=== PATIENT | female | born 1960 | race Caucasian/White ===

== ENCOUNTER 2019-05-22 10:47 | Outpatient (CLI) | payer MEDICARE, MEDICAID, SELFPAY ==
[2019-05-22 11:02] LABS: Basophils Absolute Auto 0.07 K/mm3 (0.00-0.10); Basophils Percent Auto 0.9 % (0.0-1.0); Eosinophils Absolute Auto 0.35 K/mm3 (0.02-0.50); Eosinophils Percent Auto 4.7 % (1.0-6.0); Hematocrit 40.8 % (35.0-49.0); Hemoglobin 13.9 g/dL (12.0-15.0); Immature Granulocyte Absolute 0.03 K/mm3 (0.00-0.00); Immature Granulocyte Percent A 0.4 % (0.0-0.0); Lymphocytes Absolute Auto 1.87 K/mm3 (1.10-4.50); Lymphocytes Percent Auto 24.9 % (18.0-42.0); Mean Corpuscular HGB Conc 34.1 g/dL (32.0-36.0); Mean Corpuscular Hemoglobin 32.1 pg (27.0-31.0); Mean Corpuscular Volume 94.2 fL (78.0-102.0); Mean Platelet Volume 9.5 fl (9.2-11.8); Monocytes Absolute Auto 0.52 K/mm3 (0.10-0.90); Monocytes Percent Auto 6.9 % (2.0-11.0); Neutrophils Absolute Auto 4.7 K/mm3 (1.7-7.2); Neutrophils Percent Auto 62.2 % (50.0-70.0); Platelet Count Result 238 K/mm3 (150-420); Red Blood Count 4.33 M/mm3 (4.20-5.40); Red Cell Distribution Width 13.6 % (11.6-14.4); White Blood Count 7.5 K/mm3 (4.8-10.8)
[2019-05-22 11:03] LABS: Add Urine Microscopic? YES; Appearance Urine Clear (Clear); Bilirubin Urine Negative (Negative); Blood Urine 1+ (Negative); Color Urine Yellow (Yellow); Glucose Urine UA Negative (Negative); Ketones Urine Negative (Negative); Leukocyte Esterase Ur 2+ (Negative); Nitrate Urine Negative (Negative); Protein Urine Negative (Negative); Urobilinogen Urine 0.2 mg/dL (0.2-1.0); pH Urine 6.5 (5.0-8.0)
[2019-05-22 11:08] LABS: Bacteria Urine 1+ /hpf; Squamous Epithelial Cell Urine Few /hpf (Few)
[2019-05-22 11:14] LABS: Partial Thromboplastin Time 27.4 SEC (22.3-31.6); Prothrombin Time 10.3 Seconds (9.64-11.0)
[2019-05-22 11:26] LABS: Alanine Aminotransferase 26 U/L (14-59); Albumin Level 4.2 g/dL (3.4-5.0); Alkaline Phosphatase 88 U/L (46-116); Anion Gap 11.8 mmol/L (7-16); Aspartate Amino Transferase 16 U/L (15-37); Bilirubin,Total 0.3 mg/dL (0.00-1.00); Blood Urea Nitrogen 10 mg/dL (7-18); Calcium 8.9 mg/dL (8.5-10.1); Carbon Dioxide 29 mmol/L (21-32); Chloride 97 mmol/L (98-108); Cholesterol 248 mg/dL (0-200); Estimated Glomerular Filt Rate > 60; Glucose 97 mg/dL (70-99); HDL Direct 61 mg/dL (40-60); LDL Cholesterol Calculated 151 mg/dL (<130); Osmolality Calculated 275 mOsm/kg (285-295); Potassium 4.8 mmol/L (3.5-5.1); Sodium 133 mmol/L (136-145); Total Protein 7.5 g/dL (6.4-8.2); Triglycerides 179 mg/dL (0-150)
== END 2019-05-22 10:48 | disposition home or self-care (01) ==
PROVIDERS: PCP Internal Medicine; Visit Provider Internal Medicine
DX: K62.5 Hemorrhage of anus and rectum (principal); E78.5 Hyperlipidemia, unspecified
CPT/HCPCS: 36415; 80053; 80061; 81001; 85025; 85610; 85730

== ENCOUNTER 2019-09-13 00:07 | Outpatient (CLI) | payer MEDICARE, MEDICAID, SELFPAY ==
[2019-09-13 18:32] LABS: SARS-CoV-2 RNA PCR Negative
== END 2019-09-13 00:08 | disposition home or self-care (01) ==
LOC: ANHCOVIDDT 00:07
PROVIDERS: PCP Internal Medicine; Visit Provider Internal Medicine Gastroenterology
DX: Z01.812 Encounter for preprocedural laboratory examination (principal); Z11.59 Encounter for screening for other viral diseases
CPT/HCPCS: 87635; C9803; U0003

== ENCOUNTER 2019-09-17 08:28 | Outpatient (CLI) | payer MEDICARE, SELFPAY ==
[2019-09-17 09:26] LABS: Alanine Aminotransferase 27 U/L (14-59); Albumin Level 4.1 g/dL (3.4-5.0); Alkaline Phosphatase 82 U/L (46-116); Anion Gap 11.2 mmol/L (7-16); Aspartate Amino Transferase 17 U/L (15-37); Bilirubin,Total 0.4 mg/dL (0.00-1.00); Blood Urea Nitrogen 10 mg/dL (7-18); Calcium 9.2 mg/dL (8.5-10.1); Carbon Dioxide 30 mmol/L (21-32); Chloride 95 mmol/L (98-108); Estimated Glomerular Filt Rate 56; Glucose 123 mg/dL (70-99); Osmolality Calculated 274 mOsm/kg (285-295); Potassium 4.2 mmol/L (3.5-5.1); Sodium 132 mmol/L (136-145); Total Protein 7.5 g/dL (6.4-8.2)
== END 2019-09-17 08:29 | disposition home or self-care (01) ==
LOC: CHSLAB 08:31
PROVIDERS: PCP Internal Medicine; Visit Provider Internal Medicine
DX: E87.1 Hypo-osmolality and hyponatremia (principal)
CPT/HCPCS: 36415; 80053

== ENCOUNTER 2019-10-02 11:30 | Outpatient (CLI) | payer MEDICARE, MEDICAID, SELFPAY ==
--- NOTE | ~2019-10-02 | XR_ITS ---
XR chest 2V DATE: 10/02/2019 12:10 INDICATION: Chronic cough. History of previous lung resection. TECHNIQUE: 2 views COMPARISON: 05/14/2017 two-view chest FINDINGS: Normal heart size. No hilar or mediastinal enlargement. The lungs are hyperinflated but clear of infiltrate or consolidation. No pleural effusion or pulmonar y vascular congestion or pneumothorax. Included skeletal structures are unremarkable. IMPRESSION: Bilateral hyperinflation, suggesting COPD No active cardiopulmonary disease Reviewed, dictated and finalized at location B.
--- NOTE | 2019-10-02 11:40 | ECG_ITS ---
Measurements Intervals [place] Rate: 92 P: 57 OR: 160 QRS: 73 QRSD: 90 T: 68 QT: 350 QTc: 435 Interpretive Statements SINUS RHYTHM BORDERLINE T WAVE ABNORMALITY- ANTERIOR LEADS BORDERLINE ECG Electronically Signed On 10-02-2019 12:01:24 CDT by Everett Dong D.O.
== END 2019-10-02 11:31 | disposition home or self-care (01) ==
PROVIDERS: PCP Internal Medicine; Visit Provider Internal Medicine
DX: J44.1 Chronic obstructive pulmonary disease with (acute) exacerbation (principal); R05 Cough; R55 Syncope and collapse
CPT/HCPCS: 71046; 93005

== ENCOUNTER 2019-10-07 16:17 | Emergency (ER) | payer MEDICARE, MEDICAID, SELFPAY ==
--- NOTE | ~2019-10-07 | CT_ITS ---
EXAMINATION: CT brain wo con EXAM DATE: 10/07/2019 17:36 INDICATION: Disoriented, confusion. TECHNIQUE: Spiral CT of the head was performed without contrast. Axial, coronal and sagittal images were reviewed. The dose-length product (DLP) for this examination was 605.33 mGy-cm. The exposure w as tailored according to patient size, and iterative reconstruction (ASIR) was used as additional dos e reduction technique. There is no prior study for comparison. FINDINGS: There is suspected to be a low-density right frontal lobe lesion measuring about 2.5 cm ant eriorly. There is extensive low density within the right frontal white matter, most likely vasogenic edema. There is 7 mm of leftward midline shift from the edema. No acute hemorrhage, extra-axial colle ctions or obstructive hydrocephalus. The orbits and soft tissues are unremarkable. IMPRESSION: 1. Right frontal lobe lesion, differential diagnosis including metastatic disease, abscess, primary DIETIST neoplasm. MRI without and with contrast is indicated. 2. Mild leftward midline shift from associated vasogenic edema. 3. No acute hemorrhage. Reviewed, dictated and finalized at location A. IMPRESSION: 1. Right frontal lobe lesion, differential diagnosis including metastatic dise ase, abscess, primary DIETIST neoplasm. MRI without and with contrast is indicated. 2. Mild leftward midline shift from associated vasogenic edema. 3. No acute hemorrhage.
--- NOTE | ~2019-10-07 | XR_ITS ---
EXAMINATION: XR chest 1V portable EXAM DATE: 10/07/2019 17:34 INDICATION: Confusion, disoriented. Cough. TECHNIQUE: Portable AP frontal chest x-ray was obtained. Comparison is made to prior examination from 10/02/2019. FINDINGS: The lungs are clear. There are no pleural effusions. The cardiomediastinal silhouette is within normal limits. There is no pneumothorax suspected. The bones and soft tissues are unremarkab le. IMPRESSION: No acute cardiopulmonary findings. Reviewed, dictated and finalized at location A.
[2019-10-07 16:30] VITALS: BP 135/91; PULSE 110; RESP 16; TEMP 36.8; O2SAT 99
--- NOTE | 2019-10-07 17:03 | ECG_ITS ---
Measurements Intervals [place] Rate: 106 P: 61 CT: 158 QRS: 74 QRSD: 82 T: 53 QT: 337 QTc: 449 Interpretive Statements SINUS TACHYCARDIA NONSPECIFIC ST & T-WAVE ABNORMALITY- ANTEROLAT/INF LEADS ABNORMAL ECG Electronically Signed On 10-07-2019 19:36:55 CDT by Everett Dong D.O.
--- NOTE | 2019-10-07 17:23 | ED.AMS ---
HPI - Altered Mental Status General Chief Complaint: Altered Mental Status Stated Complaint: confused Time Seen by Provider: 10/08/19 07:23 Source: patient and family (partner of 25 years,rick Siddiqui) Limitations: altered mental status History of Present Illness HPI narrative: 59 y.o. with chronic alcohol abuse, COPD and chronic pain was brought into the E.D. by her partner of 25 years, Jasiel Siddiqui because of confusion. He states since yesterday she has been referring to him as her father (who is ) , and has been wondering around the house looking for things. She called him for help at 2 AM after having defecated on herself and the floor. Since then she has been unsteady on her feet. Pt. states that she does have diarrhea which occurs abruptly and with urgency. Pt states that her father brought her into [place] E.[facility]. because she isn't acting right . She complains of feeling tired today. Last night she felt like she was in a dream. Mr Siddiqui found her this AM holding a container which had several blue tablets in it. He does not know what the medicine is or what it's for. Pt. states yesterday she took a pinch of Xanax crumbled on the bottom of a botte. 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 Jasiel Siddiqui says she drinks a lot of beer every day and has for along time. Mr Siddiqui also states she has been forgetting a lot for months. This is recently worse. Mr. Siddiqui states she has been complaining of a headache for weeks. Walks around holding the right side of her head. Pt states she has minor pain in her neck today. Pt states she has been coughing the last couple of days. She saw Dr. 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 There has been no fever's or chills. Related Data Home Medications Medication Instructions Recorded Confirmed budesonide-formoterol [Symbicort] 2 puff INHALATION DAILY 09/09/19 10/07/19 cyclobenzaprine 10 mg PO BID 09/09/19 10/07/19 diclofenac sodium 75 mg PO DAILY 09/09/19 10/07/19 fluticasone furoate-vilanterol 2 inh INHALATION DAILY 09/09/19 10/07/19 [Breo Ellipta] gabapentin 600 mg PO DAILY 09/09/19 10/07/19 metoprolol succinate 50 mg PO DAILY 09/09/19 10/07/19 montelukast 10 mg PO DAILY 09/09/19 10/07/19 omeprazole 40 mg PO DAILY 09/09/19 10/07/19 pravastatin 10 mg PO DAILY 09/09/19 10/07/19 ropinirole 0.5 mg PO DAILY 09/09/19 10/07/19 venlafaxine 75 mg PO DAILY 09/09/19 10/07/19 Allergies Allergy/AdvReac Type Severity Reaction Status Date / Time tramadol Allergy Unknown Vomiting Verified 08/22/19 10:30 Review of Systems Constitutional: Constitutional: Denies chills and Denies fever(s) Eyes: Eyes: Denies change in vision ENT: Denies nasal congestion and Denies sore throat Cardiovascular: Cardiovascular: Denies chest pain Respiratory: Respiratory: Denies dyspnea and Denies wheezing Gastrointestinal: Gastrointestinal: Denies abdominal pain, Denies nausea and Denies vomiting Genitourinary: Genitourinary: Denies dysuria Musculoskeletal: Musculoskeletal: Denies myalgias and Denies arthralgias Integumentary/Breasts: Skin/Breast: Reports rash (several bumps on abdomen) Neurologic: Denies dizziness and Denies numbness Psychiatric: Psychiatric: Reports depression (states has been feeling down, has decreased motivation. No suicidal thought) [facility] Past Medical History Medical History (Updated 10/08/19 @ 05:53 by Ranjeet Pitts MD) Adenomatous colon polyp Bloating Bloating Breast CA Epigastric pain GERD (gastroesophageal reflux disease) Lung cancer Rectal bleeding Surgical History Surgical History (Updated 10/07/19 @ 17:48 by Ranjeet Pitts MD) S/P lumpectomy of breast Family History Family History (Updated 10/23/13 @ 07:13 by DOCTOR UNKNOWN) Father Carcinoma of colon Mother Family history of renal cell carcinoma Social History Social History (Updated 10/07/19 @ 17:49 by Ranjeet Pitts MD) Smoking status: Heavy tobac
[2019-10-07 17:32] LABS: Add Urine Microscopic? YES; Appearance Urine Clear (Clear); Bilirubin Urine Negative (Negative); Blood Urine 1+ (Negative); Color Urine Yellow (Yellow); Glucose Urine UA Negative (Negative); Ketones Urine Negative (Negative); Leukocyte Esterase Ur Negative (Negative); Nitrate Urine Negative (Negative); Protein Urine Negative (Negative); Urobilinogen Urine 0.2 mg/dL (0.2-1.0); pH Urine 6.5 (5.0-8.0)
[2019-10-07 17:38] LABS: Bacteria Urine Trace /hpf; Squamous Epithelial Cell Urine Few /hpf (Few); WBC Urine 0-3 /hpf (0-3)
[2019-10-07 17:40] LABS: Amphetamine Screen Urine Negative (Negative); Barbiturate Screen Urine Negative (Negative); Benzodiazepines Screen Urine Positive (Negative); Cannabinoid Screen Urine Positive (Negative); Cocaine Screen Urine Negative (Negative); Methadone Screen Urine Negative (Negative); Opiate Screen Urine Negative (Negative); Phencyclidine Screen Urine Negative (Negative)
[2019-10-07 17:59] LABS: Basophils Absolute Auto 0.05 K/mm3 (0.00-0.10); Basophils Percent Auto 0.8 % (0.0-1.0); Eosinophils Absolute Auto 0.27 K/mm3 (0.02-0.50); Eosinophils Percent Auto 4.3 % (1.0-6.0); Hematocrit 37.8 % (35.0-49.0); Hemoglobin 12.9 g/dL (12.0-15.0); Immature Granulocyte Absolute 0.03 K/mm3 (0.00-0.00); Immature Granulocyte Percent A 0.5 % (0.0-0.0); Lymphocytes Absolute Auto 1.85 K/mm3 (1.10-4.50); Lymphocytes Percent Auto 29.3 % (18.0-42.0); Mean Corpuscular HGB Conc 34.1 g/dL (32.0-36.0); Mean Corpuscular Hemoglobin 31.5 pg (27.0-31.0); Mean Corpuscular Volume 92.4 fL (78.0-102.0); Mean Platelet Volume 9.5 fl (9.2-11.8); Monocytes Absolute Auto 0.36 K/mm3 (0.10-0.90); Monocytes Percent Auto 5.7 % (2.0-11.0); Neutrophils Absolute Auto 3.8 K/mm3 (1.7-7.2); Neutrophils Percent Auto 59.4 % (50.0-70.0); Platelet Count Result 220 K/mm3 (150-420); Red Blood Count 4.09 M/mm3 (4.20-5.40); Red Cell Distribution Width 13.4 % (11.6-14.4); White Blood Count 6.3 K/mm3 (4.8-10.8)
[2019-10-07 18:21] LABS: Alanine Aminotransferase 29 U/L (14-59); Albumin Level 3.9 g/dL (3.4-5.0); Alkaline Phosphatase 82 U/L (46-116); Ammonia < 10 umol/L (11-32); Anion Gap 7 mmol/L (8-16); Aspartate Amino Transferase 23 U/L (15-37); Bilirubin,Total 0.4 mg/dL (0.00-1.00); Blood Urea Nitrogen 7 mg/dL (7-18); Calcium 9.4 mg/dL (8.5-10.1); Carbon Dioxide 29 mmol/L (21-32); Chloride 99 mmol/L (98-108); Estimated CRCL calculation 66 ml/min; Estimated Glomerular Filt Rate > 60; Ethanol < 3 mg/dL (0-6); Glucose 109 mg/dL (70-99); Osmolality Calculated 279 mOsm/kg (285-295); Potassium 3.5 mmol/L (3.5-5.1); Sodium 135 mmol/L (136-145); Thyroid Stimulating Hormone 1.51 uIU/mL (0.36-3.74); Total Protein 7.5 g/dL (6.4-8.2)
[2019-10-07 18:22] LABS: Magnesium 1.8 mg/dL (1.8-2.4)
--- NOTE | 2019-10-07 18:48 | PC.NURSE ---
Pt requesting [place] for transfer. [facility] being first choice. [facility] contacted, no beds available.
--- NOTE | 2019-10-07 18:58 | PC.NURSE ---
[facility] contacted, dr ambrocio speaking with dr. jaramillo.
[2019-10-07 19:00] VITALS: BP 129/72; PULSE 96; RESP 18; O2SAT 100
[2019-10-07] MEDS: DEXAMETHASONE SOD PHOS INJ 4 MG/ML VIAL 10 MG IV PUSH (19:17)
--- NOTE | 2019-10-07 19:30 | PC.NURSE ---
NO BEDS AVAILABLE TILL AT LEAST TOMORROW AM. PT TO BE PLACED ON ER HOLD. PT TO GO TO ROOM 207, REPORT TO CLARISSA CORADO.
--- NOTE | 2019-10-07 19:55 | PC.NURSE ---
pt arrived to room via stretcher with a and p technician, pt a&o x3, oriented to room, procedures, call light. vital signs obtained, bed alarm set, pt denies any pain, belongings within reach
[2019-10-07 20:00] VITALS: BP 144/91; PULSE 96; RESP 20; TEMP 36.2; O2SAT 97
--- NOTE | 2019-10-07 20:30 | PC.NURSE ---
pt given turkey sandwich, jello, and soda
--- NOTE | 2019-10-07 21:25 | PC.NURSE ---
pt requested something to help her to not cry pt states she is feeling sad and misses her dad. pt is asking to go home and would like to leave, educated pt on reasons for staying and the transfer for higher level of care. pt verbalized understanding
--- NOTE | 2019-10-07 22:20 | PC.NURSE ---
pt ambulated to bathroom with sba, tolerated well, voided clear yellow urine
[2019-10-07] MEDS: SALINE LOCK FLUSH 2 ML IV PUSH (22:31)
--- NOTE | 2019-10-07 22:44 | PC.NURSE ---
call placed to Jasiel for pt, transferred to pt room
--- NOTE | 2019-10-07 23:20 | PC.NURSE ---
pt sleeping, respirations even and regular, no evidence of distress noted, iv fluids infusing per order
[2019-10-08 00:15] VITALS: BP 143/87; PULSE 100; RESP 20; TEMP 36.2; O2SAT 96
--- NOTE | 2019-10-08 01:15 | PC.NURSE ---
pt assisted to bathroom, tolerated well, ambulated with sba
--- NOTE | 2019-10-08 02:30 | PC.NURSE ---
pt ambulated to bathroom, tolerated well, iv fluids completed iv flushed and locked, denies any other needs at this time.
--- NOTE | 2019-10-08 03:20 | PC.NURSE ---
pt c/o headache, charge master analyst called Dr. Pitts for medication order
[2019-10-08] MEDS: ACETAMINOPHEN 500 MG TABLET 1000 MG PO (03:52)
[2019-10-08 04:26] VITALS: BP 143/84; PULSE 93; RESP 18; TEMP 35.8; O2SAT 98
--- NOTE | 2019-10-08 04:50 | PC.NURSE ---
pt ambulated to bathroom, sba, tolerated well, denies any other needs at this time
[2019-10-08] MEDS: SALINE LOCK FLUSH 2 ML IV PUSH (06:00)
--- NOTE | 2019-10-08 09:02 | PC.NURSE ---
0800 [facility] called c bed and transferred to floor nursing for report. 0840 Call placed to [facility] for pt. transfer per request of 2nd floor nrsg. 0900 [facility].
== END 2019-10-08 09:10 | disposition short-term general hospital (02) ==
LOC: CHSED 10-08 05:53 → CHS2ND 10-08 07:04
PROVIDERS: Family Medicine; Emergency Provider Emergency Medicine; PCP Internal Medicine
DX: R22.0 Localized swelling, mass and lump, head (principal); F10.10 Alcohol abuse, uncomplicated; R41.82 Altered mental status, unspecified; Z79.899 Other long term (current) drug therapy
CPT/HCPCS: 36415; 70450; 71045; 80053; 80307; 81001; 82140; 83735; 84443; 85025; 93005; 96361; 96365; 96366; 96375; 99285; J1100; J2060; J3411; J3475; J7030

== ENCOUNTER 2019-10-27 08:38 | Outpatient (CLI) | payer MEDICARE, MEDICAID, SELFPAY ==
--- NOTE | ~2019-10-27 | NM_ITS ---
EXAMINATION: NM sarai stress w perfusion DATE: 10/27/2019 12:51 INDICATION: Dyspnea on exertion. TECHNIQUE: Rest images were obtained following intravenous administration of 10.2 mCi Tc99m tetrofosm in (Myoview). The patient was infused intravenously with Lexiscan (regadenoson). Then, 29.5 mCi Tc99m tetrofosmin (Myoview) was administered intravenously, and stress images were obtained. Data was derrick nstructed into short axis and horizontal and vertical long axis SPECT images. Gated SPECT images were also obtained. COMPARISON: Myocardial perfusion imaging 11/03/2015 FINDINGS: There is no definite reversible or fixed perfusion abnormality to suggest ischemia or infar ction. There is no segmental wall motion abnormality. Left ventricular ejection fraction measures 6 1%. IMPRESSION: 1. No definite ischemia or infarct. 2. Normal left ventricular ejection fraction measuring 61%. Reviewed, dictated and finalized at location A.
--- NOTE | 2019-10-27 08:51 | EST_ITS ---
Patient Info Name: Elisha Garcia Age: 59 years : 1960 Gender: Female Ht: 65 in Wt: 187 lbs BSA: 2.00 m2 Exam Date: 10/27/2019 11:50 AM Exam Location: [facility] Stress Patient Status: Outpatient Admit Date: 10/27/2019 Staff Ordering Physician: Everett Dong DO Attending Provider: Everett Dong DO Exercise Technologist: Amarilis Alexander RDCS Exercise Physician: Everett Dong DO Exam Type: CA stress sraai w NM Study Info Indications R06.09 - Other forms of dyspnea A regadenoson stress test was performed. Summary 1. 1. Negative Lexiscan stress test for ischemic ST changes by ECG criteria. 2. 2. Stable hemodynamics throughout the test. 3. 3. Nuclear scan to follow and will be reported separately. Please correlate with it. 4. 4. Patient informed of the above results. Protocol: Lexiscan Stress ECG Details Stage: REST Duration (min): 4 min : 54 sec HR (bpm): 77 SBP (mmHg): 119 DBP (mmHg): 81 Stage: REST Duration (min): 9 min : 31 sec HR (bpm): 77 SBP (mmHg): 119 DBP (mmHg): 81 Stage: STAGE 1 Duration (min): 1 min : 0 sec HR (bpm): 84 SBP (mmHg): 119 DBP (mmHg): 81 Stage: RECOVERY Duration (min): 1 min : 0 sec HR (bpm): 96 SBP (mmHg): 117 DBP (mmHg): 63 Stage: RECOVERY Duration (min): 2 min : 0 sec HR (bpm): 99 SBP (mmHg): 117 DBP (mmHg): 63 Stage: RECOVERY Duration (min): 3 min : 0 sec HR (bpm): 95 SBP (mmHg): 125 DBP (mmHg): 76 Stage: RECOVERY Duration (min): 3 min : 5 sec HR (bpm): 94 SBP (mmHg): 125 DBP (mmHg): 76 Rest HR: 77 bpm Peak HR: 100 bpm Rest Sys BP: 119 mmHg Peak Sys BP: 125 mmHg Max Pred HR: 161 bpm % Max Pred HR: 62 % Target HR: 137 bpm Max RPP: 12,500 bpm*mmHg Termination Reason: Completed protocol Cardiac Symptoms: Shortness of breath Total Time: 1 min : 0 sec Rest Lim BP: 81 mmHg Peak Lim BP: 76 mmHg Total Dose: 0.4 mg Resting ECG Sinus rhythm with borderline ST abnormality in diffuse leads. Stress ECG No ST changes. Arrhythmias None. Report Signatures
--- NOTE | 2019-10-27 08:51 | ECHO_ITS ---
Patient Info Name: Elisha Garcia Age: 59 years : 1960 Gender: Female Ht: 65 in Wt: 187 lbs BSA: 2.00 m2 HR: 78 bpm BP: 131 / 78 mmHg Technical Quality: Fair Exam Date: 10/27/2019 9:15 AM Exam Location: [facility] Pulmonary Patient Status: Outpatient Admit Date: 10/27/2019 Staff Ordering Physician: Everett Dong DO T Rail Turner: Yaritza Vogt RDCS Attending Provider: Everett Dong DO Referring Physician: Iker KASPER; Exam Type: CA echo dop color flow w con Study Info Indications - SWEET Complete two-dimensional, color flow and Doppler transthoracic echocardiogram is performed with contrast to opacify the left ventricle and to improve the deliniation of the left ventricle endocardial borders. Summary 1. Left ventricular chamber dimension is normal. 2. Definity contrast administered improved wall motion interpretation. 3. Left ventricular systolic function is normal, estimated at 60-65%. 4. The left ventricular diastolic function is grade I diastolic dysfunction. 5. E/e' 15 is elevated. 6. Mild right ventricular hypertrophy. 7. No pulmonary hypertension, estimated pulmonary arterial systolic pressure is 30 mmHg. Left Ventricle E/e' 15 is elevated. Definity contrast administered improved wall motion interpretation. Left ventricular chamber dimension is normal. Left ventricular systolic function is normal, estimated at 60-65%. The left ventricular diastolic function is grade I diastolic dysfunction. Right Ventricle Mild right ventricular hypertrophy. Right ventricular chamber dimension is normal. Right ventricular systolic function is normal. Left Atria Left atrial chamber dimension is normal. Right Atria Right atrial chamber dimension is normal. Aortic Valve The aortic valve is trileaflet. There is no aortic valve stenosis. There is no aortic valve regurgitation. Pulmonic Valve There is no pulmonic regurgitation. Mitral Valve There is no mitral valve stenosis. There is no mitral valve regurgitation. Tricuspid Valve There is no tricuspid valve regurgitation. No pulmonary hypertension, estimated pulmonary arterial systolic pressure is 30 mmHg. Pericardium/Pleural There is no pericardial effusion. Inferior Vena Cava Normal inferior vena cava with >50% collapse upon inspiration consistent with normal right atrial pressure, 5 mmHg. Aorta The aortic root size at the sinus of Valsalva is normal. Left Ventricular Outflow Tract Name Value Normal LVOT 2D LVOT Diameter 2.01 cm LVOT Doppler LVOT Peak Gradient 3 mmHg LVOT Mean Gradient 2 mmHg LVOT VTI 20.97 cm LVOT VTI/AV VTI Ratio 0.95 LVOT Stroke Volume 66.33 ml LVOT CO 13.41 l/min LVOT CI 6.70 L/min/m2 Pulmonic Valve Name Value Normal
[2019-10-27] MEDS: PERFLUTREN LIPID MICROSPHERES 1.5 ML VIAL DILUTED TO 10 ML TOTAL VOLUME IV PUSH (09:59)
== END 2019-10-27 08:39 | disposition home or self-care (01) ==
PROVIDERS: PCP Internal Medicine; Visit Provider Internal Medicine Cardiovascular Disease
DX: R06.00 Dyspnea, unspecified (principal)
CPT/HCPCS: 78452; 93017; A9502; C8929; J2785

== ENCOUNTER 2020-01-21 11:40 | Outpatient (CLI) | payer MEDICARE, MEDICAID, SELFPAY ==
[2020-01-21] MEDS: CYANOCOBALAMIN INJ 1,000 MCG/ML VIAL 1000 MCG IM (12:06)
--- NOTE | 2020-01-21 12:06 | PC.NURSE ---
Patient here for Vit B 12 injection 1. Patient will be started Chemo next week. B12 is pre med 1 week prior. Chemo teaching done. All concerns answered. Vit B12 injection administered. Tolerated well. Safe exit of hospital. Will return in next Jan 28 for chemo
== END 2020-01-21 11:41 | disposition home or self-care (01) ==
LOC: CHSTREATRM 11:47
PROVIDERS: PCP Internal Medicine; Visit Provider Internal Medicine Hematology & Oncology
DX: C34.2 Malignant neoplasm of middle lobe, bronchus or lung (principal)
CPT/HCPCS: 96372; J3420

== ENCOUNTER 2020-01-29 10:04 | Outpatient (CLI) | payer MEDICARE, MEDICAID, SELFPAY ==
[2020-01-29 10:32] VITALS: BP 114/68; PULSE 100; RESP 16; TEMP 36.4; O2SAT 99
[2020-01-29 10:33] LABS: Basophils Absolute Auto 0.05 K/mm3 (0.00-0.10); Basophils Percent Auto 0.4 % (0.0-1.0); Eosinophils Absolute Auto 0.12 K/mm3 (0.02-0.50); Hematocrit 32.9 % (35.0-49.0); Hemoglobin 10.9 g/dL (12.0-15.0); Immature Granulocyte Absolute 0.23 K/mm3 (0.00-0.00); Immature Granulocyte Percent A 1.9 % (0.0-0.0); Lymphocytes Absolute Auto 2.74 K/mm3 (1.10-4.50); Lymphocytes Percent Auto 22.2 % (18.0-42.0); Mean Corpuscular HGB Conc 33.1 g/dL (32.0-36.0); Mean Corpuscular Volume 93.5 fL (78.0-102.0); Mean Platelet Volume 8.8 fl (9.2-11.8); Monocytes Absolute Auto 0.86 K/mm3 (0.10-0.90); Neutrophils Absolute Auto 8.4 K/mm3 (1.7-7.2); Neutrophils Percent Auto 67.5 % (50.0-70.0); Platelet Count Result 261 K/mm3 (150-420); Red Blood Count 3.52 M/mm3 (4.20-5.40); Red Cell Distribution Width 13.3 % (11.6-14.4); White Blood Count 12.4 K/mm3 (4.8-10.8)
[2020-01-29 10:48] LABS: Alanine Aminotransferase 36 U/L (14-59); Albumin Level 3.5 g/dL (3.4-5.0); Alkaline Phosphatase 85 U/L (46-116); Anion Gap 8 mmol/L (8-16); Aspartate Amino Transferase < 10 U/L (15-37); Bilirubin,Total 0.2 mg/dL (0.00-1.00); Blood Urea Nitrogen 13 mg/dL (7-18); Calcium 8.6 mg/dL (8.5-10.1); Carbon Dioxide 29 mmol/L (21-32); Chloride 96 mmol/L (98-108); Estimated Glomerular Filt Rate > 60; Glucose 136 mg/dL (70-99); Osmolality Calculated 278 mOsm/kg (285-295); Potassium 3.4 mmol/L (3.5-5.1); Sodium 133 mmol/L (136-145); Total Protein 6.7 g/dL (6.4-8.2)
[2020-01-29] MEDS: FAMOTIDINE 20 MG/ISO 50 ML 20 MG/50 ML BAG 100 MG IVPB (11:27)
[2020-01-29] MEDS: SODIUM CHLORIDE 0.9% IV 250 ML 10 ML IVPB (11:27)
[2020-01-29] MEDS: diphenhydrAMINE HCl INJ 50 MG/ML VIAL 25 MG IV PUSH (11:27)
[2020-01-29] MEDS: HEPARIN SOD FLUSH 500 UNITS/5 ML SYRINGE IV PUSH (13:15)
[2020-01-29 13:21] VITALS: BP 109/66; PULSE 90; RESP 16; TEMP 36.5; O2SAT 96
--- NOTE | 2020-01-29 13:24 | PC.NURSE ---
Patient here for Cycle 1 chemo therapy regime. Education given last week when came for B12 injection. Reeducated to day on chemo regime. Labs drawn from port and sent to lab. Labs ok's to give chemo. Chemo regime administered. Tolerated really well. Will see Dr. Araujo either 02/05 or 02/12 then will be back for cycle 2 regime 02/18. Safe exit of hospital.
== END 2020-01-29 10:05 | disposition home or self-care (01) ==
LOC: CHSLAB 10:07 → CHSTREATRM 10:56
PROVIDERS: PCP Internal Medicine; Visit Provider Internal Medicine Hematology & Oncology
DX: Z51.11 Encounter for antineoplastic chemotherapy (principal); C34.2 Malignant neoplasm of middle lobe, bronchus or lung
CPT/HCPCS: 36415; 80053; 85025; 96365; 96367; 96375; 96409; 96411; 96413; 96417; J1100; J1200; J2405; J7050; J9045; J9305

== ENCOUNTER 2020-02-12 14:43 | Outpatient (CLI) | payer MEDICARE, SELFPAY ==
[2020-02-12 14:55] LABS: Basophils Absolute Auto 0.02 K/mm3 (0.00-0.10); Basophils Percent Auto 0.3 % (0.0-1.0); Eosinophils Absolute Auto 0.02 K/mm3 (0.02-0.50); Eosinophils Percent Auto 0.3 % (1.0-6.0); Hematocrit 32.8 % (35.0-49.0); Immature Granulocyte Absolute 0.09 K/mm3 (0.00-0.00); Immature Granulocyte Percent A 1.2 % (0.0-0.0); Lymphocytes Absolute Auto 1.38 K/mm3 (1.10-4.50); Lymphocytes Percent Auto 18.3 % (18.0-42.0); Mean Corpuscular HGB Conc 33.5 g/dL (32.0-36.0); Mean Corpuscular Volume 92.4 fL (78.0-102.0); Mean Platelet Volume 8.2 fl (9.2-11.8); Monocytes Absolute Auto 0.67 K/mm3 (0.10-0.90); Monocytes Percent Auto 8.9 % (2.0-11.0); Neutrophils Absolute Auto 5.4 K/mm3 (1.7-7.2); Platelet Count Result 232 K/mm3 (150-420); Red Blood Count 3.55 M/mm3 (4.20-5.40); Red Cell Distribution Width 13.1 % (11.6-14.4); White Blood Count 7.5 K/mm3 (4.8-10.8)
[2020-02-12 15:45] LABS: Alanine Aminotransferase 97 U/L (14-59); Albumin Level 3.8 g/dL (3.4-5.0); Alkaline Phosphatase 86 U/L (46-116); Anion Gap 8 mmol/L (8-16); Aspartate Amino Transferase 25 U/L (15-37); Bilirubin,Total 0.2 mg/dL (0.00-1.00); Blood Urea Nitrogen 13 mg/dL (7-18); Calcium 9.2 mg/dL (8.5-10.1); Carbon Dioxide 28 mmol/L (21-32); Chloride 94 mmol/L (98-108); Estimated Glomerular Filt Rate > 60; Glucose 230 mg/dL (70-99); Magnesium 1.4 mg/dL (1.8-2.4); Osmolality Calculated 277 mOsm/kg (285-295); Potassium 3.8 mmol/L (3.5-5.1); Sodium 130 mmol/L (136-145); Total Protein 7.2 g/dL (6.4-8.2)
== END 2020-02-12 14:44 | disposition home or self-care (01) ==
LOC: CHSLAB 14:45
PROVIDERS: PCP Internal Medicine; Visit Provider Internal Medicine Hematology & Oncology
DX: C34.90 Malignant neoplasm of unspecified part of unspecified bronchus or lung (principal)
CPT/HCPCS: 36415; 80053; 83735; 85025

== ENCOUNTER 2020-02-19 09:55 | Outpatient (CLI) | payer MEDICARE, MEDICAID, SELFPAY ==
[2020-02-19 10:12] VITALS: BP 123/67; PULSE 92; RESP 16; TEMP 36.7; O2SAT 98
[2020-02-19] MEDS: diphenhydrAMINE HCl INJ 50 MG/ML VIAL 25 MG IV PUSH (10:38)
[2020-02-19] MEDS: SODIUM CHLORIDE 0.9% IV 250 ML 10 ML IVPB (10:39)
[2020-02-19] MEDS: FAMOTIDINE 20 MG/ISO 50 ML 20 MG/50 ML BAG 100 MG IVPB (10:39)
[2020-02-19] MEDS: HEPARIN SOD FLUSH 500 UNITS/5 ML SYRINGE IV PUSH (13:55)
[2020-02-19 14:08] VITALS: BP 120/74; PULSE 68; RESP 14; TEMP 36.4; O2SAT 97
--- NOTE | 2020-02-19 14:10 | PC.NURSE ---
Patient here for cycle 2 Pemetrexed and Carboplatin chemo regime. Labs reviewed from 02/[address] Araujo in the office and ok'd. NO concerns voiced. Chemo regimen administered. Tolerated it well. SAfe exit of hospital. Will return
== END 2020-02-19 09:56 | disposition home or self-care (01) ==
PROVIDERS: PCP Internal Medicine; Visit Provider Internal Medicine Hematology & Oncology
DX: Z51.11 Encounter for antineoplastic chemotherapy (principal); C34.2 Malignant neoplasm of middle lobe, bronchus or lung
CPT/HCPCS: 96367; 96375; 96411; 96413; 96417; J1100; J1200; J2405; J7050; J9045

== ENCOUNTER 2020-03-05 10:49 | Outpatient (CLI) | payer MEDICARE, SELFPAY ==
[2020-03-05 11:00] LABS: Basophils Absolute Auto 0.02 K/mm3 (0.00-0.10); Basophils Percent Auto 0.4 % (0.0-1.0); Eosinophils Absolute Auto 0.14 K/mm3 (0.02-0.50); Hematocrit 32.6 % (35.0-49.0); Hemoglobin 10.9 g/dL (12.0-15.0); Immature Granulocyte Absolute 0.04 K/mm3 (0.00-0.00); Immature Granulocyte Percent A 0.9 % (0.0-0.0); Lymphocytes Percent Auto 36.6 % (18.0-42.0); Mean Corpuscular HGB Conc 33.4 g/dL (32.0-36.0); Mean Corpuscular Hemoglobin 30.7 pg (27.0-31.0); Mean Corpuscular Volume 91.8 fL (78.0-102.0); Mean Platelet Volume 8.7 fl (9.2-11.8); Monocytes Absolute Auto 0.34 K/mm3 (0.10-0.90); Monocytes Percent Auto 7.3 % (2.0-11.0); Neutrophils Absolute Auto 2.4 K/mm3 (1.7-7.2); Neutrophils Percent Auto 51.8 % (50.0-70.0); Platelet Count Result 181 K/mm3 (150-420); Red Blood Count 3.55 M/mm3 (4.20-5.40); Red Cell Distribution Width 14.2 % (11.6-14.4); White Blood Count 4.7 K/mm3 (4.8-10.8)
[2020-03-05 11:25] LABS: Alanine Aminotransferase 164 U/L (14-59); Albumin Level 3.4 g/dL (3.4-5.0); Alkaline Phosphatase 97 U/L (46-116); Anion Gap 6 mmol/L (8-16); Aspartate Amino Transferase 32 U/L (15-37); Bilirubin,Total 0.3 mg/dL (0.00-1.00); Blood Urea Nitrogen 9 mg/dL (7-18); Calcium 8.6 mg/dL (8.5-10.1); Carbon Dioxide 32 mmol/L (21-32); Chloride 97 mmol/L (98-108); Estimated Glomerular Filt Rate > 60; Glucose 229 mg/dL (70-99); Osmolality Calculated 285 mOsm/kg (285-295); Potassium 3.6 mmol/L (3.5-5.1); Sodium 135 mmol/L (136-145); Total Protein 7.1 g/dL (6.4-8.2)
[2020-03-05 11:48] LABS: Thyroid Stimulating Hormone Reflex 1.15 u/IU/mL (0.36-3.74)
[2020-03-10 13:43] LABS: Cortisol Random 4.1 mcg/dL (***)
== END 2020-03-05 10:50 | disposition home or self-care (01) ==
LOC: CHSLAB 10:51
PROVIDERS: PCP Internal Medicine; Visit Provider Internal Medicine Hematology & Oncology
DX: C50.919 Malignant neoplasm of unspecified site of unspecified female breast (principal); Z79.899 Other long term (current) drug therapy
CPT/HCPCS: 36415; 80053; 82533; 84443; 85025

== ENCOUNTER 2020-03-11 10:02 | Outpatient (CLI) | payer MEDICARE, MEDICAID, SELFPAY ==
[2020-03-11 10:24] VITALS: BP 141/73; PULSE 100; RESP 16; TEMP 36.3; O2SAT 96
[2020-03-11] MEDS: FAMOTIDINE 20 MG/ISO 50 ML 20 MG/50 ML BAG 100 MG IVPB (10:30)
[2020-03-11] MEDS: diphenhydrAMINE HCl INJ 50 MG/ML VIAL 25 MG IV PUSH (10:47)
[2020-03-11] MEDS: SODIUM CHLORIDE 0.9% IV 250 ML 10 ML IVPB (10:49)
[2020-03-11] MEDS: PEMBROLIZUMAB 200 MG in SODIUM CHLORIDE 0.9% IV 100 ML IVPB (11:24)
[2020-03-11] MEDS: HEPARIN SOD FLUSH 500 UNITS/5 ML SYRINGE IV PUSH (12:50)
[2020-03-11 13:07] VITALS: BP 145/80; PULSE 100; RESP 18; TEMP 36.5; O2SAT 97
--- NOTE | 2020-03-11 13:17 | PC.NURSE ---
Patient here for cycle 3 chemo regimen. Labs reviewed and Ok'd by . Chemo regimen administered. Tolerated well. No concerns voiced. Will return Apr 01, 2020. Safe exit of hospital.
== END 2020-03-11 10:03 | disposition home or self-care (01) ==
LOC: CHSLAB 10:04 → CHSTREATRM 10:12
PROVIDERS: PCP Internal Medicine; Visit Provider Internal Medicine Hematology & Oncology
DX: Z51.11 Encounter for antineoplastic chemotherapy (principal); C34.2 Malignant neoplasm of middle lobe, bronchus or lung
CPT/HCPCS: 96367; 96375; 96411; 96413; 96417; J1100; J1200; J2405; J7050; J9045; J9271; J9305

== ENCOUNTER 2020-03-30 12:01 | Outpatient (CLI) | payer MEDICARE, SELFPAY ==
[2020-03-30 12:11] LABS: Basophils Absolute Auto 0.04 K/mm3 (0.00-0.10); Basophils Percent Auto 0.8 % (0.0-1.0); Eosinophils Absolute Auto 0.45 K/mm3 (0.02-0.50); Eosinophils Percent Auto 8.7 % (1.0-6.0); Hematocrit 31.7 % (35.0-49.0); Hemoglobin 10.5 g/dL (12.0-15.0); Immature Granulocyte Absolute 0.03 K/mm3 (0.00-0.00); Immature Granulocyte Percent A 0.6 % (0.0-0.0); Lymphocytes Percent Auto 28.9 % (18.0-42.0); Mean Corpuscular HGB Conc 33.1 g/dL (32.0-36.0); Mean Corpuscular Hemoglobin 30.9 pg (27.0-31.0); Mean Corpuscular Volume 93.2 fL (78.0-102.0); Mean Platelet Volume 8.3 fl (9.2-11.8); Monocytes Absolute Auto 0.36 K/mm3 (0.10-0.90); Monocytes Percent Auto 6.9 % (2.0-11.0); Neutrophils Absolute Auto 2.8 K/mm3 (1.7-7.2); Neutrophils Percent Auto 54.1 % (50.0-70.0); Platelet Count Result 224 K/mm3 (150-420); Red Cell Distribution Width 15.2 % (11.6-14.4); White Blood Count 5.2 K/mm3 (4.8-10.8)
[2020-03-30 13:05] LABS: Alanine Aminotransferase 36 U/L (14-59); Albumin Level 3.4 g/dL (3.4-5.0); Alkaline Phosphatase 109 U/L (46-116); Anion Gap 10 mmol/L (8-16); Aspartate Amino Transferase 27 U/L (15-37); Bilirubin,Total 0.2 mg/dL (0.00-1.00); Blood Urea Nitrogen 6 mg/dL (7-18); Calcium 9.2 mg/dL (8.5-10.1); Carbon Dioxide 30 mmol/L (21-32); Chloride 96 mmol/L (98-108); Estimated Glomerular Filt Rate > 60; Glucose 237 mg/dL (70-99); Osmolality Calculated 287 mOsm/kg (285-295); Potassium 3.6 mmol/L (3.5-5.1); Sodium 136 mmol/L (136-145); Total Protein 7.1 g/dL (6.4-8.2)
[2020-03-30 13:34] LABS: Thyroid Stimulating Hormone Reflex 0.47 u/IU/mL (0.36-3.74)
[2020-04-01 05:11] LABS: Cortisol Random 3.9 mcg/dL (***)
== END 2020-03-30 12:02 | disposition home or self-care (01) ==
PROVIDERS: PCP Internal Medicine; Visit Provider Internal Medicine Hematology & Oncology
DX: C34.90 Malignant neoplasm of unspecified part of unspecified bronchus or lung (principal); E34.9 Endocrine disorder, unspecified; Z79.899 Other long term (current) drug therapy
CPT/HCPCS: 36415; 80053; 82533; 84443; 85025

== ENCOUNTER 2020-04-01 09:51 | Outpatient (CLI) | payer MEDICARE, MEDICAID, SELFPAY ==
[2020-04-01 10:11] VITALS: BP 143/88; PULSE 100; RESP 20; TEMP 36.5; O2SAT 94
[2020-04-01] MEDS: SODIUM CHLORIDE 0.9% IV 250 ML 10 ML IVPB (10:12)
[2020-04-01] MEDS: FAMOTIDINE 20 MG/ISO 50 ML 20 MG/50 ML BAG 150 MG IVPB (10:13)
[2020-04-01] MEDS: diphenhydrAMINE HCl INJ 50 MG/ML VIAL 25 MG IV PUSH (10:13)
[2020-04-01] MEDS: PEMBROLIZUMAB 200 MG in SODIUM CHLORIDE 0.9% IV 100 ML IVPB (11:13)
[2020-04-01] MEDS: HEPARIN SOD FLUSH 500 UNITS/5 ML SYRINGE IV PUSH (12:38)
[2020-04-01 12:52] VITALS: BP 130/88; PULSE 92; RESP 16; TEMP 36.5; O2SAT 97
--- NOTE | 2020-04-01 12:55 | PC.NURSE ---
Patient here for cycle 4 chemo regimen. Labs reviewed from 03/30/20 and ok'd. Chemo drugs reviewed. No concerns. Chemo regimen administered. Tolerated well. Will return 04/22/20. Safe exit of hospital.
== END 2020-04-01 09:52 | disposition home or self-care (01) ==
LOC: CHSTREATRM 09:53
PROVIDERS: PCP Internal Medicine; Visit Provider Internal Medicine Hematology & Oncology
DX: Z51.11 Encounter for antineoplastic chemotherapy (principal); C34.2 Malignant neoplasm of middle lobe, bronchus or lung
CPT/HCPCS: 96367; 96375; 96411; 96413; 96417; J1100; J1200; J2405; J7050; J9045; J9271; J9305

== ENCOUNTER 2020-04-19 23:21 | Inpatient (IN) | payer MEDICARE, MEDICAID, SELFPAY ==
--- NOTE | ~2020-04-19 | CT_ITS ---
EXAMINATION: CT brain wo con DATE: 04/20/2020 00:42 INDICATION: Seizure TECHNIQUE: Computed tomography (CT) of the head was performed without intravenous contrast. Sagittal and coronal reconstructions were performed. The mA was adjusted according to patient size. Iterative reconstruction technique was employed. The dose-length product was 605.33 mGy-cm. COMPARISON: head CT dated 10/07/2019 FINDINGS: Interval right frontal craniotomy with small region of hypodense encephalomalacia in the right fronta l lobe at the prior site of prominent vasogenic edema with local mass effect which has since resolved . No acute intracranial hemorrhage, acute infarction or abnormal extra axial fluid collection. Ventri cles are normal and symmetric. No mass/mass effect. The orbits, paranasal sinuses and mastoid air susi ls are normal. IMPRESSION: 1. Interval right frontal craniotomy with underlying small region of encephalomalacia in the right fr ontal lobe at the site of a suspected prior infectious or malignant lesion. Correlate with surgical h istory. No other acute intracranial process. Reviewed, dictated and finalized at location A. A PLANNER / BUYER IMPRESSION: 1. Interval right frontal craniotomy with underlying small region of encephalom alacia in the right frontal lobe at the site of a suspected prior infectious or malignant lesion. Correlate with surgical history. No other acute intracranial process.
[2020-04-19 23:22] VITALS: BP 143/92; PULSE 122; RESP 18; TEMP 36.6; O2SAT 98
[2020-04-19 23:30] VITALS: BP 200/97; PULSE 148; RESP 24; O2SAT 98
[2020-04-19] MEDS: LORazepam INJ (*CRX) 2 MG/ML VIAL (23:30)
--- NOTE | 2020-04-19 23:30 | PC.NURSE ---
Patients eyes started deviating to the left, then she had limb stiffness with snoring respirations and full tonic clonic movements-call placed to credit charge authorizer/MD for bedside eval. Patient placed on nasal cannula and suction cath for oral secretions. Seizure pads already in place on rails for patient protection-no teeth noted
[2020-04-19 23:35] VITALS: O2SAT 98
[2020-04-19 23:45] VITALS: BP 122/60; PULSE 114; RESP 23; O2SAT 99
--- NOTE | 2020-04-19 23:48 | ECG_ITS ---
Measurements Intervals [place] Rate: 118 P: 57 TN: 171 QRS: 72 QRSD: 94 T: 62 QT: 421 QTc: 592 Interpretive Statements SINUS TACHYCARDIA POSSIBLE LEFT ATRIAL ENLARGEMENT BORDERLINE ST-T WAVE ABNORMALITY- DIFFUSE LEADS BASELINE WANDER- V1-V3 ABNORMAL ECG Electronically Signed On 04-20-2020 6:29:17 SUSPENDER CUTTER by Everett Dong D.O.
--- NOTE | 2020-04-19 23:50 | PC.NURSE ---
at bedside-Patient is to have everything done for her . He does not know what her medications are and has no list
[2020-04-20] VITALS (56 sets, daily range): BP systolic 95–148; BP diastolic 52–101; PULSE 96–126; RESP 13–26; O2SAT 85–100
--- NOTE | 2020-04-20 00:08 | ED.GENADULT ---
HPI - General Adult General Chief complaint: Seizure <Valentin Lantigua MD - Last Filed: 04/20/20 07:09> Stated complaint: seizure like activity <Valentin Lantigua MD - Last Filed: 04/20/20 07:09> Time Seen by Provider: 04/19/20 23:31 <Valentin Lantigua MD - Last Filed: 04/20/20 07:09> History of Present Illness HPI narrative: Patient is a 59-year-old female who presents to the emergency department with chief complaint of a seizure. 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 The patient was treated at [facility] in [place] and recently had surgery for the tumor. Patient is currently on seizure prophylaxis tonight had changes in mental status and 3 generalized tonic-clonic seizures. Upon arrival to the emergency department the patient was still postictal and had an additional seizure. <Valentin Lantigua MD - Last Filed: 04/20/20 07:09> Related Data Home medications: Home Medications Medication Instructions Recorded Confirmed budesonide-formoterol [Symbicort] 2 puff INHALATION DAILY 09/09/19 01/29/20 cyclobenzaprine 10 mg PO TID 09/09/19 01/29/20 diclofenac sodium 75 mg PO DAILY 09/09/19 10/24/19 fluticasone furoate-vilanterol 2 inh INHALATION DAILY 09/09/19 10/24/19 [Breo Ellipta] gabapentin 600 mg PO DAILY 09/09/19 10/24/19 montelukast 10 mg PO DAILY 09/09/19 01/29/20 omeprazole 40 mg PO DAILY 09/09/19 01/29/20 ropinirole 0.5 mg PO DAILY 09/09/19 01/29/20 venlafaxine 225 mg PO DAILY 09/09/19 01/29/20 levetiracetam 500 mg tablet 500 mg PO Q12H 10/24/19 01/29/20 hydroxyzine HCl 25 mg PO TID PRN 01/29/20 01/29/20 <Valentin Lantigua MD - Last Filed: 04/20/20 07:09> Allergies/adverse reactions: Allergies Allergy/AdvReac Type Severity Reaction Status Date / Time tramadol Allergy Unknown Vomiting Verified 10/24/19 08:54 <Valentin Lantigua MD - Last Filed: 04/20/20 07:09> Review of Systems Review of Systems: Narrative: A 10 system review of systems was completed on the patient and is negative except for what is stated in the HPI. Nursing and ancillary documentation was reviewed. <Valentin Lantigua MD - Last Filed: 04/20/20 07:09> PMFSH Past Medical History Medical History: Medical History Adenomatous colon polyp Bloating Bloating Breast CA Epigastric pain GERD (gastroesophageal reflux disease) Lung cancer Rectal bleeding <Valentin Lantigua MD - Last Filed: 04/20/20 07:09> Surgical History Surgical History: Surgical History S/P lumpectomy of breast <Valentin Lantigua MD - Last Filed: 04/20/20 07:09> Family History Family History: Family History Father Carcinoma of colon Mother Family history of renal cell carcinoma <Valentin Lantigua MD - Last Filed: 04/20/20 07:09> Social History Social History: Social History Smoking status: Current every day smoker Alcohol intake: current Drinks per week: 7 Substance use type: marijuana Other substance usage details: smokes 10 hits daily Last use: yesterday <Valentin Lantigua MD - Last Filed: 04/20/20 07:09> Exam Narrative: Exam Narrative: GENERAL: Well-appearing, well-nourished, and in no acute distress. HEAD: Normocephalic, atraumatic. EYES: PERRLA and EOMI. ENT: Nares clear, no rhinorrhea or epistaxis. Mucous membranes moist. NECK: Supple. CHEST: Clear to auscultation. No respiratory distress. HEART: Regular rate and rhythm. No murmur heard. Normal peripheral pulses. ABDOMEN: Soft, nontender, nondistended, normal active bowel sounds. EXTREMITIES: Normal range of motion. No e
[2020-04-20] MEDS: levETIRAcetam 500MG/NACL 100ML 500 MG/100 ML BAG 400 MG IVPB ×2 (00:14→13:20)
[2020-04-20 00:17] LABS: Basophils Percent Auto 0.7 % (0.2-1.2); Eosinophils Percent Auto 0.3 % (0-4.4); Hemoglobin 10.8 g/dL (12.0-15.0); Immature Granulocyte Absolute 0.08 K/mm3 (0.00-0.031); Immature Granulocyte Percent A 1.3 % (0-0.5); Lymphocytes Absolute Auto 2.51 K/mm3 (0.9-3.2); Lymphocytes Percent Auto 41.7 % (18.3-44.2); Mean Corpuscular HGB Conc 31.8 g/dl (32-36); Mean Corpuscular Hemoglobin 31.2 pg (26-34); Mean Corpuscular Volume 98.3 fl (80-100); Mean Platelet Volume 9.5 fl (7.4-10.4); Monocytes Absolute Auto 0.7 K/mm3 (0.1-0.6); Monocytes Percent Auto 11.3 % (2.6-8.5); Neutrophils Absolute Auto 2.7 K/mm3 (1.3-6.7); Neutrophils Percent Auto 44.7 % (45.5-73.1); Platelet Count Result 271 k/mm3 (150-375); Red Blood Count 3.46 M/mm3 (4.2-5.4); Red Cell Distribution Width 15.4 % (11.5-14.5)
[2020-04-20 00:26] LABS: Add Urine Microscopic? YES; Appearance Urine Clear (Clear); Bacteria Urine Trace /hpf; Bilirubin Urine Negative (Negative); Blood Urine 1+ (Negative); Color Urine Straw (Yellow); Glucose Urine UA 1+ mg/dL (Negative); Ketones Urine Negative (Negative); Leukocyte Esterase Ur Negative LEU/UL (Negative); Mucus Urine Rare /lpf; Nitrate Urine Negative (Negative); Protein Urine 2+ mg/dL (Negative); RBC Urine 0-2 /hpf (0-2); Specific Grav Ur 1.013 (1.001-1.035); Squamous Epithelial Cell Urine Rare /hpf (Few); Urobilinogen Urine Negative mg/dL (<2.0); WBC Urine 0-3 /hpf
[2020-04-20 00:31] LABS: INR 0.9; Prothrombin Time 13.1 Seconds (11.1-14.7)
[2020-04-20 00:38] LABS: Magnesium 1.2 mg/dL (1.6-2.3)
[2020-04-20 00:48] LABS: Alanine Aminotransferase 66 U/L (4-35); Albumin Level 4.7 g/dL (3.5-5.1); Alkaline Phosphatase 89 U/L (38-126); Anion Gap 26 mmol/L (8-16); Aspartate Amino Transferase 46 U/L (14-36); Bilirubin,Total 0.3 mg/dL (0.2-1.3); Blood Urea Nitrogen 7 mg/dL (7-17); Carbon Dioxide 12 mmol/L (22-30); Chloride 97 mmol/L (98-107); Estimated CRCL calculation 74 ml/min; Estimated Glomerular Filt Rate > 60; Glucose 293 mg/dL (65-105); Potassium 3.9 mmol/L (3.4-5.0); Sodium 135 mmol/L (137-145)
[2020-04-20 00:49] LABS: Troponin I < 0.012 ng/mL (0.000-0.034)
[2020-04-20] MEDS: SODIUM CHLORIDE 0.9% IV 1,000 ML 999 ML IV CONT ×2 (01:00→18:37)
[2020-04-20 01:09] LABS: Lactic Acid Reflex 17.4 mmol/L (0.7-2.1)
[2020-04-20 03:14] LABS: Reflex Lactic Acid Yes or No Add Lactic
[2020-04-20 04:58] LABS: Lactic Acid 1.6 mmol/L (0.7-2.1)
--- NOTE | 2020-04-20 11:12 | PC.NURSE ---
[facility] called [id number], no bed .
--- NOTE | 2020-04-20 12:11 | PC.NURSE ---
update to previos note, [facility].
[2020-04-20] MEDS: MAGNESIUM SULF 2 GM/WATER 50ML 2 GM/50 ML BAG IVPB (13:58)
[2020-04-20] MEDS: ALBUTEROL SULFATE NEB 2.5 MG/0.5 ML INH 5 MG INHALATION (17:14)
[2020-04-20] MEDS: IPRATROPIUM BR 0.02% INH SOLN 0.5 MG/2.5 ML VIAL INHALATION (17:14)
--- NOTE | 2020-04-20 17:50 | PC.NURSE ---
called [facility] 171, no beds.
[2020-04-20] MEDS: METOPROLOL SUCCINATE EXT REL 50 MG TABCR PO (18:08)
[2020-04-20] MEDS: VENLAFAXINE HCL 75 MG TABLET 225 MG PO (18:08)
[2020-04-20 18:55] LABS: Basophils Percent Auto 0.6 % (0.2-1.2); Eosinophils Percent Auto 0.3 % (0-4.4); Hematocrit 26.9 % (37.0-47.0); Hemoglobin 9.3 g/dL (12.0-15.0); Immature Granulocyte Absolute 0.02 K/mm3 (0.00-0.031); Immature Granulocyte Percent A 0.6 % (0-0.5); Lymphocytes Absolute Auto 1.28 K/mm3 (0.9-3.2); Mean Corpuscular HGB Conc 34.6 g/dl (32-36); Mean Corpuscular Hemoglobin 32.4 pg (26-34); Mean Corpuscular Volume 93.7 fl (80-100); Mean Platelet Volume 8.8 fl (7.4-10.4); Monocytes Absolute Auto 0.4 K/mm3 (0.1-0.6); Monocytes Percent Auto 12.1 % (2.6-8.5); Neutrophils Absolute Auto 1.8 K/mm3 (1.3-6.7); Neutrophils Percent Auto 50.4 % (45.5-73.1); Platelet Count Result 221 k/mm3 (150-375); Red Blood Count 2.87 M/mm3 (4.2-5.4); Red Cell Distribution Width 15.9 % (11.5-14.5); White Blood Count 3.6 K/mm3 (4.5-10.0)
[2020-04-20 19:08] LABS: Alanine Aminotransferase 56 U/L (4-35); Albumin Level 3.6 g/dL (3.5-5.1); Alkaline Phosphatase 79 U/L (38-126); Anion Gap 4 mmol/L (8-16); Aspartate Amino Transferase 46 U/L (14-36); Bilirubin,Total 0.3 mg/dL (0.2-1.3); Blood Urea Nitrogen 8 mg/dL (7-17); Calcium 8.4 mg/dL (8.4-10.2); Carbon Dioxide 30 mmol/L (22-30); Chloride 101 mmol/L (98-107); Estimated CRCL calculation 97 ml/min; Estimated Glomerular Filt Rate > 60; Glucose 210 mg/dL (65-105); Magnesium 1.4 mg/dL (1.6-2.3); Potassium 3.1 mmol/L (3.4-5.0); Sodium 135 mmol/L (137-145)
[2020-04-21] VITALS (34 sets, daily range): BP systolic 113–155; BP diastolic 71–109; PULSE 94–137; RESP 9–29; TEMP 36.8; O2SAT 93–100; BMI 31.2
--- NOTE | 2020-04-21 08:06 | PC.NURSE ---
[id number] pt.was in bathroom. I changed the bed linens and got pt. a clean gown-- items bloody due from pt. pulling out her IV. Pt. returned to room, sat on chair and refused to get back in bed. Pt. had first declined to change out of bloody gown, touching the sleeve with the most blood and stating it isn't dry yet . Unable to get pt. back into bed and pt. refusing IV. Pt. able to verbalize her diagnosis and that she is awaiting transfer. Pt. gait within the room steady and normal with normal posture; easily changing positions from sitting to standing.
--- NOTE | 2020-04-21 08:57 | PC.NURSE ---
0800-current: pt continues to need redirection as she wanders hallways in ed. pt won't stay in room. pt continues to refuse iv and po meds despite being given rationale for the need. pt intermittently confused as to location and reason for hospitalization. pt with intermittent visual hallucinations. pt not violent but occassionally pushes at nurse or grabs arms of nurse when trying to be redirected back to room and out of hallway. pt states that she wants to go home however she has no ride at this time. pt denies need to transfer to higher level of care. dry pan charger has spoke with significant other and he is aware of confused state and need for higher level of care. the significant other will try to provide ed charge with son's contact info.
--- NOTE | 2020-04-21 08:59 | PC.NURSE ---
pts significant other Jasiel contacted. states is not coming to get pt. states she is having increased confusion and wants her transferred. requested him to provide us contacts for her son. pt continues walking around department. pt very difficult to direct. edp aware. pt refusing to take any medications prescribed by edp.
[2020-04-21] MEDS: LORazepam INJ (*CRX) 2 MG/ML VIAL IM (09:18)
[2020-04-21] MEDS: LORazepam INJ (*CRX) 2 MG/ML VIAL 4 MG IM (09:53)
--- NOTE | 2020-04-21 09:54 | PC.NURSE ---
pt continues arguing with Jasiel (significant other) at bedside. refuses any interventions. 2nd order of Ativan given per order. security remains at doorway.
[2020-04-21] MEDS: levETIRAcetam 1000MG/NACL100ML 1,000 MG/100 ML BAG 400 MG IVPB (12:28)
[2020-04-21] MEDS: PHENobarbitaL sodium (*CRX) 130 MG/ML VIAL IV PUSH (12:31)
[2020-04-21] MEDS: HALOPERIDOL LACTATE 5 MG/ML VIAL IV PUSH (12:55)
[2020-04-21] MEDS: LACTATED RINGERS 1,000 ML 75 ML IV CONT (15:10)
--- NOTE | 2020-04-21 15:19 | ADMGEN ---
Addendum entered by Liset Seth RN 04/21/20 15:20: This patient, Elisha Garcia, was admitted to IMU Room 214 at 1435. Patient/family oriented to hospital policies and general routines including ID bracelet, bed and alarms, visiting hours, pain management, procedures, bathroom and other care routines, personal items, smoking policy, room service/diet, and visiting hours. Information on how to activate the Rapid Response Team has been discussed. Patient/Family are encouraged to report perceived risks to care and to ask questions if they do not understand what they are told or what they should do. Original Note: This patient, Elisha Garcia, was admitted to Intensive Care Unit-3. Patient/family oriented to hospital policies and general routines including ID bracelet, bed and alarms, visiting hours, pain management, procedures, bathroom and other care routines, personal items, smoking policy, room service/diet, and visiting hours. Information on how to activate the Rapid Response Team has been discussed. Patient/Family are encouraged to report perceived risks to care and to ask questions if they do not understand what they are told or what they should do.
--- NOTE | 2020-04-21 15:20 | PC.NURSE ---
Addendum entered by Liset Seth RN 04/21/20 15:22: This patient, Elisha Garcia, was transferred to [ICU-3 ] on 04/21/20 at 1458. Personal belongings sent with patient. Report given to [Victoria ]. Appropriate documentation sent with patient. Original Note: This patient, Elisha Garcia, was transferred to [ICU-3 ] on 04/21/20 at 1510. Personal belongings sent with patient. Report given to [Victoria ]. Appropriate documentation sent with patient.
--- NOTE | 2020-04-21 15:45 | PM.IMHP ---
H&P: HPI History of Present Illness Date/Time: 04/21/20 15:45 Chief Complaint: Seizure at home Narrative: Elisha Garcia is a 59 year old female with history of metastatic cancer was admitted through the emergency room with the complaints that patient had a new onset of seizures at home. The note patient was brought in the emergency room patient was postictal according to the notes. Was the history is taken from ER notes and the family patient is unable to give history at present time. However she denies any chest pain or shortness of breath, no fever no chills, no nausea, vomiting or diarrhea. Review of Systems Review of Systems: All systems reviewed & are unremarkable except as noted in HPI and below (the history and physical.) PMF Past Medical History Medical History Adenomatous colon polyp Bloating Bloating Breast CA Epigastric pain GERD (gastroesophageal reflux disease) Lung cancer Rectal bleeding Surgical History Surgical History S/P lumpectomy of breast Family History Family History Father Carcinoma of colon Mother Family history of renal cell carcinoma Anginal pain Breast cancer Sibling Breast cancer Sibling Breast cancer Social History Social History Smoking packs per day: 3 Smoking cigarettes per day: 60.0 Smoking status: Heavy tobacco smoker Tobacco type: cigarettes Additional smoking assessment comments: CHAIN SMOKER FOR 45 YEARS Alcohol intake: unknown Drinks per week: 7 Substance use: unknown Substance use type: marijuana Other substance usage details: smokes 10 hits daily Last use: yesterday Spiritual care concerns: No Meds Home Medications and Allergies Home Medications Medication Instructions Recorded Confirmed Type budesonide-formoterol [Symbicort] 2 puff INHALATION DAILY 09/09/19 01/29/20 History cyclobenzaprine 10 mg PO TID 09/09/19 01/29/20 History diclofenac sodium 75 mg PO DAILY 09/09/19 10/24/19 History fluticasone furoate-vilanterol 2 inh INHALATION DAILY 09/09/19 10/24/19 History [Breo Ellipta] gabapentin 600 mg PO DAILY 09/09/19 10/24/19 History montelukast 10 mg PO DAILY 09/09/19 01/29/20 History omeprazole 40 mg PO DAILY 09/09/19 01/29/20 History ropinirole 0.5 mg PO DAILY 09/09/19 01/29/20 History venlafaxine 225 mg PO DAILY 09/09/19 01/29/20 History levetiracetam 500 mg tablet 500 mg PO Q12H 10/24/19 01/29/20 History metoprolol succinate 50 mg 50 mg PO DAILY #30 tablet 11/18/19 01/29/20 Rx tablet,extended release 24 hr hydroxyzine HCl 25 mg PO TID PRN 01/29/20 01/29/20 History atorvastatin 20 mg PO HS 04/21/20 04/21/20 History Allergies Allergy/AdvReac Type Severity Reaction Status Date / Time tramadol Allergy Unknown Vomiting Verified 10/24/19 08:54 Vital Signs Vital Signs - 24 hr 04/20/20 16:00 04/20/20 16:15 04/20/20 16:30 Pulse Rate 96 122 H 120 H Respiratory Rate 16 20 21 H Blood Pressure 132/72 Pulse Oximetry 96 04/20/20 16:45 04/20/20 17:00 04/20/20 17:14 Pulse Rate 122 H 124 H 122 H Respiratory Rate 21 H 21 H 20 Blood Pressure 132/74 Pulse Oximetry 96 96 04/20/20 17:15 04/20/20 17:30 04/20/20 17:45 Pulse Rate 123 H 122 H 126 H Respiratory Rate 18 21 H 25 H Blood Pressure Pulse Oximetry 99 91 91 04/20/20 18:00 04/20/20 18:05 04/20/20 18:08 Pulse Rate 124 H 120 H 125 H Respiratory Rate 26 H 18 Blood Pressure 125/80 125/80 Pulse Oximetry 95 97 04/20/20 18:15 04/20/20 18:30 04/20/20 18:45 Pulse Rate 126 H 121 H 117 H Respiratory Rate 13 22 H 22 H Blood Pressure Pulse Oximetry 96 04/20/20 19:00 04/20/20 19:15 04/20/20 19:30 Pulse Rate 109 H 110 H 103 H Respiratory Rate 24 H 23 H 21 H Blood Pressure Pulse Oximetry 04/20/20 19:45 04/20/20 20:
--- NOTE | 2020-04-21 16:28 | PC.NURSE ---
This patient, Elisha Garcia, was received from [214 ] on 04/21/20 at 1515. Patient/family oriented to unit policies and routines. Report received from MICKIE Hutchins. Pt is IMU overflow, placed in ICU for patient safety
[2020-04-21] MEDS: THIAMINE HCL INJ 100 MG, FOLIC ACID INJ 1 MG, MULTIVITAMINS-12 INJ VIAL 1 5 ML, MULTIVI... IV CONT (16:36)
--- NOTE | 2020-04-21 16:45 | WPDNEURCNPN ---
Assessment and Plan Assessment and plan (1) New onset seizure: Code(s): R56.9 - Unspecified convulsions Status: Acute (2) Lung cancer metastatic to brain: Code(s): C34.90 - Malignant neoplasm of unspecified part of unspecified bronchus or lung; C79.31 - Secondary malignant neoplasm of brain Status: Acute Additional Plan history of right frontal lobe lesion in September of 2019 and now the present CT scan revealing the craniotomy defect with encephalomalacia of underlying right frontal lobe and most likely reason for the for seizures will also obtain the EEG and MRI of the brain patient has already been started on the Keppra further recommendations will be made according Consult date: 04/21/20 Time Seen: 17:00 HPI: Elisha Garcia is a 59 year old female admitted to the hospital for the complaints of new onset of seizure at home patient was brought to the emergency room in postictal state patient was unable to give any account at the time of visit in the ER information was obtained from the family patient carries the diagnosis of carcinoma of the lung in addition to the history of GERD she also additionally have history of carcinoma of the breast and has undergone lumpectomy, she is a heavy tobacco smoker for the last 45 years also she drinks 7 times per week and her medications included cyclobenzaprine, diclofenac, gabapentin, omeprazole, ropinirole, Keppra has been started 500 q.12 hours in the emergency room and she has also been taking atorvastatin and hydroxyzine. CT scan revealed right frontal craniotomy with underlying encephalomalacia in the right frontal lobe at the site of a suspected previous lesion. She had a CT scan on October 07, 2019 which documented the right frontal lobe lesion raising the differential of metastatic disease primary CIRCUIT WALKER abscess and there was a documented leftward midline shift with vasogenic at Review of Systems Review of Systems: All systems reviewed & are unremarkable except as noted in HPI and below PMFSH Past Medical History Medical History Adenomatous colon polyp Bloating Bloating Breast CA Epigastric pain GERD (gastroesophageal reflux disease) Lung cancer Rectal bleeding Surgical History Surgical History S/P lumpectomy of breast Family History Family History Father Carcinoma of colon Mother Family history of renal cell carcinoma Anginal pain Breast cancer Sibling Breast cancer Sibling Breast cancer Social History Social History Smoking packs per day: 3 Smoking cigarettes per day: 60.0 Smoking status: Heavy tobacco smoker Tobacco type: cigarettes Additional smoking assessment comments: CHAIN SMOKER FOR 45 YEARS Alcohol intake: unknown Drinks per week: 7 Substance use: unknown Substance use type: marijuana Other substance usage details: smokes 10 hits daily Last use: yesterday Spiritual care concerns: No Meds Home Medications and Allergies Home Medications Medication Instructions Recorded Confirmed Type cyclobenzaprine 10 mg PO TID PRN 09/09/19 04/21/20 History gabapentin 600 mg PO TID 09/09/19 04/21/20 History montelukast 10 mg PO DAILY 09/09/19 04/21/20 History omeprazole 40 mg PO DAILY 09/09/19 04/21/20 History ropinirole 0.5 - 1 mg PO HS 09/09/19 04/21/20 History venlafaxine 225 mg PO HS 09/09/19 04/21/20 History levetiracetam 500 mg tablet 500 mg PO Q12H 10/24/19 04/21/20 History metoprolol succinate 50 mg 50 mg PO DAILY #30 tablet 11/18/19 04/21/20 Rx tablet,extended release 24 hr hydroxyzine HCl 25 mg PO TID 01/29/20 04/21/20 History atorvastatin 20 mg PO HS 04/21/20 04/21/20 History dexamethasone See Rx Instructions .ROUTE .COMPLEX 04/21/20 04/21/20 History meclizine 25 mg PO TID 04/21/20 04/21/20 History A
[2020-04-21] MEDS: ALBUTEROL SULFATE NEB 2.5 MG/0.5 ML INH 5 MG INHALATION (19:15)
[2020-04-21] MEDS: IPRATROPIUM BR 0.02% INH SOLN 0.5 MG/2.5 ML VIAL INHALATION (19:16)
[2020-04-21] MEDS: levETIRAcetam 500MG/NACL 100ML 500 MG/100 ML BAG 400 MG IVPB (21:38)
[2020-04-21] MEDS: HEPARIN SODIUM 5,000 UNITS/ML VIAL 5000 UNITS SUB-Q (21:46)
[2020-04-21] MEDS: LORazepam INJ (*CRX) 2 MG/ML VIAL 1 MG IV PUSH (22:08)
[2020-04-21] MEDS: ATORVASTATIN 20 MG TABLET PO (22:08)
[2020-04-21] MEDS: rOPINIRole HCL 0.5 MG TABLET PO (22:09)
[2020-04-21] MEDS: PANTOPRAZOLE 40 MG TABLET PO (22:09)
[2020-04-21] MEDS: VENLAFAXINE HCL XR 75 MG CAP.ER.24H 225 MG PO (22:09)
[2020-04-22] VITALS (7 sets, daily range): BP systolic 117–119; BP diastolic 76–79; PULSE 114–127; RESP 19–27; TEMP 36.4; O2SAT 94–97
[2020-04-22] MEDS: ALBUTEROL SULFATE NEB 2.5 MG/0.5 ML INH 5 MG INHALATION (01:27)
[2020-04-22] MEDS: IPRATROPIUM BR 0.02% INH SOLN 0.5 MG/2.5 ML VIAL INHALATION (01:27)
[2020-04-22] MEDS: LORazepam INJ (*CRX) 2 MG/ML VIAL 1 MG IV PUSH (04:46)
[2020-04-22 06:26] LABS: Hematocrit 28.1 % (37.0-47.0); Hemoglobin 9.6 g/dL (12.0-15.0); Mean Corpuscular HGB Conc 34.2 g/dl (32-36); Mean Corpuscular Volume 93.7 fl (80-100); Mean Platelet Volume 9.1 fl (7.4-10.4); Platelet Count Result 253 k/mm3 (150-375); Red Cell Distribution Width 15.5 % (11.5-14.5); White Blood Count 2.6 K/mm3 (4.5-10.0)
[2020-04-22 06:46] LABS: Anion Gap 4 mmol/L (8-16); Blood Urea Nitrogen 3 mg/dL (7-17); Calcium 8.4 mg/dL (8.4-10.2); Carbon Dioxide 30 mmol/L (22-30); Chloride 102 mmol/L (98-107); Estimated CRCL calculation 97 ml/min; Estimated Glomerular Filt Rate > 60; Glucose 148 mg/dL (65-105); Magnesium 1.2 mg/dL (1.6-2.3); Potassium 2.9 mmol/L (3.4-5.0); Sodium 136 mmol/L (137-145)
--- NOTE | 2020-04-22 09:28 | PM.IMPN ---
Progress Note: A&P Assessment and Plan (1) New onset seizure: Code(s): R56.9 - Unspecified convulsions Status: Acute Assessment and Plan: Patient was brought into the hospital by a friend with seizures, in the ED she was postictal, started on Keppra IV. Patient has been noted to be on Keppra at home also -CT scan of the brain on 04/20/2020 : Interval right frontal craniotomy with underlying small region of encephalomalacia in the right frontal lobe at the site of a suspected prior infectious or malignant lesion. Correlate with surgical history. No other acute intracranial process. -patient refusing IV Keppra and all her oral medications. She was to sign out AMA -appreciate Neurology evaluation recommendation, EEG was done this morning MRI was scheduled but patient refuses MRI also (2) Lung cancer metastatic to brain: Code(s): C34.90 - Malignant neoplasm of unspecified part of unspecified bronchus or lung; C79.31 - Secondary malignant neoplasm of brain Status: Acute Assessment and Plan: Metastatic lung cancer, patient known giving additional history. (3) GERD (gastroesophageal reflux disease): Code(s): K21.9 - Gastro-esophageal reflux disease without esophagitis Status: Acute Assessment and Plan: Continue Protonix (4) Dyslipidemia: Code(s): E78.5 - Hyperlipidemia, unspecified Status: Acute Assessment and Plan: Continue statin (5) Hypertension: Code(s): I10 - Essential (primary) hypertension Status: Acute Assessment and Plan: Continue metoprolol (6) Tobacco abuse: Code(s): Z72.0 - Tobacco use Status: Acute Assessment and Plan: Counseled patient on tobacco cessation to which she says she will not quit -refused nicotine patch Additional Plan Discussed with patient, she wants to go home and does not want stay in the hospital, she was to sign out AMA. I discussed with her in details regarding her being in the hospital due to seizure activity and an MRI is warranted, to which she refused. Patient is declining and refusing all her oral and IV medications. She has asked her friend who she lives were to come and pick him up. Code status: Full code Subjective Date/time seen: 04/22/20 09:28 Interval history: Elisha Garcia is a 59 year old female admitted to the hospital for the complaints of new onset of seizure at home. lung Ca, breast ca with mets to the liver and brain CT scan showed s/p craniotomy with underlying encephalomalacia in the right frontal lobe . Post ictal in the ED. Pt seen and examined, is awake, alert, oriented x3 but pleasantly confused but able to answer questions appropriately. Pt states she smoke tobacco and Marijuana. denies any alcohol, She quit in Oct 2019 ( which was confirmed by her friend Jasiel Siddiqui who she lives with. Patient denies any chest pain, shortness of breath abdominal pain. States she she was to go home, patient has been refusing all medications including a seizure medications. He has asked a friend to come and pick her up and she was to leave against medical advice (AMA) Review of Systems Review of Systems: All systems reviewed & are unremarkable except as noted in HPI and below Exam Const: General: comfortable and no acute distress HENMT: Mouth: Yes moist mucous membranes Eyes: Sclera: sclerae normal Pupils: Equal, round and reactive pupils present Neck: Neck: supple Resp: Effort & Inspection: normal respiratory effort Auscultation: clear to auscultation bilaterally and diminished lung sounds (Diminished at bases) Cardio: Rate: regular rate Rhythm: regular rhythm GI: Inspection: non-distended GI Palp: Yes Soft to palpation and No Tenderness to palpation present (GI) Auscultation: normal bowel sounds : Other: Deferred Urinary Catheter: Urinary Catheter: urine clear Skin: Other: Dry skin but warm Neuro: Other: Patient is awake, alert, orie
--- NOTE | 2020-04-22 10:08 | PC.NURSE ---
Addendum entered by Victoria Newberry RN 04/22/20 10:09: IV removed prior to patient leaving Original Note: Patient notified of risks of leaving AMA. Dr. Jose F Tijerina and Dr. Morse ] notified. Follow up instructions given to patient. Patient signed AMA form.
--- NOTE | 2020-04-26 09:57 | P.NEURO_ITS ---
Neurology EEG Report General Information Date of Study: 04/22/20 TEST eeg DIAGNOSIS seizures CONDITION OF RECORDING awake drowsy and sleep EEG NUMBER [id number] CLINICAL HISTORY patient reported she has had 1 seizure and is going through chemotherapy at this particular time EEG DESCRIPTION basic resting occipital frequency consists of low voltage 8 to 10 hertz per second alpha admixed with low-voltage 15 to 18 hertz per beta beta. During dr owsiness low-voltage beta activity seen diffusely. bilateral symmetrical sleep activity seen during sleep with symmetrical sleep spindles. Hyperventilation not done. Photic stimulation not done. Non paroxysmal. Nonfocal. Nonlateralizing. IMPRESSION Only mildly abnormal record due to the absence of normal background rhythm but there is no evidence of seizure-like activity throughout the tracing clinical correlation recommended.
== END 2020-04-22 10:00 | disposition left against medical advice (07) | DRG 101 ==
LOC: ANHED 04-20 09:37 → ANHICU 04-21 14:52
PROVIDERS: Emergency Medicine; Physician Assistant; Admitting Provider Internal Medicine; Emergency Provider Emergency Medicine; PCP Internal Medicine; Visit Provider Internal Medicine
DX: R56.9 Unspecified convulsions (principal); C34.90 Malignant neoplasm of unspecified part of unspecified bronchus or lung; C79.31 Secondary malignant neoplasm of brain; C78.7 Secondary malignant neoplasm of liver and intrahepatic bile duct; G93.89 Other specified disorders of brain; Z85.3 Personal history of malignant neoplasm of breast; F17.210 Nicotine dependence, cigarettes, uncomplicated; E78.5 Hyperlipidemia, unspecified; I10 Essential (primary) hypertension; K21.9 Gastro-esophageal reflux disease without esophagitis; Z86.010 Personal history of colon polyps
CPT/HCPCS: 36415; 51701; 70450; 80048; 80053; 81001; 83605; 83735; 84484; 85025; 85027; 85610; 87040; 93005; 94640; 95816; 96361; 96366; 96367; 96372; 96376; 99285; A9270; G0378; J1630; J1644; J1953; J2060; J2560; J3411; J3475; J7030; J7120

== ENCOUNTER 2020-04-28 12:45 | Outpatient (CLI) | payer MEDICARE, SELFPAY ==
[2020-04-28 13:10] LABS: Basophils Absolute Auto 0.08 K/mm3 (0.00-0.10); Basophils Percent Auto 1.6 % (0.0-1.0); Eosinophils Absolute Auto 0.07 K/mm3 (0.02-0.50); Eosinophils Percent Auto 1.4 % (1.0-6.0); Hematocrit 34.7 % (35.0-49.0); Hemoglobin 11.4 g/dL (12.0-15.0); Immature Granulocyte Absolute 0.06 K/mm3 (0.00-0.00); Immature Granulocyte Percent A 1.2 % (0.0-0.0); Lymphocytes Absolute Auto 2.29 K/mm3 (1.10-4.50); Lymphocytes Percent Auto 44.6 % (18.0-42.0); Mean Corpuscular HGB Conc 32.9 g/dL (32.0-36.0); Mean Corpuscular Hemoglobin 31.7 pg (27.0-31.0); Mean Corpuscular Volume 96.4 fL (78.0-102.0); Mean Platelet Volume 9.1 fl (9.2-11.8); Monocytes Absolute Auto 0.67 K/mm3 (0.10-0.90); Neutrophils Percent Auto 38.2 % (50.0-70.0); Platelet Count Result 378 K/mm3 (150-420); Red Cell Distribution Width 15.1 % (11.6-14.4); White Blood Count 5.1 K/mm3 (4.8-10.8)
[2020-04-28 13:58] LABS: Alanine Aminotransferase 98 U/L (14-59); Albumin Level 4.1 g/dL (3.4-5.0); Alkaline Phosphatase 95 U/L (46-116); Anion Gap 7 mmol/L (8-16); Aspartate Amino Transferase 69 U/L (15-37); Bilirubin,Total 0.4 mg/dL (0.00-1.00); Blood Urea Nitrogen 8 mg/dL (7-18); Carbon Dioxide 31 mmol/L (21-32); Chloride 98 mmol/L (98-108); Estimated Glomerular Filt Rate > 60; Glucose 111 mg/dL (70-99); Osmolality Calculated 281 mOsm/kg (285-295); Sodium 136 mmol/L (136-145); Total Protein 7.4 g/dL (6.4-8.2)
[2020-04-28 14:20] LABS: Magnesium 0.8 mg/dL (1.8-2.4)
[2020-04-28 14:21] LABS: Thyroid Stimulating Hormone Reflex 2.16 u/IU/mL (0.36-3.74)
[2020-05-02 07:22] LABS: Cortisol Random 5.5 mcg/dL (***)
== END 2020-04-28 12:46 | disposition home or self-care (01) ==
LOC: CHSLAB 12:47
PROVIDERS: PCP Internal Medicine; Visit Provider Internal Medicine Hematology & Oncology
DX: C50.919 Malignant neoplasm of unspecified site of unspecified female breast (principal); C34.90 Malignant neoplasm of unspecified part of unspecified bronchus or lung; Z51.12 Encounter for antineoplastic immunotherapy; Z79.899 Other long term (current) drug therapy
CPT/HCPCS: 36415; 80053; 82533; 83735; 84443; 85025

== ENCOUNTER 2020-04-29 09:36 | Outpatient (CLI) | payer MEDICARE, MEDICAID, SELFPAY ==
[2020-04-29 10:19] VITALS: BP 123/88; PULSE 100; RESP 18; TEMP 36.4; O2SAT 96
[2020-04-29 13:47] VITALS: BP 150/70; PULSE 68; RESP 16; O2SAT 96
--- NOTE | 2020-04-29 13:48 | PC.NURSE ---
Patient here #1 of 3 Magnesium infusions. Education on Mag infusion given. No concerns. Magnesium infusion administrated. Tolerated well. Left port needle accessed for #2 dose tomorrow. Reports legs less shaking. Safe exit of hospital.
== END 2020-04-29 09:37 | disposition home or self-care (01) ==
PROVIDERS: PCP Internal Medicine; Visit Provider Internal Medicine Hematology & Oncology
DX: C34.90 Malignant neoplasm of unspecified part of unspecified bronchus or lung (principal)
CPT/HCPCS: 96365; 96366; J3475; J7050

== ENCOUNTER 2020-04-30 09:58 | Outpatient (CLI) | payer MEDICARE, MEDICAID, SELFPAY ==
--- NOTE | 2020-04-30 10:00 | PC.NURSE ---
PT TO ROOM 201 AMB PER SELF. PORT REMAINS ACCESSED FROM TREATMENT YESTERDAY. DRESSING CLEAN, DRY AND INTACT. SITE WITHOUT REDNESS, EDEMA OR DRAINAGE. PT HAS NO QUESTIONS OR CONCERNS. ORIENTED TO ROOM, CALL TATUM IN REACH, REMINDED TO CALL WITH NEEDS.
--- NOTE | 2020-04-30 13:07 | PC.NURSE ---
UP TO BR TO VOID AND BACK TO CHAIR. LUNCH SERVED. HAS NO COMPLAINTS.
--- NOTE | 2020-04-30 13:20 | PC.NURSE ---
MAGNESIUM INFUSED ORDERED. PORT FLUSHED PER PROTOCOL. PT TO RETURN AT 1000 ON 05/01 FOR ANOTHER MAG INFUSION. PORT REMAINS ACCESSED. PT TOLERATED WELL. DIS[facility]GED TO [facility].
== END 2020-04-30 09:59 | disposition home or self-care (01) ==
LOC: CHSTREATRM 10:00
PROVIDERS: PCP Internal Medicine; Visit Provider Internal Medicine Hematology & Oncology
DX: C34.90 Malignant neoplasm of unspecified part of unspecified bronchus or lung (principal)
CPT/HCPCS: 96365; 96366; J3475; J7050

== ENCOUNTER 2020-05-01 09:33 | Outpatient (CLI) | payer MEDICARE, MEDICAID, SELFPAY ==
[2020-05-01] MEDS: HEPARIN SOD FLUSH 500 UNITS/5 ML SYRINGE IV PUSH (10:53)
== END 2020-05-01 09:34 | disposition home or self-care (01) ==
LOC: CHSTREATRM 09:41
PROVIDERS: PCP Internal Medicine; Visit Provider Internal Medicine Hematology & Oncology
DX: C34.90 Malignant neoplasm of unspecified part of unspecified bronchus or lung (principal)
CPT/HCPCS: 96365; 96366; J3475; J7050

== ENCOUNTER 2020-05-06 09:59 | Outpatient (CLI) | payer MEDICARE, MEDICAID, SELFPAY ==
[2020-05-06] MEDS: SODIUM CHLORIDE 0.9% IV 250 ML 10 ML IVPB (10:23)
[2020-05-06] MEDS: diphenhydrAMINE HCl INJ 50 MG/ML VIAL 25 MG IV PUSH (10:24)
[2020-05-06] MEDS: FAMOTIDINE 20 MG/ISO 50 ML 20 MG/50 ML BAG 150 MG IVPB (10:25)
[2020-05-06 10:48] VITALS: BP 128/82; PULSE 102; RESP 14; TEMP 36.3; O2SAT 94
[2020-05-06] MEDS: PEMBROLIZUMAB 200 MG in SODIUM CHLORIDE 0.9% IV 92 ML IVPB (11:13)
[2020-05-06 12:45] VITALS: BP 128/84; PULSE 102; RESP 16
[2020-05-06] MEDS: HEPARIN SOD FLUSH 500 UNITS/5 ML SYRINGE IV PUSH (12:50)
--- NOTE | 2020-05-06 12:52 | PC.NURSE ---
Patient here for cycle 5 of chemo. Labs reviewed from Dr. Araujo's office. OK'd. Chemo regimen administered. Tolerated well. Safe exit of hospital. Will see Dr. Araujo in 2 weeks and return possibly for cyle 6 in 3 weeks.
== END 2020-05-06 10:00 | disposition home or self-care (01) ==
PROVIDERS: PCP Internal Medicine; Visit Provider Internal Medicine Hematology & Oncology
DX: Z51.11 Encounter for antineoplastic chemotherapy (principal); C34.90 Malignant neoplasm of unspecified part of unspecified bronchus or lung
CPT/HCPCS: 96367; 96375; 96411; 96413; 96417; J1100; J1200; J2405; J7050; J9045; J9271; J9305

== ENCOUNTER 2020-05-25 14:26 | Outpatient (CLI) | payer MEDICARE, MEDICAID, SELFPAY ==
[2020-05-25 14:53] LABS: Hemoglobin 10.4 g/dL (12.0-15.0); Mean Corpuscular HGB Conc 33.5 g/dL (32.0-36.0); Mean Corpuscular Hemoglobin 32.4 pg (27.0-31.0); Mean Corpuscular Volume 96.6 fL (78.0-102.0); Mean Platelet Volume 9.5 fl (9.2-11.8); Platelet Count Result 233 K/mm3 (150-420); Red Blood Count 3.21 M/mm3 (4.20-5.40); Red Cell Distribution Width 13.2 % (11.6-14.4); White Blood Count 3.3 K/mm3 (4.8-10.8)
[2020-05-25 15:00] LABS: Thyroid Stimulating Hormone Reflex 1.25 u/IU/mL (0.36-3.74)
[2020-05-25 15:43] LABS: Neutrophils Percent Manual 28 % (46-73); Total Cells Counted 100
[2020-05-25 15:44] LABS: Band Neutrophils Percent 0 % (0-6); Basophils Absolute Manual 0.03 K/mm3 (0-0.1); Basophils Percent Manual 1 % (0-1); Eosinophils Percent Manual 0 % (1-6); Lymphocytes Absolute Manual 1.91 K/mm3 (1.1-4.5); Lymphocytes Percent Manual 58 % (18-44); Monocytes Absolute Manual 0.42 K/mm3 (0.1-0.90); Monocytes Percent Manual 13 % (3-9); Neutrophils Absolute Manual 0.92 K/mm3 (1.7-7.2)
[2020-05-25 15:50] LABS: Alanine Aminotransferase 59 U/L (14-59); Albumin Level 3.7 g/dL (3.4-5.0); Alkaline Phosphatase 88 U/L (46-116); Anion Gap 12 mmol/L (8-16); Aspartate Amino Transferase 28 U/L (15-37); Bilirubin,Total 0.3 mg/dL (0.00-1.00); Blood Urea Nitrogen 10 mg/dL (7-18); Calcium 8.1 mg/dL (8.5-10.1); Carbon Dioxide 28 mmol/L (21-32); Chloride 95 mmol/L (98-108); Estimated Glomerular Filt Rate 60; Glucose 194 mg/dL (70-99); Osmolality Calculated 284 mOsm/kg (285-295); Potassium 3.4 mmol/L (3.5-5.1); Sodium 135 mmol/L (136-145); Total Protein 6.9 g/dL (6.4-8.2)
[2020-05-25 16:24] LABS: Platelet Estimate Adequate (Adequate)
[2020-05-28 23:00] LABS: Cortisol Random 4.5 mcg/dL (***)
== END 2020-05-25 14:27 | disposition home or self-care (01) ==
LOC: CHSLAB 14:30
PROVIDERS: Internal Medicine Hematology & Oncology; PCP Internal Medicine; Visit Provider Internal Medicine
DX: C50.919 Malignant neoplasm of unspecified site of unspecified female breast (principal); E34.9 Endocrine disorder, unspecified; Z79.899 Other long term (current) drug therapy
CPT/HCPCS: 36415; 80053; 82533; 84443; 85025

== ENCOUNTER 2020-05-27 09:49 | Outpatient (CLI) | payer MEDICARE, MEDICAID, SELFPAY ==
[2020-05-27 10:05] VITALS: BP 136/89; PULSE 88; RESP 16; TEMP 36.6; O2SAT 97
[2020-05-27] MEDS: SODIUM CHLORIDE 0.9% IV 250 ML 30 ML IVPB (10:25)
[2020-05-27] MEDS: diphenhydrAMINE HCl INJ 50 MG/ML VIAL 25 MG IV PUSH (10:26)
[2020-05-27] MEDS: FAMOTIDINE 20 MG/ISO 50 ML 20 MG/50 ML BAG 100 MG IVPB (10:26)
[2020-05-27] MEDS: PEMBROLIZUMAB 200 MG in SODIUM CHLORIDE 0.9% IV 100 ML IVPB (11:33)
[2020-05-27 13:00] VITALS: BP 138/88; PULSE 88; RESP 14; TEMP 36.6; O2SAT 97
[2020-05-27] MEDS: HEPARIN SOD FLUSH 500 UNITS/5 ML SYRINGE IV PUSH (13:00)
--- NOTE | 2020-05-27 13:18 | PC.NURSE ---
05/27/20 Here for cycle 6 chemo therapy regimen. Labs from 05/25/20 reviewed ok'd. No concerns voiced. Chemo regimen administered as ordered. Tolerated well. Safe exit of hospital. Will be getting scans in next 2 weeks. Then will go from there is need more chemo. Safe exit of hospital.
== END 2020-05-27 09:50 | disposition home or self-care (01) ==
PROVIDERS: PCP Internal Medicine; Visit Provider Internal Medicine Hematology & Oncology
DX: Z51.11 Encounter for antineoplastic chemotherapy (principal); C34.90 Malignant neoplasm of unspecified part of unspecified bronchus or lung
CPT/HCPCS: 96367; 96375; 96411; 96413; 96417; J1100; J1200; J2405; J7050; J9045; J9271; J9305

== ENCOUNTER 2020-06-07 09:20 | Outpatient (CLI) | payer MEDICARE, SELFPAY ==
[2020-06-07 09:43] LABS: Hematocrit 31.1 % (35.0-49.0); Hemoglobin 10.5 g/dL (12.0-15.0); Mean Corpuscular HGB Conc 33.8 g/dL (32.0-36.0); Mean Corpuscular Hemoglobin 32.6 pg (27.0-31.0); Mean Corpuscular Volume 96.6 fL (78.0-102.0); Platelet Count Result 144 K/mm3 (150-420); Red Blood Count 3.22 M/mm3 (4.20-5.40); Red Cell Distribution Width 12.9 % (11.6-14.4); White Blood Count 2.4 K/mm3 (4.8-10.8)
[2020-06-07 10:28] LABS: Band Neutrophils Percent 0 % (0-6); Lymphocytes Absolute Manual 1.53 K/mm3 (1.1-4.5); Lymphocytes Percent Manual 64 % (18-44); Monocytes Absolute Manual 0.45 K/mm3 (0.1-0.90); Monocytes Percent Manual 19 % (3-9); Neutrophils Percent Manual 17 % (46-73); Platelet Estimate Adequate (Adequate); Total Cells Counted 100
[2020-06-07 12:01] LABS: Alanine Aminotransferase 58 U/L (14-59); Albumin Level 3.9 g/dL (3.4-5.0); Alkaline Phosphatase 108 U/L (46-116); Anion Gap 12 mmol/L (8-16); Aspartate Amino Transferase 30 U/L (15-37); Bilirubin,Total 0.2 mg/dL (0.00-1.00); Blood Urea Nitrogen 9 mg/dL (7-18); Calcium 8.3 mg/dL (8.5-10.1); Carbon Dioxide 28 mmol/L (21-32); Chloride 98 mmol/L (98-108); Estimated Glomerular Filt Rate 58; Glucose 161 mg/dL (70-99); Osmolality Calculated 287 mOsm/kg (285-295); Potassium 3.6 mmol/L (3.5-5.1); Sodium 138 mmol/L (136-145)
[2020-06-07 12:15] LABS: Thyroid Stimulating Hormone Reflex 1.52 u/IU/mL (0.36-3.74)
[2020-06-10 06:23] LABS: Cortisol Random 7.3 mcg/dL (***)
[2020-06-10 07:38] LABS: Osmolality, Urine 456 mOsm/kg (50-1200)
== END 2020-06-07 09:21 | disposition home or self-care (01) ==
PROVIDERS: PCP Internal Medicine; Visit Provider Internal Medicine Hematology & Oncology
DX: E87.1 Hypo-osmolality and hyponatremia (principal); C34.90 Malignant neoplasm of unspecified part of unspecified bronchus or lung; E34.9 Endocrine disorder, unspecified; Z79.899 Other long term (current) drug therapy
CPT/HCPCS: 36415; 80053; 82533; 83935; 84443; 85025

== ENCOUNTER 2020-06-08 07:33 | Outpatient (CLI) | payer MEDICARE, MEDICAID, SELFPAY ==
--- NOTE | ~2020-06-08 | CT_ITS ---
EXAMINATION: CT chest abdomen pelvis w con EXAM DATE: 06/08/2020 08:14 INDICATION: Lung cancer follow-up right middle lobe removed. Cough nausea and mid abdominal pain. TECHNIQUE: Spiral CT of the chest, abdomen and pelvis was performed following intravenous injection o f 100 mL Omnipaque 350. Axial, coronal and sagittal images were reviewed. Coronal maximum intensity pixel images of chest reviewed. The dose-length product (DLP) for this examination was 1095.51 mGy- cm. The exposure was tailored according to patient size (auto mA exposure control), and iterative re construction (ASIR) was used as additional dose reduction technique. There is no prior study for com ronon. FINDINGS: CHEST: Suture material from right middle lobectomy. Some adjacent scarring but no evidence of local recurrence. The lungs are otherwise clear. There is mild emphysema. There are no pleural or pericar dial effusions. Tracheobronchial tree is patent. There is no mediastinal, hilar or axillary lymph adenopathy. There is no pneumothorax. Heart normal in size. There is moderate coronary arterial calcification, arterial sclerosis. Right-sided portacatheter. Breast implants. No central pulmonary emboli. ABDOMEN PELVIS: There is hepatic steatosis without suspicious focal lesion identified. Spleen, adrena l glands, pancreas are unremarkable. Gallbladder is unremarkable. No biliary obstruction. Portal a nd splenic veins are patent. Kidneys enhance symmetrically. Mild nonspecific perinephric fat strandi ng more on the left than the right. There is no hydronephrosis. The uterus is unremarkable. Small p eripherally calcified left adnexal region, benign finding. The bladder is undistended at time of imag ing. There is no retroperitoneal or pelvic lymphadenopathy. There is mild to moderate scattered ar teriosclerotic disease. Small umbilical fat-containing hernia. The appendix is normal. The stomach and small bowel are unremarkable. Mildly prominent colonic wall , possible mild colitis. No free intraperitoneal gas. There are no osteoblastic or osteolytic les ions identified. There are L5-S1 arthropathy. IMPRESSION: 1. Possible mild colitis. 2. Hepatic steatosis. 3. Mild emphysema. 4. Other chronic incidental findings. Reviewed, dictated and finalized at location A.
== END 2020-06-08 07:34 | disposition home or self-care (01) ==
LOC: CHSIMG 07:35
PROVIDERS: PCP Internal Medicine; Visit Provider Internal Medicine Hematology & Oncology
DX: C34.90 Malignant neoplasm of unspecified part of unspecified bronchus or lung (principal)
CPT/HCPCS: 71260; 74177; Q9967

== ENCOUNTER 2020-06-25 10:10 | Outpatient (CLI) | payer MEDICARE, MEDICAID, SELFPAY ==
[2020-06-25] MEDS: CYANOCOBALAMIN INJ 1,000 MCG/ML VIAL 1000 MCG IM (10:34)
== END 2020-06-25 10:11 | disposition home or self-care (01) ==
LOC: CHSTREATRM 10:18
PROVIDERS: PCP Internal Medicine; Visit Provider Internal Medicine Hematology & Oncology
DX: C34.90 Malignant neoplasm of unspecified part of unspecified bronchus or lung (principal)
CPT/HCPCS: 96372; J3420

== ENCOUNTER 2020-06-29 12:43 | Outpatient (CLI) | payer MEDICARE, MEDICAID, SELFPAY ==
[2020-06-29] MEDS: ALTEPLASE 2 MG VIAL (CATHFLO) IV PUSH (13:47)
[2020-06-29 13:49] LABS: Basophils Absolute Auto 0.04 K/mm3 (0.00-0.10); Basophils Percent Auto 0.7 % (0.0-1.0); Eosinophils Absolute Auto 0.02 K/mm3 (0.02-0.50); Eosinophils Percent Auto 0.3 % (1.0-6.0); Hemoglobin 11.3 g/dL (12.0-15.0); Immature Granulocyte Absolute 0.03 K/mm3 (0.00-0.00); Immature Granulocyte Percent A 0.5 % (0.0-0.0); Lymphocytes Percent Auto 29.5 % (18.0-42.0); Mean Corpuscular HGB Conc 33.2 g/dL (32.0-36.0); Mean Corpuscular Hemoglobin 32.4 pg (27.0-31.0); Mean Corpuscular Volume 97.4 fL (78.0-102.0); Mean Platelet Volume 10.1 fl (9.2-11.8); Monocytes Absolute Auto 0.71 K/mm3 (0.10-0.90); Monocytes Percent Auto 11.6 % (2.0-11.0); Neutrophils Absolute Auto 3.5 K/mm3 (1.7-7.2); Neutrophils Percent Auto 57.4 % (50.0-70.0); Platelet Count Result 207 K/mm3 (150-420); Red Blood Count 3.49 M/mm3 (4.20-5.40); Red Cell Distribution Width 14.4 % (11.6-14.4); White Blood Count 6.1 K/mm3 (4.8-10.8)
[2020-06-29 14:12] LABS: Alanine Aminotransferase 78 U/L (14-59); Albumin Level 3.7 g/dL (3.4-5.0); Alkaline Phosphatase 92 U/L (46-116); Anion Gap 10 mmol/L (8-16); Aspartate Amino Transferase 42 U/L (15-37); Bilirubin,Total 0.4 mg/dL (0.00-1.00); Blood Urea Nitrogen 6 mg/dL (7-18); Calcium 8.7 mg/dL (8.5-10.1); Carbon Dioxide 30 mmol/L (21-32); Chloride 98 mmol/L (98-108); Estimated Glomerular Filt Rate > 60; Glucose 136 mg/dL (70-99); Osmolality Calculated 285 mOsm/kg (285-295); Potassium 3.6 mmol/L (3.5-5.1); Sodium 138 mmol/L (136-145); Thyroid Stimulating Hormone 0.78 uIU/mL (0.36-3.74); Total Protein 7.2 g/dL (6.4-8.2)
[2020-07-02 06:55] LABS: Cortisol Random 3.4 mcg/dL (***)
== END 2020-06-29 12:44 | disposition home or self-care (01) ==
LOC: CHSTREATRM 12:47
PROVIDERS: PCP Internal Medicine; Visit Provider Internal Medicine Hematology & Oncology
DX: Z45.2 Encounter for adjustment and management of vascular access device (principal); T82.898A Other specified complication of vascular prosthetic devices, implants and grafts, initial encounter; E34.9 Endocrine disorder, unspecified; Z79.899 Other long term (current) drug therapy
CPT/HCPCS: 36415; 80053; 82533; 84443; 85025; 96523; J2997

== ENCOUNTER 2020-07-01 09:59 | Outpatient (CLI) | payer MEDICARE, MEDICAID, SELFPAY ==
[2020-07-01] MEDS: SODIUM CHLORIDE 0.9% IV 250 ML 10 ML IVPB (10:30)
[2020-07-01 10:42] VITALS: BP 128/88; PULSE 98; RESP 16; TEMP 36.6; O2SAT 97
[2020-07-01] MEDS: PEMBROLIZUMAB 200 MG in SODIUM CHLORIDE 0.9% IV 100 ML IVPB (11:45)
[2020-07-01] MEDS: HEPARIN SOD FLUSH 500 UNITS/5 ML SYRINGE IV PUSH (12:20)
[2020-07-01 12:28] VITALS: BP 143/69; PULSE 92; RESP 16; TEMP 37; O2SAT 97
[2020-07-01 12:33] VITALS: BMI 32.8
--- NOTE | 2020-07-01 12:35 | PC.NURSE ---
Patient here for q 21 Alimta/Keytruda chemo regimen. No concerns voiced. Re-educated on medications etc since patient had a month or so break from chemo. Labs reviewed from June 29. Ok'd for chemo. Chemo regimen administered. Tolerated chemo well. Safe exit of hospital. Will return July 20 for blood work and chemo on July 22.
== END 2020-07-01 10:00 | disposition home or self-care (01) ==
LOC: CHSTREATRM 10:04
PROVIDERS: PCP Internal Medicine; Visit Provider Internal Medicine Hematology & Oncology
DX: Z51.11 Encounter for antineoplastic chemotherapy (principal); C34.90 Malignant neoplasm of unspecified part of unspecified bronchus or lung
CPT/HCPCS: 96367; 96411; 96413; J1100; J2405; J7050; J9271; J9305

== ENCOUNTER 2020-07-21 12:01 | Outpatient (CLI) | payer MEDICARE, SELFPAY ==
[2020-07-21 12:20] LABS: Basophils Absolute Auto 0.05 K/mm3 (0.00-0.10); Basophils Percent Auto 1.1 % (0.0-1.0); Eosinophils Absolute Auto 0.02 K/mm3 (0.02-0.50); Eosinophils Percent Auto 0.4 % (1.0-6.0); Hematocrit 33.8 % (35.0-49.0); Hemoglobin 11.6 g/dL (12.0-15.0); Immature Granulocyte Absolute 0.02 K/mm3 (0.00-0.00); Immature Granulocyte Percent A 0.4 % (0.0-0.0); Lymphocytes Percent Auto 16.9 % (18.0-42.0); Mean Corpuscular HGB Conc 34.3 g/dL (32.0-36.0); Mean Corpuscular Hemoglobin 33.1 pg (27.0-31.0); Mean Corpuscular Volume 96.6 fL (78.0-102.0); Mean Platelet Volume 9.9 fl (9.2-11.8); Monocytes Absolute Auto 0.17 K/mm3 (0.10-0.90); Monocytes Percent Auto 3.6 % (2.0-11.0); Neutrophils Absolute Auto 3.7 K/mm3 (1.7-7.2); Neutrophils Percent Auto 77.6 % (50.0-70.0); Platelet Count Result 282 K/mm3 (150-420); Red Cell Distribution Width 14.7 % (11.6-14.4); White Blood Count 4.7 K/mm3 (4.8-10.8)
[2020-07-21 12:46] LABS: Alanine Aminotransferase 100 U/L (14-59); Albumin Level 4.2 g/dL (3.4-5.0); Alkaline Phosphatase 103 U/L (46-116); Anion Gap 10 mmol/L (8-16); Aspartate Amino Transferase 47 U/L (15-37); Bilirubin,Total 0.4 mg/dL (0.00-1.00); Blood Urea Nitrogen 8 mg/dL (7-18); Calcium 9.4 mg/dL (8.5-10.1); Carbon Dioxide 29 mmol/L (21-32); Chloride 97 mmol/L (98-108); Estimated Glomerular Filt Rate 59; Glucose 217 mg/dL (70-99); Osmolality Calculated 287 mOsm/kg (285-295); Potassium 3.6 mmol/L (3.5-5.1); Sodium 136 mmol/L (136-145); Total Protein 7.9 g/dL (6.4-8.2)
== END 2020-07-21 12:02 | disposition home or self-care (01) ==
LOC: CHSLAB 12:05
PROVIDERS: PCP Internal Medicine; Visit Provider Internal Medicine Hematology & Oncology
DX: C34.90 Malignant neoplasm of unspecified part of unspecified bronchus or lung (principal)
CPT/HCPCS: 36415; 80053; 85025

== ENCOUNTER 2020-07-22 09:40 | Outpatient (CLI) | payer MEDICARE, MEDICAID, SELFPAY ==
[2020-07-22] MEDS: SODIUM CHLORIDE 0.9% IV 250 ML 40 ML IVPB (10:21)
[2020-07-22 10:38] VITALS: BMI 33.7
[2020-07-22 10:40] VITALS: BP 128/83; PULSE 102; RESP 16; TEMP 36.8; O2SAT 98
[2020-07-22] MEDS: PEMBROLIZUMAB 200 MG in SODIUM CHLORIDE 0.9% IV 100 ML IVPB (11:38)
[2020-07-22 12:15] VITALS: BP 140/86; PULSE 102; RESP 14; TEMP 36.8; O2SAT 96
[2020-07-22] MEDS: HEPARIN SOD FLUSH 500 UNITS/5 ML SYRINGE IV PUSH (12:15)
--- NOTE | 2020-07-22 13:18 | PC.NURSE ---
Patient here for cycle 2 of 6 chemo therapy regimen. Labs reviewed at ok'd. No concerns voiced. Reports just being fatigued. Chemo regimen administered to patent port a cath. Tolerated well. Safe exit of hospital. Will return August 12 for cycle 3.
== END 2020-07-22 09:41 | disposition home or self-care (01) ==
LOC: CHSTREATRM 09:42
PROVIDERS: PCP Internal Medicine; Visit Provider Internal Medicine Hematology & Oncology
DX: Z51.11 Encounter for antineoplastic chemotherapy (principal); C34.90 Malignant neoplasm of unspecified part of unspecified bronchus or lung
CPT/HCPCS: 96367; 96411; 96413; J1100; J2405; J7050; J9271; J9305

== ENCOUNTER 2020-08-11 10:02 | Outpatient (CLI) | payer MEDICARE, SELFPAY ==
[2020-08-11 10:25] LABS: Basophils Absolute Auto 0.04 K/mm3 (0.00-0.10); Basophils Percent Auto 0.9 % (0.0-1.0); Eosinophils Absolute Auto 0.07 K/mm3 (0.02-0.50); Eosinophils Percent Auto 1.5 % (1.0-6.0); Hematocrit 30.8 % (35.0-49.0); Hemoglobin 10.5 g/dL (12.0-15.0); Immature Granulocyte Absolute 0.02 K/mm3 (0.00-0.00); Immature Granulocyte Percent A 0.4 % (0.0-0.0); Lymphocytes Absolute Auto 1.05 K/mm3 (1.10-4.50); Lymphocytes Percent Auto 22.6 % (18.0-42.0); Mean Corpuscular HGB Conc 34.1 g/dL (32.0-36.0); Mean Corpuscular Hemoglobin 33.3 pg (27.0-31.0); Mean Corpuscular Volume 97.8 fL (78.0-102.0); Mean Platelet Volume 9.6 fl (9.2-11.8); Monocytes Percent Auto 6.5 % (2.0-11.0); Neutrophils Absolute Auto 3.2 K/mm3 (1.7-7.2); Neutrophils Percent Auto 68.1 % (50.0-70.0); Platelet Count Result 232 K/mm3 (150-420); Red Blood Count 3.15 M/mm3 (4.20-5.40); Red Cell Distribution Width 14.3 % (11.6-14.4); White Blood Count 4.6 K/mm3 (4.8-10.8)
[2020-08-11 11:31] LABS: Alanine Aminotransferase 51 U/L (14-59); Albumin Level 3.9 g/dL (3.4-5.0); Alkaline Phosphatase 89 U/L (46-116); Anion Gap 10 mmol/L (8-16); Aspartate Amino Transferase 22 U/L (15-37); Bilirubin,Total 0.3 mg/dL (0.00-1.00); Blood Urea Nitrogen 6 mg/dL (7-18); Carbon Dioxide 29 mmol/L (21-32); Chloride 98 mmol/L (98-108); Estimated Glomerular Filt Rate > 60; Glucose 201 mg/dL (70-99); Osmolality Calculated 287 mOsm/kg (285-295); Potassium 3.7 mmol/L (3.5-5.1); Sodium 137 mmol/L (136-145); Thyroid Stimulating Hormone 0.71 uIU/mL (0.36-3.74); Total Protein 6.7 g/dL (6.4-8.2)
[2020-08-14 07:42] LABS: Cortisol Random 4.1 mcg/dL (***)
== END 2020-08-11 10:03 | disposition home or self-care (01) ==
LOC: CHSLAB 10:05
PROVIDERS: PCP Internal Medicine; Visit Provider Internal Medicine Hematology & Oncology
DX: C34.90 Malignant neoplasm of unspecified part of unspecified bronchus or lung (principal); Z79.899 Other long term (current) drug therapy
CPT/HCPCS: 36415; 80053; 82533; 84443; 85025

== ENCOUNTER 2020-08-12 10:16 | Outpatient (CLI) | payer MEDICARE, MEDICAID, SELFPAY ==
[2020-08-12] MEDS: ALTEPLASE 2 MG VIAL (CATHFLO) IV PUSH (10:54)
[2020-08-12 10:57] VITALS: BP 123/84; PULSE 106; RESP 16; TEMP 36.5; O2SAT 95
[2020-08-12 11:00] VITALS: BMI 33.1
[2020-08-12] MEDS: SODIUM CHLORIDE 0.9% IV 250 ML 10 ML IVPB (11:27)
[2020-08-12] MEDS: PEMBROLIZUMAB 200 MG in SODIUM CHLORIDE 0.9% IV 92 ML IVPB (12:30)
[2020-08-12] MEDS: HEPARIN SOD FLUSH 500 UNITS/5 ML SYRINGE IV PUSH (13:13)
[2020-08-12 13:15] VITALS: BP 123/70; PULSE 102; RESP 14; TEMP 36.6
--- NOTE | 2020-08-12 13:21 | PC.NURSE ---
Patient here for # 3 of 6 chemo regimen of Radhatrkaden and Alimta. Patient port accessed-flushed well, but no blood return noted. Patient has standing order to use Alteplase as needed to declot port a cath. Alteplase administered- awaited 20 minutes. Blood return noted. Reviewed labs and ok'd for chemo. Chemo regimen administered without difficulty. SEE MAR. No concerns voiced. Education on chemo drugs and regimen etc... given. Safe exit of hospital. Will return in 3 weeks for #4 of 6. September 02, 2020 at 1030.
== END 2020-08-12 10:17 | disposition home or self-care (01) ==
LOC: CHSTREATRM 10:21
PROVIDERS: PCP Internal Medicine; Visit Provider Internal Medicine Hematology & Oncology
DX: Z51.11 Encounter for antineoplastic chemotherapy (principal); C34.90 Malignant neoplasm of unspecified part of unspecified bronchus or lung; T82.898A Other specified complication of vascular prosthetic devices, implants and grafts, initial encounter
CPT/HCPCS: 96365; 96367; 96375; 96411; 96413; J1100; J2405; J2997; J7050; J9271; J9305

== ENCOUNTER 2020-09-02 09:27 | Outpatient (CLI) | payer MEDICARE, MEDICAID, SELFPAY ==
--- NOTE | 2020-09-02 09:45 | PC.NURSE ---
Pt to [facility] for chemotherapy. To bed per self. Oriented to area. A&Ox3. Has no questions or complaints. Waiting on lab results.
[2020-09-02 09:46] LABS: Basophils Absolute Auto 0.02 K/mm3 (0.00-0.10); Basophils Percent Auto 0.2 % (0.0-1.0); Hemoglobin 11.1 g/dL (12.0-15.0); Immature Granulocyte Percent A 0.8 % (0.0-0.0); Lymphocytes Absolute Auto 0.97 K/mm3 (1.10-4.50); Lymphocytes Percent Auto 7.4 % (18.0-42.0); Mean Corpuscular HGB Conc 34.7 g/dL (32.0-36.0); Mean Corpuscular Hemoglobin 33.4 pg (27.0-31.0); Mean Corpuscular Volume 96.4 fL (78.0-102.0); Mean Platelet Volume 9.1 fl (9.2-11.8); Monocytes Absolute Auto 0.98 K/mm3 (0.10-0.90); Monocytes Percent Auto 7.5 % (2.0-11.0); Neutrophils Percent Auto 84.1 % (50.0-70.0); Platelet Count Result 294 K/mm3 (150-420); Red Blood Count 3.32 M/mm3 (4.20-5.40); Red Cell Distribution Width 13.7 % (11.6-14.4); White Blood Count 13.1 K/mm3 (4.8-10.8)
[2020-09-02 10:10] LABS: Alanine Aminotransferase 43 U/L (14-59); Albumin Level 3.9 g/dL (3.4-5.0); Alkaline Phosphatase 100 U/L (46-116); Anion Gap 14 mmol/L (8-16); Aspartate Amino Transferase 13 U/L (15-37); Bilirubin,Total 0.4 mg/dL (0.00-1.00); Blood Urea Nitrogen 13 mg/dL (7-18); Carbon Dioxide 28 mmol/L (21-32); Chloride 97 mmol/L (98-108); Estimated Glomerular Filt Rate > 60; Glucose 313 mg/dL (70-99); Osmolality Calculated 300 mOsm/kg (285-295); Potassium 3.5 mmol/L (3.5-5.1); Sodium 139 mmol/L (136-145); Thyroid Stimulating Hormone 0.26 uIU/mL (0.36-3.74); Total Protein 7.5 g/dL (6.4-8.2)
[2020-09-02] MEDS: SODIUM CHLORIDE 0.9% IV 250 ML 10 ML IVPB (10:53)
[2020-09-02] MEDS: PEMBROLIZUMAB 200 MG in SODIUM CHLORIDE 0.9% IV 100 ML IVPB (11:14)
[2020-09-02 11:17] VITALS: BP 130/84; PULSE 113; RESP 20; TEMP 37.4; O2SAT 92
[2020-09-02] MEDS: HEPARIN SODIUM LOCK FLUSH 500 UNITS/5 ML SYRINGE IV PUSH (11:56)
--- NOTE | 2020-09-02 12:03 | PC.NURSE ---
All medication infused. Pt tolerated well. Has no questions or complaints. Next appointment scheduled. Pt discharged to home ambulatory per self.
[2020-09-05 08:58] LABS: Cortisol Random 0.9 mcg/dL (***)
== END 2020-09-02 09:28 | disposition home or self-care (01) ==
LOC: CHSLAB 09:35 → CHSTREATRM 10:22
PROVIDERS: PCP Internal Medicine; Visit Provider Internal Medicine Hematology & Oncology
DX: Z51.11 Encounter for antineoplastic chemotherapy (principal); C34.90 Malignant neoplasm of unspecified part of unspecified bronchus or lung; Z79.899 Other long term (current) drug therapy
CPT/HCPCS: 36415; 80053; 82533; 84443; 85025; 96360; 96365; 96367; 96411; 96413; 96417; J1100; J2405; J7050; J9271; J9305

== ENCOUNTER 2020-09-23 09:57 | Outpatient (CLI) | payer MEDICARE, SELFPAY ==
[2020-09-23 10:32] VITALS: BP 150/80; PULSE 104; RESP 14; TEMP 36.4; O2SAT 95; BMI 33.1
[2020-09-23 10:59] LABS: Alanine Aminotransferase 49 U/L (14-59); Albumin Level 3.8 g/dL (3.4-5.0); Alkaline Phosphatase 102 U/L (46-116); Anion Gap 15 mmol/L (8-16); Aspartate Amino Transferase 14 U/L (15-37); Bilirubin,Total 0.3 mg/dL (0.00-1.00); Blood Urea Nitrogen 16 mg/dL (7-18); Calcium 8.8 mg/dL (8.5-10.1); Carbon Dioxide 26 mmol/L (21-32); Chloride 96 mmol/L (98-108); Estimated CRCL calculation 53 ml/min; Estimated Glomerular Filt Rate 50; Osmolality Calculated 302 mOsm/kg (285-295); Potassium 3.8 mmol/L (3.5-5.1); Sodium 137 mmol/L (136-145); Thyroid Stimulating Hormone 0.25 uIU/mL (0.36-3.74); Total Protein 7.3 g/dL (6.4-8.2)
[2020-09-23 11:02] LABS: Glucose 405 mg/dL (70-99)
[2020-09-23 11:05] LABS: Basophils Absolute Auto 0.01 K/mm3 (0.00-0.10); Basophils Percent Auto 0.1 % (0.0-1.0); Hematocrit 33.5 % (35.0-49.0); Hemoglobin 11.4 g/dL (12.0-15.0); Immature Granulocyte Absolute 0.08 K/mm3 (0.00-0.00); Immature Granulocyte Percent A 0.8 % (0.0-0.0); Lymphocytes Absolute Auto 0.74 K/mm3 (1.10-4.50); Lymphocytes Percent Auto 7.2 % (18.0-42.0); Mean Corpuscular Hemoglobin 34.2 pg (27.0-31.0); Mean Corpuscular Volume 100.6 fL (78.0-102.0); Mean Platelet Volume 10.1 fl (9.2-11.8); Monocytes Absolute Auto 0.46 K/mm3 (0.10-0.90); Monocytes Percent Auto 4.5 % (2.0-11.0); Neutrophils Percent Auto 87.4 % (50.0-70.0); Platelet Count Result 305 K/mm3 (150-420); Red Blood Count 3.33 M/mm3 (4.20-5.40); Red Cell Distribution Width 13.5 % (11.6-14.4); White Blood Count 10.3 K/mm3 (4.8-10.8)
--- NOTE | 2020-09-23 11:31 | PC.NURSE ---
1000 Patient here for Chemo regime cycle 5 of 6. Labs drawn. Glucose 405. Dr. Araujo notified. Ok to give chemo, but leave out Dexamethasone in pre med, drawn Hemoglobin A1C. Dr. Araujo will notify Dr. Schmitz, patients's PCP. Patient with understanding to above.
[2020-09-23 11:42] LABS: Hemoglobin A1C 9.7 % (<5.7)
[2020-09-23] MEDS: SODIUM CHLORIDE 0.9% IV 250 ML 10 ML IVPB (11:45)
[2020-09-23] MEDS: ONDANSETRON INJ 16 MG in SODIUM CHLORIDE 0.9% IV 50 ML 150 MG IVPB (11:46)
[2020-09-23] MEDS: PEMBROLIZUMAB 200 MG in SODIUM CHLORIDE 0.9% IV 92 ML IVPB (12:23)
[2020-09-23] MEDS: HEPARIN SODIUM LOCK FLUSH 500 UNITS/5 ML SYRINGE IV PUSH (13:11)
--- NOTE | 2020-09-23 13:20 | PC.NURSE ---
09/23/20 1320 Patient tolerated chemo well. Blood sugar remains in 400's per bedside monitoring. Patient's PCP aware and going to see patient about it. Denies confusion, headaches, blurred vision, or nausea or vomiting. Patient Reports has been tired every since started all this chemo last year. Safe exit of hospital. Significant other here to pick her up. Will return October 14, 2020 1000 for #6 of 6.
[2020-09-23 13:26] VITALS: BP 148/70; PULSE 111; RESP 18; TEMP 36.4; O2SAT 94
[2020-09-23 14:15] LABS: Glucose Point of Care > 450 mg/dl (65-105)
[2020-09-27 13:55] LABS: Cortisol Random 1.4 mcg/dL (***)
== END 2020-09-23 09:58 | disposition home or self-care (01) ==
LOC: CHSTREATRM 10:00
PROVIDERS: PCP Internal Medicine; Visit Provider Internal Medicine Hematology & Oncology
DX: Z51.11 Encounter for antineoplastic chemotherapy (principal); C34.90 Malignant neoplasm of unspecified part of unspecified bronchus or lung; R73.09 Other abnormal glucose; Z79.899 Other long term (current) drug therapy
CPT/HCPCS: 36415; 80053; 82533; 82948; 83036; 84443; 85025; 96365; 96367; 96411; 96413; J2405; J9271; J9305

== ENCOUNTER 2020-10-20 10:10 | Outpatient (CLI) | payer MEDICARE, MEDICAID, SELFPAY ==
--- NOTE | ~2020-10-20 | DEXA_ITS ---
Bone Density Report Name: Elisha Garcia Age: 60 Sex: Female Ethnicity: White Date of : 1960 Indication: postmenopausal; screening for osteoporosis; height loss; cancer; seizure disorder; asthma or emphysema; Referring Provider: Jose L, Olivia Wells Study: Bone densitometry was performed. Exam Date: October 20, 2020 Accession number: [id number] Bone Density: Region BMD T-score Z-score Classification AP Spine(L1-L4) 1.058 0.1 1.5 Normal Femoral Neck (Left) 0.865 0.1 1.4 Normal Total Hip (Left) 1.033 0.7 1.7 Normal Femoral Neck (Right) 0.879 0.3 1.6 Normal Total Hip (Right) 1.006 0.5 1.5 Normal Femoral Neck Mean 0.872 0.2 1.5 Normal Total Hip Mean 1.019 0.6 1.6 Normal World Health Organization criteria for BMD impression classify patients as: Normal (T-score at or above -1.0), Osteopenia (T-score between -1.0 and -2.5), or Osteoporosis (T-score at or below -2.5). 10-year Fracture Risk: FRAX not reported because: All T-scores for Spine Total, Hip Total, Femoral Neck at or above -1.0 Previous Exams: Region Exam Age BMD T-score BMD Change BMD Change Date g/cm2 vs Baseline vs Previous AP Spine (L1-L4) 10/20/2020 60 1.058 0.1 -0.100 (-8.6%) -0.100 (-8.6%) 11/21/2013 53 1.158 1.0 Total Hip(Left) 10/20/2020 60 1.033 0.7 -0.008 (-0.8%) -0.008 (-0.8%) 11/21/2013 53 1.041 0.8 Total Hip(Right) 10/20/2020 60 1.006 0.5 -0.052 (-4.9%) -0.052 (-4.9%) 11/21/2013 53 1.059 1.0 *Denotes significance at 95% confidence level, LSC for AP Spine = 0.022 g/cm2, LSC for Total Hip = 0.027 g/cm2 # Denotes dissimilar scan types or analysis methods Clinical Information Provided by Patient: Smokes Has used the following medications: Vitamin D Has the following medical conditions: Any Seizure Disorders, Asthma or Emphysema, Cancer Patient maximum height was 66 No regular weight bearing exercise Drinks caffeinated beverages Onset of menses at age 13 Number of children 1 Impression: The patient has normal bone mass. The patient has risk factors, including: smoking. No significant bone loss was observed. Discussion: BONE DENSITY IS ABOVE THE MINIMUM DESIRABLE LEVEL AT ALL SKELETAL SITES TESTED. This patient?s bone mineral density is above the minimum desirable level (T-score -1.0 or better) at all sites measured. The patient should follow a healthful lifestyle (good nutrition with adequate calcium and
--- NOTE | ~2020-10-20 | MM_ITS ---
EXAMINATION: MM scrn jorge implant RT w armand HISTORY: Screening right mammogram, history of left mastectomy TECHNIQUE: Craniocaudal and mediolateral oblique 3-D tomosynthesis images were obtained and synthetic 2-D images were generated. CAD analysis was submitted and interpreted. COMPARISON: 02/08/2016, 01/15/2015 BREAST PARENCHYMAL COMPOSITION: There are scattered areas of fibroglandular density. FINDINGS: There is no evidence of suspicious mass, calcification, or architectural distortion to sugg est malignancy in either breast. There has been no suspicious interval change. IMPRESSION: 1. No mammographic evidence of malignancy. 2. Recommend routine screening mammography in one year. BI-RADS Category 1: Negative Reviewed, dictated and finalized at location A.
[2020-10-20 10:23] LABS: Basophils Absolute Auto 0.06 K/mm3 (0.00-0.10); Basophils Percent Auto 1.1 % (0.0-1.0); Eosinophils Absolute Auto 0.08 K/mm3 (0.02-0.50); Eosinophils Percent Auto 1.4 % (1.0-6.0); Hematocrit 35.7 % (35.0-49.0); Hemoglobin 12.1 g/dL (12.0-15.0); Immature Granulocyte Absolute 0.04 K/mm3 (0.00-0.00); Immature Granulocyte Percent A 0.7 % (0.0-0.0); Lymphocytes Absolute Auto 1.53 K/mm3 (1.10-4.50); Lymphocytes Percent Auto 27.2 % (18.0-42.0); Mean Corpuscular HGB Conc 33.9 g/dL (32.0-36.0); Mean Corpuscular Hemoglobin 33.7 pg (27.0-31.0); Mean Corpuscular Volume 99.4 fL (78.0-102.0); Mean Platelet Volume 9.4 fl (9.2-11.8); Monocytes Absolute Auto 0.56 K/mm3 (0.10-0.90); Neutrophils Absolute Auto 3.4 K/mm3 (1.7-7.2); Neutrophils Percent Auto 59.6 % (50.0-70.0); Platelet Count Result 239 K/mm3 (150-420); Red Blood Count 3.59 M/mm3 (4.20-5.40); Red Cell Distribution Width 13.4 % (11.6-14.4); White Blood Count 5.6 K/mm3 (4.8-10.8)
[2020-10-20 11:34] LABS: Alanine Aminotransferase 48 U/L (14-59); Alkaline Phosphatase 85 U/L (46-116); Anion Gap 10 mmol/L (8-16); Aspartate Amino Transferase 27 U/L (15-37); Bilirubin,Total 0.4 mg/dL (0.00-1.00); Blood Urea Nitrogen 4 mg/dL (7-18); Calcium 8.9 mg/dL (8.5-10.1); Carbon Dioxide 30 mmol/L (21-32); Chloride 99 mmol/L (98-108); Estimated Glomerular Filt Rate > 60; Glucose 171 mg/dL (70-99); Osmolality Calculated 288 mOsm/kg (285-295); Sodium 139 mmol/L (136-145); Thyroid Stimulating Hormone 1.11 uIU/mL (0.36-3.74)
[2020-10-21 11:32] LABS: Hemoglobin A1C 9.2 % (<5.7)
== END 2020-10-20 10:11 | disposition home or self-care (01) ==
LOC: CHSIMG 10:12
PROVIDERS: PCP Internal Medicine; Visit Provider Nurse Practitioner Family
DX: C34.90 Malignant neoplasm of unspecified part of unspecified bronchus or lung (principal); Z79.899 Other long term (current) drug therapy; Z12.31 Encounter for screening mammogram for malignant neoplasm of breast; Z78.0 Asymptomatic menopausal state; R73.01 Impaired fasting glucose
CPT/HCPCS: 36415; 77063; 77067; 77080; 80053; 82533; 83036; 84443; 85025

== ENCOUNTER 2020-10-21 10:04 | Outpatient (CLI) | payer MEDICARE, MEDICAID, SELFPAY ==
[2020-10-21] MEDS: ONDANSETRON IVPB (10:43)
[2020-10-21] MEDS: SODIUM CHLORIDE 0.9% IVPB (10:43)
[2020-10-21] MEDS: SODIUM CHLORIDE 0.9% IV 250 ML 10 ML IVPB (10:44)
[2020-10-21 10:54] VITALS: BMI 33.0
[2020-10-21 10:55] VITALS: BP 127/80; PULSE 100; RESP 14; TEMP 36.8; O2SAT 95
[2020-10-21] MEDS: PEMBROLIZUMAB 200 MG in SODIUM CHLORIDE 0.9% IV 92 ML IVPB (11:18)
[2020-10-21] MEDS: HEPARIN SODIUM LOCK FLUSH 500 UNITS/5 ML SYRINGE IV PUSH (11:47)
[2020-10-21 11:48] VITALS: BP 126/72; PULSE 72; RESP 16; TEMP 36.4; O2SAT 97
--- NOTE | 2020-10-21 11:59 | PC.NURSE ---
Patient here for # 6 Keytruda and Alimita IV chemo. Labs were drawn 10/20/20 reviewed. OK'd. No concerns voiced. Chemo regime administered see APR. Tolerated well. Safe exit of hospital. Will need to see Dr. Araujo to see if needing more treatment. Patient reports has an appt. set up.
== END 2020-10-21 10:05 | disposition home or self-care (01) ==
LOC: CHSTREATRM 10:09
PROVIDERS: PCP Internal Medicine; Visit Provider Internal Medicine Hematology & Oncology
DX: Z51.11 Encounter for antineoplastic chemotherapy (principal)
CPT/HCPCS: 96367; 96411; 96413; J2405; J9271; J9305

== ENCOUNTER 2020-11-10 09:50 | Outpatient (CLI) | payer MEDICARE, MEDICAID, SELFPAY ==
--- NOTE | ~2020-11-10 | CT_ITS ---
EXAMINATION: CT chest abdomen pelvis wo con DATE: 11/10/2020 10:18 INDICATION: History of breast and lung cancer TECHNIQUE: Transaxial computed tomographic images of the chest, abdomen, and pelvis were obtained aft er the administration of without intravenous contrast. The dose-length product (DLP) was 1191.44 mGy- cm. Automated exposure control and iterative reconstruction technique were employed. COMPARISON: 06/08/2020 FINDINGS: CHEST CT: There are changes of right partial pneumonectomy. Mild emphysema is noted. The lungs are free of acut e opacities. There are no suspicious pulmonary nodules. There are changes of left mastectomy with imp lant reconstruction and right breast augmentation. There is no pleural effusion or pneumothorax. No p athologically enlarged thoracic lymph nodes are identified. The heart size is normal. A right sided P ort-A-Cath ends with its tip in the distal superior vena cava. Calcified coronary artery atherosclero sis is noted. Subendocardial fat deposition in the interventricular septum and left ventricular apex is consistent with prior myocardial infarction. There is moderate thoracic spondylosis. ABDOMEN/PELVIS CT: The liver, spleen, pancreas, gallbladder, and adrenal glands are normal. The kidneys are unremarkable . There is calcified atherosclerosis of the aorta and many of the other arteries. No pathologically e nlarged abdominal or pelvic lymph nodes are identified. There is no free intraperitoneal gas or evide nce of bowel obstruction. There is moderate lower lumbar spondylosis. Fat-containing umbilical hernia is noted. IMPRESSION: 1. No significant interval change or evidence of metastatic disease. Reviewed, dictated and finalized at location A.
[2020-11-10 10:28] LABS: Basophils Absolute Auto 0.06 K/mm3 (0.00-0.10); Eosinophils Absolute Auto 0.09 K/mm3 (0.02-0.50); Eosinophils Percent Auto 1.5 % (1.0-6.0); Hematocrit 35.4 % (35.0-49.0); Immature Granulocyte Absolute 0.03 K/mm3 (0.00-0.00); Immature Granulocyte Percent A 0.5 % (0.0-0.0); Lymphocytes Absolute Auto 1.44 K/mm3 (1.10-4.50); Mean Corpuscular HGB Conc 33.9 g/dL (32.0-36.0); Mean Corpuscular Hemoglobin 33.1 pg (27.0-31.0); Mean Corpuscular Volume 97.8 fL (78.0-102.0); Mean Platelet Volume 9.5 fl (9.2-11.8); Monocytes Absolute Auto 0.46 K/mm3 (0.10-0.90); Monocytes Percent Auto 7.7 % (2.0-11.0); Neutrophils Absolute Auto 3.9 K/mm3 (1.7-7.2); Neutrophils Percent Auto 65.3 % (50.0-70.0); Platelet Count Result 257 K/mm3 (150-420); Red Blood Count 3.62 M/mm3 (4.20-5.40); Red Cell Distribution Width 13.3 % (11.6-14.4)
[2020-11-10 11:21] LABS: Alanine Aminotransferase 47 U/L (14-59); Albumin Level 4.1 g/dL (3.4-5.0); Alkaline Phosphatase 94 U/L (46-116); Anion Gap 10 mmol/L (8-16); Aspartate Amino Transferase 21 U/L (15-37); Bilirubin,Total 0.3 mg/dL (0.00-1.00); Blood Urea Nitrogen 9 mg/dL (7-18); Calcium 9.2 mg/dL (8.5-10.1); Carbon Dioxide 31 mmol/L (21-32); Chloride 98 mmol/L (98-108); Estimated Glomerular Filt Rate > 60; Glucose 192 mg/dL (70-99); Osmolality Calculated 291 mOsm/kg (285-295); Potassium 3.9 mmol/L (3.5-5.1); Sodium 139 mmol/L (136-145); Thyroid Stimulating Hormone 1.23 uIU/mL (0.36-3.74); Total Protein 6.9 g/dL (6.4-8.2)
[2020-11-13 06:38] LABS: Cortisol Random 33.9 mcg/dL (***)
== END 2020-11-10 09:51 | disposition home or self-care (01) ==
LOC: CHSIMG 09:53
PROVIDERS: PCP Internal Medicine; Visit Provider Internal Medicine Hematology & Oncology
DX: C50.919 Malignant neoplasm of unspecified site of unspecified female breast (principal); C34.90 Malignant neoplasm of unspecified part of unspecified bronchus or lung; Z79.899 Other long term (current) drug therapy
CPT/HCPCS: 36415; 71250; 74176; 80053; 82533; 84443; 85025

== ENCOUNTER 2020-11-11 09:59 | Outpatient (CLI) | payer MEDICARE, MEDICAID, SELFPAY ==
[2020-11-11] MEDS: SODIUM CHLORIDE 0.9% IV 250 ML 100 ML IVPB (10:00)
[2020-11-11] MEDS: ONDANSETRON IVPB (10:24)
[2020-11-11] MEDS: SODIUM CHLORIDE 0.9% IVPB (10:24)
[2020-11-11 10:28] VITALS: BP 126/87; PULSE 100; RESP 14; TEMP 37.1; O2SAT 97
[2020-11-11 10:32] VITALS: BMI 33.5
[2020-11-11] MEDS: PEMBROLIZUMAB 200 MG in SODIUM CHLORIDE 0.9% IV 100 ML IVPB (11:07)
[2020-11-11] MEDS: HEPARIN SODIUM LOCK FLUSH 500 UNITS/5 ML SYRINGE IV PUSH (11:42)
[2020-11-11 11:45] VITALS: BP 118/68; PULSE 96; RESP 14; TEMP 36.6; O2SAT 97
--- NOTE | 2020-11-11 11:47 | PC.NURSE ---
Patient here for Cycle 7 of Pembrolizumab/Pemetrexed IV chemo. Education given on chemo. No concerns voiced. Reviewed labs from 11/10/20. Ok'd for chemo. Chemo IV regime administered. Tolerated well. Safe exit of hospital. Will return Dec 02, 2020 [address] Araujo prescribes.
== END 2020-11-11 10:00 | disposition home or self-care (01) ==
LOC: CHSLAB 10:03 → CHSTREATRM 10:06
PROVIDERS: PCP Internal Medicine; Visit Provider Internal Medicine Hematology & Oncology
DX: Z51.11 Encounter for antineoplastic chemotherapy (principal); C34.90 Malignant neoplasm of unspecified part of unspecified bronchus or lung
CPT/HCPCS: 96367; 96411; 96413; 96417; J2405; J7050; J9271; J9305

== ENCOUNTER 2020-11-29 09:43 | Outpatient (CLI) | payer MEDICARE, MEDICAID, SELFPAY ==
[2020-11-29 10:44] LABS: Basophils Absolute Auto 0.05 K/mm3 (0.00-0.10); Basophils Percent Auto 0.7 % (0.0-1.0); Eosinophils Absolute Auto 0.06 K/mm3 (0.02-0.50); Eosinophils Percent Auto 0.9 % (1.0-6.0); Hematocrit 36.3 % (35.0-49.0); Hemoglobin 12.3 g/dL (12.0-15.0); Immature Granulocyte Absolute 0.03 K/mm3 (0.00-0.00); Immature Granulocyte Percent A 0.4 % (0.0-0.0); Lymphocytes Absolute Auto 1.24 K/mm3 (1.10-4.50); Lymphocytes Percent Auto 18.2 % (18.0-42.0); Mean Corpuscular HGB Conc 33.9 g/dL (32.0-36.0); Mean Corpuscular Hemoglobin 33.3 pg (27.0-31.0); Mean Corpuscular Volume 98.4 fL (78.0-102.0); Mean Platelet Volume 10.5 fl (9.2-11.8); Monocytes Percent Auto 8.8 % (2.0-11.0); Neutrophils Absolute Auto 4.9 K/mm3 (1.7-7.2); Platelet Count Result 218 K/mm3 (150-420); Red Blood Count 3.69 M/mm3 (4.20-5.40); Red Cell Distribution Width 13.5 % (11.6-14.4); White Blood Count 6.8 K/mm3 (4.8-10.8)
[2020-11-29 11:22] LABS: Alanine Aminotransferase 58 U/L (14-59); Alkaline Phosphatase 89 U/L (46-116); Anion Gap 11 mmol/L (8-16); Aspartate Amino Transferase 26 U/L (15-37); Bilirubin,Total 0.4 mg/dL (0.00-1.00); Blood Urea Nitrogen 10 mg/dL (7-18); Calcium 8.8 mg/dL (8.5-10.1); Carbon Dioxide 31 mmol/L (21-32); Chloride 97 mmol/L (98-108); Estimated Glomerular Filt Rate > 60; Free T4 Free Thyroxine 0.99 ng/dL (0.76-1.46); Glucose 196 mg/dL (70-99); Osmolality Calculated 292 mOsm/kg (285-295); Potassium 3.7 mmol/L (3.5-5.1); Sodium 139 mmol/L (136-145); Thyroid Stimulating Hormone 0.88 uIU/mL (0.36-3.74); Total Protein 6.9 g/dL (6.4-8.2)
[2020-12-02 06:51] LABS: Cortisol Baseline 26.3 mcg/dL (***)
[2020-12-02 06:51] LABS: Cortisol 60 Minute 25.8 mcg/dL (***)
[2020-12-03 06:59] LABS: Cortisol 30 Minute 27.9 mcg/dL (***)
== END 2020-11-29 09:44 | disposition home or self-care (01) ==
PROVIDERS: PCP Internal Medicine; Visit Provider Internal Medicine Hematology & Oncology
DX: E27.40 Unspecified adrenocortical insufficiency (principal)
CPT/HCPCS: 80053; 82533; 84439; 84443; 85025; J0834

== ENCOUNTER 2020-12-02 10:08 | Outpatient (CLI) | payer MEDICARE, MEDICAID, SELFPAY ==
--- NOTE | 2020-12-02 10:15 | PC.NURSE ---
[facility] amb per self. A&Ox3. Has no question or complaints. To bed per self. Oriented to room. Call gil in reach. Reminded to voice concerns.
[2020-12-02 10:42] VITALS: BP 101/70; PULSE 109; RESP 20; TEMP 35.8; O2SAT 95
[2020-12-02] MEDS: SODIUM CHLORIDE 0.9% IV 250 ML 10 ML IVPB (10:50)
[2020-12-02] MEDS: SODIUM CHLORIDE 0.9% IVPB (10:56)
[2020-12-02] MEDS: ONDANSETRON IVPB (10:56)
[2020-12-02] MEDS: PEMBROLIZUMAB 200 MG in SODIUM CHLORIDE 0.9% IV 100 ML IVPB (11:33)
[2020-12-02] MEDS: HEPARIN SODIUM LOCK FLUSH 500 UNITS/5 ML SYRINGE IV PUSH (12:15)
--- NOTE | 2020-12-02 12:20 | PC.NURSE ---
All medications infused as ordered. Pt tolerated well. Has no complaints. Discharged amb to home per self.
== END 2020-12-02 10:09 | disposition home or self-care (01) ==
LOC: CHSLAB 10:12 → CHSTREATRM 10:13
PROVIDERS: PCP Internal Medicine; Visit Provider Internal Medicine Hematology & Oncology
DX: Z51.11 Encounter for antineoplastic chemotherapy (principal); C34.90 Malignant neoplasm of unspecified part of unspecified bronchus or lung
CPT/HCPCS: 96365; 96367; 96368; 96411; 96413; 96417; J2405; J7050; J9271; J9305

== ENCOUNTER 2020-12-08 08:05 | Outpatient (CLI) | payer MEDICARE, MEDICAID, SELFPAY ==
[2020-12-08] MEDS: CYANOCOBALAMIN INJ 1,000 MCG/ML VIAL 1000 MCG (08:33)
--- NOTE | 2020-12-08 08:37 | PC.NURSE ---
Patient here for Vitamin B12 injection q 9 weeks prior to chemo. Patient way over due for. Vitamin B12 injection administered see APR. Tolerated well.
[2020-12-08 08:40] VITALS: BP 128/77; PULSE 72; RESP 14; TEMP 36.4; O2SAT 97
[2020-12-08 08:41] VITALS: BMI 33.2
--- NOTE | 2020-12-08 08:44 | PC.NURSE ---
Patient is also here for cortisol level blood draws. Using her Port a cath. Accessed port. Patent. Site asystomatic of s/sx of infection.
[2020-12-08] MEDS: HEPARIN SODIUM LOCK FLUSH 500 UNITS/5 ML SYRINGE IV PUSH (09:18)
--- NOTE | 2020-12-08 09:31 | PC.NURSE ---
Patient completed lab draws for test. Port flushed per protocol (see MAR) and deaccessed. Tolerated well. Safe exit of hospital.
[2020-12-11 07:35] LABS: Cortisol 30 Minute 19.4 mcg/dL (***)
[2020-12-11 07:35] LABS: Cortisol Baseline 10.9 mcg/dL (***)
== END 2020-12-08 08:06 | disposition home or self-care (01) ==
LOC: CHSTREATRM 08:12
PROVIDERS: PCP Internal Medicine; Visit Provider Internal Medicine Hematology & Oncology
DX: C34.90 Malignant neoplasm of unspecified part of unspecified bronchus or lung (principal); E27.40 Unspecified adrenocortical insufficiency
CPT/HCPCS: 36415; 82533; 96372; J0834; J3420

== ENCOUNTER 2020-12-13 07:59 | Outpatient (CLI) | payer MEDICARE, MEDICAID, SELFPAY ==
--- NOTE | ~2020-12-13 | CT_ITS ---
EXAMINATION: CT chest abdomen pelvis w con DATE: 12/13/2020 08:52 INDICATION: Cancer of right middle lobe of lung. TECHNIQUE: Computed tomography (CT) of the chest, abdomen, and pelvis was performed with 100 mL Omnip aque 350 intravenous contrast. Automated exposure control and iterative reconstruction technique were employed. The dose-length product was 1021.46 mGy-cm. COMPARISON: CT chest, abdomen, and pelvis 11/10/2020 FINDINGS: CHEST CT: There is mild emphysema. There is mild atelectasis bilaterally. There are changes of right middle lob ectomy. No pleural effusion. The heart size is normal. There are coronary artery calcifications. No p ericardial effusion. There are changes of left mastectomy. There are bilateral breast implants. There is a right internal jugular port with tip at superior cavoatrial junction. There is severe thoracic spondylosis. ABDOMEN/PELVIS CT: The liver, gallbladder, spleen, pancreas, adrenal glands, and left kidney are normal. There is cortic al thinning in right kidney. There is an umbilical hernia containing fat. There are no dilated loops of bowel. The appendix is normal. There are no pathologically enlarged lymph nodes. There is no free intraperitoneal fluid. There is moderate lumbar spondylosis. IMPRESSION: 1. No evidence of metastatic disease. Reviewed, dictated and finalized at location A.
== END 2020-12-13 08:00 | disposition home or self-care (01) ==
LOC: CHSIMG 08:00
PROVIDERS: PCP Internal Medicine; Visit Provider Internal Medicine Hematology & Oncology
DX: C34.2 Malignant neoplasm of middle lobe, bronchus or lung (principal)
CPT/HCPCS: 71260; 74177; Q9967

== ENCOUNTER 2020-12-22 13:19 | Outpatient (CLI) | payer MEDICARE, MEDICAID, SELFPAY ==
[2020-12-22 13:44] LABS: Basophils Absolute Auto 0.05 K/mm3 (0.00-0.10); Basophils Percent Auto 0.8 % (0.0-1.0); Eosinophils Absolute Auto 0.04 K/mm3 (0.02-0.50); Eosinophils Percent Auto 0.7 % (1.0-6.0); Hematocrit 34.2 % (35.0-49.0); Hemoglobin 11.5 g/dL (12.0-15.0); Immature Granulocyte Absolute 0.02 K/mm3 (0.00-0.00); Immature Granulocyte Percent A 0.3 % (0.0-0.0); Lymphocytes Absolute Auto 1.03 K/mm3 (1.10-4.50); Lymphocytes Percent Auto 17.2 % (18.0-42.0); Mean Corpuscular HGB Conc 33.6 g/dL (32.0-36.0); Mean Corpuscular Hemoglobin 33.1 pg (27.0-31.0); Mean Corpuscular Volume 98.6 fL (78.0-102.0); Mean Platelet Volume 9.6 fl (9.2-11.8); Monocytes Absolute Auto 0.45 K/mm3 (0.10-0.90); Monocytes Percent Auto 7.5 % (2.0-11.0); Neutrophils Absolute Auto 4.4 K/mm3 (1.7-7.2); Neutrophils Percent Auto 73.5 % (50.0-70.0); Platelet Count Result 236 K/mm3 (150-420); Red Blood Count 3.47 M/mm3 (4.20-5.40); Red Cell Distribution Width 13.9 % (11.6-14.4)
[2020-12-22 13:49] LABS: Add Urine Microscopic? YES; Appearance Urine Clear (Clear); Bilirubin Urine Negative (Negative); Blood Urine 1+ (Negative); Color Urine Light Yellow (Yellow); Glucose Urine UA Negative (Negative); Ketones Urine Negative (Negative); Leukocyte Esterase Ur Negative LEU/UL (Negative); Nitrate Urine Negative (Negative); Protein Urine Negative (Negative); Specific Grav Ur 1.015 (1.010-1.020); Urobilinogen Urine 0.2 mg/dL (0.2-1.0)
[2020-12-22 14:02] LABS: Bacteria Urine Trace /hpf; Squamous Epithelial Cell Urine Rare /hpf (Few); WBC Urine 0-3 /hpf (0-3)
[2020-12-22 14:10] LABS: Creatinine Urine 138.87 mg/dL (40-278); MALB Creatinine Ratio 14.9 mg/g (0-30); Microalbumin Urine Random 20.7 mg/L
[2020-12-22 14:12] LABS: Hemoglobin A1C 7.5 % (<5.7)
[2020-12-22 14:32] LABS: Alanine Aminotransferase 37 U/L (14-59); Albumin Level 3.9 g/dL (3.4-5.0); Alkaline Phosphatase 85 U/L (46-116); Anion Gap 12 mmol/L (8-16); Aspartate Amino Transferase 17 U/L (15-37); Bilirubin,Total 0.3 mg/dL (0.00-1.00); Blood Urea Nitrogen 6 mg/dL (7-18); Calcium 8.7 mg/dL (8.5-10.1); Carbon Dioxide 29 mmol/L (21-32); Chloride 96 mmol/L (98-108); Cholesterol 139 mg/dL (0-200); Estimated Glomerular Filt Rate > 60; Free T4 Free Thyroxine 0.96 ng/dL (0.76-1.46); Glucose 179 mg/dL (70-99); HDL Direct 66 mg/dL (40-60); LDL Cholesterol Calculated 57 mg/dL (<130); Osmolality Calculated 285 mOsm/kg (285-295); Potassium 3.9 mmol/L (3.5-5.1); Sodium 137 mmol/L (136-145); Thyroid Stimulating Hormone 0.86 uIU/mL (0.36-3.74); Total Protein 6.6 g/dL (6.4-8.2); Triglycerides 78 mg/dL (0-150)
[2020-12-24 14:20] LABS: Vitamin D 25 Hydroxy 36 ng/mL (30-100)
== END 2020-12-22 13:20 | disposition home or self-care (01) ==
LOC: CHSLAB 13:22
PROVIDERS: PCP Internal Medicine; Visit Provider Nurse Practitioner Family
DX: E11.65 Type 2 diabetes mellitus with hyperglycemia (principal); N30.01 Acute cystitis with hematuria; E78.5 Hyperlipidemia, unspecified; R10.13 Epigastric pain; E55.9 Vitamin D deficiency, unspecified; Z79.899 Other long term (current) drug therapy
CPT/HCPCS: 36415; 80053; 80061; 81001; 82043; 82306; 83036; 84439; 84443; 85025

== ENCOUNTER 2020-12-30 10:03 | Outpatient (CLI) | payer MEDICARE, MEDICAID, SELFPAY ==
[2020-12-30 10:21] VITALS: BP 130/73; PULSE 92; RESP 14; TEMP 36.1; O2SAT 97; BMI 33.2
[2020-12-30] MEDS: SODIUM CHLORIDE 0.9% IV 250 ML 10 ML IVPB (10:49)
[2020-12-30] MEDS: PEMBROLIZUMAB 200 MG in SODIUM CHLORIDE 0.9% IV 100 ML IVPB (11:22)
[2020-12-30] MEDS: HEPARIN SODIUM LOCK FLUSH 500 UNITS/5 ML SYRINGE IV PUSH (12:16)
[2020-12-30 12:18] VITALS: BP 140/76; PULSE 92; RESP 14; TEMP 36.5; O2SAT 98
--- NOTE | 2020-12-30 12:19 | PC.NURSE ---
Patient here for chemo therapy, Keytruda and Alimta. Labs reviewed and ok'd. No concerns voiced. Chemo regimen administered. SEE MAR. Tolerated well. Safe exit of hospital. Sees Dr. Araujo tomorrow. Will follow from there.
== END 2020-12-30 10:04 | disposition home or self-care (01) ==
LOC: CHSTREATRM 10:06
PROVIDERS: PCP Internal Medicine; Visit Provider Internal Medicine Hematology & Oncology
DX: Z51.11 Encounter for antineoplastic chemotherapy (principal); C34.90 Malignant neoplasm of unspecified part of unspecified bronchus or lung
CPT/HCPCS: 96367; 96409; 96411; 96413; 96417; J2405; J7050; J9271; J9305

== ENCOUNTER 2021-01-18 13:04 | Outpatient (CLI) | payer MEDICARE, SELFPAY ==
[2021-01-18 13:24] LABS: Basophils Absolute Auto 0.04 K/mm3 (0.00-0.10); Basophils Percent Auto 0.7 % (0.0-1.0); Eosinophils Absolute Auto 0.06 K/mm3 (0.02-0.50); Hemoglobin 12.8 g/dL (12.0-15.0); Immature Granulocyte Absolute 0.02 K/mm3 (0.00-0.00); Immature Granulocyte Percent A 0.3 % (0.0-0.0); Lymphocytes Absolute Auto 1.25 K/mm3 (1.10-4.50); Lymphocytes Percent Auto 21.2 % (18.0-42.0); Mean Corpuscular HGB Conc 33.7 g/dL (32.0-36.0); Mean Corpuscular Hemoglobin 33.2 pg (27.0-31.0); Mean Corpuscular Volume 98.7 fL (78.0-102.0); Mean Platelet Volume 10.2 fl (9.2-11.8); Monocytes Percent Auto 8.5 % (2.0-11.0); Neutrophils Percent Auto 68.3 % (50.0-70.0); Platelet Count Result 218 K/mm3 (150-420); Red Blood Count 3.85 M/mm3 (4.20-5.40); Red Cell Distribution Width 13.7 % (11.6-14.4); White Blood Count 5.9 K/mm3 (4.8-10.8)
[2021-01-18 14:10] LABS: Alanine Aminotransferase 35 U/L (14-59); Alkaline Phosphatase 95 U/L (46-116); Anion Gap 10 mmol/L (8-16); Aspartate Amino Transferase 19 U/L (15-37); Bilirubin,Total 0.3 mg/dL (0.00-1.00); Blood Urea Nitrogen 10 mg/dL (7-18); Calcium 9.8 mg/dL (8.5-10.1); Carbon Dioxide 30 mmol/L (21-32); Chloride 98 mmol/L (98-108); Estimated Glomerular Filt Rate > 60; Glucose 176 mg/dL (70-99); Osmolality Calculated 289 mOsm/kg (285-295); Potassium 4.3 mmol/L (3.5-5.1); Sodium 138 mmol/L (136-145)
== END 2021-01-18 13:05 | disposition home or self-care (01) ==
LOC: CHSLAB 13:06
PROVIDERS: PCP Internal Medicine; Visit Provider Internal Medicine Hematology & Oncology
DX: C34.90 Malignant neoplasm of unspecified part of unspecified bronchus or lung (principal)
CPT/HCPCS: 36415; 80053; 85025

== ENCOUNTER 2021-01-19 10:06 | Outpatient (CLI) | payer MEDICARE, MEDICAID, SELFPAY ==
[2021-01-19] MEDS: SODIUM CHLORIDE 0.9% IV 250 ML 10 ML IVPB (10:30)
[2021-01-19 10:38] VITALS: BP 130/72; PULSE 104; RESP 14; TEMP 36.6; O2SAT 96; BMI 33.2
[2021-01-19] MEDS: PEMBROLIZUMAB 200 MG in SODIUM CHLORIDE 0.9% IV 100 ML IVPB (11:14)
--- NOTE | 2021-01-19 11:54 | PC.NURSE ---
Patient here for Keytruda/Alimta chemo q 3 weeks. Education given. Labs reviewed and ok'd. Chemo regimen administered. SEE MAR. Tolerated well. Safe exit of hospital. Will return for B12 injection and lab work on 02/03/21 and chemo 02/10/21.
[2021-01-19] MEDS: HEPARIN SODIUM LOCK FLUSH 500 UNITS/5 ML SYRINGE IV PUSH (12:06)
[2021-01-19 12:09] VITALS: BP 130/70; PULSE 100; RESP 14; TEMP 36.5; O2SAT 96
== END 2021-01-19 10:07 | disposition home or self-care (01) ==
LOC: CHSTREATRM 10:09
PROVIDERS: PCP Internal Medicine; Visit Provider Internal Medicine Hematology & Oncology
DX: Z51.11 Encounter for antineoplastic chemotherapy (principal)
CPT/HCPCS: 96367; 96411; 96413; J2405; J7050; J9271; J9305

== ENCOUNTER 2021-02-03 07:59 | Outpatient (CLI) | payer MEDICARE, MEDICAID, SELFPAY ==
--- NOTE | ~2021-02-03 | CT_ITS ---
EXAMINATION: CT chest abdomen pelvis w con EXAM DATE: 02/03/2021 09:10 INDICATION: Musculoskeletal Pain abdominal distention, musculoskeletal pain. Lung cancer. TECHNIQUE: Spiral CT of the chest, abdomen and pelvis was performed following intravenous injection o f 100 mL Omnipaque 350. Axial, coronal and sagittal images chest, abdomen and pelvis were reviewed. Coronal maximum intensity pixel images of chest reviewed. The dose-length product (DLP) for this ex amination was 1277.70 mGy-cm. The exposure was tailored according to patient size (auto mA exposure control), and iterative reconstruction (ASIR) was used as additional dose reduction technique. Compar zachery is made to prior examination from 12/13/2020. FINDINGS: CHEST: Right-sided portacatheter in position. Breast implants. Partial right pneumonectomy. There ar e no pleural or pericardial effusions. Tracheobronchial tree is patent. Mild emphysema. There is no mediastinal, hilar or axillary lymphadenopathy. There is no pneumothorax. Heart normal in size. There is moderate coronary arterial calcification, arterial sclerosis. ABDOMEN PELVIS: The imaged pelvic, abdominal and thoracic musculature is unremarkable. There is hepa tic steatosis without suspicious focal lesion identified. Spleen, adrenal glands, pancreas are unrema rkable. Gallbladder is unremarkable. No biliary obstruction. Portal and splenic veins are patent. Kidneys enhance symmetrically. There is no hydronephrosis. The uterus is unremarkable. The blad onesimo is unremarkable. There is no retroperitoneal or pelvic lymphadenopathy. There is mild to moder ate scattered arteriosclerotic disease. Small to moderate-sized umbilical fat-containing hernia. The appendix is normal. The stomach and small bowel are unremarkable. There is expected amount of c olonic stool. No free intraperitoneal gas. There are no osteoblastic or osteolytic lesions identi fied. IMPRESSION: 1. Stable postoperative changes. 2. Small to moderate umbilical hernia. 3. Hepatic steatosis. 4. Mild emphysema. 5. Unremarkable musculature. Reviewed, dictated and finalized at location A. [employer]
--- NOTE | 2021-02-03 08:15 | PC.NURSE ---
Pt to OP infusion center for blood draw from port, Vitamin B12 injections and CT scan. Pt A&Ox3. Has no questions or concerns.
[2021-02-03] MEDS: CYANOCOBALAMIN INJ 1,000 MCG/ML VIAL 1000 MCG IM (08:39)
[2021-02-03 08:56] LABS: Basophils Absolute Auto 0.03 K/mm3 (0.00-0.10); Basophils Percent Auto 0.4 % (0.0-1.0); Eosinophils Absolute Auto 0.09 K/mm3 (0.02-0.50); Eosinophils Percent Auto 1.1 % (1.0-6.0); Hematocrit 36.5 % (35.0-49.0); Hemoglobin 12.8 g/dL (12.0-15.0); Immature Granulocyte Absolute 0.05 K/mm3 (0.00-0.00); Immature Granulocyte Percent A 0.6 % (0.0-0.0); Lymphocytes Absolute Auto 2.53 K/mm3 (1.10-4.50); Lymphocytes Percent Auto 29.7 % (18.0-42.0); Mean Corpuscular HGB Conc 35.1 g/dL (32.0-36.0); Mean Corpuscular Hemoglobin 33.8 pg (27.0-31.0); Mean Corpuscular Volume 96.3 fL (78.0-102.0); Mean Platelet Volume 10.3 fl (9.2-11.8); Monocytes Absolute Auto 0.95 K/mm3 (0.10-0.90); Monocytes Percent Auto 11.2 % (2.0-11.0); Neutrophils Absolute Auto 4.9 K/mm3 (1.7-7.2); Platelet Count Result 189 K/mm3 (150-420); Red Blood Count 3.79 M/mm3 (4.20-5.40); Red Cell Distribution Width 13.7 % (11.6-14.4); White Blood Count 8.5 K/mm3 (4.8-10.8)
[2021-02-03 09:54] LABS: Alanine Aminotransferase 47 U/L (14-59); Albumin Level 3.9 g/dL (3.4-5.0); Alkaline Phosphatase 103 U/L (46-116); Anion Gap 14 mmol/L (8-16); Aspartate Amino Transferase 25 U/L (15-37); Bilirubin,Total 0.2 mg/dL (0.00-1.00); Blood Urea Nitrogen 10 mg/dL (7-18); Calcium 9.2 mg/dL (8.5-10.1); Carbon Dioxide 28 mmol/L (21-32); Chloride 99 mmol/L (98-108); Estimated Glomerular Filt Rate > 60; Glucose 150 mg/dL (70-99); Osmolality Calculated 294 mOsm/kg (285-295); Potassium 3.7 mmol/L (3.5-5.1); Sodium 141 mmol/L (136-145); Total Protein 7.1 g/dL (6.4-8.2)
== END 2021-02-03 08:00 | disposition home or self-care (01) ==
LOC: CHSTREATRM 08:02
PROVIDERS: PCP Internal Medicine; Visit Provider Internal Medicine Hematology & Oncology
DX: C34.90 Malignant neoplasm of unspecified part of unspecified bronchus or lung (principal); M79.18 Myalgia, other site
CPT/HCPCS: 36415; 71260; 74177; 80053; 85025; 96372; J3420; Q9967

== ENCOUNTER 2021-02-14 08:29 | Outpatient (CLI) | payer MEDICARE, MEDICAID, SELFPAY ==
[2021-02-14 08:49] VITALS: BMI 31.5
[2021-02-14 08:52] VITALS: BP 130/84; PULSE 100; RESP 14; TEMP 36; O2SAT 96
[2021-02-14] MEDS: SODIUM CHLORIDE 0.9% IV 250 ML 10 ML IVPB (09:04)
[2021-02-14] MEDS: PEMBROLIZUMAB 200 MG in SODIUM CHLORIDE 0.9% IV 92 ML IVPB (09:41)
[2021-02-14 10:15] VITALS: BP 118/74; PULSE 100; RESP 14; TEMP 36.1; O2SAT 97
[2021-02-14] MEDS: HEPARIN SODIUM LOCK FLUSH 500 UNITS/5 ML SYRINGE IV PUSH (10:15)
--- NOTE | 2021-02-14 11:49 | PC.NURSE ---
Patient here for chemo. Get's it q 21 days. Was suppose to get on 02/10/21- cancelled r/t transportation problems. Here today. Lab reviewed. ok'd. Chemo regime administered. SEE MAR. Tolerated well. Will return Mar 10, 2020 at 1000. Safe exit of hospital.
== END 2021-02-14 08:30 | disposition home or self-care (01) ==
LOC: CHSTREATRM 08:31
PROVIDERS: PCP Internal Medicine; Visit Provider Internal Medicine Hematology & Oncology
DX: Z51.11 Encounter for antineoplastic chemotherapy (principal); C34.90 Malignant neoplasm of unspecified part of unspecified bronchus or lung
CPT/HCPCS: 96367; 96409; 96413; J2405; J7050; J9271; J9305

== ENCOUNTER 2021-03-16 10:32 | Outpatient (CLI) | payer MEDICARE, SELFPAY ==
[2021-03-16 10:51] LABS: Hematocrit 38.5 % (35.0-49.0); Hemoglobin 12.8 g/dL (12.0-15.0); Mean Corpuscular HGB Conc 33.2 g/dL (32.0-36.0); Mean Corpuscular Hemoglobin 33.3 pg (27.0-31.0); Mean Corpuscular Volume 100.3 fL (78.0-102.0); Mean Platelet Volume 9.9 fl (9.2-11.8); Platelet Count Result 219 K/mm3 (150-420); Red Blood Count 3.84 M/mm3 (4.20-5.40); Red Cell Distribution Width 13.3 % (11.6-14.4); White Blood Count 5.3 K/mm3 (4.8-10.8)
[2021-03-16 11:48] LABS: Alanine Aminotransferase 29 U/L (14-59); Alkaline Phosphatase 102 U/L (46-116); Anion Gap 10 mmol/L (8-16); Aspartate Amino Transferase 18 U/L (15-37); Bilirubin,Total 0.3 mg/dL (0.00-1.00); Blood Urea Nitrogen 9 mg/dL (7-18); Calcium 9.3 mg/dL (8.5-10.1); Carbon Dioxide 31 mmol/L (21-32); Chloride 99 mmol/L (98-108); Estimated Glomerular Filt Rate > 60; Glucose 174 mg/dL (70-99); Osmolality Calculated 292 mOsm/kg (285-295); Potassium 4.5 mmol/L (3.5-5.1); Sodium 140 mmol/L (136-145); Thyroid Stimulating Hormone 1.14 uIU/mL (0.36-3.74); Total Protein 7.1 g/dL (6.4-8.2)
[2021-03-19 05:50] LABS: Cortisol Random 4.6 mcg/dL (***)
== END 2021-03-16 10:33 | disposition home or self-care (01) ==
LOC: CHSLAB 10:35
PROVIDERS: PCP Internal Medicine; Visit Provider Internal Medicine Hematology & Oncology
DX: C34.90 Malignant neoplasm of unspecified part of unspecified bronchus or lung (principal); E11.65 Type 2 diabetes mellitus with hyperglycemia
CPT/HCPCS: 36415; 80053; 82533; 84443; 85027

== ENCOUNTER 2021-03-17 10:07 | Outpatient (CLI) | payer MEDICARE, MEDICAID, SELFPAY ==
[2021-03-17] MEDS: SODIUM CHLORIDE 0.9% IV 250 ML 10 ML IVPB (10:20)
[2021-03-17 10:26] VITALS: BP 117/72; PULSE 101; RESP 14; TEMP 36.3; O2SAT 96; BMI 33.4
[2021-03-17] MEDS: SODIUM CHLORIDE 0.9% IVPB (10:30)
[2021-03-17] MEDS: ONDANSETRON IVPB (10:30)
[2021-03-17] MEDS: PEMBROLIZUMAB 200 MG in SODIUM CHLORIDE 0.9% IV 100 ML IVPB (10:52)
[2021-03-17 12:09] VITALS: BP 130/71; PULSE 92; RESP 14; TEMP 36.6; O2SAT 97
--- NOTE | 2021-03-17 12:10 | PC.NURSE ---
Patient here for chemotherapy. Labs reviewed from 03/16/21 and ok'd. No concerns voiced. Ongoing education on chemo meds etc given. Chemotherapy administered SEE MAR. Tolerated well. Safe exit of hospital. Will return 04/07/21 1000.
== END 2021-03-17 10:08 | disposition home or self-care (01) ==
LOC: CHSTREATRM 10:10
PROVIDERS: PCP Internal Medicine; Visit Provider Internal Medicine Hematology & Oncology
DX: Z51.11 Encounter for antineoplastic chemotherapy (principal); C34.90 Malignant neoplasm of unspecified part of unspecified bronchus or lung
CPT/HCPCS: 96367; 96411; 96413; J2405; J7050; J9271; J9305

== ENCOUNTER 2021-03-28 10:28 | Outpatient (CLI) | payer MEDICARE, SELFPAY ==
[2021-03-28 11:17] LABS: Anion Gap 9 mmol/L (8-16); Blood Urea Nitrogen 6 mg/dL (7-18); Carbon Dioxide 29 mmol/L (21-32); Chloride 99 mmol/L (98-108); Estimated Glomerular Filt Rate > 60; Glucose 199 mg/dL (70-99); Osmolality Calculated 287 mOsm/kg (285-295); Potassium 3.5 mmol/L (3.5-5.1); Sodium 137 mmol/L (136-145)
[2021-03-30 07:09] LABS: Cortisol Random 4.6 mcg/dL (***)
== END 2021-03-28 10:29 | disposition home or self-care (01) ==
PROVIDERS: PCP Internal Medicine
DX: E27.40 Unspecified adrenocortical insufficiency (principal)
CPT/HCPCS: 36415; 80048; 82533

== ENCOUNTER 2021-04-07 10:11 | Outpatient (CLI) | payer MEDICARE, MEDICAID, SELFPAY ==
[2021-04-07 10:33] VITALS: BMI 32.6
[2021-04-07 10:36] LABS: Basophils Absolute Auto 0.09 K/mm3 (0.00-0.10); Basophils Percent Auto 1.7 % (0.0-1.0); Eosinophils Absolute Auto 0.12 K/mm3 (0.02-0.50); Eosinophils Percent Auto 2.2 % (1.0-6.0); Hematocrit 35.3 % (35.0-49.0); Hemoglobin 12.4 g/dL (12.0-15.0); Immature Granulocyte Absolute 0.01 K/mm3 (0.00-0.00); Immature Granulocyte Percent A 0.2 % (0.0-0.0); Lymphocytes Absolute Auto 1.81 K/mm3 (1.10-4.50); Lymphocytes Percent Auto 33.2 % (18.0-42.0); Mean Corpuscular HGB Conc 35.1 g/dL (32.0-36.0); Mean Corpuscular Volume 93.9 fL (78.0-102.0); Mean Platelet Volume 10.3 fl (9.2-11.8); Monocytes Absolute Auto 0.59 K/mm3 (0.10-0.90); Monocytes Percent Auto 10.8 % (2.0-11.0); Neutrophils Absolute Auto 2.8 K/mm3 (1.7-7.2); Neutrophils Percent Auto 51.9 % (50.0-70.0); Platelet Count Result 254 K/mm3 (150-420); Red Blood Count 3.76 M/mm3 (4.20-5.40); Red Cell Distribution Width 13.2 % (11.6-14.4); White Blood Count 5.5 K/mm3 (4.8-10.8)
[2021-04-07 10:43] VITALS: BP 138/80; PULSE 102; RESP 14; TEMP 36.7; O2SAT 96
[2021-04-07] MEDS: SODIUM CHLORIDE 0.9% IV 250 ML 10 ML IVPB (10:45)
[2021-04-07] MEDS: ONDANSETRON IVPB (10:46)
[2021-04-07] MEDS: SODIUM CHLORIDE 0.9% IVPB (10:46)
[2021-04-07 11:07] LABS: Alanine Aminotransferase 26 U/L (14-59); Albumin Level 3.8 g/dL (3.4-5.0); Alkaline Phosphatase 91 U/L (46-116); Anion Gap 11 mmol/L (8-16); Aspartate Amino Transferase 14 U/L (15-37); Bilirubin,Total 0.3 mg/dL (0.00-1.00); Blood Urea Nitrogen 7 mg/dL (7-18); Calcium 9.2 mg/dL (8.5-10.1); Carbon Dioxide 29 mmol/L (21-32); Chloride 95 mmol/L (98-108); Estimated CRCL calculation 63 ml/min; Estimated Glomerular Filt Rate > 60; Glucose 130 mg/dL (70-99); Osmolality Calculated 280 mOsm/kg (285-295); Potassium 3.6 mmol/L (3.5-5.1); Sodium 135 mmol/L (136-145); Total Protein 7.2 g/dL (6.4-8.2)
[2021-04-07] MEDS: PEMBROLIZUMAB 200 MG in SODIUM CHLORIDE 0.9% IV 100 ML IVPB (11:31)
[2021-04-07 11:58] VITALS: BP 132/70; PULSE 100; RESP 14; O2SAT 97
[2021-04-07] MEDS: HEPARIN SODIUM LOCK FLUSH 500 UNITS/5 ML SYRINGE IV PUSH (12:00)
--- NOTE | 2021-04-07 12:00 | PC.NURSE ---
Patient here for q 21 day chemotherapy. Labs drawn and ok'd. Education given. IV chemotherapy administered see MAR. Tolerated well. Safe exit of hospital. Will return for B12 injection on 04/21/20 and Chemo 04/28/21.
== END 2021-04-07 10:12 | disposition home or self-care (01) ==
LOC: CHSTREATRM 10:14
PROVIDERS: PCP Internal Medicine; Visit Provider Internal Medicine Hematology & Oncology
DX: Z51.11 Encounter for antineoplastic chemotherapy (principal); C34.90 Malignant neoplasm of unspecified part of unspecified bronchus or lung
CPT/HCPCS: 36415; 80053; 85025; 96367; 96409; 96411; 96413; 96417; J2405; J7050; J9271; J9305

== ENCOUNTER 2021-04-21 10:16 | Outpatient (CLI) | payer MEDICARE, MEDICAID, SELFPAY ==
[2021-04-21 10:49] LABS: Basophils Absolute Auto 0.02 K/mm3 (0.00-0.10); Basophils Percent Auto 0.4 % (0.0-1.0); Eosinophils Absolute Auto 0.14 K/mm3 (0.02-0.50); Eosinophils Percent Auto 2.7 % (1.0-6.0); Hemoglobin 12.1 g/dL (12.0-15.0); Immature Granulocyte Absolute 0.03 K/mm3 (0.00-0.00); Immature Granulocyte Percent A 0.6 % (0.0-0.0); Lymphocytes Absolute Auto 1.73 K/mm3 (1.10-4.50); Lymphocytes Percent Auto 33.1 % (18.0-42.0); Mean Corpuscular HGB Conc 33.6 g/dL (32.0-36.0); Mean Corpuscular Hemoglobin 32.9 pg (27.0-31.0); Mean Corpuscular Volume 97.8 fL (78.0-102.0); Mean Platelet Volume 9.5 fl (9.2-11.8); Monocytes Absolute Auto 0.76 K/mm3 (0.10-0.90); Monocytes Percent Auto 14.5 % (2.0-11.0); Neutrophils Absolute Auto 2.6 K/mm3 (1.7-7.2); Neutrophils Percent Auto 48.7 % (50.0-70.0); Platelet Count Result 180 K/mm3 (150-420); Red Blood Count 3.68 M/mm3 (4.20-5.40); Red Cell Distribution Width 13.4 % (11.6-14.4); White Blood Count 5.2 K/mm3 (4.8-10.8)
[2021-04-21] MEDS: CYANOCOBALAMIN INJ 1,000 MCG/ML VIAL 1000 MCG IM (10:57)
[2021-04-21 11:18] LABS: Alanine Aminotransferase 30 U/L (14-59); Albumin Level 3.8 g/dL (3.4-5.0); Alkaline Phosphatase 90 U/L (46-116); Anion Gap 7 mmol/L (8-16); Aspartate Amino Transferase 16 U/L (15-37); Bilirubin,Total 0.2 mg/dL (0.00-1.00); Blood Urea Nitrogen 14 mg/dL (7-18); Calcium 9.2 mg/dL (8.5-10.1); Carbon Dioxide 32 mmol/L (21-32); Chloride 99 mmol/L (98-108); Estimated Glomerular Filt Rate > 60; Glucose 121 mg/dL (70-99); Osmolality Calculated 287 mOsm/kg (285-295); Sodium 138 mmol/L (136-145); Thyroid Stimulating Hormone 1.57 uIU/mL (0.36-3.74); Total Protein 7.1 g/dL (6.4-8.2)
[2021-04-21] MEDS: HEPARIN SODIUM LOCK FLUSH 500 UNITS/5 ML SYRINGE IV PUSH (11:50)
--- NOTE | 2021-04-21 11:51 | PC.NURSE ---
Patient here for labs to bed drawn from port a cath. Labs drawn from patent port and sent to lab. Also here for Vitamin B12 injection. B12 injection administered. See MAR. Tolerated well. Safe exit of hospital. Will return next for chemo.
[2021-04-27 07:02] LABS: Cortisol Baseline 3.7 mcg/dL (***)
[2021-04-27 07:02] LABS: Cortisol 30 Minute 20.5 mcg/dL (***)
[2021-04-27 07:02] LABS: Cortisol 60 Minute 23.6 mcg/dL (***)
== END 2021-04-21 10:17 | disposition home or self-care (01) ==
LOC: CHSTREATRM 10:20
PROVIDERS: PCP Internal Medicine; Visit Provider Internal Medicine Hematology & Oncology
DX: C34.90 Malignant neoplasm of unspecified part of unspecified bronchus or lung (principal); E27.40 Unspecified adrenocortical insufficiency
CPT/HCPCS: 80053; 82533; 84443; 85025; 96372; J0834; J3420

== ENCOUNTER 2021-04-28 10:18 | Outpatient (CLI) | payer MEDICARE, MEDICAID, SELFPAY ==
[2021-04-28] MEDS: SODIUM CHLORIDE 0.9% IVPB (10:44)
[2021-04-28] MEDS: ONDANSETRON IVPB (10:44)
[2021-04-28] MEDS: SODIUM CHLORIDE 0.9% IV 250 ML 10 ML IVPB (10:47)
[2021-04-28 10:48] VITALS: BMI 33.8
[2021-04-28 10:49] VITALS: BP 120/62; PULSE 92; RESP 14; TEMP 36.5; O2SAT 97
[2021-04-28] MEDS: PEMBROLIZUMAB 200 MG in SODIUM CHLORIDE 0.9% IV 100 ML IVPB (11:20)
[2021-04-28] MEDS: HEPARIN SODIUM LOCK FLUSH 500 UNITS/5 ML SYRINGE IV PUSH (11:49)
[2021-04-28 12:05] VITALS: BP 120/76; PULSE 92; RESP 14; TEMP 36.4; O2SAT 96
--- NOTE | 2021-04-28 12:05 | PC.NURSE ---
Patient here for q 21 day chemotherapy. Labs reviewed and ok'd. No concerns voiced. IV Chemo regimen administered SEE MAR. Tolerated well. Safe exit of hospital. Will return 05/19/21 at 1030.
== END 2021-04-28 10:19 | disposition home or self-care (01) ==
LOC: CHSTREATRM 10:19
PROVIDERS: PCP Internal Medicine; Visit Provider Internal Medicine Hematology & Oncology
DX: Z51.11 Encounter for antineoplastic chemotherapy (principal); C34.90 Malignant neoplasm of unspecified part of unspecified bronchus or lung
CPT/HCPCS: 96367; 96374; 96409; 96411; 96413; 96417; J2405; J7050; J9271; J9305

== ENCOUNTER 2021-05-09 07:56 | Outpatient (CLI) | payer MEDICARE, MEDICAID, SELFPAY ==
--- NOTE | ~2021-05-09 | CT_ITS ---
EXAMINATION: CT chest abdomen pelvis w con DATE: 05/09/2021 08:34 INDICATION: Right lung cancer. TECHNIQUE: Computed tomography (CT) of the chest, abdomen, and pelvis was performed with 100 mL Omnip aque 350 intravenous contrast. Automated exposure control and iterative reconstruction technique were employed. The dose-length product was 1350.21 mGy-cm. COMPARISON: CT chest, abdomen, and pelvis 02/03/2021, 06/08/2020 FINDINGS: CHEST CT: There is mild emphysema. There are changes of right middle lobectomy. There is mild atelectasis bilat erally. No pleural effusion. The heart size is normal. There are coronary artery calcifications. No p ericardial effusion. There are bilateral breast implants. There is a right internal jugular port with tip at superior cavoatrial junction. There are no pathologically enlarged lymph nodes. There is adam re thoracic spondylosis. ABDOMEN/PELVIS CT: There is a chronic 8 mm cyst in right hepatic lobe. The gallbladder, spleen, pancreas, and adrenal gl ands are normal. There is cortical thinning of the kidneys. There are no dilated loops of bowel. The appendix is normal. There is an umbilical hernia containing fat. There are no pathologically enlarged lymph nodes. There is no free intraperitoneal fluid. There is moderate lumbar spondylosis. IMPRESSION: 1. No evidence of metastatic disease. Reviewed, dictated and finalized at location A.
== END 2021-05-09 07:57 | disposition home or self-care (01) ==
LOC: CHSIMG 07:58
PROVIDERS: PCP Internal Medicine; Visit Provider Internal Medicine Hematology & Oncology
DX: C34.2 Malignant neoplasm of middle lobe, bronchus or lung (principal)
CPT/HCPCS: 71260; 74177; Q9967

== ENCOUNTER 2021-05-18 14:38 | Outpatient (CLI) | payer MEDICARE, SELFPAY ==
[2021-05-18 15:06] LABS: Basophils Absolute Auto 0.05 K/mm3 (0.00-0.10); Basophils Percent Auto 0.7 % (0.0-1.0); Eosinophils Absolute Auto 0.04 K/mm3 (0.02-0.50); Eosinophils Percent Auto 0.6 % (1.0-6.0); Hematocrit 37.1 % (35.0-49.0); Hemoglobin 12.4 g/dL (12.0-15.0); Immature Granulocyte Absolute 0.03 K/mm3 (0.00-0.00); Immature Granulocyte Percent A 0.4 % (0.0-0.0); Lymphocytes Absolute Auto 1.82 K/mm3 (1.10-4.50); Lymphocytes Percent Auto 26.2 % (18.0-42.0); Mean Corpuscular HGB Conc 33.4 g/dL (32.0-36.0); Mean Corpuscular Hemoglobin 32.8 pg (27.0-31.0); Mean Corpuscular Volume 98.1 fL (78.0-102.0); Mean Platelet Volume 10.1 fl (9.2-11.8); Monocytes Absolute Auto 0.56 K/mm3 (0.10-0.90); Monocytes Percent Auto 8.1 % (2.0-11.0); Neutrophils Absolute Auto 4.4 K/mm3 (1.7-7.2); Platelet Count Result 242 K/mm3 (150-420); Red Blood Count 3.78 M/mm3 (4.20-5.40); Red Cell Distribution Width 13.7 % (11.6-14.4); White Blood Count 6.9 K/mm3 (4.8-10.8)
[2021-05-18 15:32] LABS: Alanine Aminotransferase 25 U/L (14-59); Albumin Level 3.9 g/dL (3.4-5.0); Alkaline Phosphatase 95 U/L (46-116); Anion Gap 7 mmol/L (8-16); Aspartate Amino Transferase 15 U/L (15-37); Bilirubin,Total 0.3 mg/dL (0.00-1.00); Blood Urea Nitrogen 11 mg/dL (7-18); Calcium 9.2 mg/dL (8.5-10.1); Carbon Dioxide 31 mmol/L (21-32); Chloride 97 mmol/L (98-108); Estimated Glomerular Filt Rate > 60; Glucose 111 mg/dL (70-99); Osmolality Calculated 280 mOsm/kg (285-295); Potassium 3.7 mmol/L (3.5-5.1); Sodium 135 mmol/L (136-145); Total Protein 7.4 g/dL (6.4-8.2)
== END 2021-05-18 14:39 | disposition home or self-care (01) ==
LOC: CHSLAB 14:39
PROVIDERS: PCP Internal Medicine; Visit Provider Internal Medicine Hematology & Oncology
DX: C34.90 Malignant neoplasm of unspecified part of unspecified bronchus or lung (principal); R79.89 Other specified abnormal findings of blood chemistry; R94.6 Abnormal results of thyroid function studies
CPT/HCPCS: 80053; 84443; 85025

== ENCOUNTER 2021-05-19 09:51 | Outpatient (CLI) | payer MEDICARE, MEDICAID, SELFPAY ==
[2021-05-19] MEDS: SODIUM CHLORIDE 0.9% IV 250 ML 30 ML (10:00)
[2021-05-19 10:08] VITALS: BP 127/80; PULSE 92; RESP 16; TEMP 36.4; O2SAT 96; BMI 33.8
[2021-05-19] MEDS: PEMBROLIZUMAB 200 MG in SODIUM CHLORIDE 0.9% IV 100 ML IVPB (10:50)
[2021-05-19] MEDS: HEPARIN SODIUM LOCK FLUSH 500 UNITS/5 ML SYRINGE IV PUSH (11:40)
[2021-05-19 11:50] VITALS: BP 112/70; PULSE 92; RESP 14; O2SAT 97
--- NOTE | 2021-05-19 11:50 | PC.NURSE ---
Patient here for chemotherapy regimen. Labs reviewed from 05/18/21 and ok'd. No concerns voiced. IV Chemo regime administered. See MAR. Tolerated well. Safe exit of hospital. Will see Dr. Araujo and then it will be decided if more chemo needed or not.
== END 2021-05-19 09:52 | disposition home or self-care (01) ==
LOC: CHSTREATRM 09:53
PROVIDERS: PCP Internal Medicine; Visit Provider Internal Medicine Hematology & Oncology
DX: Z51.11 Encounter for antineoplastic chemotherapy (principal); C34.90 Malignant neoplasm of unspecified part of unspecified bronchus or lung
CPT/HCPCS: 96367; 96411; 96413; J2405; J7050; J9271; J9305

== ENCOUNTER 2021-07-19 10:19 | Outpatient (CLI) | payer MEDICARE, MEDICAID, SELFPAY ==
[2021-07-19 10:51] LABS: Basophils Absolute Auto 0.05 K/mm3 (0.00-0.10); Basophils Percent Auto 0.9 % (0.0-1.0); Eosinophils Absolute Auto 0.16 K/mm3 (0.02-0.50); Hematocrit 36.9 % (35.0-49.0); Hemoglobin 12.4 g/dL (12.0-15.0); Immature Granulocyte Absolute 0.02 K/mm3 (0.00-0.00); Immature Granulocyte Percent A 0.4 % (0.0-0.0); Lymphocytes Absolute Auto 1.71 K/mm3 (1.10-4.50); Lymphocytes Percent Auto 31.7 % (18.0-42.0); Mean Corpuscular HGB Conc 33.6 g/dL (32.0-36.0); Mean Corpuscular Hemoglobin 32.5 pg (27.0-31.0); Mean Corpuscular Volume 96.6 fL (78.0-102.0); Mean Platelet Volume 10.6 fl (9.2-11.8); Monocytes Absolute Auto 0.42 K/mm3 (0.10-0.90); Monocytes Percent Auto 7.8 % (2.0-11.0); Neutrophils Percent Auto 56.2 % (50.0-70.0); Platelet Count Result 211 K/mm3 (150-420); Red Blood Count 3.82 M/mm3 (4.20-5.40); Red Cell Distribution Width 12.6 % (11.6-14.4); White Blood Count 5.4 K/mm3 (4.8-10.8)
[2021-07-19 10:56] VITALS: BP 111/80; PULSE 87; RESP 14; TEMP 36.6; O2SAT 97
[2021-07-19 10:58] VITALS: BMI 32.6
[2021-07-19] MEDS: PEMBROLIZUMAB 200 MG in SODIUM CHLORIDE 0.9% IV 92 ML IVPB (11:16)
[2021-07-19 11:17] LABS: Alanine Aminotransferase 18 U/L (14-59); Albumin Level 3.6 g/dL (3.4-5.0); Alkaline Phosphatase 104 U/L (46-116); Anion Gap 5 mmol/L (8-16); Aspartate Amino Transferase 13 U/L (15-37); Bilirubin,Total 0.3 mg/dL (0.00-1.00); Blood Urea Nitrogen 9 mg/dL (7-18); Calcium 9.1 mg/dL (8.5-10.1); Carbon Dioxide 31 mmol/L (21-32); Chloride 99 mmol/L (98-108); Estimated CRCL calculation 73 ml/min; Estimated Glomerular Filt Rate > 60; Glucose 115 mg/dL (70-99); Osmolality Calculated 279 mOsm/kg (285-295); Potassium 3.8 mmol/L (3.5-5.1); Sodium 135 mmol/L (136-145); Total Protein 7.1 g/dL (6.4-8.2)
[2021-07-19] MEDS: SODIUM CHLORIDE 0.9% IV 250 ML 10 ML IVPB (11:17)
[2021-07-19] MEDS: HEPARIN SODIUM LOCK FLUSH 500 UNITS/5 ML SYRINGE IV PUSH (11:48)
--- NOTE | 2021-07-19 11:48 | PC.NURSE ---
Patient here for Chemo therapy-Keytruda and Alimta regimen. Labs drawn/reviewed/ok'd for proceed with chemo. Education given. No concerns voiced. IV Chemo regimen administered. SEE MAR. Tolerated well. Will return August 04, 2021 for B12 injection. August 11, 2021 for Chemo. Safe exit of hospital.
[2021-07-19 11:51] VITALS: BP 121/76; PULSE 87; RESP 14; O2SAT 97
== END 2021-07-19 10:20 | disposition home or self-care (01) ==
LOC: CHSLAB 10:24 → CHSTREATRM 10:36
PROVIDERS: PCP Internal Medicine; Visit Provider Internal Medicine Hematology & Oncology
DX: Z51.11 Encounter for antineoplastic chemotherapy (principal); C34.90 Malignant neoplasm of unspecified part of unspecified bronchus or lung; R79.89 Other specified abnormal findings of blood chemistry; R94.6 Abnormal results of thyroid function studies
CPT/HCPCS: 36415; 80053; 84443; 85025; 96367; 96409; 96411; 96413; 96417; J2405; J9271; J9305

== ENCOUNTER 2021-08-11 10:18 | Outpatient (CLI) | payer MEDICARE, MEDICAID, SELFPAY ==
[2021-08-11 10:35] VITALS: BMI 33.4
[2021-08-11 10:37] VITALS: BP 104/64; PULSE 102; RESP 14; TEMP 36.6; O2SAT 95
[2021-08-11 10:39] LABS: Basophils Percent Auto 1.6 % (0.0-1.0); Eosinophils Absolute Auto 0.17 K/mm3 (0.02-0.50); Eosinophils Percent Auto 2.7 % (1.0-6.0); Hematocrit 38.8 % (35.0-49.0); Immature Granulocyte Absolute 0.02 K/mm3 (0.00-0.00); Immature Granulocyte Percent A 0.3 % (0.0-0.0); Lymphocytes Absolute Auto 1.73 K/mm3 (1.10-4.50); Lymphocytes Percent Auto 27.3 % (18.0-42.0); Mean Corpuscular HGB Conc 33.5 g/dL (32.0-36.0); Mean Corpuscular Hemoglobin 32.3 pg (27.0-31.0); Mean Corpuscular Volume 96.3 fL (78.0-102.0); Mean Platelet Volume 10.4 fl (9.2-11.8); Monocytes Percent Auto 9.5 % (2.0-11.0); Neutrophils Absolute Auto 3.7 K/mm3 (1.7-7.2); Neutrophils Percent Auto 58.6 % (50.0-70.0); Platelet Count Result 264 K/mm3 (150-420); Red Blood Count 4.03 M/mm3 (4.20-5.40); Red Cell Distribution Width 13.3 % (11.6-14.4); White Blood Count 6.3 K/mm3 (4.8-10.8)
[2021-08-11 10:54] LABS: Alanine Aminotransferase 21 U/L (14-59); Albumin Level 3.8 g/dL (3.4-5.0); Alkaline Phosphatase 116 U/L (46-116); Anion Gap 5 mmol/L (8-16); Aspartate Amino Transferase 17 U/L (15-37); Bilirubin,Total 0.3 mg/dL (0.00-1.00); Blood Urea Nitrogen 9 mg/dL (7-18); Calcium 8.9 mg/dL (8.5-10.1); Carbon Dioxide 30 mmol/L (21-32); Chloride 101 mmol/L (98-108); Estimated CRCL calculation 71 ml/min; Estimated Glomerular Filt Rate > 60; Glucose 137 mg/dL (70-99); Osmolality Calculated 282 mOsm/kg (285-295); Potassium 3.9 mmol/L (3.5-5.1); Sodium 136 mmol/L (136-145); Total Protein 7.4 g/dL (6.4-8.2)
[2021-08-11] MEDS: ONDANSETRON IVPB (11:08)
[2021-08-11] MEDS: SODIUM CHLORIDE 0.9% IVPB (11:08)
[2021-08-11] MEDS: PEMBROLIZUMAB 200 MG in SODIUM CHLORIDE 0.9% IV 100 ML IVPB (11:40)
[2021-08-11] MEDS: HEPARIN SODIUM LOCK FLUSH 500 UNITS/5 ML SYRINGE IV PUSH (12:29)
--- NOTE | 2021-08-11 12:32 | PC.NURSE ---
Patient here for chemo regimen - Keytruda and Alimta. Labs drawn and ok'd. Education given. No concerns answered. Chemo regime administered. SEE MAR. Tolerated well. Will return 08/25/21 1030 for B12 injection/labs and chemo on 09/01/21 1000. Safe exit of hospital.
[2021-08-11 12:47] VITALS: BP 111/69; PULSE 100; RESP 14; O2SAT 97
== END 2021-08-11 10:19 | disposition home or self-care (01) ==
LOC: CHSTREATRM 10:22
PROVIDERS: PCP Internal Medicine; Visit Provider Internal Medicine Hematology & Oncology
DX: Z51.11 Encounter for antineoplastic chemotherapy (principal); C34.90 Malignant neoplasm of unspecified part of unspecified bronchus or lung
CPT/HCPCS: 80053; 85025; 96367; 96409; 96413; J2405; J9271; J9305

== ENCOUNTER 2021-08-22 10:04 | Outpatient (CLI) | payer MEDICARE, MEDICAID, SELFPAY ==
[2021-08-22 10:29] VITALS: BP 116/70; PULSE 96; RESP 14; TEMP 36.7; O2SAT 97; BMI 31.4
[2021-08-22] MEDS: CYANOCOBALAMIN INJ 1,000 MCG/ML VIAL 1000 MCG IM (10:31)
[2021-08-22 10:33] LABS: Hematocrit 34.7 % (35.0-49.0); Hemoglobin 11.6 g/dL (12.0-15.0); Mean Corpuscular HGB Conc 33.4 g/dL (32.0-36.0); Mean Corpuscular Hemoglobin 32.1 pg (27.0-31.0); Mean Corpuscular Volume 96.1 fL (78.0-102.0); Mean Platelet Volume 10.2 fl (9.2-11.8); Platelet Count Result 187 K/mm3 (150-420); Red Blood Count 3.61 M/mm3 (4.20-5.40)
--- NOTE | 2021-08-22 10:33 | PC.NURSE ---
Patient here for Vitamin B12 injection and blood for labs to be drawn from port a cath. Eduction on med given. No concerns voiced. Vitamin B12 injection administered SEE MAR. Labs drawn from port and sent to lab. Tolerated both well. Safe exit of hospital. Will return tomorrow 08/23/21 for MRI that is scheduled and chemo therapy September 01, 2021 at 1000.
[2021-08-22] MEDS: HEPARIN SODIUM LOCK FLUSH 500 UNITS/5 ML SYRINGE IV PUSH (10:39)
[2021-08-22 10:55] LABS: Alanine Aminotransferase 43 U/L (14-59); Albumin Level 3.7 g/dL (3.4-5.0); Alkaline Phosphatase 114 U/L (46-116); Anion Gap 7 mmol/L (8-16); Aspartate Amino Transferase 25 U/L (15-37); Bilirubin,Total 0.2 mg/dL (0.00-1.00); Blood Urea Nitrogen 12 mg/dL (7-18); Carbon Dioxide 30 mmol/L (21-32); Chloride 100 mmol/L (98-108); Estimated CRCL calculation 75 ml/min; Estimated Glomerular Filt Rate > 60; Glucose 121 mg/dL (70-99); Osmolality Calculated 284 mOsm/kg (285-295); Potassium 3.9 mmol/L (3.5-5.1); Sodium 137 mmol/L (136-145); Total Protein 7.2 g/dL (6.4-8.2)
[2021-08-22 10:59] LABS: Band Neutrophils Percent 0 % (0-6); Basophils Percent Manual 0 % (0-1); Eosinophils Absolute Manual 0.06 K/mm3 (0.02-0.5); Eosinophils Percent Manual 2 % (1-6); Lymphocytes Absolute Manual 1.83 K/mm3 (1.1-4.5); Lymphocytes Percent Manual 61 % (18-44); Monocytes Absolute Manual 0.54 K/mm3 (0.1-0.90); Monocytes Percent Manual 18 % (3-9); Neutrophils Absolute Manual 0.57 K/mm3 (1.7-7.2); Neutrophils Percent Manual 19 % (46-73); Platelet Estimate Adequate (Adequate); Total Cells Counted 100
[2021-08-24 13:22] LABS: Cortisol Random 4.5 mcg/dL (***)
== END 2021-08-22 10:05 | disposition home or self-care (01) ==
LOC: CHSTREATRM 10:08
PROVIDERS: PCP Internal Medicine; Visit Provider Internal Medicine Hematology & Oncology
DX: D51.9 Vitamin B12 deficiency anemia, unspecified (principal); C34.90 Malignant neoplasm of unspecified part of unspecified bronchus or lung; E11.65 Type 2 diabetes mellitus with hyperglycemia
CPT/HCPCS: 36415; 36592; 80053; 82533; 84443; 85025; 96372; 96523; J3420

== ENCOUNTER 2021-08-23 08:11 | Outpatient (CLI) | payer MEDICARE, MEDICAID, SELFPAY ==
--- NOTE | ~2021-08-23 | MR_ITS ---
EXAMINATION: MR brain/brain stem wo/w con DATE: 08/23/2021 11:32 INDICATION: Brain metastases for 2 years TECHNIQUE: Magnetic resonance imaging (MRI) of the brain and brainstem was performed without and with 15 mL Multihance intravenous contrast. Sequences included sagittal and axial T1-weighted SE, axial d iffusion-weighted FS SE, axial T2*-weighted GRE, axial 3D SWAN, axial T2-weighted FLAIR, and axial T2 -weighted FSE. Postcontrast axial and coronal T1-weighted SE was obtained. Apparent diffusion coeffic ient (ADC) maps were created. COMPARISON: None. FINDINGS: There is vasogenic edema in surrounding an approximately 4.1 x 2.0 x 1.9 cm cm lesion with thin rim o f enhancement along the irregular margins of the lesion. The central nonenhancing region of the lesio n is T1 hypointense and T2 hyperintense including on the T2 FLAIR sequences. There are also few foci of susceptibility artifact about the lesion which underlies a craniotomy defect suggesting this repre sents sequela of resection of a reported prior brain metastasis. There is a second 8 x 6 x 7 mm enhan cing lesion with surrounding vasogenic edema in the right parieto-occipital region suspicious for rec urrent metastatic disease. There are no areas of restricted diffusion to suggest acute infarction or abscess. No intracranial hemorrhage. There are scattered areas of nonspecific increased T2-weighted s ignal intensity in the cerebral white matter, predominantly involving the deep and periventricular wh ite matter. There are no intraparenchymal signal abnormalities seen on the other pulse sequences. The ventricles are symmetric and normal in size. There are no abnormal extra-axial fluid collections. Fl ow voids are seen in the cerebral arteries on the T2-weighted sequences consistent with their expecte d patency. Very thin peripheral rim of enhancement of the T2 hyperintense likely incisive canal cyst located along the anterior midline of the hard palate. Mild mucosal thickening the bilateral maxillar y and ethmoid sinuses. Visualized orbits and soft tissues are otherwise unremarkable. IMPRESSION: 1. 8 x 6 x 7 mm enhancing intra-axial mass at the right parieto-occipital region suspicious for recur rent metastatic disease. 2. Thin rim of enhancement at a 4.1 x 2.0 x 1.9 cm lesion in the right frontal lobe with associated p ostoperative changes and overlying craniotomy defect suggesting this represents the site of resection of a reported previous metastatic brain lesion. The enhancing component could represent either resid ual postoperative change, changes related to associated radiation treatment or locally recurrent dise ase. Recommend correlation with any earlier postoperative imaging to assess for interval change. Reviewed, dictated and finalized at location A. IMPRESSION: 1. 8 x 6 x 7 mm enhancing intra-axial mass at the right parieto-occipital regio n suspicious for recurrent metastatic disease. 2. Thin rim of enhancement at a 4.1 x 2.0 x 1.9 cm lesion in the right frontal lobe with associated postoperative changes and overlying craniotomy defect sugg esting this represents the site of resection of a reported previous metastatic brain lesion. The enhancing component could represent either residual postopera tive change, changes related to associated radiation treatment or locally recur rent disease. Recommend correlation with any earlier postoperative imaging to a ssess for interval change.
== END 2021-08-23 08:12 | disposition home or self-care (01) ==
PROVIDERS: PCP Internal Medicine; Visit Provider Internal Medicine Hematology & Oncology
DX: C34.90 Malignant neoplasm of unspecified part of unspecified bronchus or lung (principal)
CPT/HCPCS: 70553; A9577

== ENCOUNTER 2021-09-08 10:03 | Outpatient (CLI) | payer MEDICARE, MEDICAID, SELFPAY ==
[2021-09-08 10:24] VITALS: BP 102/64; PULSE 92; RESP 14; TEMP 36.8; O2SAT 97
[2021-09-08 10:26] VITALS: BMI 32.8
[2021-09-08] MEDS: SODIUM CHLORIDE 0.9% IV 250 ML 10 ML IVPB (10:38)
[2021-09-08] MEDS: SODIUM CHLORIDE 0.9% IVPB (10:49)
[2021-09-08] MEDS: ONDANSETRON IVPB (10:49)
[2021-09-08] MEDS: PEMBROLIZUMAB 200 MG in SODIUM CHLORIDE 0.9% IV 100 ML IVPB (11:12)
[2021-09-08] MEDS: HEPARIN SODIUM LOCK FLUSH 500 UNITS/5 ML SYRINGE IV PUSH (12:03)
[2021-09-08 12:04] VITALS: BP 110/66; PULSE 92; RESP 14; TEMP 36.8; O2SAT 96
[2021-09-08 12:05] VITALS: BMI 29.3
--- NOTE | 2021-09-08 12:11 | PC.NURSE ---
Patient here for cycle 14 of Chemotherapy. Blood results from September 22, [address] Araujo reports those will be ok since patient missed her scheduled treatment last week. No concerns voiced. Education given. IV Chemo regimen administered see APR. Tolerated well. Safe exit of hospital. Will see Dr. Araujo after CT scan and he will decide on next course of treatment.
== END 2021-09-08 10:04 | disposition home or self-care (01) ==
PROVIDERS: PCP Internal Medicine; Visit Provider Internal Medicine Hematology & Oncology
DX: Z51.11 Encounter for antineoplastic chemotherapy (principal); C34.90 Malignant neoplasm of unspecified part of unspecified bronchus or lung
CPT/HCPCS: 96367; 96411; 96413; 96417; J2405; J9271; J9305

== ENCOUNTER 2021-09-13 09:28 | Outpatient (CLI) | payer MEDICARE, MEDICAID, SELFPAY ==
--- NOTE | ~2021-09-13 | CT_ITS ---
EXAMINATION: CT abdomen pelvis w con DATE: 09/13/2021 10:17 INDICATION: Lung cancer. TECHNIQUE: Computed tomography (CT) of the chest, abdomen, and pelvis was performed with 100 mL Omnip aque 350 intravenous contrast. Automated exposure control and iterative reconstruction technique were employed. The dose-length product was 1283.79 mGy-cm. COMPARISON: CT 05/09/2021 FINDINGS: CT CHEST: There is mild emphysema. There are changes of right middle lobectomy. There is mild atelect asis bilaterally. No pleural effusion. The heart size is normal. There are coronary artery calcificat ions. No pericardial effusion. Breast implants are noted. There is a right internal jugular port with tip at superior cavoatrial junction. There is severe thoracic spondylosis. CT ABDOMEN AND PELVIS: There is a 6 mm cyst in the liver. The gallbladder, spleen, pancreas, and adre nal glands are normal. There is cortical thinning of the kidneys. There are no dilated loops of bowel . The appendix is normal. There are no pathologically enlarged lymph nodes. There is no free intraper itoneal fluid. There is moderate lumbar spondylosis. IMPRESSION: 1. No evidence of metastatic disease. Reviewed, dictated and finalized at location A.
== END 2021-09-13 09:29 | disposition home or self-care (01) ==
LOC: CHSIMG 09:29
PROVIDERS: PCP Internal Medicine; Visit Provider Internal Medicine Hematology & Oncology
DX: C34.90 Malignant neoplasm of unspecified part of unspecified bronchus or lung (principal)
CPT/HCPCS: 71260; 74177; Q9967

== ENCOUNTER 2021-09-19 09:14 | Outpatient (CLI) | payer MEDICARE, MEDICAID, SELFPAY ==
--- NOTE | ~2021-09-19 | XR_ITS ---
EXAMINATION: XR lumbar spine 2-3V DATE: 09/19/2021 09:40 INDICATION: Low back pain TECHNIQUE: Anteroposterior and lateral views of the lumbar spine, and cone-down lateral view of the l umbosacral junction were obtained. COMPARISON: CT, 09/13/2021 FINDINGS: There is no fracture, dislocation, or subluxation. There is mild loss of intervertebral dis c space height at L1-2, L4-5 and L5-S1. The vertebral body heights are maintained. Small degenerative osteophytes project from the anterior endplates of multiple vertebral bodies. There is severe facet osteoarthritis of the lower lumbar spine. Calcified atherosclerosis is noted. IMPRESSION: 1. Moderate lumbar spondylosis without acute findings. Reviewed, dictated and finalized at location B.
== END 2021-09-19 09:15 | disposition home or self-care (01) ==
LOC: CHSLAB 09:17
PROVIDERS: PCP Internal Medicine; Visit Provider Internal Medicine
DX: M54.9 Dorsalgia, unspecified (principal); M54.17 Radiculopathy, lumbosacral region; C34.90 Malignant neoplasm of unspecified part of unspecified bronchus or lung
CPT/HCPCS: 72100

== ENCOUNTER 2021-10-05 11:04 | Outpatient (RCR) | payer MEDICARE, MEDICAID, SELFPAY ==
--- NOTE | 2021-10-05 17:28 | PTOPEVAL ---
Thank you for referring Elisha Garcia to [facility].? The patient is scheduled to be seen for therapy? __3__x/week for 12 visits. Please review, sign, date and return this plan of care KYREE. I agree with and certify that the following plan of care is medically necessary. Referring Physician Date Admitting Provider: Attending Provider: Pedro Schmitz MD Referring Provider: *PT Outpatient Evaluation Start: 10/05/21 11:07 Freq: Status: Active Protocol: Document 10/05/21 11:07 LUIS ENRIQUE (Rec: 10/05/21 11:46 LUIS ENRIQUE [email or web address]) Therapy Assessment Status Assessment Status Assessment Status Evaluation Outpatient Past Medical History Neurological History Hx Seizures Yes: two seizures on 04/19/20 Hx Other Neurological Disorders Yes: NEUROPATHY IN FINGERS AND TOES, RESTLESS LEG SYNDROME Cardiovascular History Hx Hypercholesterolemia Yes Hx Hypertension Yes Respiratory History Hx Bronchitis Yes Hx Chest Surgery Yes: 1/3 RIGHT LOBECTOMY Gastrointestinal History Hx Gastroesophageal Reflux Disease Yes Genitourinary History Hx Other Genitourinary Disorders Yes: urgency Musculoskeletal History Hx Back Pain Yes Hematological History Hx Hematological Disorders No Significant History Endocrine History Hx Endocrine Disorders No Significant History HEENT History Hx Tonsillectomy Yes Integumentary History Hx Skin Disorders No Significant History Reproductive History Hx Post Menopausal Yes Psychosocial History Hx Anxiety Yes Hx Depression Yes Pain History Has Past Pain Affected Your Daily Life Yes Anesthesia History Hx Anesthesia Reactions No Significant History Other History Hx Cancer Yes: LUNG CANCER METS TO BRAIN , BREAST CANCER Hx Chemotherapy Yes: LAST DOSE 04/01/20 Hx Radiation Therapy Yes: LAST TREATMENT JAN 2020 Evaluation Information Problem Diagnosis low back pain Onset 09/04/21 Subjective Information Pt. report that she has had Query Text:As Reported By Patient/ years of back pain. She Family states that she had her most recent flare up about 1 month ago. She reports that the pain is mostly in the area of the left buttock and can go down the left leg. She reports that her pain in the back is constant. She states that she cannot sleep well at
--- NOTE | 2021-10-06 10:05 | PC.NURSE ---
Pt to OP infusion center. A&Ox3. Plan of care explained. Pt without questions or concerns. States I just don't feel good today . Has no specific complaints. Oriented to area. Call gil in reach. Blood sent to lab. Reminded to call with needs.
--- NOTE | 2021-10-06 10:54 | PC.NURSE ---
Documentation for 10/06/21 was entered on this account in error.
--- NOTE | 2021-12-12 12:59 | PCPTNOTE ---
Mrs. Garcia attended a total of 3 treatment sessions. She has failed to return to the clinic and will be discharged from our care at this time. Refer to the pt. last daily note for discharge status.
== END 2021-10-19 15:00 | disposition home or self-care (01) ==
LOC: CHSPT 11:04
PROVIDERS: PCP Internal Medicine; Visit Provider Internal Medicine
DX: M54.50 Low back pain, unspecified (principal); C34.90 Malignant neoplasm of unspecified part of unspecified bronchus or lung
CPT/HCPCS: 36415; 80053; 82533; 84443; 85025; 97014; 97110; 97161; G0283

== ENCOUNTER 2021-10-06 11:03 | Outpatient (CLI) | payer MEDICARE, MEDICAID, SELFPAY ==
[2021-10-06 10:23] LABS: Basophils Absolute Auto 0.06 K/mm3 (0.00-0.10); Basophils Percent Auto 1.1 % (0.0-1.0); Eosinophils Absolute Auto 0.13 K/mm3 (0.02-0.50); Eosinophils Percent Auto 2.4 % (1.0-6.0); Hematocrit 35.5 % (35.0-49.0); Hemoglobin 12.4 g/dL (12.0-15.0); Immature Granulocyte Absolute 0.02 K/mm3 (0.00-0.00); Immature Granulocyte Percent A 0.4 % (0.0-0.0); Lymphocytes Absolute Auto 1.71 K/mm3 (1.10-4.50); Lymphocytes Percent Auto 31.1 % (18.0-42.0); Mean Corpuscular HGB Conc 34.9 g/dL (32.0-36.0); Mean Corpuscular Hemoglobin 33.5 pg (27.0-31.0); Mean Corpuscular Volume 95.9 fL (78.0-102.0); Monocytes Absolute Auto 0.48 K/mm3 (0.10-0.90); Monocytes Percent Auto 8.7 % (2.0-11.0); Neutrophils Absolute Auto 3.1 K/mm3 (1.7-7.2); Neutrophils Percent Auto 56.3 % (50.0-70.0); Platelet Count Result 225 K/mm3 (150-420); Red Cell Distribution Width 14.4 % (11.6-14.4); White Blood Count 5.5 K/mm3 (4.8-10.8)
[2021-10-06 11:00] LABS: Alanine Aminotransferase 21 U/L (14-59); Albumin Level 3.9 g/dL (3.4-5.0); Alkaline Phosphatase 104 U/L (46-116); Anion Gap 8 mmol/L (8-16); Aspartate Amino Transferase 15 U/L (15-37); Bilirubin,Total 0.5 mg/dL (0.00-1.00); Blood Urea Nitrogen 9 mg/dL (7-18); Calcium 9.1 mg/dL (8.5-10.1); Carbon Dioxide 30 mmol/L (21-32); Chloride 98 mmol/L (98-108); Estimated Glomerular Filt Rate > 60; Glucose 152 mg/dL (70-99); Osmolality Calculated 283 mOsm/kg (285-295); Potassium 3.9 mmol/L (3.5-5.1); Sodium 136 mmol/L (136-145); Thyroid Stimulating Hormone 0.99 uIU/mL (0.36-3.74); Total Protein 6.6 g/dL (6.4-8.2)
--- NOTE | 2021-10-06 11:14 | PC.NURSE ---
Labs for this treatment were entered on account #[id number] in error.
--- NOTE | 2021-10-06 11:15 | PC.NURSE ---
Pt to OP infusion center amb per self. A&Ox3. States I don't feel good today . Voices no specific complaint. Plan of care explained. Pt without questions or concerns. Oriented to room. Call gil in reach. Reminded to voice needs.
[2021-10-06] MEDS: SODIUM CHLORIDE 0.9% IVPB (11:38)
[2021-10-06] MEDS: ONDANSETRON IVPB (11:38)
[2021-10-06] MEDS: SODIUM CHLORIDE 0.9% IV 250 ML 10 ML IVPB (11:47)
--- NOTE | 2021-10-06 12:00 | PC.NURSE ---
Pt ate 100% of lunch without complaint. Medications continue to infuse.
[2021-10-06] MEDS: PEMBROLIZUMAB 200 MG in SODIUM CHLORIDE 0.9% IV 100 ML IVPB (12:16)
[2021-10-06] MEDS: SODIUM CHLORIDE 0.9% IV 250 ML 100 ML (12:17)
[2021-10-06] MEDS: HEPARIN SODIUM LOCK FLUSH 500 UNITS/5 ML SYRINGE IV PUSH (12:57)
--- NOTE | 2021-10-06 13:04 | PC.NURSE ---
All medications infused. Pt tolerated well. Has no questions or concerns. Discharged to home amb per self.
[2021-10-06 14:38] LABS: Hemoglobin A1C 6.8 % (<5.7)
[2021-10-10 09:58] LABS: Cortisol Random 7.6
== END 2021-10-06 11:04 | disposition home or self-care (01) ==
PROVIDERS: PCP Internal Medicine; Visit Provider Internal Medicine Hematology & Oncology
DX: Z51.11 Encounter for antineoplastic chemotherapy (principal); C34.90 Malignant neoplasm of unspecified part of unspecified bronchus or lung; R73.9 Hyperglycemia, unspecified; R53.83 Other fatigue
CPT/HCPCS: 36415; 36592; 80053; 82533; 83036; 84443; 85025; 96365; 96367; 96368; 96411; 96413; 96417; J2405; J7050; J9271; J9305

== ENCOUNTER 2021-10-27 10:13 | Outpatient (CLI) | payer MEDICARE, MEDICAID, SELFPAY ==
[2021-10-27 10:32] VITALS: BMI 31.5
[2021-10-27 10:33] VITALS: BP 107/77; PULSE 92; RESP 14; TEMP 36.4; O2SAT 96
[2021-10-27 10:33] LABS: Basophils Absolute Auto 0.09 K/mm3 (0.00-0.10); Basophils Percent Auto 1.6 % (0.0-1.0); Eosinophils Absolute Auto 0.08 K/mm3 (0.02-0.50); Eosinophils Percent Auto 1.5 % (1.0-6.0); Hemoglobin 11.8 g/dL (12.0-15.0); Immature Granulocyte Absolute 0.02 K/mm3 (0.00-0.00); Immature Granulocyte Percent A 0.4 % (0.0-0.0); Lymphocytes Absolute Auto 1.85 K/mm3 (1.10-4.50); Lymphocytes Percent Auto 33.6 % (18.0-42.0); Mean Corpuscular HGB Conc 33.7 g/dL (32.0-36.0); Mean Corpuscular Volume 97.8 fL (78.0-102.0); Mean Platelet Volume 10.1 fl (9.2-11.8); Monocytes Absolute Auto 0.53 K/mm3 (0.10-0.90); Monocytes Percent Auto 9.6 % (2.0-11.0); Neutrophils Absolute Auto 2.9 K/mm3 (1.7-7.2); Neutrophils Percent Auto 53.3 % (50.0-70.0); Platelet Count Result 248 K/mm3 (150-420); Red Blood Count 3.58 M/mm3 (4.20-5.40); Red Cell Distribution Width 14.3 % (11.6-14.4); White Blood Count 5.5 K/mm3 (4.8-10.8)
[2021-10-27] MEDS: ONDANSETRON IVPB (11:00)
[2021-10-27] MEDS: SODIUM CHLORIDE 0.9% IV 250 ML 10 ML IVPB (11:00)
[2021-10-27] MEDS: SODIUM CHLORIDE 0.9% IVPB (11:00)
[2021-10-27 11:06] LABS: Alanine Aminotransferase 16 U/L (14-59); Albumin Level 3.8 g/dL (3.4-5.0); Alkaline Phosphatase 105 U/L (46-116); Anion Gap 8 mmol/L (8-16); Bilirubin,Total 0.3 mg/dL (0.00-1.00); Blood Urea Nitrogen 13 mg/dL (7-18); Calcium 9.1 mg/dL (8.5-10.1); Carbon Dioxide 28 mmol/L (21-32); Chloride 98 mmol/L (98-108); Estimated CRCL calculation 64 ml/min; Estimated Glomerular Filt Rate > 60; Glucose 147 mg/dL (70-99); Osmolality Calculated 281 mOsm/kg (285-295); Potassium 3.7 mmol/L (3.5-5.1); Sodium 134 mmol/L (136-145); Thyroid Stimulating Hormone 1.31 uIU/mL (0.36-3.74); Total Protein 6.9 g/dL (6.4-8.2)
[2021-10-27 11:15] LABS: Aspartate Amino Transferase 27 U/L (15-37)
[2021-10-27] MEDS: PEMBROLIZUMAB 200 MG in SODIUM CHLORIDE 0.9% IV 100 ML IVPB (11:20)
--- NOTE | 2021-10-27 11:59 | PC.NURSE ---
Patient here for IV Chemo regimen Pembrolizumab and Pemetrexed q 21 days. Education given. No concerns voiced. Labs draw/reviewed/ok'd. IV chemo regimen administered SEE APR. Tolerated well. Safe exit of hospital. Will return 11/10/21 for B12 injection and 11/17/21 for next chemo.
[2021-10-27 12:05] VITALS: BP 110/74; PULSE 92; RESP 14; O2SAT 96
[2021-10-27] MEDS: HEPARIN SODIUM LOCK FLUSH 500 UNITS/5 ML SYRINGE IV PUSH (12:05)
[2021-10-30 07:06] LABS: Cortisol Random 2.8 mcg/dL (***)
== END 2021-10-27 10:14 | disposition home or self-care (01) ==
PROVIDERS: PCP Internal Medicine; Visit Provider Internal Medicine Hematology & Oncology
DX: Z51.11 Encounter for antineoplastic chemotherapy (principal); C34.90 Malignant neoplasm of unspecified part of unspecified bronchus or lung; Z79.899 Other long term (current) drug therapy
CPT/HCPCS: 36415; 80053; 82533; 84443; 85025; 96365; 96367; 96411; 96413; J2405; J7050; J9271; J9305

== ENCOUNTER 2021-11-10 10:14 | Outpatient (CLI) | payer MEDICARE, MEDICAID, SELFPAY ==
[2021-11-10] MEDS: HEPARIN SODIUM LOCK FLUSH 500 UNITS/5 ML SYRINGE IV PUSH (10:41)
[2021-11-10] MEDS: CYANOCOBALAMIN INJ 1,000 MCG/ML VIAL 1000 MCG IM (10:41)
[2021-11-10 10:42] VITALS: BP 116/69; PULSE 92; RESP 14; TEMP 36.4; O2SAT 96
[2021-11-10 10:43] LABS: Basophils Absolute Auto 0.03 K/mm3 (0.00-0.10); Basophils Percent Auto 0.6 % (0.0-1.0); Eosinophils Absolute Auto 0.12 K/mm3 (0.02-0.50); Eosinophils Percent Auto 2.4 % (1.0-6.0); Hematocrit 34.1 % (35.0-49.0); Hemoglobin 11.6 g/dL (12.0-15.0); Immature Granulocyte Absolute 0.02 K/mm3 (0.00-0.00); Immature Granulocyte Percent A 0.4 % (0.0-0.0); Lymphocytes Absolute Auto 1.77 K/mm3 (1.10-4.50); Lymphocytes Percent Auto 35.5 % (18.0-42.0); Mean Corpuscular Hemoglobin 33.5 pg (27.0-31.0); Mean Corpuscular Volume 98.6 fL (78.0-102.0); Mean Platelet Volume 9.8 fl (9.2-11.8); Monocytes Absolute Auto 0.68 K/mm3 (0.10-0.90); Monocytes Percent Auto 13.6 % (2.0-11.0); Neutrophils Absolute Auto 2.4 K/mm3 (1.7-7.2); Neutrophils Percent Auto 47.5 % (50.0-70.0); Platelet Count Result 161 K/mm3 (150-420); Red Blood Count 3.46 M/mm3 (4.20-5.40); Red Cell Distribution Width 14.2 % (11.6-14.4)
[2021-11-10 10:44] VITALS: BMI 29.6
--- NOTE | 2021-11-10 10:45 | PC.NURSE ---
Patient here for Vitamin B12 injection q 9 weeks and Port blood drawn labs for chemo next week. No concerns voiced. Vitamin B12 injection administered. See MAR. Blood drawn and sent to lab. Port asystomatic of s/sx of infection. Flushed per protocol after blood drawn. Safe exit of hospital. Will return for chemo 11/17/21 at 1000.
[2021-11-10 11:15] LABS: Alanine Aminotransferase 21 U/L (14-59); Albumin Level 3.6 g/dL (3.4-5.0); Alkaline Phosphatase 103 U/L (46-116); Anion Gap 7 mmol/L (8-16); Aspartate Amino Transferase 17 U/L (15-37); Bilirubin,Total 0.3 mg/dL (0.00-1.00); Blood Urea Nitrogen 11 mg/dL (7-18); Calcium 8.8 mg/dL (8.5-10.1); Carbon Dioxide 28 mmol/L (21-32); Chloride 97 mmol/L (98-108); Estimated CRCL calculation 62 ml/min; Estimated Glomerular Filt Rate > 60; Glucose 156 mg/dL (70-99); Osmolality Calculated 276 mOsm/kg (285-295); Potassium 3.7 mmol/L (3.5-5.1); Sodium 132 mmol/L (136-145); Thyroid Stimulating Hormone 1.03 uIU/mL (0.36-3.74); Total Protein 6.7 g/dL (6.4-8.2)
[2021-11-13 05:19] LABS: Cortisol Random 5.1 mcg/dL (***)
== END 2021-11-10 10:15 | disposition home or self-care (01) ==
LOC: CHSTREATRM 10:20
PROVIDERS: PCP Internal Medicine; Visit Provider Internal Medicine Hematology & Oncology
DX: C34.90 Malignant neoplasm of unspecified part of unspecified bronchus or lung (principal); Z79.899 Other long term (current) drug therapy
CPT/HCPCS: 36415; 80053; 82533; 84443; 85025; 96372; J3420

== ENCOUNTER 2021-11-24 10:05 | Outpatient (CLI) | payer MEDICARE, MEDICAID, SELFPAY ==
[2021-11-24] MEDS: SODIUM CHLORIDE 0.9% IV 250 ML 10 ML IVPB (10:20)
[2021-11-24 10:29] VITALS: BMI 29.9
[2021-11-24 10:30] VITALS: BP 112/70; PULSE 92; RESP 18; TEMP 36.4; O2SAT 98
[2021-11-24] MEDS: ONDANSETRON IVPB (10:40)
[2021-11-24] MEDS: SODIUM CHLORIDE 0.9% IVPB (10:40)
[2021-11-24] MEDS: PEMBROLIZUMAB 200 MG in SODIUM CHLORIDE 0.9% IV 100 ML IVPB (11:00)
[2021-11-24] MEDS: HEPARIN SODIUM LOCK FLUSH 500 UNITS/5 ML SYRINGE IV PUSH (11:55)
--- NOTE | 2021-11-24 11:57 | PC.NURSE ---
Patient here for chemo regimen. Education given. No concerns. IV Chemo regimen administered to patent Port a cath. SEE MAR. Tolerated well. Safe exit of hospital. Will return at 1000
== END 2021-11-24 10:06 | disposition home or self-care (01) ==
PROVIDERS: PCP Internal Medicine; Visit Provider Internal Medicine Hematology & Oncology
DX: Z51.11 Encounter for antineoplastic chemotherapy (principal); C34.90 Malignant neoplasm of unspecified part of unspecified bronchus or lung
CPT/HCPCS: 96375; 96411; 96413; J2405; J9271; J9305

== ENCOUNTER 2021-12-06 07:28 | Outpatient (CLI) | payer MEDICARE, MEDICAID, SELFPAY ==
--- NOTE | ~2021-12-06 | CT_ITS ---
EXAMINATION: CT chest abdomen pelvis w con DATE: 12/06/2021 08:25 INDICATION: History of lung cancer and umbilical hernias TECHNIQUE: Transaxial computed tomographic images of the chest, abdomen, and pelvis were obtained aft er the administration of 100 cc of Omnipaque 350 intravenous contrast. The dose-length product (DLP) was 1018.39 mGy-cm. Automated exposure control and iterative reconstruction technique were employed. COMPARISON: 09/13/2021 FINDINGS: CHEST CT: There are changes of right middle lobectomy. No suspicious pulmonary nodules are identified. The lung s are free of acute opacities. No pleural effusion or pneumothorax. No pathologically enlarged thorac ic lymph nodes are identified. The heart size is normal. There is mild emphysema. Bilateral breast im plants are noted. A right internal jugular Port-A-Cath ends with its tip at the superior cavoatrial j unction. There is severe thoracic spondylosis. ABDOMEN/PELVIS CT: There is a stable 6 mm cyst of the liver. The spleen, pancreas, gallbladder, and adrenal glands are n ormal. The kidneys are unremarkable. The appendix is normal. There is calcified atherosclerosis of th e aorta and many of the other arteries. No pathologically enlarged abdominal or pelvic lymph nodes ar e identified. There is no free intraperitoneal gas or evidence of bowel obstruction. There is moderat e lumbar spondylosis. IMPRESSION: 1. No evidence of metastatic disease. Reviewed, dictated and finalized at location A.
--- NOTE | ~2021-12-06 | MR_ITS ---
EXAMINATION: MR brain/brain stem wo/w con DATE: 12/06/2021 09:32 INDICATION: Lung cancer metastatic to brain. TECHNIQUE: Magnetic resonance imaging (MRI) of the brain and brainstem was performed without and with 20 mL MultiHance intravenous contrast. COMPARISON: Brain MRI 08/15/2021, 03/03/2021, head CT 10/07/2019 FINDINGS: There is a 9 mm enhancing mass in right temporal occipital region with surrounding vasogeni c edema. There are changes of craniotomy overlying the posterior right frontal lobe. There is a resec tion cavity in posterior right frontal lobe with enhancing margins measuring 4.0 x 1.6 x 1.5 cm. Ther e are scattered areas of nonspecific increased T2-weighted signal intensity in the cerebral white mat ter. There is no acute ischemic infarct or intracranial hemorrhage. The ventricles are normal in size . The orbits are normal. There is mild mucosal thickening in the paranasal sinuses. There are small b ilateral mastoid effusions. IMPRESSION: 1. 9 mm enhancing mass in right temporal occipital region without change from 08/15/2021, consistent m etastatic disease. 2. Stable resection cavity in posterior right frontal lobe. Unchanged enhancement at the margins may be granulation tissue. Recurrent or residual metastatic disease cannot be excluded. Reviewed, dictated and finalized at location A. IMPRESSION: 1. 9 mm enhancing mass in right temporal occipital region without change from , consistent metastatic disease. 2. Stable resection cavity in posterior right frontal lobe. Unchanged enhanceme nt at the margins may be granulation tissue. Recurrent or residual metastatic d isease cannot be excluded.
[2021-12-06] MEDS: HEPARIN SODIUM LOCK FLUSH 500 UNITS/5 ML SYRINGE IV PUSH (09:08)
== END 2021-12-06 07:29 | disposition home or self-care (01) ==
LOC: CHSIMG 07:31 → CHSTREATRM 08:44
PROVIDERS: PCP Internal Medicine; Visit Provider Internal Medicine Hematology & Oncology
DX: C34.90 Malignant neoplasm of unspecified part of unspecified bronchus or lung (principal); C79.31 Secondary malignant neoplasm of brain
CPT/HCPCS: 36592; 70553; 71260; 74177; A9577; Q9967

== ENCOUNTER 2021-12-15 09:54 | Outpatient (CLI) | payer MEDICARE, MEDICAID, SELFPAY ==
--- NOTE | 2021-12-15 10:20 | PC.NURSE ---
Pt to OP infusion center amb. A&Ox3. Plan of care discussed. Pt has no questions, concerns or complaints. Oriented to area. Pt resting in bed. Call gil in reach. Reminded to call with needs.
[2021-12-15 10:25] LABS: Basophils Absolute Auto 0.06 K/mm3 (0.00-0.10); Basophils Percent Auto 0.9 % (0.0-1.0); Eosinophils Absolute Auto 0.15 K/mm3 (0.02-0.50); Eosinophils Percent Auto 2.3 % (1.0-6.0); Hematocrit 34.5 % (35.0-49.0); Hemoglobin 11.8 g/dL (12.0-15.0); Immature Granulocyte Absolute 0.03 K/mm3 (0.00-0.00); Immature Granulocyte Percent A 0.5 % (0.0-0.0); Lymphocytes Absolute Auto 1.39 K/mm3 (1.10-4.50); Lymphocytes Percent Auto 21.3 % (18.0-42.0); Mean Corpuscular HGB Conc 34.2 g/dL (32.0-36.0); Mean Corpuscular Hemoglobin 33.4 pg (27.0-31.0); Mean Corpuscular Volume 97.7 fL (78.0-102.0); Mean Platelet Volume 10.6 fl (9.2-11.8); Monocytes Percent Auto 10.7 % (2.0-11.0); Neutrophils Absolute Auto 4.2 K/mm3 (1.7-7.2); Neutrophils Percent Auto 64.3 % (50.0-70.0); Platelet Count Result 239 K/mm3 (150-420); Red Blood Count 3.53 M/mm3 (4.20-5.40); Red Cell Distribution Width 13.5 % (11.6-14.4); White Blood Count 6.5 K/mm3 (4.8-10.8)
[2021-12-15 10:50] LABS: Alanine Aminotransferase 12 U/L (14-59); Albumin Level 3.9 g/dL (3.4-5.0); Alkaline Phosphatase 108 U/L (46-116); Anion Gap 8 mmol/L (8-16); Aspartate Amino Transferase 17 U/L (15-37); Bilirubin,Total 0.3 mg/dL (0.00-1.00); Blood Urea Nitrogen 15 mg/dL (7-18); Calcium 8.6 mg/dL (8.5-10.1); Carbon Dioxide 31 mmol/L (21-32); Chloride 98 mmol/L (98-108); Estimated Glomerular Filt Rate 56; Glucose 137 mg/dL (70-99); Osmolality Calculated 286 mOsm/kg (285-295); Potassium 3.6 mmol/L (3.5-5.1); Sodium 137 mmol/L (136-145); Total Protein 6.8 g/dL (6.4-8.2)
[2021-12-15 10:56] VITALS: BP 113/76; PULSE 91; RESP 20; TEMP 36.1; O2SAT 97
[2021-12-15] MEDS: SODIUM CHLORIDE 0.9% IV 250 ML 10 ML IVPB (11:23)
[2021-12-15] MEDS: PEMBROLIZUMAB 200 MG in SODIUM CHLORIDE 0.9% IV 100 ML IVPB (11:33)
[2021-12-15] MEDS: HEPARIN SODIUM LOCK FLUSH 500 UNITS/5 ML SYRINGE IV PUSH (12:11)
--- NOTE | 2021-12-15 12:18 | PC.NURSE ---
Medications administered as ordered. Pt tolerated well. Pt has no complaints. Discharged to home amb per self.
== END 2021-12-15 09:55 | disposition home or self-care (01) ==
PROVIDERS: PCP Internal Medicine; Visit Provider Internal Medicine Hematology & Oncology
DX: Z51.11 Encounter for antineoplastic chemotherapy (principal); C34.90 Malignant neoplasm of unspecified part of unspecified bronchus or lung; T82.898A Other specified complication of vascular prosthetic devices, implants and grafts, initial encounter
CPT/HCPCS: 36415; 36592; 80053; 85025; 96360; 96375; 96411; 96413; 96417; J2405; J7050; J9271; J9305

== ENCOUNTER 2022-01-08 17:02 | Emergency (ER) | payer MEDICARE, MEDICAID, SELFPAY ==
[2022-01-08 17:14] VITALS: BP 128/87; PULSE 82; RESP 16; TEMP 37.1; O2SAT 97
--- NOTE | 2022-01-08 17:17 | ED.EXTPRO ---
HPI - Extremity Problem General Chief complaint: Extremity Problem,Nontraumatic Stated complaint: thinks its her sciatic nerve;painful down to ankle Time Seen by Provider: 01/08/22 17:16 Source: patient and RN notes reviewed Mode of arrival: ambulatory Limitations: no limitations History of Present Illness HPI Narrative: patient states that she had an episode similar to this a few months ago. She was diagnosed with sciatic nerve problem. She went to physical therapy and been doing her exercise. Then over the last week she has been having increasing pain in her left sciatic joint. It hurts to lay on. She can not get a good night's sleep. She says that she only has been taking Tylenol. She has been advised to avoid NSAIDs due to history of brain cancer. She is also allergic to tramadol. I explained to her that narcotics will not be of any value in this type of pain. MD Complaint: extremity pain Onset (ago): week(s) (1) Pain Consistency: constant Location: left and lower extremity Severity scale (1-10): 10 Quality: burning and aching Radiation: distal Exacerbating factors: palpation and rest Associated symptoms: denies other symptoms Related Data Home Medications Medication Instructions Recorded Confirmed cyclobenzaprine 10 mg tablet 10 mg PO TID PRN Muscle Spasm 09/09/19 01/08/22 gabapentin 600 mg tablet 600 mg PO TID 09/09/19 01/08/22 montelukast 10 mg tablet 10 mg PO DAILY 09/09/19 01/08/22 omeprazole 20 mg capsule,delayed 40 mg PO DAILY 09/09/19 01/08/22 release ropinirole 0.5 mg tablet 0.5 - 1 mg PO HS 09/09/19 01/08/22 venlafaxine 75 mg capsule,extended 225 mg PO HS 09/09/19 01/08/22 release 24 hr levetiracetam 500 mg tablet 500 mg PO Q12H 10/24/19 01/08/22 verapamil 240 mg tablet,extended 240 mg PO DAILY 09/23/20 01/08/22 release ascorbate calcium (vitamin C) 500 500 mg PO DAILY 08/26/21 01/08/22 mg tablet cholecalciferol (vitamin D3) 25 25 mcg PO DAILY 08/26/21 01/08/22 mcg (1,000 unit) capsule folic acid 800 mcg tablet 0.8 mg PO DAILY 08/26/21 01/08/22 atorvastatin 20 mg tablet 20 mg PO DAILY 01/08/22 01/08/22 Allergies Allergy/AdvReac Type Severity Reaction Status Date / Time tramadol Allergy Unknown Vomiting Verified 01/08/22 17:26 Review of Systems Review of Systems: All systems reviewed & are unremarkable except as noted in HPI and below PMFSH Past Medical History Medical History (Updated 01/08/22 @ 17:53 by Kwasi Carrillo MD) Adenomatous colon polyp Bloating Breast CA Dyslipidemia Epigastric pain GERD (gastroesophageal reflux disease) Hypertension Lung cancer Lung cancer metastatic to brain Obesity Rectal bleeding Surgical History Surgical History S/P lumpectomy of breast Family History Family History Father Carcinoma of colon Mother Family history of renal cell carcinoma Anginal pain Breast cancer Sibling Breast cancer Sibling Breast cancer Social History Social History Smoking packs per day: 3 Smoking cigarettes per day: 60.0 Smoking status: Current every day smoker Tobacco type: cigarettes Additional smoking assessment comments: 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 Substance use: unknown Substance use type: marijuana Other substance usage details: smokes 10 hits daily Last use: yesterday Spiritual care concerns: No Exam Const: General: healthy appearing, no acute distress and alert Nutritional Appearance: well nourished and obese Orientation/consciousness: patient oriented x3 Limitations: no limitations HENMT: Head: normal to inspection Ears: external ears normal Face/Nose/Sinus: Normal external nose present Face and sinus: normal facial exam Eyes: Conjunctivae
[2022-01-08 17:20] VITALS: BP 128/87; PULSE 103; RESP 20; TEMP 36.6; O2SAT 97
[2022-01-08] MEDS: KETOROLAC 30 MG/ML VIAL (*BKC) IM (17:45)
[2022-01-08 18:03] VITALS: BP 101/70; PULSE 95; RESP 16; O2SAT 98
== END 2022-01-08 18:11 | disposition home or self-care (01) ==
PROVIDERS: Emergency Provider Emergency Medicine; PCP Internal Medicine
DX: M54.32 Sciatica, left side (principal); Z85.3 Personal history of malignant neoplasm of breast; Z85.118 Personal history of other malignant neoplasm of bronchus and lung; I10 Essential (primary) hypertension; F17.200 Nicotine dependence, unspecified, uncomplicated
CPT/HCPCS: 96372; 99283; J1885

== ENCOUNTER 2022-01-12 10:13 | Outpatient (CLI) | payer MEDICARE, MEDICAID, SELFPAY ==
[2022-01-12 10:37] VITALS: BMI 30.2
[2022-01-12 10:39] LABS: Basophils Absolute Auto 0.07 K/mm3 (0.00-0.10); Basophils Percent Auto 1.3 % (0.0-1.0); Eosinophils Absolute Auto 0.17 K/mm3 (0.02-0.50); Eosinophils Percent Auto 3.1 % (1.0-6.0); Hematocrit 36.5 % (35.0-49.0); Hemoglobin 12.2 g/dL (12.0-15.0); Immature Granulocyte Absolute 0.02 K/mm3 (0.00-0.00); Immature Granulocyte Percent A 0.4 % (0.0-0.0); Lymphocytes Absolute Auto 1.64 K/mm3 (1.10-4.50); Lymphocytes Percent Auto 30.3 % (18.0-42.0); Mean Corpuscular HGB Conc 33.4 g/dL (32.0-36.0); Mean Corpuscular Hemoglobin 33.2 pg (27.0-31.0); Mean Corpuscular Volume 99.2 fL (78.0-102.0); Mean Platelet Volume 10.4 fl (9.2-11.8); Monocytes Absolute Auto 0.56 K/mm3 (0.10-0.90); Monocytes Percent Auto 10.3 % (2.0-11.0); Neutrophils Percent Auto 54.6 % (50.0-70.0); Platelet Count Result 237 K/mm3 (150-420); Red Blood Count 3.68 M/mm3 (4.20-5.40); Red Cell Distribution Width 13.4 % (11.6-14.4); White Blood Count 5.4 K/mm3 (4.8-10.8)
[2022-01-12 10:40] VITALS: BP 118/67; PULSE 94; RESP 14; TEMP 36.5; O2SAT 98
[2022-01-12 10:51] LABS: Alanine Aminotransferase 20 U/L (14-59); Albumin Level 3.8 g/dL (3.4-5.0); Alkaline Phosphatase 116 U/L (46-116); Anion Gap 6 mmol/L (8-16); Aspartate Amino Transferase 15 U/L (15-37); Bilirubin,Total 0.2 mg/dL (0.00-1.00); Blood Urea Nitrogen 8 mg/dL (7-18); Calcium 8.8 mg/dL (8.5-10.1); Carbon Dioxide 32 mmol/L (21-32); Chloride 99 mmol/L (98-108); Estimated CRCL calculation 70 ml/min; Estimated Glomerular Filt Rate > 60; Glucose 101 mg/dL (70-99); Osmolality Calculated 282 mOsm/kg (285-295); Potassium 3.8 mmol/L (3.5-5.1); Sodium 137 mmol/L (136-145); Total Protein 7.1 g/dL (6.4-8.2)
[2022-01-12] MEDS: ONDANSETRON IVPB (10:55)
[2022-01-12] MEDS: SODIUM CHLORIDE 0.9% IVPB (10:55)
[2022-01-12] MEDS: SODIUM CHLORIDE 0.9% IV 250 ML 10 ML IVPB (10:57)
[2022-01-12] MEDS: PEMBROLIZUMAB 200 MG in SODIUM CHLORIDE 0.9% IV 100 ML IVPB (11:30)
[2022-01-12] MEDS: HEPARIN SODIUM LOCK FLUSH 500 UNITS/5 ML SYRINGE IV PUSH (12:12)
--- NOTE | 2022-01-12 12:14 | PC.NURSE ---
Patient here for chemo regimen-Keytruda and Alimta. Labs drawn/reviewed/ok'd. Education given. NO concerns voiced. IV Chemo regimen administered-SEE MAR. Tolerated well. Will return 01/26/22 for B12 injection and 02/02/22 for chemo therapy. Safe exit of hospital.
== END 2022-01-12 10:14 | disposition home or self-care (01) ==
PROVIDERS: PCP Internal Medicine; Visit Provider Internal Medicine Hematology & Oncology
DX: Z51.11 Encounter for antineoplastic chemotherapy (principal); C34.90 Malignant neoplasm of unspecified part of unspecified bronchus or lung
CPT/HCPCS: 80053; 85025; 96367; 96411; 96413; 96417; J2405; J7050; J9271; J9305

== ENCOUNTER 2022-02-02 10:05 | Outpatient (CLI) | payer MEDICARE, MEDICAID, SELFPAY ==
[2022-02-02 10:31] LABS: Basophils Absolute Auto 0.06 K/mm3 (0.00-0.10); Basophils Percent Auto 1.3 % (0.0-1.0); Eosinophils Absolute Auto 0.13 K/mm3 (0.02-0.50); Eosinophils Percent Auto 2.8 % (1.0-6.0); Hematocrit 35.2 % (35.0-49.0); Immature Granulocyte Absolute 0.01 K/mm3 (0.00-0.00); Immature Granulocyte Percent A 0.2 % (0.0-0.0); Lymphocytes Absolute Auto 1.54 K/mm3 (1.10-4.50); Lymphocytes Percent Auto 32.8 % (18.0-42.0); Mean Corpuscular HGB Conc 34.1 g/dL (32.0-36.0); Mean Corpuscular Hemoglobin 33.5 pg (27.0-31.0); Mean Corpuscular Volume 98.3 fL (78.0-102.0); Mean Platelet Volume 9.9 fl (9.2-11.8); Monocytes Percent Auto 8.5 % (2.0-11.0); Neutrophils Absolute Auto 2.6 K/mm3 (1.7-7.2); Neutrophils Percent Auto 54.4 % (50.0-70.0); Platelet Count Result 217 K/mm3 (150-420); Red Blood Count 3.58 M/mm3 (4.20-5.40); Red Cell Distribution Width 13.2 % (11.6-14.4); White Blood Count 4.7 K/mm3 (4.8-10.8)
[2022-02-02 10:39] VITALS: BMI 30.2
[2022-02-02 10:43] VITALS: BP 100/78; PULSE 100; RESP 16; TEMP 36.7; O2SAT 97
[2022-02-02 10:56] LABS: Alanine Aminotransferase 9 U/L (14-59); Albumin Level 3.8 g/dL (3.4-5.0); Alkaline Phosphatase 101 U/L (46-116); Anion Gap 10 mmol/L (8-16); Aspartate Amino Transferase 16 U/L (15-37); Bilirubin,Total 0.4 mg/dL (0.00-1.00); Blood Urea Nitrogen 9 mg/dL (7-18); Carbon Dioxide 28 mmol/L (21-32); Chloride 99 mmol/L (98-108); Estimated CRCL calculation 63 ml/min; Estimated Glomerular Filt Rate > 60; Glucose 139 mg/dL (70-99); Osmolality Calculated 284 mOsm/kg (285-295); Potassium 3.5 mmol/L (3.5-5.1); Sodium 137 mmol/L (136-145); Thyroid Stimulating Hormone 1.42 uIU/mL (0.36-3.74)
[2022-02-02] MEDS: SODIUM CHLORIDE 0.9% IVPB (11:00)
[2022-02-02] MEDS: SODIUM CHLORIDE 0.9% IV 250 ML 10 ML IVPB (11:00)
[2022-02-02] MEDS: ONDANSETRON IVPB (11:00)
[2022-02-02] MEDS: PEMBROLIZUMAB 200 MG in SODIUM CHLORIDE 0.9% IV 100 ML IVPB (11:35)
[2022-02-02 12:22] VITALS: BP 112/74; PULSE 92; RESP 14; O2SAT 96
--- NOTE | 2022-02-02 12:22 | PC.NURSE ---
Patient here for q 21 chemo regimen. Labs drawn/reviewed/ok'd. Education given. No concerns voiced. IV Chemo regimen administered. SEE MAR. Tolerated well. Safe exit of hospital. Will return 02/16 for B12 injection and labs at 1000 and 02/23 for chemo 1000
[2022-02-02] MEDS: HEPARIN SODIUM LOCK FLUSH 500 UNITS/5 ML SYRINGE IV PUSH (12:26)
== END 2022-02-02 10:06 | disposition home or self-care (01) ==
LOC: CHSTREATRM 10:09
PROVIDERS: PCP Internal Medicine; Visit Provider Internal Medicine Hematology & Oncology
DX: Z51.11 Encounter for antineoplastic chemotherapy (principal); C34.90 Malignant neoplasm of unspecified part of unspecified bronchus or lung; D51.9 Vitamin B12 deficiency anemia, unspecified; R53.83 Other fatigue
CPT/HCPCS: 36415; 80053; 82533; 84443; 85025; 96367; 96411; 96413; J2405; J9271; J9305

== ENCOUNTER 2022-02-16 10:02 | Outpatient (CLI) | payer MEDICARE, MEDICAID, SELFPAY ==
[2022-02-16 10:27] VITALS: BP 116/69; PULSE 92; RESP 14; TEMP 36.7; O2SAT 97
[2022-02-16] MEDS: CYANOCOBALAMIN INJ 1,000 MCG/ML VIAL 1000 MCG IM (10:32)
[2022-02-16] MEDS: HEPARIN SODIUM LOCK FLUSH 500 UNITS/5 ML SYRINGE (10:33)
--- NOTE | 2022-02-16 10:34 | PC.NURSE ---
Patient here for B12 injection and Lab draw from port a cath. No concerns voiced- has understanding of each. Vitamin B12 injection administered SEE APR. Blood for labs drawn from port and sent to lab. Tolerated both well. Safe exit of hospital. Will return Thur. 2021 for chemo.
[2022-02-16 10:56] LABS: Hematocrit 35.2 % (35.0-49.0); Mean Corpuscular HGB Conc 34.1 g/dL (32.0-36.0); Mean Corpuscular Hemoglobin 33.5 pg (27.0-31.0); Mean Corpuscular Volume 98.3 fL (78.0-102.0); Platelet Count Result 209 K/mm3 (150-420); Red Blood Count 3.58 M/mm3 (4.20-5.40); Red Cell Distribution Width 13.5 % (11.6-14.4); White Blood Count 4.8 K/mm3 (4.8-10.8)
[2022-02-16 11:23] LABS: Band Neutrophils Percent 0 % (0-6); Eosinophils Absolute Manual 0.04 K/mm3 (0.02-0.5); Eosinophils Percent Manual 1 % (1-6); Lymphocytes Absolute Manual 1.92 K/mm3 (1.1-4.5); Lymphocytes Percent Manual 40 % (18-44); Monocytes Absolute Manual 0.38 K/mm3 (0.1-0.90); Monocytes Percent Manual 8 % (3-9); Neutrophils Absolute Manual 2.44 K/mm3 (1.7-7.2); Neutrophils Percent Manual 51 % (46-73); Platelet Estimate Adequate (Adequate); Total Cells Counted 100
[2022-02-16 12:15] LABS: Alanine Aminotransferase 26 U/L (14-59); Albumin Level 3.9 g/dL (3.4-5.0); Alkaline Phosphatase 109 U/L (46-116); Anion Gap 10 mmol/L (8-16); Aspartate Amino Transferase 20 U/L (15-37); Bilirubin,Total 0.3 mg/dL (0.00-1.00); Blood Urea Nitrogen 8 mg/dL (7-18); Calcium 9.1 mg/dL (8.5-10.1); Carbon Dioxide 28 mmol/L (21-32); Chloride 99 mmol/L (98-108); Estimated Glomerular Filt Rate > 60; Glucose 145 mg/dL (70-99); Osmolality Calculated 285 mOsm/kg (285-295); Potassium 3.7 mmol/L (3.5-5.1); Sodium 137 mmol/L (136-145); Thyroid Stimulating Hormone 1.38 uIU/mL (0.36-3.74); Total Protein 7.1 g/dL (6.4-8.2)
[2022-02-21 20:28] LABS: Cortisol Random 8.5 mcg/dL (***)
== END 2022-02-16 10:03 | disposition home or self-care (01) ==
LOC: CHSTREATRM 10:06
PROVIDERS: PCP Internal Medicine; Visit Provider Internal Medicine Hematology & Oncology
DX: D51.9 Vitamin B12 deficiency anemia, unspecified (principal); C34.90 Malignant neoplasm of unspecified part of unspecified bronchus or lung; E11.65 Type 2 diabetes mellitus with hyperglycemia
CPT/HCPCS: 36415; 36592; 80053; 82533; 84443; 85025; 96372; J3420

== ENCOUNTER 2022-02-23 09:37 | Outpatient (CLI) | payer MEDICARE, MEDICAID, SELFPAY ==
[2022-02-23 10:18] VITALS: BP 131/81; PULSE 92; RESP 14; TEMP 36.7; O2SAT 97
[2022-02-23] MEDS: SODIUM CHLORIDE 0.9% IV 250 ML 10 ML IVPB (10:20)
[2022-02-23 10:22] VITALS: BMI 30.2
[2022-02-23] MEDS: ONDANSETRON IVPB (10:30)
[2022-02-23] MEDS: SODIUM CHLORIDE 0.9% IVPB (10:30)
[2022-02-23] MEDS: PEMBROLIZUMAB 200 MG in SODIUM CHLORIDE 0.9% IV 100 ML IVPB (11:15)
[2022-02-23] MEDS: HEPARIN SODIUM LOCK FLUSH 500 UNITS/5 ML SYRINGE IV PUSH (11:57)
--- NOTE | 2022-02-23 12:04 | PC.NURSE ---
Patient here for Chemo regimen. No concerns voiced. Labs reviewed from last week when here getting B12 injection. Chemo regimen administered see APR. Tolerated well. Safe exit of hospital.
[2022-02-23 12:08] VITALS: BP 126/77; PULSE 92; RESP 14; O2SAT 97
== END 2022-02-23 09:38 | disposition home or self-care (01) ==
LOC: CHSTREATRM 09:41
PROVIDERS: PCP Internal Medicine; Visit Provider Internal Medicine Hematology & Oncology
DX: Z51.11 Encounter for antineoplastic chemotherapy (principal); C34.90 Malignant neoplasm of unspecified part of unspecified bronchus or lung
CPT/HCPCS: 96367; 96411; 96413; J2405; J7050; J9271; J9305

== ENCOUNTER 2022-06-15 07:16 | Outpatient (CLI) | payer MEDICARE, MEDICAID, SELFPAY ==
--- NOTE | ~2022-06-15 | MR_ITS ---
EXAMINATION: MR brain/brain stem wo/w con DATE: 06/15/2022 09:24 INDICATION: Brain metastases TECHNIQUE: Magnetic resonance imaging (MRI) of the brain and brainstem was performed without and with 20 mL Multihance intravenous contrast. Sequences included sagittal and axial T1-weighted SE, axial d iffusion-weighted FS SE, axial T2*-weighted GRE, axial T2-weighted FLAIR, and axial T2-weighted FSE. Postcontrast axial, sagittal and coronal T1-weighted SE was obtained. Apparent diffusion coefficient (ADC) maps were created. COMPARISON: 12/06/2021 FINDINGS: Slight increase in size of a previously 8 x 6 x 6 mm, currently 11 x 7 x 13 mm enhancing mass in the right temporal occipital region with mild surrounding vasogenic edema. Right posterior frontal cranio norah. Stable appearance of thin peripheral rim of enhancement along the margins of an underlying post erior paramedian right frontal lobe resection cavity with associated surrounding increased T2 signal. The margins of the enhancing lesion measures 3.9 cm AP 1.9 cm medial and lateral and 1.9 cm cranioca udally with identical corresponding measurements on the prior study. No evident new or enlarging more nodular enhancing component. Unchanged mild diffuse smooth pachymeningeal enhancement likely related to the prior surgery. No other new enhancing lesions identified. There are no areas of restricted di ffusion to suggest acute infarction. No intracranial hemorrhage or abnormal intracranial mass lesion. A few additional scattered small regions of nonspecific increased T2-weighted signal intensity in th e cerebral white matter, predominantly involving the deep and periventricular white matter. There are no intraparenchymal signal abnormalities seen on the other pulse sequences. The ventricles are symme tric and normal in size. There are no abnormal extra-axial fluid collections. Flow voids are seen in the cerebral arteries on the T2-weighted sequences consistent with their expected patency. The right vertebral artery is dominant. Orbits are normal. Mild mucosal thickening the paranasal sinuses. Bilat eral mastoid effusions, left greater than right. IMPRESSION: 1. Interval enlargement of a now 11 x 7 x 13 mm enhancing mass in the right temporo-occipital region consistent with progression of metastatic disease. 2. Right frontal craniotomy with stable size and appearance of a peripherally enhancing resection cav ity in the posterior right frontal lobe with the thin serpiginous enhancement likely representing gra nulation tissue at the margins of the cavity. Recurrent or residual facet disease cannot be excluded however there are no new or enlarging or more nodular regions of enhancement more specifically sugges t this. 3. No acute intracranial process. Reviewed, dictated and finalized at location A. IMPRESSION: 1. Interval enlargement of a now 11 x 7 x 13 mm enhancing mass in the right tem poro-occipital region consistent with progression of metastatic disease. 2. Right frontal craniotomy with stable size and appearance of a peripherally e nhancing resection cavity in the posterior right frontal lobe with the thin ser piginous enhancement likely representing granulation tissue at the margins of t he cavity. Recurrent or residual facet disease cannot be excluded however there are no new or enlarging or more nodular regions of enhancement more specifical ly suggest this. 3. No acute intracranial process.
--- NOTE | ~2022-06-15 | CT_ITS ---
Clinical Indication: Lung cancer CT Scan of the Chest, Abdomen, and Pelvis with Contrast: Technique: Contiguous sections were acquired throughout the chest, abdomen, and pelvis after intraven ous administration of 100 cc of Omnipaque 350. Dose reduction technique was used on this scan by marcin franco automated exposure control and iterative reconstruction technique. The dose-length product (DL P) was 718.10 mGy-cm. COMPARISON: 12/06/2021 Findings: There is no evidence of any significant mediastinal, hilar or axillary lymphadenopathy. Coronary geneva ry calcification are present. No aortic aneurysm or dissection. No large central pulmonary embolus. R ight-sided Mediport in place. There is no evidence of pleural or pericardial effusion. There is evidence of prior right middle lobectomy. Lungs are clear aside from focal associated postop erative change at the surgical bed region. No pulmonary nodule or suspicious consolidation evident. Stable subcentimeter right hepatic lobe cyst noted. The spleen, pancreas, gallbladder, adrenals and k idneys are within normal limits. There are atherosclerotic calcifications of the aorta. No lymphaden opathy. No bowel obstruction or bowel wall thickening. There is no evidence to suggest acute appendicitis. Urinary bladder is unremarkable. No significant adnexal mass seen. No ascites. Stable densely partial ly calcified structure in the left pelvis (axial image 203). Impression: No evidence for active malignancy or metastatic disease. Status post right middle lobectomy. Reviewed, dictated and finalized at [facility]. Impression: No evidence for active malignancy or metastatic disease. Status post right middle lobectomy.
[2022-06-15 07:40] LABS: Basophils Absolute Auto 0.06 K/mm3 (0.00-0.10); Basophils Percent Auto 1.3 % (0.0-1.0); Eosinophils Absolute Auto 0.24 K/mm3 (0.02-0.50); Eosinophils Percent Auto 5.2 % (1.0-6.0); Hematocrit 38.4 % (35.0-49.0); Immature Granulocyte Absolute 0.01 K/mm3 (0.00-0.00); Immature Granulocyte Percent A 0.2 % (0.0-0.0); Lymphocytes Absolute Auto 1.59 K/mm3 (1.10-4.50); Lymphocytes Percent Auto 34.6 % (18.0-42.0); Mean Corpuscular HGB Conc 33.9 g/dL (32.0-36.0); Mean Corpuscular Hemoglobin 32.9 pg (27.0-31.0); Mean Corpuscular Volume 97.2 fL (78.0-102.0); Mean Platelet Volume 10.6 fl (9.2-11.8); Monocytes Absolute Auto 0.44 K/mm3 (0.10-0.90); Monocytes Percent Auto 9.6 % (2.0-11.0); Neutrophils Absolute Auto 2.3 K/mm3 (1.7-7.2); Neutrophils Percent Auto 49.1 % (50.0-70.0); Platelet Count Result 162 K/mm3 (150-420); Red Blood Count 3.95 M/mm3 (4.20-5.40); Red Cell Distribution Width 12.3 % (11.6-14.4); White Blood Count 4.6 K/mm3 (4.8-10.8)
[2022-06-15 08:06] LABS: Alanine Aminotransferase 17 U/L (14-59); Albumin Level 3.5 g/dL (3.4-5.0); Alkaline Phosphatase 101 U/L (46-116); Anion Gap 8 mmol/L (8-16); Aspartate Amino Transferase 17 U/L (15-37); Bilirubin,Total 0.4 mg/dL (0.00-1.00); Blood Urea Nitrogen 5 mg/dL (7-18); Calcium 8.7 mg/dL (8.5-10.1); Carbon Dioxide 31 mmol/L (21-32); Chloride 101 mmol/L (98-108); Estimated Glomerular Filt Rate > 60; Glucose 122 mg/dL (70-99); Osmolality Calculated 288 mOsm/kg (285-295); Potassium 3.6 mmol/L (3.5-5.1); Sodium 140 mmol/L (136-145); Total Protein 6.6 g/dL (6.4-8.2)
[2022-06-15 08:07] LABS: Thyroid Stimulating Hormone Reflex 2.01 u/IU/mL (0.36-3.74)
== END 2022-06-15 07:17 | disposition home or self-care (01) ==
LOC: CHSIMG 07:18
PROVIDERS: PCP Internal Medicine; Visit Provider Internal Medicine Hematology & Oncology
DX: C34.90 Malignant neoplasm of unspecified part of unspecified bronchus or lung (principal); C79.31 Secondary malignant neoplasm of brain; R79.89 Other specified abnormal findings of blood chemistry; R94.6 Abnormal results of thyroid function studies
CPT/HCPCS: 36415; 70553; 71260; 74177; 80053; 84443; 85025; A9577; Q9967

== ENCOUNTER 2022-07-21 10:25 | Outpatient (CLI) | payer MEDICARE, MEDICAID, SELFPAY ==
[2022-07-21 10:39] VITALS: BMI 29.3
[2022-07-21] MEDS: HEPARIN SODIUM LOCK FLUSH 500 UNITS/5 ML SYRINGE IV PUSH (11:16)
--- NOTE | 2022-07-21 11:16 | PC.NURSE ---
Patient here for monthly port flush. Explained procedure. No concerns voiced. Port flush performed. SEE worklist. Tolerated well. Safe exit of hospital per self/ambulatory.
== END 2022-07-21 10:26 | disposition home or self-care (01) ==
LOC: CHSTREATRM 10:28
PROVIDERS: PCP Internal Medicine; Visit Provider Internal Medicine Hematology & Oncology
DX: Z45.2 Encounter for adjustment and management of vascular access device (principal)
CPT/HCPCS: 96523

== ENCOUNTER 2022-09-02 09:48 | Outpatient (CLI) | payer MEDICARE, MEDICAID, SELFPAY ==
--- NOTE | ~2022-09-02 | MR_ITS ---
EXAMINATION: MR lumbar spine wo con DATE: 09/02/2022 11:14 INDICATION: Other spondylosis, lumbar region. TECHNIQUE: Magnetic resonance imaging (MRI) of the lumbar spine was performed without intravenous con trast. COMPARISON: Lumbar spine MRI 01/16/2015 FINDINGS: Bone alignment is normal. Vertebral body heights are normal. There is moderately decreased disc height at L1-L2 and mildly decreased disc height from L2-L3 through L5-S1. The distal spinal cor d signal intensity is normal. The conus medullaris is at T12-L1. The following disc levels are specif ically discussed: L1-L2: The disc is bulging. There is mild bilateral facet joint osteoarthritis. There is mild bilater al neural foraminal stenosis. There is mild central canal stenosis. L2-L3: The disc is bulging. There is mild bilateral facet joint osteoarthritis. There is mild bilater al neural foraminal stenosis. There is mild central canal stenosis. L3-L4: The disc is bulging with superimposed left foraminal zone extrusion. There is mild bilateral f acet joint osteoarthritis. There is mild right and moderate left neural foraminal stenosis. There is mild central canal stenosis. There is moderate stenosis of left lateral recess. L4-L5: The disc is bulging with superimposed central extrusion. There is severe bilateral facet joint osteoarthritis. There is moderate bilateral neural foraminal stenosis. There is moderate central can al stenosis. L5-S1: The disc is bulging. There is severe bilateral facet joint osteoarthritis. There is mild bilat eral neural foraminal stenosis. There is mild central canal stenosis. IMPRESSION: 1. Moderate lumbar spondylosis, worsened from 01/16/2015. Reviewed, dictated and finalized at location A.
== END 2022-09-02 09:49 | disposition home or self-care (01) ==
LOC: CHSIMG 09:50
PROVIDERS: PCP Internal Medicine; Visit Provider Nurse Practitioner Family
DX: M47.896 Other spondylosis, lumbar region (principal)
CPT/HCPCS: 72148

== ENCOUNTER 2022-09-06 12:25 | Outpatient (CLI) | payer MEDICARE, MEDICAID, SELFPAY ==
--- NOTE | ~2022-09-06 | US_ITS ---
EXAMINATION: US pelvic complete w TV DATE: 09/06/2022 12:54 INDICATION: Pelvic pain. Recurrent vaginal pain and discharge. TECHNIQUE: Multiple transabdominal and transvaginal sonographic images of the pelvis were obtained. COMPARISON: CT abdomen and pelvis 06/15/2022 FINDINGS: TRANSABDOMINAL ULTRASOUND: The uterus measures 6.2 x 3.7 x 2.3 cm. There is no free fluid in the pelvis. TRANSVAGINAL ULTRASOUND: The endometrial complex measures 2 mm in thickness. The right ovary is not visualized. The left ovary measures 1.7 x 1.9 x 1.2 cm. There is normal vascular flow in left ovary. IMPRESSION: 1. Normal uterus and left ovary. 2. Right ovary not visualized. Reviewed, dictated and finalized at location E.
== END 2022-09-06 12:26 | disposition home or self-care (01) ==
LOC: CHSIMG 12:27
PROVIDERS: PCP Internal Medicine; Visit Provider Nurse Practitioner Family
DX: R10.2 Pelvic and perineal pain (principal)
CPT/HCPCS: 76830; 76856

== ENCOUNTER 2022-09-22 08:54 | Outpatient (CLI) | payer MEDICARE, MEDICAID, SELFPAY ==
--- NOTE | ~2022-09-22 | MMUS_ITS ---
EXAMINATION: MM diag jorge implant BI w armand, US breast BI limited HISTORY: Patient with history of left breast cancer status post left mastectomy with implant reconstr uction and right breast augmentation presents with bilateral breast pain TECHNIQUE: Craniocaudal, mediolateral, and mediolateral oblique 3-D tomosynthesis images with implant displacement of the breasts were performed and synthetic 2-D images were generated. Craniocaudal, m ediolateral oblique, and mediolateral views of the breasts without implant displacement were obtained using full field digital mammography. CAD analysis was submitted and interpreted. High resolution li Cyber-[employer] bilateral breast ultrasound was performed. COMPARISON: 10/20/2020, 02/08/2016, 01/18/2015 BREAST PARENCHYMAL COMPOSITION: There are scattered areas of fibroglandular density. FINDINGS: MAMMOGRAPHIC FINDINGS: Right breast: No suspicious mass, calcification, or architectural distortion are identified to sugges t malignancy. There has been no suspicious interval change. Left breast: Changes of left mastectomy with implant reconstruction are again noted. No suspicious ma ss, calcification, or architectural distortion are identified. There are abnormally enlarged left axi llary lymph nodes. ULTRASOUND: Right breast: No suspicious cystic or solid mass is identified in the area of the reported right kailyn st pain. Left breast: No suspicious cystic or solid mass is identified in the area of the reported left breast pain colon. There is an enlarged lymph node of the left axilla. Also noted is a small subcutaneous m ass in the left axilla in continuity with the skin with associated drainage per patient. IMPRESSION: 1. No specific mammographic or sonographic correlate is identified for the patient's reported breast pain Further evaluation at this time should be based on clinical assessment. Continued follow-up phys ical examination is recommended. 2. Ultrasound-guided biopsy is recommended for an abnormally enlarged lymph node of the left axilla. BI-RADS category 4, suspicious findings. Reviewed, dictated and finalized at location A. IMPRESSION: 1. No specific mammographic or sonographic correlate is identified for the antonio ent's reported breast pain Further evaluation at this time should be based on c linical assessment. Continued follow-up physical examination is recommended. 2. Ultrasound-guided biopsy is recommended for an abnormally enlarged lymph nod e of the left axilla. BI-RADS category 4, suspicious findings.
== END 2022-09-22 08:55 | disposition home or self-care (01) ==
LOC: CHSIMG 08:57
PROVIDERS: PCP Internal Medicine; Visit Provider Nurse Practitioner Family
DX: N64.4 Mastodynia (principal); R59.0 Localized enlarged lymph nodes; R92.8 Other abnormal and inconclusive findings on diagnostic imaging of breast
CPT/HCPCS: 76642; 77062; 77066; 99283; G0279

== ENCOUNTER 2022-09-22 10:27 | Emergency (ER) | payer MEDICARE, MEDICAID, SELFPAY ==
[2022-09-22 10:27] VITALS: BP 128/84; PULSE 84; RESP 16; TEMP 36.5; O2SAT 98
--- NOTE | 2022-09-22 10:34 | ED.SKABFB ---
HPI - Skin/Abscess/Foreign Bdy General Chief complaint: Skin/Abscess/Foreign Body Stated complaint: abscess under left axilla Time Seen by Provider: 09/22/22 10:34 Source: patient Mode of arrival: ambulatory Limitations: no limitations History of Present Illness HPI narrative: 61-year-old female, smoker, with a history of alcohol use, hypertension, COPD, GERD, left breast cancer status post mastectomy, lung cancer with Mets to the brain status post resection of the primary tumor and right frontal cancer presents to the ER with a six-day history of -- left axillary cellulitis / abscess measuring 2 cm. She complains of pain. No fever or chills no prior history of cutaneous abscesses MD complaint: abscess/boil Onset (ago): day(s) ( started 6 days ago) Tetanus up to date: yes Location: RUE ( left axilla) Severity: mild Quality: aching Pain Consistency: constant Relieving factors: none Exacerbating factors: none Associated symptoms: denies other symptoms Treatments prior to arrival: none Related Data Home Medications Medication Instructions Recorded Confirmed cyclobenzaprine 10 mg tablet 10 mg PO TID PRN Muscle Spasm 09/09/19 07/21/22 gabapentin 600 mg tablet 600 mg PO TID 09/09/19 07/21/22 montelukast 10 mg tablet 10 mg PO DAILY 09/09/19 07/21/22 omeprazole 20 mg capsule,delayed 40 mg PO DAILY 09/09/19 07/21/22 release ropinirole 0.5 mg tablet 0.5 - 1 mg PO HS 09/09/19 07/21/22 venlafaxine 75 mg capsule,extended 225 mg PO HS 09/09/19 07/21/22 release 24 hr levetiracetam 500 mg tablet 500 mg PO Q12H 10/24/19 07/21/22 verapamil 240 mg tablet,extended 240 mg PO DAILY 09/23/20 07/21/22 release ascorbate calcium (vitamin C) 500 500 mg PO DAILY 08/26/21 07/21/22 mg tablet cholecalciferol (vitamin D3) 25 25 mcg PO DAILY 08/26/21 07/21/22 mcg (1,000 unit) capsule folic acid 800 mcg tablet 0.8 mg PO DAILY 08/26/21 07/21/22 atorvastatin 20 mg tablet 20 mg PO DAILY 01/08/22 07/21/22 duloxetine 60 mg capsule,delayed 60 mg PO DAILY 02/03/22 07/21/22 release Allergies Allergy/AdvReac Type Severity Reaction Status Date / Time tramadol Allergy Unknown Vomiting Verified 01/08/22 17:26 Review of Systems Review of Systems: All systems reviewed & are unremarkable except as noted in HPI and below Constitutional: Constitutional: Reports as per HPI and Reports no additional constitutional complaints Eyes: Eyes: Reports as per HPI and Reports no additional eye complaints ENT: Reports system reviewed and no additional complaints, except as documented and Reports as per HPI Cardiovascular: Cardiovascular: Reports as per HPI and Reports no additional cardiovascular complaints Respiratory: Respiratory: Reports as per HPI, Reports no additional respiratory complaints, Reports cough, Reports dyspnea and Reports wheezing Comments: patient uses albuterol MDI Gastrointestinal: Gastrointestinal: Reports as per HPI and Reports no additional gastrointestinal complaints Genitourinary: Genitourinary: Reports no additional female genitourinary complaints and Reports as per HPI Musculoskeletal: Musculoskeletal: Reports no additional musculoskeletal complaints and Reports as per HPI Integumentary/Breasts: Skin/Breast: Reports system reviewed and no additional complaints, except as docu and Reports as per HPI Comments: axillary in duration/ abscess measuring 2 cm Neurologic: Reports system reviewed and no additional complaints, except as documented and Reports as per HPI Psychiatric: Psychiatric: Reports no additional psychiatric complaints and Reports as per HPI Endocrine: Endocrine: Reports no additional endocrine complaints and Reports as per HPI Hematologic/Lymphatic: Hematologic/Lymphatic: Reports no additional hematologic/lymphatic complaints and Reports as per HPI Allergic/Immunologic: Allergic/Immunologic: Reports no additional allergic/immunologic complaints and Reports as per HPI PMFSH Past Medical His
== END 2022-09-22 11:19 | disposition home or self-care (01) ==
PROVIDERS: Emergency Provider Internal Medicine Critical Care Medicine; PCP Internal Medicine
DX: L03.319 Cellulitis of trunk, unspecified (principal); I10 Essential (primary) hypertension; J44.9 Chronic obstructive pulmonary disease, unspecified; F17.210 Nicotine dependence, cigarettes, uncomplicated; Z85.3 Personal history of malignant neoplasm of breast; Z85.118 Personal history of other malignant neoplasm of bronchus and lung; Z85.841 Personal history of malignant neoplasm of brain
CPT/HCPCS: 99283

== ENCOUNTER 2022-09-29 10:27 | Outpatient (CLI) | payer MEDICARE, MEDICAID, SELFPAY ==
[2022-09-29 10:55] LABS: Basophils Absolute Auto 0.06 K/mm3 (0.00-0.10); Eosinophils Absolute Auto 0.15 K/mm3 (0.02-0.50); Eosinophils Percent Auto 2.5 % (1.0-6.0); Hematocrit 38.5 % (35.0-49.0); Hemoglobin 13.1 g/dL (12.0-15.0); Immature Granulocyte Absolute 0.03 K/mm3 (0.00-0.00); Immature Granulocyte Percent A 0.5 % (0.0-0.0); Lymphocytes Absolute Auto 1.89 K/mm3 (1.10-4.50); Lymphocytes Percent Auto 31.2 % (18.0-42.0); Mean Corpuscular Hemoglobin 33.2 pg (27.0-31.0); Mean Corpuscular Volume 97.5 fL (78.0-102.0); Mean Platelet Volume 10.1 fl (9.2-11.8); Monocytes Absolute Auto 0.42 K/mm3 (0.10-0.90); Monocytes Percent Auto 6.9 % (2.0-11.0); Neutrophils Absolute Auto 3.5 K/mm3 (1.7-7.2); Neutrophils Percent Auto 57.9 % (50.0-70.0); Platelet Count Result 233 K/mm3 (150-420); Red Blood Count 3.95 M/mm3 (4.20-5.40); Red Cell Distribution Width 12.9 % (11.6-14.4); White Blood Count 6.1 K/mm3 (4.8-10.8)
[2022-09-29 10:57] LABS: Appearance Urine Clear (Clear); Bilirubin Urine Negative (Negative); Blood Urine Negative (Negative); Color Urine Yellow (Yellow); Glucose Urine UA Negative (Negative); Ketones Urine Negative (Negative); Leukocyte Esterase Ur Negative LEU/UL (Negative); Nitrate Urine Negative (Negative); Protein Urine Negative (Negative); Specific Grav Ur <= 1.005 (1.010-1.020); Urobilinogen Urine 0.2 mg/dL (0.2-1.0)
[2022-09-29 11:00] LABS: Add Urine Microscopic? NO
[2022-09-29] MEDS: HEPARIN SODIUM LOCK FLUSH 500 UNITS/5 ML SYRINGE IV PUSH (11:02)
[2022-09-29 11:04] VITALS: BMI 29.1
[2022-09-29 11:06] VITALS: BP 118/69; PULSE 92; RESP 14; O2SAT 97
--- NOTE | 2022-09-29 11:06 | PC.NURSE ---
Patient here for lab work/port a cath flush. No concerns voiced. Procedure explained. Blood drawn for labs ordered from port and port was flushed. SEE vascular assessment and MAR. Tolerated well. Safe exit of hospital per amb/self.
[2022-09-29 11:23] LABS: Alanine Aminotransferase 21 U/L (14-59); Albumin Level 3.7 g/dL (3.4-5.0); Alkaline Phosphatase 95 U/L (46-116); Anion Gap 6 mmol/L (8-16); Aspartate Amino Transferase 11 U/L (15-37); Bilirubin,Total 0.3 mg/dL (0.00-1.00); Blood Urea Nitrogen 11 mg/dL (7-18); Calcium 9.2 mg/dL (8.5-10.1); Carbon Dioxide 32 mmol/L (21-32); Chloride 99 mmol/L (98-108); Cholesterol 171 mg/dL (0-200); Estimated CRCL calculation 70 ml/min; Estimated Glomerular Filt Rate > 60; Free T4 Free Thyroxine 0.88 ng/dL (0.76-1.46); Glucose 121 mg/dL (70-99); HDL Direct 69 mg/dL (40-60); LDL Cholesterol Calculated 88 mg/dL (<130); Osmolality Calculated 284 mOsm/kg (285-295); Potassium 3.9 mmol/L (3.5-5.1); Sodium 137 mmol/L (136-145); Thyroid Stimulating Hormone 1.03 uIU/mL (0.36-3.74); Total Protein 7.1 g/dL (6.4-8.2); Triglycerides 69 mg/dL (0-150)
[2022-10-02 15:44] LABS: Hemoglobin A1C 5.7 % (<5.7)
[2022-10-05 21:21] LABS: Vitamin D 25 Hydroxy 46 ng/mL (30-100)
== END 2022-09-29 10:28 | disposition home or self-care (01) ==
LOC: CHSLAB 10:34 → CHSTREATRM 11:01
PROVIDERS: PCP Internal Medicine; Visit Provider Nurse Practitioner Family
DX: Z45.2 Encounter for adjustment and management of vascular access device (principal); R73.9 Hyperglycemia, unspecified; E78.5 Hyperlipidemia, unspecified; R31.9 Hematuria, unspecified; J44.9 Chronic obstructive pulmonary disease, unspecified; E55.9 Vitamin D deficiency, unspecified
CPT/HCPCS: 36415; 36592; 80053; 80061; 81003; 82306; 83036; 84439; 84443; 85025; 96523

== ENCOUNTER 2022-10-19 08:30 | Outpatient (CLI) | payer MEDICARE, MEDICAID, SELFPAY ==
--- NOTE | ~2022-10-19 | US_ITS ---
EXAMINATION: US axilla LT DATE: 10/19/2022 09:44 INDICATION: Enlarged left axillary lymph node. TECHNIQUE: Multiple grayscale and Doppler ultrasound images of the left axilla were obtained. COMPARISON: Ultrasound 09/22/2022 FINDINGS: The previously described left axillary lymph node is now normal in size and measures 1.2 x 0.7 x 1.1 cm. IMPRESSION: 1. Normal left axillary lymph node with interval decrease in size. The biopsy was canceled. Reviewed, dictated and finalized at location A. IMPRESSION: 1. Normal left axillary lymph node with interval decrease in size. The biopsy w as canceled.
== END 2022-10-19 08:31 | disposition home or self-care (01) ==
PROVIDERS: PCP Internal Medicine; Visit Provider Internal Medicine
DX: R59.0 Localized enlarged lymph nodes (principal)
CPT/HCPCS: 76882

== ENCOUNTER 2023-03-02 08:21 | Outpatient (CLI) | payer MEDICARE, SELFPAY ==
[2023-03-02 09:26] LABS: Alanine Aminotransferase 20 U/L (14-59); Alkaline Phosphatase 87 U/L (46-116); Anion Gap 5 mmol/L (8-16); Aspartate Amino Transferase 15 U/L (15-37); Bilirubin,Total 0.3 mg/dL (0.00-1.00); Blood Urea Nitrogen 10 mg/dL (7-18); Calcium 9.9 mg/dL (8.5-10.1); Carbon Dioxide 34 mmol/L (21-32); Chloride 97 mmol/L (98-108); Cholesterol 235 mg/dL (0-200); Estimated Glomerular Filt Rate > 60; Glucose 116 mg/dL (70-99); HDL Direct 82 mg/dL (40-60); LDL Cholesterol Calculated 134 mg/dL (<130); Osmolality Calculated 282 mOsm/kg (285-295); Potassium 4.3 mmol/L (3.5-5.1); Sodium 136 mmol/L (136-145); Triglycerides 93 mg/dL (0-150)
== END 2023-03-02 08:22 | disposition home or self-care (01) ==
LOC: CHSLAB 08:23
PROVIDERS: PCP Internal Medicine; Visit Provider Internal Medicine
DX: E78.5 Hyperlipidemia, unspecified (principal); R73.09 Other abnormal glucose
CPT/HCPCS: 36415; 80053; 80061; 83036

== ENCOUNTER 2023-11-13 09:34 | Outpatient (CLI) | payer MEDICARE, MEDICAID, SELFPAY ==
[2023-11-13] MEDS: HEPARIN SODIUM LOCK FLUSH 500 UNITS/5 ML SYRINGE (09:55)
[2023-11-13 10:03] LABS: Basophils Absolute Auto 0.08 K/mm3 (0.00-0.10); Basophils Percent Auto 1.3 % (0.0-1.0); Eosinophils Absolute Auto 0.31 K/mm3 (0.02-0.50); Eosinophils Percent Auto 5.1 % (1.0-6.0); Hematocrit 39.3 % (35.0-49.0); Hemoglobin 13.4 g/dL (12.0-15.0); Immature Granulocyte Absolute 0.02 K/mm3 (0.00-0.00); Immature Granulocyte Percent A 0.3 % (0.0-0.0); Lymphocytes Absolute Auto 1.89 K/mm3 (1.10-4.50); Lymphocytes Percent Auto 31.2 % (18.0-42.0); Mean Corpuscular HGB Conc 34.1 g/dL (32-36); Mean Corpuscular Volume 93.8 fL (78.0-102.0); Monocytes Absolute Auto 0.57 K/mm3 (0.10-0.90); Monocytes Percent Auto 9.4 % (2.0-11.0); Neutrophils Absolute Auto 3.19 K/mm3 (1.70-7.20); Neutrophils Percent Auto 52.7 % (50.0-70.0); Platelet Count Result 209 K/mm3 (150-420); Red Blood Count 4.19 M/mm3 (4.20-5.40); Red Cell Distribution Width 13.1 % (11.6-14.4); White Blood Count 6.1 K/mm3 (4.8-10.8)
[2023-11-13 14:23] LABS: Alanine Aminotransferase 21 U/L (14-59); Albumin Level 3.9 g/dL (3.4-5.0); Alkaline Phosphatase 88 U/L (46-116); Anion Gap 6 mmol/L (4-12); Aspartate Amino Transferase 15 U/L (15-37); Bilirubin,Total 0.4 mg/dL (0.00-1.00); Blood Urea Nitrogen 6 mg/dL (7-18); Calcium 8.8 mg/dL (8.5-10.1); Carbon Dioxide 31 mmol/L (21-32); Chloride 98 mmol/L (98-108); Estimated Glomerular Filt Rate > 60; Glucose 115 mg/dL (70-99); Iron 83 ug/dL (50-170); Osmolality Calculated 278 mOsm/kg (285-295); Percent Iron Saturation 28 % (12-57); Potassium 3.6 mmol/L (3.5-5.1); Sodium 135 mmol/L (136-145); Total Protein 6.8 g/dL (6.4-8.2); Vitamin B12 1061 pg/mL (193-986)
[2023-11-13 14:24] LABS: Folic Acid > 20.0 ng/mL (8.6->20)
== END 2023-11-13 09:35 | disposition home or self-care (01) ==
LOC: CHSLAB 10:04 → CHSTREATRM 10:05
PROVIDERS: PCP Internal Medicine; Visit Provider Internal Medicine Hematology
DX: C34.90 Malignant neoplasm of unspecified part of unspecified bronchus or lung (principal)
CPT/HCPCS: 36415; 36591; 80053; 82607; 82746; 83540; 83550; 85025

== ENCOUNTER 2024-01-15 14:12 | Emergency (ER) | payer MEDICARE, MEDICAID, SELFPAY ==
--- NOTE | ~2024-01-15 | XR_ITS ---
XR hip LT min 3V w AP pelvis Ordering provider: Misael Javier MD History: . pain for 3 days . Comparison: None. FINDINGS: BONES: No acute fracture or dislocation. HIP JOINT SPACES: Normal. 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 SACROILIAC JOINT SPACES/LUMBAR SPINE: The sacroiliac joint spaces are normal. Mild degenerative brown ges of the visualized lower lumbar spine. Bony shadow in the left sacroiliac area seen which is most likely bone island. Further evaluation adv ised. PUBIC SYMPHYSIS: Normal. SOFT TISSUES: Normal. IMPRESSION: No acute osseous abnormality pelvis and left hip. Reviewed, dictated and finalized at location A. MACHINE OPERATOR
[2024-01-15 14:12] VITALS: BP 137/90; PULSE 87; RESP 16; TEMP 36.6; O2SAT 97
--- NOTE | 2024-01-15 14:25 | ED.GENADULT ---
HPI - General Adult General Chief complaint: Extremity Injury, Lower Stated complaint: LEFT HIP PAIN Time Seen by Provider: 01/15/24 14:23 Source: patient Mode of arrival: ambulatory Limitations: no limitations History of Present Illness HPI narrative: 63-year-old white female complains of left hip pain for the last 3 days. Patient states she started having the pain couple days after she had her report of her right hip and knee reported back to her which she had that done December the night 10 days ago. She took 2 of her oxycodone 9 mg today. She is allowed to take 2 a day per her pain management provider for her chronic back pain. Denies any recent injury. Problems walking weakness or numbness. Otherwise she is eating drinking voiding and stooling fine without cough fever sore throat runny nose bleeding or bruising dizziness or lightheadedness rash or itching or changing or back pain. Or any other pain. Denies any other complaints. Patient states when she is taking her pain medicine rib pain does not go away completely it using a 5/6. Today her left hip pain as an 8. Related Data Home Medications Medication Instructions Recorded Confirmed cyclobenzaprine 10 mg tablet 10 mg PO TID PRN Muscle Spasm 09/09/19 01/15/24 gabapentin 600 mg tablet 600 mg PO TID 09/09/19 01/15/24 montelukast 10 mg tablet 10 mg PO DAILY 09/09/19 01/15/24 omeprazole 20 mg capsule,delayed 40 mg PO DAILY 09/09/19 01/15/24 release ropinirole 0.5 mg tablet 0.5 - 1 mg PO HS 09/09/19 01/15/24 venlafaxine 75 mg capsule,extended 225 mg PO HS 09/09/19 01/15/24 release 24 hr levetiracetam 500 mg tablet 500 mg PO Q12H 10/24/19 01/15/24 verapamil 240 mg tablet,extended 240 mg PO DAILY 09/23/20 01/15/24 release ascorbate calcium (vitamin C) 500 500 mg PO DAILY 08/26/21 01/15/24 mg tablet cholecalciferol (vitamin D3) 25 25 mcg PO DAILY 08/26/21 01/15/24 mcg (1,000 unit) capsule folic acid 800 mcg tablet 0.8 mg PO DAILY 07/01/22 11/19/24 atorvastatin 20 mg tablet 20 mg PO DAILY 01/08/22 01/15/24 duloxetine 60 mg capsule,delayed 60 mg PO DAILY 02/03/22 01/15/24 release oxycodone myristate 9 mg capsule 9 mg PO BID 01/15/24 01/15/24 sprinkle extended release 12 hr(DON'T CRUSH) (Xtampza ER) Allergies Allergy/AdvReac Type Severity Reaction Status Date / Time tramadol Allergy Unknown Dizziness Verified 01/15/24 14:15 Review of Systems Review of Systems: All systems reviewed & are unremarkable except as noted in HPI and below [facility] Past Medical History Medical History Adenomatous colon polyp Bloating Breast CA Dyslipidemia Epigastric pain GERD (gastroesophageal reflux disease) Hypertension Lung cancer Lung cancer metastatic to brain Obesity Rectal bleeding Surgical History Surgical History S/P lumpectomy of breast Family History Family History Father Carcinoma of colon Mother Family history of renal cell carcinoma Anginal pain Breast cancer Sibling Breast cancer Sibling Breast cancer Social History Social History Smoking packs per day: 3 Smoking cigarettes per day: 60.0 Smoking status: Current every day smoker Tobacco type: cigarettes Additional smoking assessment comments: 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 Substance use: unknown Substance use type: marijuana Other substance usage details: smokes 10 hits daily Last use: yesterday Spiritual care concerns: No Exam Narrative: White female patient with no apparent distress.? Head normocephalic, atraumatic.? Eyes conjunctiva pink sclera nonicteric.? Extraocular movements are intact.? Ears externally normal.? Oropharynx is clear with moist mucous membranes without exudates.? Neck is supple nontender no lymphadenopathy.? Back is nontender.? Lungs are clear.? Heart is regular rate and rhythm without murmurs gallops or rubs.? Chest wall nontender. Abdomen is soft and nontender no hepatosplenomegaly or masses no CVA tenderness no abdominal bruits.? Extremities no cyanosis clubbing or edema.? Bilateral hips full range of motion nontender. Skin is warm and dry without rashes or lesions.? Neurological patient is alert and oriented x4.? Motor and sensory grossly intact.? Gait is normal. Course Vital Signs Vital signs: Vital Signs Temperature 36.6 C 01/15/24 14:12 Pulse Rate 87 01/15/24 14:12 Respiratory Rate 16 01/15/24 14:12 Blood Pressure 137/90 01/15/24 14:12 Pulse Oximetry 97 01/15/24 14:12 Oxygen Delivery Room Air 01/15/24 14:12 Temperature 36.6 C 01/15/24 14:12 Pulse Rate 87 01/15/24 14:12 Respiratory Rate 16 01/15/24 14:12 Blood Pressure 137/90 01/15/24 14:12 Pulse Oximetry 97 01/15/24 14:12 Oxygen Delivery Room Air 01/15/24 14:12 Medical Decision Making MDM Narrative Medical decision making narrative: ?Patient placed in room: One ? History and physical was performed. per radiologist:BONES: No acute fracture or dislocation. HIP JOINT SPACES: Normal. 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 SACROILIAC JOINT SPACES/LUMBAR SPINE: The sacroiliac joint spaces are normal. Mild degenerative changes of the visualized lower lumbar spine. Bony shadow in the left sacroiliac area seen which is most likely bone island. Further evaluation advised. PUBIC SYMPHYSIS: Normal. SOFT TISSUES: Normal. IMPRESSION: No acute osseous abnormality pelvis and left hip. Independent Historian: patient External Source Review: x-rays reviewed from her right hip and knee showing osteoarthritis Differential Dx includes but not limited to: osteoarthritis fracture tumor Medications were Reviewed: all meds reviewed Medications given: Toradol 30 mg IM Independently Interpreted by me: left hip shows osteoarthritis as independently interpreted by me. Shared decision Making: Evaluation was discussed all questions were asked and answered patient agreed with the plan. Social Situation Impacting Patients Care: Patient is on chronic pain medicine goes to pain management Discussed with Dr. WILLIS DIAGNOSIS: acute left hip pain DISPOSITION : discharge home CONDITION AT DISCHARGE: stable Medical Records Medical records reviewed: Yes I reviewed the external patient's medical records. Vital Signs Vital Signs: Vital Signs Temperature 36.6 C 01/15/24 14:12 Pulse Rate 87 01/15/24 14:12 Respiratory Rate 16 01/15/24 14:12 Blood Pressure 137/90 01/15/24 14:12 Pulse Oximetry 97 01/15/24 14:12 Oxygen Delivery Room Air 01/15/24 14:12 Temperature 36.6 C 01/15/24 14:12 Pulse Rate 87 01/15/24 14:12 Respiratory Rate 16 01/15/24 14:12 Blood Pressure 137/90 01/15/24 14:12 Pulse Oximetry 97 01/15/24 14:12 Oxygen Delivery Room Air 01/15/24 14:12 Discharge Plan Discharge Clinical Impression: Acute pain of left hip Patient Disposition: Home, Self-Care Condition: Stable Instructions: Hip Pain (ED) Additional Instructions: take your Xtampza ER 9 mg twice a day as prescribed. He can take ibuprofen 200 mg 2 or 3 tablets 3 times a day with food as needed for pain. He can take Tylenol. 650 mg every 4 hours as needed for pain. Follow-up with your primary care provider and/or your pain management provider for further evaluation and treatment. Prescriptions: No Action Xtampza ER 9 mg cap,sprinkl,ER12hr(DONT CRUSH) 9 mg PO BID verapamil 240 mg Tablet Extended Release 240 mg PO DAILY atorvastatin 20 mg tablet 20 mg PO DAILY Rx Instructions: TAKE ONE TABLET BY MOUTH DAILY duloxetine 60 mg Capsule,Delayed Release(Dr/Ec) 60 mg PO DAILY amoxicillin-pot clavulanate 875-125 mg tablet 1 tablet PO Q12H Qty: 14 0RF levetiracetam 500 mg tablet 500 mg PO Q12H ascorbate calcium (vitamin C) 500 mg tablet 500 mg PO DAILY cholecalciferol (vitamin D3) 25 mcg (1,000 unit) capsule 25 mcg PO DAILY folic acid 800 mcg tablet 0.8 mg PO DAILY cyclobenzaprine 10 mg tablet 10 mg PO TID PRN (Reason: Muscle Spasm) venlafaxine 75 mg capsule,extended release 24hr 225 mg PO HS gabapentin 600 mg tablet 600 mg PO TID ropinirole 0.5 mg tablet 0.5 - 1 mg PO HS omeprazole 20 mg capsule,delayed release(DR/EC) 40 mg PO DAILY montelukast 10 mg tablet 10 mg PO DAILY Follow-up/Referrals: Pedro Schmitz MD [Primary Care Provider] - Time of Disposition: 15:05
[2024-01-15] MEDS: KETOROLAC 30 MG/ML VIAL (*BKC) IM (14:57)
[2024-01-15 15:15] VITALS: BP 120/77; PULSE 82; RESP 17; TEMP 36.6; O2SAT 98
== END 2024-01-15 15:15 | disposition home or self-care (01) ==
PROVIDERS: Emergency Provider Emergency Medicine; PCP Internal Medicine
DX: M25.552 Pain in left hip (principal); I10 Essential (primary) hypertension; Z85.118 Personal history of other malignant neoplasm of bronchus and lung; Z87.891 Personal history of nicotine dependence; Z79.891 Long term (current) use of opiate analgesic; Z79.899 Other long term (current) drug therapy
CPT/HCPCS: 73502; 96372; 99283; J1885

== ENCOUNTER 2024-01-30 10:24 | Outpatient (CLI) | payer MEDICARE, MEDICAID, SELFPAY ==
[2024-01-30 10:38] LABS: Hematocrit 44.3 % (35.0-49.0); Hemoglobin 15.4 g/dL (12.0-15.0); Mean Corpuscular HGB Conc 34.8 g/dL (32-36); Mean Corpuscular Hemoglobin 32.1 pg (27.0-31.0); Mean Corpuscular Volume 92.3 fL (78.0-102.0); Mean Platelet Volume 9.6 fl (9.2-11.8); Platelet Count Result 244 K/mm3 (150-420); Red Cell Distribution Width 12.4 % (11.6-14.4); White Blood Count 6.9 K/mm3 (4.8-10.8)
[2024-01-30 11:29] LABS: Alanine Aminotransferase 21 U/L (14-59); Albumin Level 4.5 g/dL (3.4-5.0); Alkaline Phosphatase 91 U/L (46-116); Amylase 31 U/L (25-115); Anion Gap 8 mmol/L (4-12); Aspartate Amino Transferase 15 U/L (15-37); Bilirubin,Total 0.5 mg/dL (0.00-1.00); Blood Urea Nitrogen 7 mg/dL (7-18); Calcium 10.3 mg/dL (8.5-10.1); Carbon Dioxide 30 mmol/L (21-32); Chloride 96 mmol/L (98-108); Estimated Glomerular Filt Rate > 60; Glucose 109 mg/dL (70-99); Lipase 28 U/L (16-77); Osmolality Calculated 277 mOsm/kg (285-295); Potassium 3.9 mmol/L (3.5-5.1); Sodium 134 mmol/L (136-145); Total Protein 7.6 g/dL (6.4-8.2)
[2024-01-30 11:30] LABS: CRP < 0.5 mg/dL (0.0-0.9)
[2024-01-31 13:59] LABS: Parathyroid Intact 53 pg/mL (16-77)
[2024-02-01 06:49] LABS: Levetiracetam Keppra 20.2 mcg/mL (6.0-46.0)
== END 2024-01-30 10:25 | disposition home or self-care (01) ==
LOC: CHSLAB 10:26
PROVIDERS: PCP Internal Medicine; Visit Provider Internal Medicine
DX: C49.0 Malignant neoplasm of connective and soft tissue of head, face and neck (principal); R11.0 Nausea; R10.9 Unspecified abdominal pain; G40.909 Epilepsy, unspecified, not intractable, without status epilepticus; F10.20 Alcohol dependence, uncomplicated; I10 Essential (primary) hypertension
CPT/HCPCS: 36415; 80053; 80177; 82150; 83690; 83970; 84443; 85027; 86140

== ENCOUNTER 2024-02-01 12:31 | Outpatient (CLI) | payer MEDICARE, MEDICAID, SELFPAY ==
[2024-02-01 13:26] LABS: Calcium 9.3 mg/dL (8.5-10.1); Phosphorus 3.7 mg/dL (2.6-4.7)
[2024-02-02 13:47] LABS: Parathyroid Intact 51 pg/mL (16-77)
[2024-02-04 11:33] LABS: Ionized Calcium 5.1 mg/dL (4.7-5.5)
== END 2024-02-01 12:32 | disposition home or self-care (01) ==
LOC: CHSLAB 12:36
PROVIDERS: PCP Internal Medicine; Visit Provider Internal Medicine
DX: E87.5 Hyperkalemia (principal)
CPT/HCPCS: 36415; 82308; 82310; 82330; 83519; 83970; 84100

== ENCOUNTER 2024-06-15 15:37 | Emergency (ER) | payer MEDICAID, MEDICARE, SELFPAY ==
[2024-06-15] VITALS (9 sets, daily range): BP systolic 115–144; BP diastolic 64–96; PULSE 98–116; RESP 12–22; TEMP 35.7; O2SAT 93–100
--- NOTE | ~2024-06-15 | XR_ITS ---
EXAMINATION: XR chest 1V portable Exam Date/Time: 06/15/2024 15:55 CDT HISTORY: cough/sob x6 days Comparison: 10/07/2019; CT cap 06/15/2022. RESULT: Lines, tubes, and devices: Implanted right chest port terminating at the cavoatrial junction. Suture lines project adjacent to the right hilum. Lungs and pleura: Lordotic positioning. 11 mm rounded opacity projecting over the left lower lung. S treaky bibasilar opacities. Cardiomediastinal silhouette: Stable. Other: No acute osseous or upper abdominal finding. IMPRESSION: 11 mm rounded opacity projecting over the medial left lower lung, may represent artifact or nodule. R ecommend nonemergent but timely low-dose noncontrast CT of the chest for further characterization. Subsegmental bibasilar atelectasis/consolidation. Reviewed, dictated and finalized at location K. IMPRESSION: 11 mm rounded opacity projecting over the medial left lower lung, may represent artifact or nodule. Recommend nonemergent but timely low-dose noncontrast CT o f the chest for further characterization. Subsegmental bibasilar atelectasis/consolidation.
--- OUTSIDE RECORDS SUMMARY | 2024-06-15 15:39 | XMS_ITS | Encounter Summary ---
Author Organization [facility] Address [address] [place] [address] Care Team Providers Care Restaurant Greeter Name Role Phone Pedro Schmitz MD Primary Care Provider [phone] Nick Plummer MD Unavailable [phone] Leonila Siddiqui MD Unavailable [phone] Encounter Details Date Type Department Care Team (Late st Contact Info) Description 07/26/[address] [facility] [address] [place] [address] Pedro Schmitz MD [address] [place] [address] Social History Tobacco Use Types Packs/Day Years Used Date Smoking Tobacco: Never Assessed Comments Unknown Sex and Gender Information Value Date Recorded Sex Assigned at Not on file Legal Sex Female 5:08 PM CDT Gender Identity Not on file Sexual Orientation Not on file documented as of this encounter Plan of Treatment Not on file documented as of this encounter Procedures Procedure Name Priority Date/Time Associated Diagnosis Comments URINALYSIS Routine 07/31/2018 10:23 AM CDT COMPREHENSIVE METABOLIC PANEL Routine 07/31/2018 10:19 AM CDT LIPID PANEL Routine 07/31/2018 10:19 AM CDT CBC W/DIFF AUTOMATED Routine 07/31/2018 10:19 AM CDT THYROID STIM HORMONE TSH Routine 07/31/2018 10:19 AM CDT documented in this encounter Results * (ABNORMAL) URINALYSIS (07/31/2018 10:23 AM CDT) COLOR (U) YELLOW 07/31/2018 10:41 AM CDT [facility] TRANSPARENCY CLEAR 07/31/2018 10:41 AM CDT [facility] SPECIFIC GRAVITY (U) 1.015 1.000 - 1.025 07/31/2018 10:41 AM CDT [facility] U PH 6.0 5.0 - 8.0 07/31/2018 10:41 AM CDT [facility] LEUKOCYTES (U) TRACE(A) NEGATIVE 07/31/2018 10:41 AM CDT [facility] NITRITES NEGATIVE NEGATIVE 07/31/2018 10:41 AM CDT [facility] PROTEIN (U) NEGATIVE NEGATIVE 07/31/2018 10:41 AM CDT [facility] URINE GLUCOSE NEGATIVE NEGATIVE 07/31/2018 10:41 AM CDT [facility] KETONES MG/DL (U) NEGATIVE NEGATIVE 07/31/2018 10:41 AM CDT [facility] UROBILINOGEN 0.2 <1.0 EU/DL 07/31/2018 10:41 AM CDT [facility] BILIRUBIN (U) NEGATIVE NEGATIVE 07/31/2018 10:41 AM CDT [facility] BLOOD (U) TRACE(A) NEGATIVE 07/31/2018 10:41 AM CDT [facility] WBC/HPF 0-5 0 - 5 /HPF 07/31/2018 10:41 AM CDT [facility] RBC/HPF 0-5 0 - 5 /HPF 07/31/2018 10:41 AM CDT [facility] EPI/HPF OCCASIONAL /LPF 07/31/2018 10:41 AM CDT [facility] BACTERIA (U) TRACE /HPF 07/31/2018 10:41 AM CDT [facility] MUCUS PRESENT 07/31/2018 10:41 AM CDT [facility] 07/31/2018 10:2 3 AM CDT 07/31/2018 10:25 AM CDT us Generic Conversion Md NICHOLAS URINE ORDERABLES Final Result Performing Organization Address City/[facility]/ZIP Co de Phone Number [facility] [address] [place] [address], * THYROID STIM HORMONE, TSH (07/31/2018 10:19 AM CDT) TSH 1.402 0.358 - 3.740 uIU/ML 07/31/2018 11:13 AM CDT [facility] SERUM OR PLASMA SPECIMEN / Unknown 07/31/2018 10:19 AM CDT 07/31/2018 10:21 AM CDT us Generic Conversion Md [facility] Final R esult Performing Organization Address City/[facility]/ZIP Co de Phone Number [facility] [address] [place] [address], [place] [phone] * (ABNORMAL) LIPID PANEL (07/31/2018 10:19 AM CDT) CHOLESTEROL 209(H) <200 MG/DL 07/31/2018 11:13 AM CDT [facility] Comment: THE NATIONAL LIPID ASSOCIATION AND THE NATIONAL CHOLESTEROL EDUCATION PROGRAM (NCEP) HAVE SET THE FOLLOWING GUIDELINES FOR TOTAL CHOLESTEROL IN ADULTS AGES 18 AND UP.DESIRABLE: <200BORDERLINE HIGH: 200-239HIGH: > OR = 240 TRIGLYCERIDES 129 <150 MG/DL 07/31/2018 11:13 AM CDT [facility] Comment: THE NATIONAL LIPID ASSOCIATION AND THE NATIONAL CHOLESTEROL EDUCATION PROGAM (NCEP) HAVE SET THE FOLLOWING GUIDELINES FOR TRIGLYCERIDES IN ADULTS AGES 18 AND UP.NORMAL: <150BORDERLINE HIGH: 150 TO 199HIGH: 200 TO 499VERY HIGH: >499 HDL 68 >49 MG/DL 07/31/2018 11:13 AM CDT [facility] Comment: THE NATIONAL LIPID ASSOCIATION AND THE NATIONAL CHOLESTEROL EDUCATION PROGAM (NCEP) HAVE SET THE FOLLOWING GUIDELINES FOR HDL CHOLESTEROL IN ADULTS AGES 18 AND UP.MALES: >39FEMALES: >49 LDL (CALCULATED) 115(H) <100 MG/DL 08/01/19 11:13 AM CDT [facility] Comment: THE NATIONAL LIPID ASSOCIATION AND THE NATIONAL CHOLESTEROL EDUCATION PROGAM (NCEP) HAVE SET THE FOLLOWING GUIDELINES FOR LDL CHOLESTEROL IN ADULTS AGES 18 AND UP.DESIRABLE: <100ABOVE DESIRABLE: 100 TO 129BORDERLINE HIGH: 130 TO 159HIGH: 160 TO 189VERY HIGH: >189 VLDL CALCULATION 26 MG/DL 08/01/19 11:13 AM CDT [facility] Comment:REFERENCE RANGE NOT ESTABLISHED CHOL/HDL RATIO 3.1 07/31/2018 11:13 AM CDT [facility] Comment:REFERENCE RANGE NOT ESTABLISHED LDL/HDL 1.7 07/31/2018 11:13 AM CDT [facility] Comment:REFERENCE RANGE NOT ESTABLISHED NON HDL CHOLESTEROL 141 MG/DL 07/31/2018 11:13 AM CDT [facility] Comment:REFERENCE RANGE NOT ESTABLISHED PLASMA SPECIMEN / Unknown 07/31/2018 10:19 AM CDT 07/31/2018 10:21 AM CDT us Generic Conversion Md [facility] LABORAT[facility] Final R esult [facility] [place] [address], * (ABNORMAL) COMPREHENSIVE METABOLIC PANEL (07/31/2018 10:19 AM CDT) SODIUM S/P/B 126(L) 136 - 145 MMOL/L 07/31/2018 11:13 AM CDT [facility] POTASSIUM S/P/B 4.2 3.5 - 5.1 MMOL/L 07/31/2018 11:13 AM CDT [facility] CHLORIDE S/P/B 93(L) 98 - 107 MMOL/L 07/31/2018 11:13 AM CDT [facility] CO2 27.7 21.0 - 32.0 MMOL/L 07/31/2018 11:13 AM [facility] GLUCOSE 94 70 - 140 MG/DL 07/31/2018 11:13 AM [facility] BUN 11 6 - 24 MG/DL 07/31/2018 11:13 AM [facility] CREATININE S/P/B 0.88 0.55 - 1.02 MG/DL 07/31/2018 11:13 AM [facility] CALCIUM S/P/B 8.7 8.4 - 10.5 MG/DL 07/31/2018 11:13 AM [facility] BILIRUBIN TOTAL S/P/B 0.3 0.2 - 1.0 MG/DL 07/31/2018 11:13 AM [facility] ALKALINE PHOSPHATASE S/P/B 77 46 - 118 U/L 07/31/2018 11:13 AM [facility] AST 14(L) 15 - 37 U/L 07/31/2018 11:13 AM [facility] ALT 22 14 - 59 U/L 07/31/2018 11:13 AM [facility] TOTAL PROTEIN S/P/B 7.3 6.4 - 8.2 G/DL 07/31/2018 11:13 AM [facility] ALBUMIN S/P/B 4.0 3.4 - 5.0 G/DL 07/31/2018 11:13 AM [facility] ANION GAP 5.3 5.0 - 15.0 MMOL/L 07/31/2018 11:13 AM [facility] OSMOLALITY (CALC) 261 MOSM/KG 07/31/2018 11:13 AM [facility] Comment:REFERENCE RANGE NOT ESTABLISHED EGFR NON-AFR. AMER. 73(L) >89 ML/MIN/1 .73 M2 07/31/2018 11:13 AM [facility] EGFR AFR. AMER. 85(L) >89 ML/MIN/1 .73 M2 07/31/2018 11:13 AM [facility] GFR NOTES THE ESTIMATED GFR IS CALCULATED USING THE 2009 CKD-EPI EQUATION. THE FOLLOWING CATEGORIES FOR GRADING RENAL FUNCTION ARE RECOMMENDED BY THE INTERNATIONAL SOCIETY OF NEPHROLOGY (KDIGO 2012 CLINICAL PRACTICE GUIDELINE). 07/31/2018 11:13 AM CDT [facility] Comment: G1,NORMAL OR HIGH: >89 ml/min/1.73 m2G2,MILDLY DECREASED: 60-89 ml/min/1.73 m2G3A,MILDLY TO MODERATELY DECREASED: 45-59 ml/min/1.73 m2G3B,MODERATELY TO SEVERELY DECREASED: 30-44 ml/min/1.73 m2G4,SEVERELY DECREASED: 15-29 ml/min/1.73 m2G5,KIDNEY FAILURE: <15 ml/min/1.73 m2 PLASMA SPECIMEN / Unknown 07/31/2018 10:19 AM CDT 07/31/2018 10:21 AM CDT us Generic Conversion Md [facility] Final R esult [facility] [address] [place] [address], * (ABNORMAL) CBC W/DIFF AUTOMATED (07/31/2018 10:19 AM CDT) WBC 5.9 4.5 - 10.8 x10'3/uL 07/31/2018 10:27 AM CDT [facility] RBC 3.87(L) 4.10 - 5.40 x10'6/uL 07/31/2018 10:27 AM CDT [facility] HGB 12.3 12.0 - 16.0 G/DL 07/31/2018 10:27 AM CDT [facility] HCT 36.3 36.0 - 47.0 % 07/31/2018 10:27 AM CDT [facility] MCV 93.8 78.0 - 100.0 FL 07/31/2018 10:27 AM CDT [facility] MCH 31.8(H) 27.0 - 31.0 PG 07/31/2018 10:27 AM CDT [facility] MCHC 33.9 33.0 - 36.0 G/DL 07/31/2018 10:27 AM CDT [facility] RDW 13.2 11.5 - 14.5 % 07/31/2018 10:27 AM CDT [facility] PLT 214 150 - 350 x10'3/uL 07/31/2018 10:27 AM T [facility] MPV 9.7 7.4 - 10.4 FL 07/31/2018 10:27 AM T [facility] DIFFERENTIAL COMMENT NORMAL REFERENCE RANGE NOT ESTABLISHED FOR THE PROPORTIONAL LEUKOCYTE DIFFERENTIAL. 07/31/2018 10:27 AM CDT [facility] SEG NEUTROPHILS 55.3 % 9 10:27 AM T [facility] LYMPHOCYTES 35.4 % 07/31/2018 10:27 AM T [facility] MONOCYTES 6.8 % 07/31/2018 10:27 AM T [facility] EOSINOPHILS 1.5 % 07/31/2018 10:27 AM T [facility] BASOPHILS 0.8 % 07/31/2018 10:27 AM T [facility] IMMATURE GRANS % 0.2 % 08/01/19 19 10:27 AM T [facility] NRBC 0.0 % 07/31/2018 10:27 AM T [facility] ABS. NEUTROPHILS 3.26 1.60 - 8.30 x10'3/uL 07/31/2018 10:27 AM T [facility] ABS. LYMPHOCYTES 2.09 0.80 - 4.70 x10'3/uL 07/31/2018 10:27 AM CDT [facility] ABS. MONOCYTES 0.40 0.00 - 1.50 x10'3/uL 07/31/2018 10:27 AM CDT [facility] ABS. EOSINOPHILS 0.09 0.00 - 0.40 x10'3/uL 07/31/2018 10:27 AM CDT [facility] ABS. BASOPHILS 0.05 0.00 - 0.20 x10'3/uL 07/31/2018 10:27 AM CDT [facility] ABS. IMMATURE GRANULOCYTES 0.01 0.00 - 0.03 x10'3/uL 07/31/2018 10:27 AM CDT [facility] ABS. NUCLEATED RBC'S 0.00 0.00 x10'3/uL 07/31/2018 10:27 AM CDT [facility] OTHER (type in comments) 07/31/2018 10:19 AM CDT 07/31/2018 10:21 AM CDT Comment:WHOLE BLOOD SAMPLE us Generic Conversion Md [facility] Final R esult [facility] [address] [place] [address], documented in this encounter Visit Diagnoses Diagnosis Hyperlipidemia Other and unspecified hyperlipidemia documented in this encounter Care Teams Restaurant Greeter Relationship Specialty Start Date End Date Pedro Schmitz MD [address] [place] [phone] PCP - General INTERNAL MEDICINE 07/30/18 Nick Plummer MD [address] [place] [phone] Covering Provider CARDIOTHORACIC SURGERY 10/02/18 Leonila Siddiqui MD [address] [place] [address] Consulting Physician INTERVENTIONAL CARDIOLOGY 10/02/18 documented as of this encounter
--- OUTSIDE RECORDS SUMMARY | 2024-06-15 15:39 | XMS_ITS | Encounter Summary ---
Author Organization [facility] - [facility] Address [address] [place] [address] Care Team Providers Care Child Abuse Worker Name Role Phone Pedro Schmitz MD Primary Care Provider [phone] Nick Plummer MD Unavailable [phone] Leonila Siddiqui MD Unavailable [phone] Encounter Details Date Type Department Care Team (Late st Contact Info) Description 05/12/2017 Abstract [facility] CONVERSION [address] [place] [address] , Generic ConversionMD Social History Tobacco Use Types Packs/Day Years Used Date Smoking Tobacco: Never Assessed Comments Unknown Sex and Gender Information Value Date Recorded Sex Assigned at Not on file Legal Sex Female 5:08 PM CDT Gender Identity Not on file Sexual Orientation Not on file documented as of this encounter Plan of Treatment Not on file documented as of this encounter Visit Diagnoses Not on filedocumented in this encounter Care Teams Child Abuse Worker Relationship Specialty Start Date End Date Pedro Schmitz MD [address] [place] [id number] PCP - General INTERNAL MEDICINE 07/30/18 Nick Plummer MD [address] [place] [id number] Covering Provider CARDIOTHORACIC SURGERY 10/02/18 Leonila Siddiqui MD [address] [place] [address] Consulting Physician INTERVENTIONAL CARDIOLOGY 10/02/18 documented as of this encounter
--- OUTSIDE RECORDS SUMMARY | 2024-06-15 15:39 | XMS_ITS | Clinical Summary ---
Author Organization [facility] Address [address] [place] [address] Care Team Providers Care Metal Solderer Name Role Phone Pedro Schmitz MD Primary Care Provider [phone] Nick Plummer MD Unavailable [phone] Leonila Siddiqui MD Unavailable [phone] Allergies Active Allergy Reactions Criticality Noted Date Comments Oxycodone Nausea Only 10/04/2018 Tramadol Dizziness 10/02/2018 Medications cyclobenzaprine 10 MG tablet Take 10 mg by mouth 3 (three) times daily as needed for Muscle Spasms. Active pravastatin 10 MG tablet Take 10 mg by mouth nightly at bedtime. Active ropinirole 0.5 MG tablet Take 0.5-1 mg by mouth nightly at bedtime. Active montelukast 10 MG tablet Take 10 mg by mouth daily. Active budesonide-form oterol 80-4.5 MCG/ACT inhaler Inhale 2 puffs into the lungs 2 (two) times daily. Active ranitidine 300 MG tablet Take 300 mg by mouth 2 (two) times a day. Active metoprolol succinate ER 50 MG 24 hr tablet Take 50 mg by mouth daily. Active gabapentin 600 MG tablet Take 600 mg by mouth 3 (three) times daily. Active venlafaxine XR 75 MG 24 hr capsule Take 225 mg by mouth every evening. Active albuterol sulfate HFA 108 (90 Base) MCG/ACT inhaler Inhale 2 puffs into the lungs every 6 (six) hours as needed for Wheezing. Active diclofenac EC 75 MG tablet Take 75 mg by mouth 2 (two) times daily. 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 (CMS/HCC HHS/HCC) 10/10/2018 Hypercholesteremia 10/03/2018 Family History Medical History Relation Comments Cancer Father Relation Status Comments Father Alive colon Mother Alive renal failure Social History Tobacco Use Types Packs/Day Years Used Date Smoking Tobacco: Every Day Cigarettes 1 45 Smokeless Tobacco: Never Tobacco Cessation:Ready to Q uit: No Alcohol Use Standard Drinks/Week Comments Yes 0 (1 standard drink = 0.6 oz pur e alcohol) 12 pack Comments Unknown Sex and Gender Information Value Date Recorded Sex Assigned at Not on file Legal Sex Female 5:08 PM CDT Gender Identity Not on file Sexual Orientation Not on file Last Filed Vital Signs Vital Sign Reading Time Taken Comments Blood Pressure 113/81 06/07/2020 11:19 AM CDT Pulse 122 06/07/2020 11:19 AM CDT Temperature 37.1 C (98.8 F) 10/11/2018 12:09 PM CDT Respiratory Rate 18 10/11/2018 7:56 AM CDT Oxygen Saturation 99% 10/11/2018 12:09 PM CDT Inhaled Oxygen Concentration - - Weight 87.6 kg (193 lb 2 oz) 06/07/2020 11:19 AM CDT Height 165.1 cm (5' 5 ) 06/07/2020 11:19 AM CDT Body Mass Index 32.14 06/07/2020 11:19 AM CDT Plan of Treatment Health Maintenance Due Date Last Done Comments Cervical Cancer Screening Pa p Smear (Age 30 to 64) Every 3 Years 1960 Colorectal Cancer Screening Colonoscopy (10 Years) 1960 Annual Physical 09/25/1963 Hepatitis C 1978 DTaP, Tdap and Td Vaccines ( 1 - Tdap) 09/25/1979 Pneumococcal Vaccine: 50+ Ye ars (1 of 2 - PCV) 09/25/1979 Cervical Cancer Screening Pa p with HPV Testing (Age 30 to 64) Every 5 Years 1990 Cervical Cancer Screening with HPV 1990 Mammogram Screening 2000 Zoster Vaccines (1 of 2) 2010 COVID-19 Vaccine (2023-2 5 season) 2023 RSV Immunization or 60+ Years (1 - 1-dose 75+ series) 09/25/2035 Meningococcal B Vaccine Aged Out No l onger eligible based on patient's age to complete this topic Meningococcal Vaccine Aged Out No ivania bob eligible based on patient's age to complete this topic RSV Immunizations Under 20 Months Aged Out No longer eligible based on patient's age to complete this topic Insurance MEDICARE MEDICAID MEDICARE Member Subscriber Plan / Payer (Ef fective 2018-Present) Name:Elisha Garcia Relation to Subscriber:Self Name:Elisha Garcia Payer ID:Not on file Group ID:Not on file Type:Indemnity Address: ATTN CLAIMS [address] [facility] [place] [address] MEDICAID MEDICARE MEDICAID Advance Directives * Full Code (Latest Code Status on File) Date Activated Date Inactivated Comments 10/10/2018 11:55 AM 10/11/2018 4:06 PM Care Teams Metal Solderer Relationship Specialty Start Date End Date Pedro Schmitz MD [address] [place] [address] PCP - General INTERNAL MEDICINE 07/30/18 Nick Plummer MD [address] [place] [address] Covering Provider CARDIOTHORACIC SURGERY 10/02/18 Leonila Siddiqui MD [address] [place] [address] Consulting Physician INTERVENTIONAL CARDIOLOGY 10/02/18
--- OUTSIDE RECORDS SUMMARY | 2024-06-15 15:39 | XMS_ITS ---
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 Past Treatment and Therapy Plans No past plan information found. Treatment Summaries Primary adenocarcinoma of middle lobe of right lung (CMS/HCC HHS/HCC)* Images from the original note were not included. Survivorship Care Plan Patient Name Elisha Garcia Date of 1960 Plan Completed By Norah Sanders RN, MSN, MA, OCN on 10/15/18 Care Team Medical Oncologist Surgeon Nick Plummer MD [phone] Radiation Oncologist Primary Care Physician PEDRO LOCKETT MD [phone] Nurse Navigator Norah Sanders RN, MSN, MA, OCN [phone] Diagnosis Primary adenocarcinoma of middle lobe of right lung (CMS/HCC) 10/10/2018 Initial Diagnosis Primary adenocarcinoma of middle lobe of right lung (CMS/HCC) Age at diagnosis 58-year-old Pertinent past medical history Heart palpitations,and high cholesterol. Diagnostic Procedures Primary adenocarcinoma of middle lobe of right lung (CMS/HCC) 10/10/2018 Pathology FINAL DIAGNOSIS: A) LUNG, RIGHT MIDDLE LOBE, LOBECTOMY: HISTOLOGIC TYPE OF TUMOR: INVASIVE ADENOCARCINOMA, ACINAR PREDOMINANT. HISTOLOGIC GRADE: MODERATELY-DIFFERENTIATED. TUMOR SIZE: INVASIVE COMPONENT IS 1.1 CM (ON SLIDE). TOTAL TUMOR SIZE INCLUDING INVASIVE AND LEPIDIC PATTERN IS 3.3 CM. TUMOR FOCALITY: SINGLE TUMOR. TUMOR SITE: SUBPLEURAL. VISCERAL PLEURA INVASION: IDENTIFIED. DIRECT INVASION OF ADJACENT STRUCTURES: NO ADJACENT STRUCTURES PRESENT. TREATMENT EFFECT: NO KNOWN PRESURGICAL THERAPY. LYMPHOVASCULAR INVASION: NOT IDENTIFIED. MARGINS: ALL MARGINS ARE UNINVOLVED BY CARCINOMA. MARGINS EXAMINED ARE THE BRONCHIAL AND VASCULAR MARGINS. THE DISTANCE TO THE NEAREST BRONCHIAL MARGIN IS 1.0 CM. REGIONAL LYMPH NODES: NUMBER OF LYMPH NODES EXAMINED: 2 NUMBER OF LYMPH NODES INVOLVED BY TUMOR: 0 ADDITIONAL PATHOLOGIC FINDINGS: MODERATE CENTRAL ACINAR EMPHYSEMA. PATHOLOGIC STAGE CLASSIFICATION (AJCC 8th Edition): pT2 pN0 B) SOFT TISSUE, RIGHT PARATRACHEAL LYMPH NODE, EXCISION: - BENIGN FIBROADIPOSE TISSUE. - NO LYMPHOID TISSUE IDENTIFIED. - NEGATIVE FOR MALIGNANCY. C) LYMPH NODE, RIGHT SUBCARINAL, EXCISION: - FRAGMENTS OF BENIGN LYMPH NODE, NEGATIVE FOR TUMOR. D) LYMPH NODE, RIGHT PARAESOPHAGEAL, EXCISION: - FRAGMENTS OF BENIGN LYMPH NODE, NEGATIVE FOR TUMOR. Diagnosis Comment: Immunohistochemical stains for TTF1, Napsin and p63 were performed to determine tumor classification. The tumor is positive for TTF1 and Napsin, while negative for p63, supporting the diagnosis. An elastin stain was also performed to assess for pleural invasion. No pleural disruption is present on this particular section; however overt pleural invasion is identified in additional sections. Surgery Primary adenocarcinoma of middle lobe of right lung (CMS/HCC) 10/10/2018 Surgery Procedure: Bronchoscopy, right thoracoscopy, right middle lobectomy with mediastinal node dissection and multilevel intercostal nerve block. Surgeon: Nick Plummer MD Family History Family History Problem Relation Name Age of Onset Cancer Father Genetic Testing Chemotherapy and Other Treatments Primary adenocarcinoma of middle lobe of right lung (CMS/HCC) Treatment on clinical trial? NO Pre-operative chemotherapy administered? NO Radiation Primary adenocarcinoma of middle lobe of right lung (CMS/HCC) Ongoing Toxicities and Side Effects Primary adenocarcinoma of middle lobe of right lung (CMS/HCC) Follow-Up Care with Dr. Hazelrigg as directed. Non-small cell lung cancer For a period of time, continue all standard non-cancer related health care with your primary care provider. Your oncology team will monitor your cancer related health and needs even after you have completed treatment. Usually this is done with physical exams and imaging if appropriate. What happens after treatment for non-small cell lung cancer? For some people with lung cancer, treatment may remove or destroy the cancer. Completing treatment can be both stressful and exciting. You may be relieved to finish treatment, but find it hard not toworry about cancer growing or coming back. (When cancer comes back after treatment, it is called recurrence.) This is a very common concern in people who have had cancer. It may take a while before your fears lessen. But it may help to know that many cancer survivors have learned to live with this uncertainty and are living full lives. For some other people, the lung cancer may never go away completely. You may get regular treatments with chemotherapy, radiation therapy, or other therapies to help keep the cancer in check. Learning to live with cancer as more of achronic disease can be difficult and very stressful. It has its own type of uncertainty. Follow-Up Care If you have completed treatment, your doctors will still want to watch you closely. It is very important you go to all of your follow-up appointments. During these visits, your doctors will ask aboutany problems you may have, do physical exams, and may order blood tests or imaging tests such as CTscans or x-rays. In people with no signs of cancer remaining, many doctors recommend follow-up visits and CT scans about every 6 to 12 months for the first 2 years after treatment, and yearly visits and CT scans after this, although doctor visits might be more frequent at first. Follow-up is needed to look for signs of cancer recurrence or spread, as well as possible side effects of certain treatments. This is a good time for you to talk to your cancer care team about any changes or problems you notice and to discuss any questions or concerns you might have. Each type of treatment for lung cancer can have side effects. Some may last for a few weeks to several months, but others can last the rest of your life. Be sure to report any new symptoms right away, and tell your cancer care team about any symptoms or side effects that bother you so they can helpyou manage them. It is important to maintain your health insurance. Tests and doctor visits cost a lot, and even though no one wants to think of their cancer coming back, this could happen. If cancer does recur, treatment will depend on where the cancer is and what treatments you?ve had before. Surgery, radiation therapy, chemotherapy, targeted therapy, or some combination of these might be options. Other types of treatment might also be used to help relieve any symptoms from the cancer. According to the [place] [employer], about 20 percent of cancer diagnoses are due to factors that are within your control such as nutrition, physical activity, smoking and alcohol use. We have made a commitment to your continued wellness as you transition into survivorship! Nutritional health and maintaining a healthy weight are a few of the many important parts of your recovery. You have already received tools to encourage healthy habits from our staff, and we want youto feel confident with your wellness decisions in the future. Seeing a new doctor At some point after your cancer diagnosis and treatment, you may find yourself seeing a new doctor who does not know about your medical history. It is important that you be able to give your new doctor the details of your diagnosis and treatment. Gathering these details soon after treatment may be easier than trying to get them at some point in the future. Make sure you have the following information handy: A copy of your pathology report(s) from any biopsies or surgeries If you had surgery, a copy of your operative report(s) If you stayed in the hospital, a copy of the discharge summary that doctors prepare when patients are sent home If you had radiation therapy, a copy of the treatment summary If you had chemotherapy or targeted therapies, a list of the drugs, drug doses, and when you took them Copies of your x-rays, CT scans, and other imaging tests (these can often be stored digitally on a DVD, etc.) Last Medical Review: 12/22/2015 Last Revised: 12/21/2015 Summary of the [place] [employer] Guidelines on Nutrition and Physical Activity Achieve and maintain a healthy weight throughout life. Be as lean as possible throughout life without being underweight. Avoid excess weight gain at all ages. For those who are overweight or obese, losing even a small amount of weight has health benefits and is a good place to start. Get regular physical activity and limit intake of high-calorie foods and drinks as keys to help maintain a healthy weight. Be physically active. Get at least 150 minutes of moderate intensity or 75 minutes of vigorous intensity activity each week (or a combination of these), preferably spread throughout the week. Limit sedentary behavior such as sitting, lying down, watching TV, and other forms of screen-based entertainment. Doing some physical activity above usual activities, no matter what one?s level of activity, can have many health benefits. Eat a healthy diet, with an emphasis on plant foods. Choose foods and drinks in amounts that help you get to and maintain a healthy weight Limit how much processed meat and red meat you eat. Eat at least 2?? cups of vegetables and fruits each day. Choose whole grains instead of refined grain products. If you drink alcohol, limit your intake. Drink no more than 1 drink per day for women or 2 per day for men. Other concerns and resources If you have experienced issues with emotional or mental health, parenting, work/employment, financial issues, and/or insurance, there may be local and national resources available to assist you. Please discuss this with your oncology team and/or primary care provider for additional information. Below is a general list of resources: [place] [employer] www.cancer.org 297-924-0965 Provides cancer information, resources, and emotional support to patients and their family members. [place] [employer] www.lung.org [place] [employer] Oncology www.cancer.net 901-533-9862 Provides trusted and up-to-date cancer information, developed by the world's leading cancer doctors. [employer] www.cancercare.org 805-658-3184 Cancer Support Community www.cancersupportcommunity.org A national nonprofit organization, which provides free professional help to people with cancer through counseling, education, information and referral and direct financial information. National Cancer [place] www.cancer.gov 570-853-3342 Provides cancer information such as statistics, prevention, early detection, survivor networks and emotional support. National Comprehensive Cancer Network www.nccn.com Lung Cancer [place] www.lungcanceralliance.org Provides information about follow-up care for cancer.
--- NOTE | 2024-06-15 15:48 | ECG_ITS ---
Test Date: 2024-06-15 15:54:17 Measurements Intervals [place] Rate: 100 P: 68 MI: 152 QRS: 78 QRSD: 78 T: 59 QT: 339 QTc: 437 Interpretive Statements SINUS TACHYCARDIA POSSIBLE LEFT ATRIAL ENLARGEMENT BORDERLINE ST-T WAVE ABNORMALITY- DIFFUSE LEADS BASELINE ARTIFACT- I, II, III, AVR, AVL, AVF, V1-V6 BORDERLINE ECG NO PRIOR ECG FOR COMPARISON Electronically Signed On 06-15-2024 15:54:59 CDT by Everett Dong D.O.
--- NOTE | 2024-06-15 15:50 | ED_ITS ---
HPI - SOB/Dyspnea General Chief Complaint: Shortness of Breath/Dyspnea Stated Complaint: shortness of breath Source: patient Mode of arrival: ambulatory Limitations: no limitations History of Present Illness HPI Narrative: 63 years old white female came to the ED by private car from home complaining of shortness of breath and weakness for the last 7 days. Patient report coughing up a lot of sputum lately. She denies any fever or chills. History of lung cancer, breast cancer, COPD. Patient smoke cigarettes MD elicited complaint: shortness of breath Pertinent past history: COPD Timing: progressively worsening Severity: moderate Exacerbating factors: exertion and coughing Relieving factors: rest Known history of: COPD Associated symptoms: cough and sputum production Treatment prior to arrival: none Related Data Home Medications ?Medication ?Instructions ?Recorded ?Confirmed ?Last Taken ?Type cyclobenzaprine 10 mg tablet 10 mg PO TID PRN Muscle Spasm 09/09/19 01/15/24 Unknown History gabapentin 600 mg tablet 600 mg PO TID 09/09/19 01/15/24 01/08/22 History ropinirole 0.5 mg tablet 0.5 - 1 mg PO HS 09/09/19 01/15/24 Unknown History venlafaxine 75 mg capsule,extended 225 mg PO HS 09/09/19 01/15/24 Unknown History release 24 hr levetiracetam 500 mg tablet 500 mg PO Q12H 10/24/19 01/15/24 01/08/22 History verapamil 240 mg tablet,extended 240 mg PO DAILY 09/23/20 01/15/24 01/08/22 History release ascorbate calcium (vitamin C) 500 500 mg PO DAILY 08/26/21 01/15/24 Unknown History mg tablet cholecalciferol (vitamin D3) 25 25 mcg PO DAILY 08/26/21 01/15/24 Unknown History mcg (1,000 unit) capsule folic acid 800 mcg tablet 0.8 mg PO DAILY 08/26/21 01/15/24 Unknown History oxycodone myristate 9 mg capsule 9 mg PO BID 01/15/24 01/15/24 Unknown History sprinkle extended release 12 hr(DON'T CRUSH) (Xtampza ER) Allergies Allergy/AdvReac Type Severity Reaction Status Date / Time tramadol Allergy Unknown Dizziness Verified 06/15/24 16:32 Review of Systems 2 Review of Systems: All systems reviewed & are unremarkable except as noted in HPI and below PMFSH Past Medical History Medical History Adenomatous colon polyp Bloating Breast CA Dyslipidemia Epigastric pain GERD (gastroesophageal reflux disease) Hypertension Lung cancer Lung cancer metastatic to brain Obesity Rectal bleeding Surgical History Surgical History S/P lumpectomy of breast Family History Family History Father Carcinoma of colon Mother Family history of renal cell carcinoma Anginal pain Breast cancer Sibling Breast cancer Sibling Breast cancer Social History Social History Smoking packs per day: 3 Smoking cigarettes per day: 60.0 Smoking status: Current every day smoker Tobacco type: cigarettes Additional smoking assessment comments: 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 Substance use: unknown Substance use type: marijuana Other substance usage details: smokes 10 hits daily Last use: yesterday Spiritual care concerns: No Course Vital Signs Vital signs: Vital Signs Temperature 35.7 C L 06/15/24 15:37 Pulse Rate 116 H 06/15/24 15:37 Respiratory Rate 22 H 06/15/24 15:37 Blood Pressure 144/96 H 06/15/24 15:37 Pulse Oximetry 95 06/15/24 15:37 Oxygen Delivery Room Air 06/15/24 15:37 Temperature 35.7 C L 06/15/24 15:37 Pulse Rate 116 H 06/15/24 16:27 Respiratory Rate 20 06/15/24 16:27 Blood Pressure 119/88 06/15/24 16:21 Pulse Oximetry 95 06/15/24 16:27 Oxygen Delivery Room Air 06/15/24 15:47 MDM - SOB/Dyspnea MDM Narrative Medical decision making narrative: patient came to the ED from home with shortness of breath on exertion and weakness Vital signs showing heart rate of 116 , respiratory rate 22, temperature 35.7? , saturation on room air 95%. Physical examination showing slight diminution of air entry bilaterally, few scattered wheezing and rhonchi bilaterally. Patient is a smoker. Differential diagnosis includes COPD exacerbation, pneumonia, pulmonary embolism, congestive heart failure Blood workup today includes CBC, CMP, troponin, D-dimer, coags showed sodium 133, magnesium 1.4, otherwise within normal limit Chest x-ray showed atelectasis versus pneumonia, pulmonary nodule. Patient is known to have lung cancer with brain metastasis In the ED patient received DuoNeb, Solu-Medrol, with remarkable improvement. Diagnosis COPD exacerbation Discharged on Levaquin, prednisone, Symbicort and albuterol inhaler Differential Diagnosis Differential diagnosis: Likely other ( as above) Medical Records Attestation: I reviewed the patient's medical records. Lab Data Attestation: I reviewed the patient's lab results. 06/15/24 16:26 06/15/24 16:26 Labs: Lab Results 06/15/24 Range/Units 16:26 WBC 7.4 (4.8-10.8) K/mm3 RBC 4.84 (4.20-5.40) M/mm3 Hgb 15.0 (12.0-15.0) g/dL Hct 44.6 (35.0-49.0) % MCV 92.1 (78.0-102.0) fL MCH 31.0 (27.0-31.0) pg MCHC 33.6 (32-36) g/dL RDW 12.4 (11.6-14.4) % Plt Count 262 (150-420) K/mm3 MPV 10.1 (9.2-11.8) fl Immature Gran % (Auto) 0.3 H (0.0-0.0) % Neut % (Auto) 59.9 (50.0-70.0) % Lymph % (Auto) 29.8 (18.0-42.0) % [place] % (Auto) 7.5 (2.0-11.0) % Eos % (Auto) 1.5 (1.0-6.0) % Baso % (Auto) 1.0 (0.0-1.0) % Lymph # (Auto) 2.19 (1.10-4.50) K/mm3 [place] # (Auto) 0.55 (0.10-0.90) K/mm3 Eos # (Auto) 0.11 (0.02-0.50) K/mm3 Baso # (Auto) 0.07 (0.00-0.10) K/mm3 Abs Immat Gran (auto) 0.02 H (0.00-0.00) K/mm3 Absolute Neuts (auto) 4.41 (1.70-7.20) K/mm3 Absolute Nucleated RBC 0.00 (0.00-0.00) K/mm3 Nucleated RBC % 0.0 (0-0.0) % PT Pending INR Pending APTT Pending D-Dimer Pending Sodium Pending Potassium Pending Chloride Pending Carbon Dioxide Pending Anion Gap Pending BUN Pending Creatinine Pending Estim Creat Clear Calc Pending Estimated GFR Pending Glucose Pending Calculated Osmolality Pending Calcium Pending Magnesium Pending Total Bilirubin Pending AST Pending ALT Pending Alkaline Phosphatase Pending Troponin I Pending NT-Pro-B Natriuret Pep Pending Total Protein Pending Albumin Pending Imaging Data Radiologist's impression: Impressions Chest X-Ray 06/15/24 16:25 IMPRESSION: 11 mm rounded opacity projecting over the medial left lower lung, may represent artifact or nodule. Recommend nonemergent but timely low-dose noncontrast CT of the chest for further characterization. Subsegmental bibasilar atelectasis/consolidation. ECG Data EKG #1: Attestation: I personally reviewed and interpreted this ECG as follows: Prior ECG tracings: available for review Interpretation: sinus tachy at 100 beats per minute, left atrial enlargement, nonspecific T- wave abnormalities, abnormal rhythm EKG. Critical Care Time Critical Care Time Critical Care Time: No Discharge Plan Discharge Clinical Impression: Acute exacerbation of chronic obstructive pulmonary disease Patient Disposition: Home Condition: Stable Instructions: Antibiotic Form, COPD (Chronic Obstructive Pulmonary Disease) (DC) Additional Instructions: Return if symptoms are worsening , call your family physician for appointment, take Tylenol as as needed for aches and pain, continue home medications. Patient Language: Serbian Prescriptions: New prednisone 20 mg tablet 40 mg PO DAILY 5 Days Qty: 10 0RF budesonide-formoterol [Symbicort] 160-4.5 mcg/actuation HFA aerosol inhaler 2 puff inhalation Q12H Qty: 10.2 0RF levofloxacin 750 mg tablet 750 mg PO DAILY Qty: 7 5RF albuterol-budesonide 90-80 mcg/actuation HFA aerosol inhaler 2 inh inhalation QID PRN (Reason: shortness of breath) Qty: 10.7 0RF No Action Xtampza ER 9 mg cap,sprinkl,ER12hr(DONT CRUSH) 9 mg PO BID verapamil 240 mg Tablet Extended Release 240 mg PO DAILY levetiracetam 500 mg tablet 500 mg PO Q12H ascorbate calcium (vitamin C) 500 mg tablet 500 mg PO DAILY cholecalciferol (vitamin D3) 25 mcg (1,000 unit) capsule 25 mcg PO DAILY folic acid 800 mcg tablet 0.8 mg PO DAILY cyclobenzaprine 10 mg tablet 10 mg PO TID PRN (Reason: Muscle Spasm) venlafaxine 75 mg capsule,extended release 24hr 225 mg PO HS gabapentin 600 mg tablet 600 mg PO TID ropinirole 0.5 mg tablet 0.5 - 1 mg PO HS Follow-up/Referrals: Pedro Schmitz MD [Primary Care Provider] -
[2024-06-15] MEDS: IPRATROPIUM 0.5 MG/ALBUTEROL SULFATE 2.5 MG AMPUL.NEB 3 ML INHALATION (16:15)
[2024-06-15] MEDS: methylPREDNISolone SOD SUCC 125 MG VIAL IV PUSH (16:15)
--- NOTE | 2024-06-15 16:24 | PC.NURSE ---
pt refused abg, dr avelar notified.
[2024-06-15 16:35] LABS: Basophils Absolute Auto 0.07 K/mm3 (0.00-0.10); Eosinophils Absolute Auto 0.11 K/mm3 (0.02-0.50); Eosinophils Percent Auto 1.5 % (1.0-6.0); Hematocrit 44.6 % (35.0-49.0); Immature Granulocyte Absolute 0.02 K/mm3 (0.00-0.00); Immature Granulocyte Percent A 0.3 % (0.0-0.0); Lymphocytes Absolute Auto 2.19 K/mm3 (1.10-4.50); Lymphocytes Percent Auto 29.8 % (18.0-42.0); Mean Corpuscular HGB Conc 33.6 g/dL (32-36); Mean Corpuscular Volume 92.1 fL (78.0-102.0); Mean Platelet Volume 10.1 fl (9.2-11.8); Monocytes Absolute Auto 0.55 K/mm3 (0.10-0.90); Monocytes Percent Auto 7.5 % (2.0-11.0); Neutrophils Absolute Auto 4.41 K/mm3 (1.70-7.20); Neutrophils Percent Auto 59.9 % (50.0-70.0); Platelet Count Result 262 K/mm3 (150-420); Red Blood Count 4.84 M/mm3 (4.20-5.40); Red Cell Distribution Width 12.4 % (11.6-14.4); White Blood Count 7.4 K/mm3 (4.8-10.8)
[2024-06-15 16:44] LABS: D Dimer 0.23 mg/L (0.19-0.50); Partial Thromboplastin Time 30.9 Sec (23.9-30.70); Prothrombin Time 10.8 Seconds (9.50-12.1)
[2024-06-15 16:58] LABS: Alanine Aminotransferase 11 U/L (14-59); Albumin Level 4.1 g/dL (3.4-5.0); Alkaline Phosphatase 114 U/L (46-116); Anion Gap 14 mmol/L (4-12); Aspartate Amino Transferase 14 U/L (15-37); Bilirubin,Total 0.5 mg/dL (0.00-1.00); Blood Urea Nitrogen 11 mg/dL (7-18); Calcium 9.7 mg/dL (8.5-10.1); Carbon Dioxide 25 mmol/L (21-32); Chloride 94 mmol/L (98-108); Estimated CRCL calculation 54 ml/min; Estimated Glomerular Filt Rate > 60; Glucose 83 mg/dL (70-99); Magnesium 1.4 mg/dL (1.8-2.4); NT Pro B Type Natriuretic Pept 125 pg/mL (0-125); Osmolality Calculated 274 mOsm/kg (285-295); Potassium 3.7 mmol/L (3.5-5.1); Sodium 133 mmol/L (136-145); Total Protein 8.4 g/dL (6.4-8.2); Troponin I 5.8 ng/L (0.00-60.4)
== END 2024-06-15 17:24 | disposition home or self-care (01) ==
PROVIDERS: Emergency Provider Emergency Medicine; PCP Internal Medicine
DX: J44.1 Chronic obstructive pulmonary disease with (acute) exacerbation (principal); J44.9 Chronic obstructive pulmonary disease, unspecified; E78.5 Hyperlipidemia, unspecified; I10 Essential (primary) hypertension; F17.210 Nicotine dependence, cigarettes, uncomplicated; Z85.3 Personal history of malignant neoplasm of breast; Z85.118 Personal history of other malignant neoplasm of bronchus and lung
CPT/HCPCS: 36415; 71045; 80053; 83735; 83880; 84484; 85025; 85380; 85610; 85730; 93005; 94640; 96374; 99284; J2919

== ENCOUNTER 2024-07-03 09:59 | Outpatient (CLI) | payer MEDICARE, MEDICAID, SELFPAY ==
--- NOTE | ~2024-07-03 | CT_ITS ---
Clinical Indication: Left lung nodule, history of right middle lobe adenocarcinoma CT Scan of the Chest with Contrast: Technique: Contiguous sections were acquired throughout the chest after intravenous administration of 75 cc of Omnipaque 350. Dose reduction technique was used on this scan by utilizing automated exposu re control and iterative reconstruction technique. The dose-length product (DLP) was 224.14 mGy-cm. COMPARISON: 06/15/2022 Findings: There is no evidence of any significant mediastinal, hilar or axillary lymphadenopathy. There is no f illing defect in the pulmonary arterial tree to suggest pulmonary embolus. There is no evidence of ao rtic dissection or aneurysm. There is no evidence of pleural or pericardial effusion. Status post right middle lobectomy with mild postoperative scarring/distortion in the right lung. No other pulmonary nodule seen. Images through the upper abdomen reveal no abnormalities. Impression: Status post right middle lobectomy, stable postoperative change. No acute abnormality or suspicious pulmonary nodule. Reviewed, dictated and finalized at [facility]. Impression: Status post right middle lobectomy, stable postoperative change. No acute abnormality or suspicious pulmonary nodule.
--- OUTSIDE RECORDS SUMMARY | 2024-07-03 10:19 | XMS_ITS | Encounter Summary ---
Author Organization [facility] Address [address] [place] [address] Care Team Providers Care Evp And Chief Operating Officer Name Role Phone Pedro Schmitz MD Primary Care Provider [phone] Nick Plummer MD Unavailable [phone] Leonila Siddiqui MD Unavailable [phone] Encounter Details Date Type Department Care Team (Late st Contact Info) Description 07/26/[address] [facility] [address] [facility] [place] [address] Pedro Schmitz MD [address] [place] [address] Social History Tobacco Use Types [...] COLOR (U) YELLOW 07/31/2018 10:41 AM CDT [facility] TRANSPARENCY CLEAR 07/31/2018 10:41 AM CDT [facility] SPECIFIC GRAVITY (U) 1.015 1.000 - 1.025 07/31/2018 10:41 AM CDT [facility] U PH 6.0 5.0 - 8.0 07/31/2018 10:41 AM CDT [facility] LEUKOCYTES (U) TRACE(A) NEGATIVE 07/31/2018 10:41 AM CDT [facility] NITRITES NEGATIVE NEGATIVE 07/31/2018 10:41 AM CDT [facility] PROTEIN (U) NEGATIVE NEGATIVE 07/31/2018 10:41 AM CDT [facility] URINE GLUCOSE NEGATIVE NEGATIVE 07/31/2018 10:41 AM CDT [facility] KETONES MG/DL (U) NEGATIVE NEGATIVE 07/31/2018 10:41 AM CDT [facility] UROBILINOGEN 0.2 <1.0 EU/DL 07/31/2018 10:41 AM CDT [facility] BILIRUBIN (U) NEGATIVE NEGATIVE 07/31/2018 10:41 AM CDT [facility] BLOOD (U) TRACE(A) NEGATIVE 07/31/2018 10:41 AM CDT [facility] WBC/HPF 0-5 0 - 5 /HPF 07/31/2018 10:41 AM CDT [facility] RBC/HPF 0-5 0 - 5 /HPF 07/31/2018 10:41 AM CDT [facility] EPI/HPF OCCASIONAL /LPF 07/31/2018 10:41 AM CDT [facility] BACTERIA (U) TRACE /HPF 07/31/2018 10:41 AM CDT [facility] MUCUS PRESENT 07/31/2018 10:41 AM CDT [facility] 07/31/2018 10:2 3 AM CDT 07/31/2018 10:25 AM CDT us Generic Conversion Md NICHOLAS URINE ORDERABLES Final Result Performing Organization Address City/[facility]/ZIP Co de Phone Number [facility] [address] [place] [address], * THYROID STIM HORMONE, TSH (07/31/2018 10:19 AM CDT) TSH 1.402 0.358 - 3.740 uIU/ML 07/31/2018 11:13 AM CDT [facility] SERUM OR PLASMA SPECIMEN / Unknown 07/31/2018 10:19 AM CDT 07/31/2018 10:21 AM CDT us Generic Conversion Md [facility] Final R esult Performing Organization Address City/[facility]/ZIP Co de Phone Number [facility] [address] [place] [address], [place] [phone] * (ABNORMAL) LIPID PANEL (07/31/2018 10:19 AM CDT) CHOLESTEROL 209(H) <200 MG/DL 07/31/2018 11:13 AM CDT [facility] Comment: THE NATIONAL LIPID ASSOCIATION AND THE NATIONAL CHOLESTEROL EDUCATION PROGRAM (NCEP) HAVE SET THE FOLLOWING GUIDELINES FOR TOTAL CHOLESTEROL IN ADULTS AGES 18 AND UP.DESIRABLE: <200BORDERLINE HIGH: 200-239HIGH: > OR = 240 TRIGLYCERIDES 129 <150 MG/DL 07/31/2018 11:13 AM CDT [facility] Comment: THE NATIONAL LIPID ASSOCIATION AND THE NATIONAL CHOLESTEROL EDUCATION PROGAM (NCEP) HAVE SET THE FOLLOWING GUIDELINES FOR TRIGLYCERIDES IN ADULTS AGES 18 AND UP.NORMAL: <150BORDERLINE HIGH: 150 TO 199HIGH: 200 TO 499VERY HIGH: >499 HDL 68 >49 MG/DL 07/31/2018 11:13 AM CDT [facility] Comment: THE NATIONAL LIPID ASSOCIATION AND THE NATIONAL CHOLESTEROL EDUCATION PROGAM (NCEP) HAVE SET THE FOLLOWING GUIDELINES FOR HDL CHOLESTEROL IN ADULTS AGES 18 AND UP.MALES: >39FEMALES: >49 LDL (CALCULATED) 115(H) <100 MG/DL 08/01/19 11:13 AM CDT [facility] Comment: THE NATIONAL LIPID ASSOCIATION AND THE NATIONAL CHOLESTEROL EDUCATION PROGAM (NCEP) HAVE SET THE FOLLOWING GUIDELINES FOR LDL CHOLESTEROL IN ADULTS AGES 18 AND UP.DESIRABLE: <100ABOVE DESIRABLE: 100 TO 129BORDERLINE HIGH: 130 TO 159HIGH: 160 TO 189VERY HIGH: >189 VLDL CALCULATION 26 MG/DL 08/01/19 11:13 AM CDT [facility] Comment:REFERENCE RANGE NOT ESTABLISHED CHOL/HDL RATIO 3.1 07/31/2018 11:13 AM CDT [facility] Comment:REFERENCE RANGE NOT ESTABLISHED LDL/HDL 1.7 07/31/2018 11:13 AM CDT [facility] Comment:REFERENCE RANGE NOT ESTABLISHED NON HDL CHOLESTEROL 141 MG/DL 07/31/2018 11:13 AM CDT [facility] Comment:REFERENCE RANGE NOT ESTABLISHED PLASMA SPECIMEN / Unknown 07/31/2018 10:19 AM CDT 07/31/2018 10:21 AM CDT us Generic Conversion Md [facility] Final R esult [facility] [place] [address], * (ABNORMAL) COMPREHENSIVE METABOLIC PANEL (07/31/2018 10:19 AM CDT) SODIUM S/P/B 126(L) 136 - 145 MMOL/L 07/31/2018 11:13 AM CDT [facility] POTASSIUM S/P/B 4.2 3.5 - 5.1 MMOL/L 07/31/2018 11:13 AM CDT [facility] CHLORIDE S/P/B 93(L) 98 - 107 MMOL/L 07/31/2018 11:13 AM CDT [facility] CO2 27.7 21.0 - 32.0 MMOL/L 07/31/2018 11:13 AM [facility] GLUCOSE 94 70 - 140 MG/DL 07/31/2018 11:13 AM [facility] BUN 11 6 - 24 MG/DL 07/31/2018 11:13 AM [facility] CREATININE S/P/B 0.88 0.55 - 1.02 MG/DL 07/31/2018 11:13 AM [facility] CALCIUM S/P/B 8.7 8.4 - 10.5 MG/DL 07/31/2018 11:13 AM [facility] BILIRUBIN TOTAL S/P/B 0.3 0.2 - 1.0 MG/DL 07/31/2018 11:13 AM [facility] ALKALINE PHOSPHATASE S/P/B 77 46 - 118 U/L 07/31/2018 11:13 AM [facility] AST 14(L) 15 - 37 U/L 07/31/2018 11:13 AM [facility] ALT 22 14 - 59 U/L 07/31/2018 11:13 AM [facility] TOTAL PROTEIN S/P/B 7.3 6.4 - 8.2 G/DL 07/31/2018 11:13 AM [facility] ALBUMIN S/P/B 4.0 3.4 - 5.0 G/DL 07/31/2018 11:13 AM [facility] ANION GAP 5.3 5.0 - 15.0 MMOL/L 07/31/2018 11:13 AM [facility] OSMOLALITY (CALC) 261 MOSM/KG 07/31/2018 11:13 AM [facility] Comment:REFERENCE RANGE NOT ESTABLISHED EGFR NON-AFR. AMER. 73(L) >89 ML/MIN/1 .73 M2 07/31/2018 11:13 AM [facility] EGFR AFR. AMER. 85(L) >89 ML/MIN/1 .73 M2 07/31/2018 11:13 AM [facility] GFR NOTES THE ESTIMATED GFR IS CALCULATED USING THE 2009 CKD-EPI EQUATION. THE FOLLOWING CATEGORIES FOR GRADING RENAL FUNCTION ARE RECOMMENDED BY THE INTERNATIONAL SOCIETY OF NEPHROLOGY (KDIGO 2012 CLINICAL PRACTICE GUIDELINE). 07/31/2018 11:13 AM CDT [facility] Comment: G1,NORMAL OR HIGH: >89 ml/min/1.73 m2G2,MILDLY DECREASED: 60-89 ml/min/1.73 m2G3A,MILDLY TO MODERATELY DECREASED: 45-59 ml/min/1.73 m2G3B,MODERATELY TO SEVERELY DECREASED: 30-44 ml/min/1.73 m2G4,SEVERELY DECREASED: 15-29 ml/min/1.73 m2G5,KIDNEY FAILURE: <15 ml/min/1.73 m2 PLASMA SPECIMEN / Unknown 07/31/2018 10:19 AM CDT 07/31/2018 10:21 AM CDT us Generic Conversion Md [facility] Final R esult [facility] [address] [place] [address], * (ABNORMAL) CBC W/DIFF AUTOMATED (07/31/2018 10:19 AM CDT) WBC 5.9 4.5 - 10.8 x10'3/uL 07/31/2018 10:27 AM CDT [facility] RBC 3.87(L) 4.10 - 5.40 x10'6/uL 07/31/2018 10:27 AM CDT [facility] HGB 12.3 12.0 - 16.0 G/DL 07/31/2018 10:27 AM CDT [facility] HCT 36.3 36.0 - 47.0 % 07/31/2018 10:27 AM CDT [facility] MCV 93.8 78.0 - 100.0 FL 07/31/2018 10:27 AM CDT [facility] MCH 31.8(H) 27.0 - 31.0 PG 07/31/2018 10:27 AM CDT [facility] MCHC 33.9 33.0 - 36.0 G/DL 07/31/2018 10:27 AM CDT [facility] RDW 13.2 11.5 - 14.5 % 07/31/2018 10:27 AM CDT [facility] PLT 214 150 - 350 x10'3/uL 07/31/2018 10:27 AM T [facility] MPV 9.7 7.4 - 10.4 FL 07/31/2018 10:27 AM T [facility] DIFFERENTIAL COMMENT NORMAL REFERENCE RANGE NOT ESTABLISHED FOR THE PROPORTIONAL LEUKOCYTE DIFFERENTIAL. 07/31/2018 10:27 AM CDT [facility] SEG NEUTROPHILS 55.3 % 9 10:27 AM T [facility] LYMPHOCYTES 35.4 % 07/31/2018 10:27 AM T [facility] MONOCYTES 6.8 % 07/31/2018 10:27 AM T [facility] EOSINOPHILS 1.5 % 07/31/2018 10:27 AM T [facility] BASOPHILS 0.8 % 07/31/2018 10:27 AM T [facility] IMMATURE GRANS % 0.2 % 08/01/19 19 10:27 AM T [facility] NRBC 0.0 % 07/31/2018 10:27 AM T [facility] ABS. NEUTROPHILS 3.26 1.60 - 8.30 x10'3/uL 07/31/2018 10:27 AM T [facility] ABS. LYMPHOCYTES 2.09 0.80 - 4.70 x10'3/uL 07/31/2018 10:27 AM CDT [facility] ABS. MONOCYTES 0.40 0.00 - 1.50 x10'3/uL 07/31/2018 10:27 AM CDT [facility] ABS. EOSINOPHILS 0.09 0.00 - 0.40 x10'3/uL 07/31/2018 10:27 AM CDT [facility] ABS. BASOPHILS 0.05 0.00 - 0.20 x10'3/uL 07/31/2018 10:27 AM CDT [facility] ABS. IMMATURE GRANULOCYTES 0.01 0.00 - 0.03 x10'3/uL 07/31/2018 10:27 AM CDT [facility] ABS. NUCLEATED RBC'S 0.00 0.00 x10'3/uL 07/31/2018 10:27 AM CDT [facility] OTHER (type in comments) 07/31/2018 10:19 AM CDT 07/31/2018 10:21 AM CDT Comment:WHOLE BLOOD SAMPLE us Generic Conversion Md [facility] Final R esult [facility] [address] [place] [address], documented in this encounter Visit Diagnoses Diagnosis Hyperlipidemia Other and unspecified hyperlipidemia documented in this encounter Care Teams Evp And Chief Operating Officer Relationship Specialty Start Date End Date Pedro Schmitz MD [address] [place] [phone] PCP - General INTERNAL MEDICINE 07/30/18 Nick Plummer MD [address] [place] [phone] Covering Provider CARDIOTHORACIC SURGERY 10/02/18 Leonila Siddiqui MD [address] [place] [address] Consulting Physician INTERVENTIONAL CARDIOLOGY 10/02/18 documented as of this encounter
--- OUTSIDE RECORDS SUMMARY | 2024-07-03 10:19 | XMS_ITS ---
Author Organization [facility] Address [address] [place] [address] Care Team Providers Care Vegetable Tier Name Role Phone Pedro Lockett MD Primary Care Provider [phone] Nick Plummer MD Unavailable [phone] Leonila Siddiqui MD Unavailable [phone] Active Problems Problem Noted Date Diagnosed [...] Team Medical Oncologist Surgeon Nick Plummer MD [phone] Radiation Oncologist Primary Care Physician PEDRO LOCKETT MD [phone] Nurse Navigator Norah Sanders RN, MSN, MA, OCN [phone] Diagnosis Primary adenocarcinoma of middle lobe of [...] symptoms from the cancer. According to the [employer], about 20 percent of cancer [...] 12/22/2015 Last Revised: 12/21/2015 Summary of the [employer] Guidelines on Nutrition and Physical [...] Below is a general list of resources: [employer] www.cancer.org 034-867-6974 Provides cancer information, resources, and emotional support to patients and their family members. [employer] www.lung.org [employer] Society of Clinical Oncology www.cancer.net 510-050-9274 Provides trusted and up-to-date cancer information, developed by the world's leading cancer doctors. [employer] www.cancercare.org 802-295-0597 Cancer Support Community www.cancersupportcommunity.org A national nonprofit organization, which provides free professional help to people with cancer through counseling, education, information and referral and direct financial information. National Cancer [place] www.cancer.gov 650-265-9113 Provides cancer information such as statistics, prevention, early detection, survivor networks and emotional support. National Comprehensive Cancer Network www.nccn.com Lung Cancer [place] www.lungcanceralliance.org Provides information about follow-up care for cancer.
--- OUTSIDE RECORDS SUMMARY | 2024-07-03 10:19 | XMS_ITS | Encounter Summary ---
Author Organization [facility] Address [address] [place] [address] Care Team Providers Care Supervisor Corduroy Cutting Name Role Phone Pedro Schmitz MD Primary Care Provider [phone] Nick Plummer MD Unavailable [phone] Leonila Siddiqui MD Unavailable [phone] Encounter Details Date Type Department Care Team (Late st Contact Info) Description 05/12/2017 Abstract [facility] CON[facility] [address] [place] [address] , Generic ConversionMD Social History Tobacco Use [...] on filedocumented in this encounter Care Teams Supervisor Corduroy Cutting Relationship Specialty Start Date End Date Pedro Schmitz MD [address] [place] [phone] PCP - General INTERNAL MEDICINE 07/30/18 Nick Plummer MD [address] [place] [phone] Covering Provider CARDIOTHORACIC SURGERY 10/02/18 Leonila Siddiqui MD [address] [place] [address] Consulting Physician INTERVENTIONAL CARDIOLOGY 10/02/18 documented as of this encounter
--- OUTSIDE RECORDS SUMMARY | 2024-07-03 10:19 | XMS_ITS | Clinical Summary ---
Author Organization [facility] Address [address] [place] [address] Care Team Providers Care Barrel Dedenting Machine Operator Name Role Phone Pedro Schmitz MD Primary Care Provider [phone] Nick Plummer MD Unavailable [phone] Leonila Siddiqui MD Unavailable [phone] Allergies Active Allergy Reactions Criticality Noted [...] file Type:Indemnity Address: ATTN CLAIMS [address] [facility] [place] [address] MEDICAID MEDICARE MEDICAID Advance Directives * Full Code (Latest Code Status on File) Date Activated Date Inactivated Comments 10/10/2018 11:55 AM 10/11/2018 4:06 PM Care Teams Barrel Dedenting Machine Operator Relationship Specialty Start Date End Date Pedro Schmitz MD [address] [place] [address] PCP - General INTERNAL MEDICINE 07/30/18 Nick Plummer MD [address] [place] [address] Covering Provider CARDIOTHORACIC SURGERY 10/02/18 Leonila Siddiqui MD [address] [place] [address] Consulting Physician INTERVENTIONAL CARDIOLOGY 10/02/18
== END 2024-07-03 10:00 | disposition home or self-care (01) ==
LOC: CHSIMG 10:05
PROVIDERS: PCP Internal Medicine; Visit Provider Internal Medicine
DX: R91.1 Solitary pulmonary nodule (principal); Z85.118 Personal history of other malignant neoplasm of bronchus and lung; Z90.2 Acquired absence of lung [part of]
CPT/HCPCS: 71260; Q9967

== ENCOUNTER 2024-08-06 11:20 | Outpatient (CLI) | payer MEDICARE, MEDICAID, SELFPAY ==
--- NOTE | ~2024-08-06 | XR_ITS ---
Supine and upright views of the abdomen Clinical history: Abdominal pain Findings: Bowel gas pattern is nonspecific. No evidence for obstruction or free air. No abnormal mass lesion or calcification is seen. Osseous structures are intact. Impression: Nonspecific bowel gas pattern overall. Reviewed, dictated and finalized at [facility]. Impression: Nonspecific bowel gas pattern overall.
[2024-08-06 11:37] LABS: Basophils Absolute Auto 0.07 K/mm3 (0.00-0.10); Basophils Percent Auto 1.2 % (0.0-1.0); Eosinophils Absolute Auto 0.19 K/mm3 (0.02-0.50); Eosinophils Percent Auto 3.2 % (1.0-6.0); Hematocrit 40.1 % (35.0-49.0); Hemoglobin 13.4 g/dL (12.0-15.0); Immature Granulocyte Absolute 0.02 K/mm3 (0.00-0.00); Immature Granulocyte Percent A 0.3 % (0.0-0.0); Lymphocytes Absolute Auto 1.74 K/mm3 (1.10-4.50); Lymphocytes Percent Auto 29.1 % (18.0-42.0); Mean Corpuscular HGB Conc 33.4 g/dL (32-36); Mean Corpuscular Hemoglobin 31.3 pg (27.0-31.0); Mean Corpuscular Volume 93.7 fL (78.0-102.0); Mean Platelet Volume 9.7 fl (9.2-11.8); Monocytes Absolute Auto 0.44 K/mm3 (0.10-0.90); Monocytes Percent Auto 7.4 % (2.0-11.0); Neutrophils Absolute Auto 3.51 K/mm3 (1.70-7.20); Neutrophils Percent Auto 58.8 % (50.0-70.0); Platelet Count Result 264 K/mm3 (150-420); Red Blood Count 4.28 M/mm3 (4.20-5.40); Red Cell Distribution Width 13.1 % (11.6-14.4)
[2024-08-06 11:39] LABS: Add Urine Microscopic? YES; Appearance Urine Clear (Clear); Bilirubin Urine Negative (Negative); Blood Urine Negative (Negative); Color Urine Light Yellow (Yellow); Glucose Urine UA Negative (Negative); Ketones Urine Negative (Negative); Leukocyte Esterase Ur 1+ (Negative); Nitrate Urine Negative (Negative); Protein Urine Negative (Negative); Specific Grav Ur <= 1.005 (1.010-1.020); Urobilinogen Urine 0.2 mg/dL (0.2-1.0)
[2024-08-06 11:46] LABS: Bacteria Urine Trace /hpf; RBC Urine None seen /hpf (0-2); Squamous Epithelial Cell Urine Few /hpf (Few); WBC Urine 0-3 /hpf (0-3)
[2024-08-06 12:12] LABS: Alanine Aminotransferase 12 U/L (6-35); Albumin Level 4.6 g/dL (3.5-5.1); Alkaline Phosphatase 74 U/L (38-126); Anion Gap 5 mmol/L (4-12); Aspartate Amino Transferase 22 U/L (14-36); Bilirubin,Total 0.5 mg/dL (0.2-1.3); Blood Urea Nitrogen 6 mg/dL (7-17); Calcium 9.2 mg/dL (8.4-10.2); Carbon Dioxide 28 mmol/L (22-30); Chloride 99 mmol/L (98-107); Estimated Glomerular Filt Rate > 60; Glucose 111 mg/dL (65-110); Osmolality Calculated 272 mOsm/kg (285-295); Potassium 4.2 mmol/L (3.4-5.0); Sodium 132 mmol/L (137-145); Total Protein 6.9 g/dL (6.3-8.2)
== END 2024-08-06 11:21 | disposition home or self-care (01) ==
LOC: CHSLAB 11:23
PROVIDERS: PCP Internal Medicine; Visit Provider Nurse Practitioner Family
DX: R19.7 Diarrhea, unspecified (principal); R10.84 Generalized abdominal pain
CPT/HCPCS: 36415; 74018; 80053; 81001; 85025

== ENCOUNTER 2024-08-08 10:33 | Outpatient (CLI) | payer MEDICARE, SELFPAY ==
[2024-08-08 11:53] LABS: Toxigenic C. Diff NEGATIVE (NEGATIVE)
== END 2024-08-08 10:34 | disposition home or self-care (01) ==
LOC: CHSLAB 10:35
PROVIDERS: PCP Internal Medicine; Visit Provider Nurse Practitioner Family
DX: R19.7 Diarrhea, unspecified (principal); R10.84 Generalized abdominal pain
CPT/HCPCS: 87045; 87427; 87449; 87493

== ENCOUNTER 2024-08-15 10:47 | Outpatient (CLI) | payer MEDICARE, MEDICAID, SELFPAY ==
--- NOTE | ~2024-08-15 | CT_ITS ---
CT of the Abdomen and Pelvis: Indication: Diarrhea Technique: 2.5 mm axial scans were obtained through the abdomen and pelvis following intravenous adm inistration of 100 cc of Omnipaque 350. Dose reduction technique was used on this scan by utilizing a utomated exposure control and iterative reconstruction technique. The dose-length product (DLP) was 2 64.70 mGy-cm. COMPARISON: 06/15/2022 Findings: Scans through the lung bases are unremarkable. The liver, spleen, pancreas, gallbladder, adrenals and kidneys are within normal limits. There are at herosclerotic calcifications of the aorta. No lymphadenopathy. No bowel obstruction or bowel wall thickening. There is no evidence to suggest acute appendicitis. Images through the pelvis were performed. Urinary bladder unremarkable. No pelvic mass seen. No ascit es. Impression: No significant abnormalities seen. Reviewed, dictated and finalized at [facility]. Impression: No significant abnormalities seen.
== END 2024-08-15 10:48 | disposition home or self-care (01) ==
LOC: CHSIMG 10:49
PROVIDERS: PCP Internal Medicine; Visit Provider Nurse Practitioner Family
DX: R19.7 Diarrhea, unspecified (principal); R14.0 Abdominal distension (gaseous)
CPT/HCPCS: 74177; Q9967

== ENCOUNTER 2024-08-17 18:56 | Observation (INO) | payer MEDICARE, MEDICAID, SELFPAY ==
[2024-08-17] VITALS (36 sets, daily range): BP systolic 128–145; BP diastolic 82–97; PULSE 102–134; RESP 17–33; TEMP 37.1; O2SAT 76–98
--- NOTE | ~2024-08-17 | CT_ITS ---
Clinical Indication: Shortness of breath CT Scan of the Chest with Contrast: Technique: Contiguous sections were acquired throughout the chest after intravenous administration of 100 cc of Omnipaque 350. Dose reduction technique was used on this scan by utilizing automated expos ure control and iterative reconstruction technique. The dose-length product (DLP) was 251.46 mGy-cm. COMPARISON: 07/03/2024 Findings: There is no evidence of any significant mediastinal, hilar or axillary lymphadenopathy. There is no f illing defect in the pulmonary arterial tree to suggest pulmonary embolus. There is no evidence of ao rtic dissection or aneurysm. There is no evidence of pleural or pericardial effusion. Focal groundglass opacity noted in the left upper lobe (axial image 32). There are additional minimal groundglass opacity in the anteromedial right upper and left upper lobes. There are a few minimal gr oundglass opacities in the right lower lobe. Probable minimal emphysema. Images through the upper abdomen reveal no abnormalities. Impression: No evidence of pulmonary embolus, aortic dissection, or aortic aneurysm. Focal scattered ground glass opacities, as above, suggestive of subtle pneumonia/atypical infection. Reviewed, dictated and finalized at [facility]. Impression: No evidence of pulmonary embolus, aortic dissection, or aortic aneurysm. Focal scattered ground glass opacities, as above, suggestive of subtle pneumoni a/atypical infection.
--- NOTE | ~2024-08-17 | XR_ITS ---
XR chest 1V portable Ordering provider: Finn Ho DO History: 63 years Female with . SHORTNESS OF BREATH, COUGH . Comparison: June 15, 2024 FINDINGS: MEDIASTINUM: The cardiac silhouette is not enlarged. Right Port-A-Cath with the tip overlying the superior vena cava. LUNGS: No infiltrates, effusions or pneumothorax. OTHER: No free air under the diaphragm. IMPRESSION: No acute cardiopulmonary pathology. Reviewed, dictated and finalized at [facility].
--- NOTE | 2024-08-17 19:02 | ECG_ITS ---
Test Date: 2024-08-17 19:12:22 Measurements Intervals [place] Rate: 117 P: 72 CT: 148 QRS: 85 QRSD: 90 T: 76 QT: 340 QTc: 476 Interpretive Statements SINUS TACHYCARDIA POSSIBLE LEFT ATRIAL ENLARGEMENT BORDERLINE ST-T WAVE ABNORMALITY- DIFFUSE LEADS BORDERLINE ECG Compared to ECG 06/15/2024 15:54:17 HEART RATE HAS INCREASED Electronically Signed On 08-17-2024 20:42:00 CDT by Everett Dong D.O.
--- NOTE | 2024-08-17 19:04 | ED_ITS ---
HPI - General Adult General Chief complaint: Shortness of Breath/Dyspnea Stated complaint: SOB Time Seen by Provider: 08/17/24 19:02 History of Present Illness HPI narrative: Elisha is a 63F with a PMH of obesity, tobacco abuse, HTN, breast and lung cancer that presented to the ED via EMS for 4 days of worsening dyspnea, cough, and mild right sided chest pain. She has also had fevers and some loose stool. She received 125 of solumedrol and 2 duoneb en route. Related Data Home Medications ?Medication ?Instructions ?Recorded ?Confirmed ?Last Taken ?Type cyclobenzaprine 10 mg tablet 10 mg PO TID PRN Muscle Spasm 09/09/19 08/18/24 Unknown History gabapentin 600 mg tablet 600 mg PO TID 09/09/19 08/18/24 08/18/24 History ropinirole 0.5 mg tablet 0.5 - 1 mg PO HS 09/09/19 08/18/24 08/18/24 History venlafaxine 75 mg capsule,extended 225 mg PO HS 09/09/19 08/18/24 08/18/24 History release 24 hr levetiracetam 500 mg tablet 500 mg PO Q12H 10/24/19 08/18/24 08/18/24 History verapamil 240 mg tablet,extended 240 mg PO DAILY 09/23/20 08/18/24 08/18/24 History release ascorbate calcium (vitamin C) 500 500 mg PO DAILY 08/26/21 08/18/24 08/18/24 History mg tablet folic acid 800 mcg tablet 0.8 mg PO DAILY 08/26/21 08/18/24 08/18/24 History oxycodone myristate 9 mg capsule 9 mg PO BID 01/15/24 08/18/24 08/17/24 History sprinkle extended release 12 hr(DON'T CRUSH) (Xtampza ER) Allergies Allergy/AdvReac Type Severity Reaction Status Date / Time tramadol Allergy Unknown Dizziness Verified 08/17/24 20:33 Review of Systems 2 Review of Systems: All systems reviewed & are unremarkable except as noted in HPI and below PMFSH Past Medical History Medical History Dyslipidemia Lung cancer metastatic to brain Obesity Hypertension Lung cancer Breast CA Adenomatous colon polyp GERD (gastroesophageal reflux disease) Epigastric pain Bloating Rectal bleeding Surgical History Surgical History S/P lumpectomy of breast Family History Family History Father Carcinoma of colon Mother Family history of renal cell carcinoma Anginal pain Breast cancer Sibling Breast cancer Sibling Breast cancer Social History Social History Smoking packs per day: 2 Smoking cigarettes per day: 40.0 Years smoked: 50 Smoking pack-years: 100.00 Smoking status: Current every day smoker Tobacco type: cigarettes Second hand tobacco smoke exposure: Yes Additional smoking assessment comments: 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 Substance use: current Substance use type: marijuana Other substance usage details: smokes 10 hits daily Last use: 08/15/24 Do You Feel Safe in your Home?: Yes Lack of Transportation: No Lack of Food: Never True Current Housing: I Have Housing Concerned About Future Housing: No Difficulty Paying Gas/Electric Bills: No Difficulty Paying for Meds: No Currently Unemployed: No Education: Grade School Difficulty w/ Childcare or Family Care: No Spiritual care concerns: No Exam 2 Const: General: cooperative, no acute distress, alert, awake and Physically active Orientation/consciousness: oriented to person, oriented to place and oriented to time Other: chronically ill appearing HENMT: Head: normal to inspection, normocephalic and atraumatic Ears: h earing grossly normal bilaterally and external ears normal Face/Nose/Sinus: N ormal external nose present Eyes: General: appearance normal, both eyes and all related structures P eriorbital: periorbital findings normal Sclera: sclerae normal Pupils: E qual, round and reactive pupils present Neck: Neck: normal visual inspection Chest: Chest palpation & inspection: normal inspection of the chest Resp: Effort & Inspection: normal respiratory effort, able to speak in complete sentences and no respiratory distress Auscultation: clear to auscultation bilaterally Other: diffuse crackles and increased work of breathing Cardio: Jugular venous distension: no JVD Rate: regular rate Rhythm: r egular rhythm Skin: General skin exam: normal color and no rashes or lesions noted Neuro: General: oriented to person, oriented to place and oriented to time Cranial nerves: Yes Equal, round and reactive pupils present Extrem: General: normal to inspection Course Course Emergency Course: Ordered labs, EKG, CXR and blood cultures. EKG showed sinus tachycardia with a rate of 117, normal axis, no ST elevation/depression XR chest 1V portable Ordering provider: Finn Ho DO History: 63 years Female with . SHORTNESS OF BREATH, COUGH . Comparison: June 15, 2024 FINDINGS: MEDIASTINUM: The cardiac silhouette is not enlarged. Right Port-A-Cath with the tip overlying the superior vena cava. LUNGS: No infiltrates, effusions or pneumothorax. OTHER: No free air under the diaphragm. IMPRESSION: No acute cardiopulmonary pathology. Potassium, Mg, and sodium were low so replacement was ordered. Azithromycin was ordered as well for presumed COPD exacerbation. Troponin was mildly elevated. Repeat trop in 3 hours. Repeat troponin increased slightly and her dyspnea persisted. It was much worse with minor ambulation as well. DDx includes demand ischemia vs PE vs ACS. Regardless, she declined transfer. She is aware that we do not have cardiology or be able to provide the services she might require for optimal care. Knowing that she may have a worse outcome she still declined transfer and, after discussion wanted to be a DNR status. Ordered CTA. Start Lovenox 1mg/kg BID for presumed PE or NSTEMI. If no PE will add DAPT. Repeat troponin in 3 hours. CTA negative for PE, will add plavix for possible ACS. Called and discussed with Osman at 0657 Vital Signs Vital signs: Vital Signs Temperature 98.7 F 08/17/24 18:56 Pulse Rate 128 H 08/17/24 18:56 Respiratory Rate 20 08/17/24 18:56 Blood Pressure 145/97 H 08/17/24 18:56 Pulse Oximetry 93 08/17/24 18:56 Oxygen Delivery Nasal Cannula 08/17/24 18:56 Oxygen Flow Rate 4 08/17/24 18:56 Temperature 97.4 F L 08/18/24 04:00 Pulse Rate 98 08/18/24 04:00 Respiratory Rate 18 08/18/24 04:00 Blood Pressure 142/84 H 08/18/24 04:00 Pulse Oximetry 95 08/18/24 04:00 Oxygen Delivery Nasal Cannula 08/18/24 04:00 Oxygen Flow Rate 4 08/18/24 04:00 Medical Decision Making Vital Signs Vital Signs: Vital Signs Temperature 98.7 F 08/17/24 18:56 Pulse Rate 128 H 08/17/24 18:56 Respiratory Rate 20 08/17/24 18:56 Blood Pressure 145/97 H 08/17/24 18:56 Pulse Oximetry 93 08/17/24 18:56 Oxygen Delivery Nasal Cannula 08/17/24 18:56 Oxygen Flow Rate 4 08/17/24 18:56 Temperature 97.4 F L 08/18/24 04:00 Pulse Rate 98 08/18/24 04:00 Respiratory Rate 18 08/18/24 04:00 Blood Pressure 142/84 H 08/18/24 04:00 Pulse Oximetry 95 08/18/24 04:00 Oxygen Delivery Nasal Cannula 08/18/24 04:00 Oxygen Flow Rate 4 08/18/24 04:00 Lab Data 08/17/24 19:41 08/17/24 19:41 Labs: Lab Results 08/17/24 08/17/24 08/17/24 Range/Units 19:41 20:33 22:53 WBC 6.3 (4.8-10.8) K/mm3 RBC 4.23 (4.20-5.40) M/mm3 Hgb 13.2 (12.0-15.0) g/dL Hct 39.7 (35.0-49.0) % MCV 93.9 (78.0-102.0) fL MCH 31.2 H (27.0-31.0) pg MCHC 33.2 (32-36) g/dL RDW 13.1 (11.6-14.4) % Plt Count 165 (150-420) K/mm3 MPV 10.3 (9.2-11.8) fl Immature Gran % (Auto) 0.2 H (0.0-0.0) % Neut % (Auto) 89.8 H (50.0-70.0) % Lymph % (Auto) 6.7 L (18.0-42.0) % [place] % (Auto) 2.5 (2.0-11.0) % Eos % (Auto) 0.3 L (1.0-6.0) % Baso % (Auto) 0.5 (0.0-1.0) % Lymph # (Auto) 0.42 L (1.10-4.50) K/mm3 [place] # (Auto) 0.16 (0.10-0.90) K/mm3 Eos # (Auto) 0.02 (0.02-0.50) K/mm3 Baso # (Auto) 0.03 (0.00-0.10) K/mm3 Abs Immat Gran (auto) 0.01 H (0.00-0.00) K/mm3 Absolute Neuts (auto) 5.65 (1.70-7.20) K/mm3 Absolute Nucleated RBC 0.00 (0.00-0.00) K/mm3 Nucleated RBC % 0.0 (0-0.0) % Sodium 130 L (137-145) mmol/L Potassium 3.3 L (3.4-5.0) mmol/L Chloride 98 (98-107) mmol/L Carbon Dioxide 27 (22-30) mmol/L Anion Gap 5 (4-12) mmol/L BUN 4 L (7-17) mg/dL Creatinine 0.53 L (0.7-1.0) mg/dL Estim Creat Clear Calc 82 ml/min Estimated GFR > 60 (59 - ) Glucose 128 H (65-110) mg/dL Calculated Osmolality 268 L (285-295) mOsm/kg Calcium 8.8 (8.4-10.2) mg/dL Magnesium 1.2 L (1.6-2.3) mg/dL Total Bilirubin 0.6 (0.2-1.3) mg/dL AST 24 (14-36) U/L ALT 12 (6-35) U/L Alkaline Phosphatase 100 (38-126) U/L Troponin I 0.096 H* 0.208 H* D (0.000-0.034) ng/mL NT-Pro-B Natriuret Pep 104 H (19.9-100) pg/mL Total Protein 7.2 (6.3-8.2) g/dL Albumin 4.2 (3.5-5.1) g/dL Urine Color Light yellow (Yellow) Urine Appearance Clear (Clear) Urine pH 6.0 (5.0-8.0) Ur Specific [place] 1.015 (1.010-1.020) Urine Protein 1+ H (Negative) Urine Glucose (UA) Negative (Negative) Urine Ketones 1+ H (Negative) Ur Blood (Man) 1+ H (Negative) Urine Nitrate Negative (Negative) Urine Bilirubin Negative (Negative) Urine Urobilinogen 0.2 (0.2-1.0) mg/dL Leukocyte Esterase Rfl Negative (Negative) CARTER/UL Urine RBC 6-10 H (0-2) /hpf Urine Mucus Moderate H /lpf Influenza A (RT-PCR) Negative (Negative) Influenza B (RT-PCR) Negative (Negative) RSV (RT-PCR) Negative (Negative) SARS-CoV-2 RNA (RT-PCR) Negative (Negative) Discharge Plan Discharge Clinical Impression: Elevated troponin, Bronchitis Patient Disposition: [facility] Condition: Serious
--- NOTE | 2024-08-17 19:47 | PC.NURSE ---
pt taken to bathroom via wheelchair for urine specimen
[2024-08-17 19:51] LABS: Basophils Absolute Auto 0.03 K/mm3 (0.00-0.10); Basophils Percent Auto 0.5 % (0.0-1.0); Eosinophils Absolute Auto 0.02 K/mm3 (0.02-0.50); Eosinophils Percent Auto 0.3 % (1.0-6.0); Hematocrit 39.7 % (35.0-49.0); Hemoglobin 13.2 g/dL (12.0-15.0); Immature Granulocyte Absolute 0.01 K/mm3 (0.00-0.00); Immature Granulocyte Percent A 0.2 % (0.0-0.0); Lymphocytes Absolute Auto 0.42 K/mm3 (1.10-4.50); Lymphocytes Percent Auto 6.7 % (18.0-42.0); Mean Corpuscular HGB Conc 33.2 g/dL (32-36); Mean Corpuscular Hemoglobin 31.2 pg (27.0-31.0); Mean Corpuscular Volume 93.9 fL (78.0-102.0); Mean Platelet Volume 10.3 fl (9.2-11.8); Monocytes Absolute Auto 0.16 K/mm3 (0.10-0.90); Monocytes Percent Auto 2.5 % (2.0-11.0); Neutrophils Absolute Auto 5.65 K/mm3 (1.70-7.20); Neutrophils Percent Auto 89.8 % (50.0-70.0); Platelet Count Result 165 K/mm3 (150-420); Red Blood Count 4.23 M/mm3 (4.20-5.40); Red Cell Distribution Width 13.1 % (11.6-14.4); White Blood Count 6.3 K/mm3 (4.8-10.8)
[2024-08-17 20:09] LABS: Alanine Aminotransferase 12 U/L (6-35); Albumin Level 4.2 g/dL (3.5-5.1); Alkaline Phosphatase 100 U/L (38-126); Anion Gap 5 mmol/L (4-12); Aspartate Amino Transferase 24 U/L (14-36); Bilirubin,Total 0.6 mg/dL (0.2-1.3); Blood Urea Nitrogen 4 mg/dL (7-17); Calcium 8.8 mg/dL (8.4-10.2); Carbon Dioxide 27 mmol/L (22-30); Chloride 98 mmol/L (98-107); Estimated CRCL calculation 82 ml/min; Estimated Glomerular Filt Rate > 60; Glucose 128 mg/dL (65-110); Magnesium 1.2 mg/dL (1.6-2.3); Osmolality Calculated 268 mOsm/kg (285-295); Potassium 3.3 mmol/L (3.4-5.0); Sodium 130 mmol/L (137-145); Total Protein 7.2 g/dL (6.3-8.2)
[2024-08-17] MEDS: SODIUM CHLORIDE 0.9% IV 1,000 ML 999 ML IV CONT ×2 (20:14→20:21)
[2024-08-17 20:19] LABS: Add Urine Microscopic? YES; Appearance Urine Clear (Clear); Bilirubin Urine Negative (Negative); Blood Urine 1+ (Negative); Color Urine Light Yellow (Yellow); Glucose Urine UA Negative (Negative); Ketones Urine 1+ (Negative); Leukocyte Esterase Ur Negative LEU/UL (Negative); Nitrate Urine Negative (Negative); Protein Urine 1+ (Negative); Specific Grav Ur 1.015 (1.010-1.020); Urobilinogen Urine 0.2 mg/dL (0.2-1.0)
[2024-08-17 20:20] LABS: NT Pro B Type Natriuretic Pept 104 pg/mL (19.9-100)
[2024-08-17] MEDS: MAGNESIUM SULF 2 GM/WATER 50ML 2 GM/50 ML BAG IVPB (20:21)
[2024-08-17] MEDS: POTASSIUM CHLORIDE 20 MEQ PACKET (FOR LIQUID) 40 MEQ PO (20:21)
[2024-08-17 20:26] LABS: Troponin I 0.096 ng/mL (0.000-0.034)
[2024-08-17 20:31] LABS: Mucus Urine Moderate /lpf
[2024-08-17] MEDS: DOXYCYCLINE HYCLATE 100 MG TABLET PO (20:38)
[2024-08-17 21:32] LABS: Influenza A QL RT-PCR Negative (Negative); Influenza B QL RT-PCR Negative (Negative); RSV RNA, RT-PCR Negative (Negative); SARS-CoV-2 RNA PCR Negative (Negative)
--- NOTE | 2024-08-17 22:26 | PC.NURSE ---
patient ambulatory to restroom with steady gait. Upon trying to ambulate back, patient became increasingly SOB, patient was placed in wheelchair and taken back to room. Patient does not wear O2 at home, trialed without O2, sats dropped into the high 70s without it within a couple minutes, O2 placed back on patient at 4L NC. ERP aware.
[2024-08-18] VITALS (12 sets, daily range): BP systolic 131–151; BP diastolic 84–90; PULSE 90–109; RESP 18–25; TEMP 36.3–36.6; O2SAT 94–98; BMI 24.7
[2024-08-18 00:02] LABS: Troponin I 0.208 ng/mL (0.000-0.034)
[2024-08-18] MEDS: ASPIRIN 81 MG CHEWABLE TABLET 324 MG PO (01:26)
[2024-08-18] MEDS: CLOPIDOGREL BISULFATE 75 MG TABLET 300 MG PO (01:26)
[2024-08-18] MEDS: ENOXAPARIN 100 MG/ML SYRINGE 65 MG SUB-Q (01:27)
--- NOTE | 2024-08-18 01:50 | ADMGEN ---
This patient, Elisha Garcia, was admitted to 2nd Floor Room 226-2. Patient oriented to hospital policies and general routines including ID bracelet, bed and alarms, visiting hours, pain management, procedures, bathroom and other care routines, personal items, smoking policy, room service/diet, and visiting hours. Information on how to activate the Rapid Response Team has been discussed. Patient are encouraged to report perceived risks to care and to ask questions if they do not understand what they are told or what they should do.
[2024-08-18 04:21] LABS: Troponin I 0.183 ng/mL (0.000-0.034)
--- NOTE | 2024-08-18 04:22 | PC.NURSE ---
Lab called with critical Trop of 0.183, which has decreased from last value of 0.208. Call Placed to ED to update Dr. Ho, spoke with Aga-MICKIE, states MD is asleep and she will report value when awake d/t not a new critical value and improving.
[2024-08-18 10:31] LABS: Hematocrit 37.3 % (35.0-49.0); Hemoglobin 12.4 g/dL (12.0-15.0); Mean Corpuscular HGB Conc 33.2 g/dL (32-36); Mean Corpuscular Hemoglobin 30.9 pg (27.0-31.0); Mean Platelet Volume 10.7 fl (9.2-11.8); Platelet Count Result 218 K/mm3 (150-420); Red Blood Count 4.01 M/mm3 (4.20-5.40); Red Cell Distribution Width 13.2 % (11.6-14.4); White Blood Count 4.9 K/mm3 (4.8-10.8)
[2024-08-18 10:36] LABS: Alanine Aminotransferase 12 U/L (6-35); Albumin Level 3.8 g/dL (3.5-5.1); Alkaline Phosphatase 97 U/L (38-126); Anion Gap 5 mmol/L (4-12); Aspartate Amino Transferase 24 U/L (14-36); Bilirubin,Total 0.3 mg/dL (0.2-1.3); Blood Urea Nitrogen 5 mg/dL (7-17); Calcium 8.3 mg/dL (8.4-10.2); Carbon Dioxide 25 mmol/L (22-30); Chloride 101 mmol/L (98-107); Cholesterol 213 mg/dL (0-200); Estimated CRCL calculation 86 ml/min; Estimated Glomerular Filt Rate > 60; Glucose 174 mg/dL (65-110); HDL Direct 60 mg/dL; LDL Cholesterol Calculated 141 mg/dL (<130); Osmolality Calculated 273 mOsm/kg (285-295); Sodium 131 mmol/L (137-145); Total Protein 6.8 g/dL (6.3-8.2); Triglycerides 60 mg/dL (<150)
[2024-08-18 10:39] LABS: INR 1.1; Partial Thromboplastin Time 38.8 Sec (23.9-30.70); Prothrombin Time 11.6 Seconds (9.50-12.1)
[2024-08-18] MEDS: NICOTINE (*PBKC) 21 MG PATCH 1 PATCH TRANSDERM (10:51)
[2024-08-18] MEDS: levETIRAcetam 500MG/NACL 100ML 500 MG/100 ML BAG 400 MG IVPB (10:52)
[2024-08-18] MEDS: FOLIC ACID 0.4 MG TABLET 0.8 MG PO (10:59)
[2024-08-18] MEDS: VERAPAMIL HCL ER 120 MG TABLET 240 MG PO (10:59)
[2024-08-18] MEDS: BUDESONIDE/FORMOTEROL (*SP) 160-4.5 MCG 6 GM INH 2 PUFF INHALATION (11:00)
[2024-08-18] MEDS: MAGNESIUM SULF 4 GM/WATER100ML 4 GM/100 ML BAG IVPB (11:30)
--- NOTE | 2024-08-18 11:46 | PM.SD2 ---
Same Day Admit/Disch: HPI History of Present Illness Chief complaint: SOB/Chest pressure/Diarrhea Narrative: Elisha Garcia is a 63 year old female Who presented to the emergency department with worsening shortness of breath, chest pressure and diarrhea. patient states she has been dealing with diarrhea since May but her shortness a breath started about 5 days prior on stay 2 to the emergency department. Patient states she woke up and was unable to even ambulate due to severity of her shortness a breath. patient reports she does have a past medical history of breast cancer with mastectomy, lung cancer with right middle lobe lobectomy, metastatic brain cancer, seizures, COPD, HTN, and heavy smoker. patient reports she is no longer receiving treatment for her metastatic brain cancer. patient reported she did also have nausea but no vomiting denied any radiation of pain unsure of chest pressure is from her shortness a breath denied any dizziness, visual changes, or diaphoresis. In the ED: in the emergency department patient was hypoxic with an oxygen saturation of 76% and was placed on 4 L supplemental oxygen with improvement, she also had initial elevated troponin of 0.096 with secondary troponin of 0.208, EKG with no ST/T changes from previous EKG 05/2024, patient also had hyponatremia at 1:30 a.m., hypokalemia with 3.3 magnesium of 1.2. per the ER physician he did offer patient for transfer to [facility] for Cardiology evaluation NSTEMI but patient at that time refused transfer and made herself a DNR/DNI. Patient had received full-dose Lovenox in the emergency department and a full-dose Plavix of 300. a CTA was performed which showed no pulmonary embolism patient was then admitted to the medical unit on continuous cardiac monitoring for medical management of non STEMI acute respiratory failure with hypoxia. [facility] Past Medical History Medical History (Updated 08/18/24 @ 12:10 by Leonila Brewer, CINDY) COPD (chronic obstructive pulmonary disease) Seizures Dyslipidemia Lung cancer metastatic to brain Obesity Hypertension Lung cancer Breast CA Adenomatous colon polyp GERD (gastroesophageal reflux disease) Epigastric pain Bloating Rectal bleeding Surgical History Surgical History S/P lumpectomy of breast Family History Family History Father Carcinoma of colon Mother Family history of renal cell carcinoma Anginal pain Breast cancer Sibling Breast cancer Sibling Breast cancer Social History Social History Smoking packs per day: 2 Smoking cigarettes per day: 40.0 Years smoked: 50 Smoking pack-years: 100.00 Smoking status: Current every day smoker Tobacco type: cigarettes Second hand tobacco smoke exposure: Yes Additional smoking assessment comments: 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 Substance use: current Substance use type: marijuana Other substance usage details: smokes 10 hits daily Last use: 08/15/24 Do You Feel Safe in your Home?: Yes Lack of Transportation: No Lack of Food: Never True Current Housing: I Have Housing Concerned About Future Housing: No Difficulty Paying Gas/Electric Bills: No Difficulty Paying for Meds: No Currently Unemployed: No Education: Grade School Difficulty w/ Childcare or Family Care: No Spiritual care concerns: No Same Day Admit/Disch: Med Pre-admit Medications Home Medications ?Medication ?Instructions ?Recorded ?Confirmed ?Type cyclobenzaprine 10 mg tablet 10 mg PO TID PRN Muscle Spasm 09/09/19 08/18/24 History gabapentin 600 mg tablet 600 mg PO TID 09/09/19 08/18/24 History ropinirole 0.5 mg tablet 0.5 - 1 mg PO HS 09/09/19 08/18/24 History venlafaxine 75 mg capsule,extended 225 mg PO HS 09/09/19 08/18/24 History release 24 hr levetiracetam 500 mg tablet 500 mg PO Q12H 10/24/19 08/18/24 History verapamil 240 mg tablet,extended 240 mg PO DAILY 09/23/20 08/18/24 History release ascorbate calcium (vitamin C) 500 500 mg PO DAILY 08/26/21 08/18/24 History mg tablet folic acid 800 mcg tablet 0.8 mg PO DAILY 08/26/21 08/18/24 History oxycodone myristate 9 mg capsule 9 mg PO BID 01/15/24 08/18/24 History sprinkle extended release 12 hr(DON'T CRUSH) (Xtampza ER) albuterol 90 mcg-budesonide 80 2 inh inhalation QID PRN shortness 06/15/24 08/18/24 Rx mcg/actuation HFA aerosol inhaler of breath #10.7 grams budesonide-formoterol HFA 160 2 puff inhalation Q12H #10.2 grams 06/15/24 08/18/24 Rx mcg-4.5 mcg/actuation aerosol inhaler (Symbicort) Review of Systems Review of Systems All systems reviewed & are unremarkable except as noted in HPI and below Exam Const: General: no acute distress and uncomfortable Other: Pleasant female with noticeable respiratory discomfort HENMT: Face/Nose/Sinus: Normal nares present Mouth: Yes moist mucous membranes Eyes: General: appearance normal, both eyes and all related structures Sclera: sclerae normal Pupils: Equal, round and reactive pupils present Neck: Neck: supple and no JVD Resp: Auscultation: wheezes expiratory wheezes and diminished lung sounds bilateral Other: Right middle lobe absent, Tachypneic, and use of accessory muscle Cardio: Rate: tachycardic Rhythm: regular rhythm GI: GI Palp: Yes Soft to palpation Auscultation: normal bowel sounds Skin: General skin exam: normal color and no rashes or lesions noted Wounds: no wounds Extrem: General: normal to inspection Psych: Mental Status: mental status grossly normal Affect: normal affect DS: Data Data Completed and Pending Labs on day of discharge: Labs from last 24 hours 08/18/24 08/17/24 08/17/24 03:38 22:53 20:33 WBC 4.9 RBC 4.01 L Hgb 12.4 Hct 37.3 MCV 93.0 MCH 30.9 MCHC 33.2 RDW 13.2 Plt Count 218 MPV 10.7 Immature Gran % (Auto) Neut % (Auto) Lymph % (Auto) [place] % (Auto) Eos % (Auto) Baso % (Auto) Lymph # (Auto) [place] # (Auto) Eos # (Auto) Baso # (Auto) Abs Immat Gran (auto) Absolute Neuts (auto) Absolute Nucleated RBC Nucleated RBC % PT 11.6 INR 1.1 APTT 38.8 H Sodium 131 L Potassium 4.0 Chloride 101 Carbon Dioxide 25 Anion Gap 5 BUN 5 L Creatinine 0.50 L Estim Creat Clear Calc 86 Estimated GFR > 60 Glucose 174 H Calculated Osmolality 273 L Calcium 8.3 L Magnesium Total Bilirubin 0.3 AST 24 ALT 12 Alkaline Phosphatase 97 Troponin I 0.183 H* 0.208 H* D NT-Pro-B Natriuret Pep Total Protein 6.8 Albumin 3.8 Triglycerides 60 Cholesterol 213 H LDL Cholesterol, Calc 141 H HDL Direct 60 Urine Color Urine Appearance Urine pH Ur Specific [place] Urine Protein Urine Glucose (UA) Urine Ketones Ur Blood (Man) Urine Nitrate Urine Bilirubin Urine Urobilinogen Leukocyte Esterase Rfl Urine RBC Urine Mucus Influenza A (RT-PCR) Negative Influenza B (RT-PCR) Negative RSV (RT-PCR) Negative SARS-CoV-2 RNA (RT-PCR) Negative 08/17/24 19:41 WBC 6.3 RBC 4.23 Hgb 13.2 Hct 39.7 MCV 93.9 MCH 31.2 H MCHC 33.2 RDW 13.1 Plt Count 165 MPV 10.3 Immature Gran % (Auto) 0.2 H Neut % (Auto) 89.8 H Lymph % (Auto) 6.7 L [place] % (Auto) 2.5 Eos % (Auto) 0.3 L Baso % (Auto) 0.5 Lymph # (Auto) 0.42 L [place] # (Auto) 0.16 Eos # (Auto) 0.02 Baso # (Auto) 0.03 Abs Immat Gran (auto) 0.01 H Absolute Neuts (auto) 5.65 Absolute Nucleated RBC 0.00 Nucleated RBC % 0.0 PT INR APTT Sodium 130 L Potassium 3.3 L Chloride 98 Carbon Dioxide 27 Anion Gap 5 BUN 4 L Creatinine 0.53 L Estim Creat Clear Calc 82 Estimated GFR > 60 Glucose 128 H Calculated Osmolality 268 L Calcium 8.8 Magnesium 1.2 L Total Bilirubin 0.6 AST 24 ALT 12 Alkaline Phosphatase 100 Troponin I 0.096 H* NT-Pro-B Natriuret Pep 104 H Total Protein 7.2 Albumin 4.2 Triglycerides Cholesterol LDL Cholesterol, Calc HDL Direct Urine Color Light yellow Urine Appearance Clear Urine pH 6.0 Ur Specific [place] 1.015 Urine Protein 1+ H Urine Glucose (UA) Negative Urine Ketones 1+ H Ur Blood (Man) 1+ H Urine Nitrate Negative Urine Bilirubin Negative Urine Urobilinogen 0.2 Leukocyte Esterase Rfl Negative Urine RBC 6-10 H Urine Mucus Moderate H Influenza A (RT-PCR) Influenza B (RT-PCR) RSV (RT-PCR) SARS-CoV-2 RNA (RT-PCR) DS: Summary Hospital Course Reason for hospitalization: acute respiratory failure with hypoxia/NSTEMI Hospital Course: Admission Elisha Garcia is a 63 year old female Who presented to the emergency department with worsening shortness of breath, chest pressure and diarrhea. patient states she has been dealing with diarrhea since May but her shortness a breath started about 5 days prior on stay 2 to the emergency department. Patient states she woke up and was unable to even ambulate due to severity of her shortness a breath. patient reports she does have a past medical history of breast cancer with mastectomy, lung cancer with right middle lobe lobectomy, metastatic brain cancer, seizures, COPD, HTN, and heavy smoker. patient reports she is no longer receiving treatment for her metastatic brain cancer. patient reported she did also have nausea but no vomiting denied any radiation of pain unsure of chest pressure is from her shortness a breath denied any dizziness, visual changes, or diaphoresis. In the ED: in the emergency department patient was hypoxic with an oxygen saturation of 76% and was placed on 4 L supplemental oxygen with improvement, she also had initial elevated troponin of 0.096 with secondary troponin of 0.208, EKG with no ST/T changes from previous EKG 05/2024, patient also had hyponatremia at 1:30 a.m., hypokalemia with 3.3 magnesium of 1.2. per the ER physician he did offer patient for transfer to [facility] for Cardiology evaluation NSTEMI but patient at that time refused transfer and made herself a DNR/DNI. Patient had received full-dose Lovenox in the emergency department and a full-dose Plavix of 300. a CTA was performed which showed no pulmonary embolism patient was then admitted to the medical unit on continuous cardiac monitoring for medical management of non STEMI acute respiratory failure with hypoxia. Hospital Course: patient was admitted to the medical unit for acute respiratory failure with hypoxia and non STEMI. On assessment patient with noticeable dyspnea and tachypnea neck became winded just with normal conversation. Patient's 3rd troponin mildly trended down to 0.183 still with some chest pressure. Spoke with patient about possible transfer to [place] for cardiology evaluation and possible cardiac catheterization for ischemic workup. Patient at this time is requesting transfer to [place] for cardiology evaluation and has requested to be a full code. Since patient had received Lovenox full dose at 1:00 a.m. she will be initiated on heparin drip at 1300, transfused 4 g of magnesium for a 1.2 Mag, and potassium was replenished. patient is still on 4 L nasal cannula to maintain 92%. Patient reports she does have history of seizures and had not taken her Keppra the previous night gave loading dose of 500 mg IV and she can resume her 2nd oral tonight. also initiated patient on atorvastatin and currently will keep NPO for Cardiology evaluation. Spoke with Dr. GOLDEN at [facility] who was accepted patient for transfer as well as spoke with Dr. Cline interventionalists discount clerk who will see patient once they arrive. patient was transferred via [facility]. patient seen prior to discharge in no acute distress still on 4 L nasal cannula still with some mild chest discomfort. Status at Discharge Functional status at discharge: independent ambulation Overall status at discharge: patient is not back to baseline Time Spent with Patient Time attestation: Total time spent providing and/or coordinating discharge services: Time spent: Greater than 30 minutes DS: Admitting Diagnosis Discharge Date 08/18/2024 Admitting Diagnosis acute respiratory failure with hypoxia/NSTEMI/hypomagnesemia DS: Discharge Diagnosis Discharge Diagnosis (1) Hypertension: Code(s): I10 - Essential (primary) hypertension Status: Acute (2) Elevated troponin: Code(s): R79.89 - Other specified abnormal findings of blood chemistry Status: Acute (3) NSTEMI (non-ST elevated myocardial infarction): Code(s): I21.4 - Non-ST elevation (NSTEMI) myocardial infarction Status: Acute (4) Acute respiratory failure with hypoxia: Code(s): J96.01 - Acute respiratory failure with hypoxia Status: Acute (5) Dyslipidemia: Code(s): E78.5 - Hyperlipidemia, unspecified Status: Acute (6) Seizures: Code(s): R56.9 - Unspecified convulsions Status: Acute (7) Hypomagnesemia: Code(s): E83.42 - Hypomagnesemia Status: Acute (8) Tobacco abuse: Code(s): Z72.0 - Tobacco use Status: Acute (9) COPD (chronic obstructive pulmonary disease): Code(s): J44.9 - Chronic obstructive pulmonary disease, unspecified Status: Acute Discharge Plan Discharge Attending physician on discharge: Toni Lamb Consulting providers: Leonila Brewer Discharging Clinician: Leonila Brewer Anticipated Discharge Date/Time: 08/18/24 11:44 Patient Disposition: Other Activity: other - see discharge instructions Diet: NPO Discharge Instructions: Transfer to [place] for NSTEMI and cardiology consult Continue Heparin ACS gtt per protocol NPO until seen by Cardiology Seizure precautions Patient Instructions: Antibiotic Form Patient Language: Pashto Stand Alone Forms: General Discharge Information Discharge Medications: No Action Xtampza ER 9 mg cap,sprinkl,ER12hr(DONT CRUSH) 9 mg PO BID verapamil 240 mg Tablet Extended Release 240 mg PO DAILY budesonide-formoterol [Symbicort] 160-4.5 mcg/actuation HFA aerosol inhaler 2 puff inhalation Q12H Qty: 10.2 0RF albuterol-budesonide 90-80 mcg/actuation HFA aerosol inhaler 2 inh inhalation QID PRN (Reason: shortness of breath) Qty: 10.7 0RF levetiracetam 500 mg tablet 500 mg PO Q12H ascorbate calcium (vitamin C) 500 mg tablet 500 mg PO DAILY folic acid 800 mcg tablet 0.8 mg PO DAILY cyclobenzaprine 10 mg tablet 10 mg PO TID PRN (Reason: Muscle Spasm) venlafaxine 75 mg capsule,extended release 24hr 225 mg PO HS gabapentin 600 mg tablet 600 mg PO TID ropinirole 0.5 mg tablet 0.5 - 1 mg PO HS Date of admission: 08/18/24 00:18 Primary Care Provider: Pedro Schmitz Admitting Provider: Toni Lamb Attending physician on admission: Toni Lamb Condition: Serious Quality VTE Prophylaxis VTE prophylaxis: pharmacologic ordered -Patient's previous records reviewed on admission -ER notes reviewed in detail on admission -discussed all findings and current treatment plan with patient/Family/POA -Consultations reviewed for recommendations -Patient's disposition for safe discharge discussed with case resource manager Dictation performed by [employer] direct speech recognition software, therefore space control agent variants and typographical errors may occur. Hospitalist MIPS Advance Care Plan I have confirmed that the patient's Advanced Care Plan is present, code status is documented, or surrogate decision maker is listed in patient medical record.: Yes Medication Reconciliation I have utilized all available resources to obtain, update and review the patients current medications (includes all prescriptions, OTC, herbals, cannabis, and nutritional supplements).: Yes The patient is not eligible for med reconciliation; the patient is in a emergent medical situation where delaying treatment would jeopardize the patients health.: No Heart Failure (Exclusion) Patient has history of Heart Transplant or Left Ventricular Assistive Device?: No IF YES, STOP HERE Heart Failure (Qualifier) Patient has current or prior documentation of LVEF less than or equal to 40%, or mod/servere depressed LVSF?: No IF NO, STOP HERE
[2024-08-18] MEDS: HEPARIN SOD/D5W 100 UNITS/ML 25,000 UNITS/250 ML BAG 8 UNITS IV CONT (12:02)
--- NOTE | 2024-08-18 12:12 | P.TS_ITS ---
Transfer Discharge Sum: Prov Provider Date of admission: 08/18/24 00:18 Primary care physician: Pedro Schmitz MD Admitting clinician: Toni Lamb MD Attending physician on admission: Toni Lamb Attending physician on discharge: Toni Lamb Discharging clinician: Leonila Brewer Anticipated date of transfer: 08/18/24 Receiving physician/facility: [facility], Dr. Mack DS: Admitting Diagnosis Discharge Date 08/18/2024 Admitting Diagnosis acute respiratory failure with hypoxia/NSTEMI/hypomagnesemia DS: Discharge Diagnosis Discharge Diagnosis (1) Hypertension: Code(s): I10 - Essential (primary) hypertension Status: Acute (2) Elevated troponin: Code(s): R79.89 - Other specified abnormal findings of blood chemistry Status: Acute (3) NSTEMI (non-ST elevated myocardial infarction): Code(s): I21.4 - Non-ST elevation (NSTEMI) myocardial infarction Status: Acute (4) Acute respiratory failure with hypoxia: Code(s): J96.01 - Acute respiratory failure with hypoxia Status: Acute (5) Dyslipidemia: Code(s): E78.5 - Hyperlipidemia, unspecified Status: Acute (6) Seizures: Code(s): R56.9 - Unspecified convulsions Status: Acute (7) Hypomagnesemia: Code(s): E83.42 - Hypomagnesemia Status: Acute (8) Tobacco abuse: Code(s): Z72.0 - Tobacco use Status: Acute (9) COPD (chronic obstructive pulmonary disease): Code(s): J44.9 - Chronic obstructive pulmonary disease, unspecified Status: Acute Transfer Discharge Sum: Med Medications Active and Home Medications: Home Medications cyclobenzaprine 10 mg tablet 10 mg PO TID PRN Muscle Spasm 09/09/19 [History Confirmed 08/18/24] gabapentin 600 mg tablet 600 mg PO TID 09/09/19 [History Confirmed 08/18/24] ropinirole 0.5 mg tablet 0.5 - 1 mg PO HS 09/09/19 [History Confirmed 08/18/24] venlafaxine 75 mg capsule,extended release 24 hr 225 mg PO HS 09/09/19 [History Confirmed 08/18/24] levetiracetam 500 mg tablet 500 mg PO Q12H 10/24/19 [History Confirmed 08/18/24] verapamil 240 mg tablet,extended release 240 mg PO DAILY 09/23/20 [History Con firmed 08/18/24] ascorbate calcium (vitamin C) 500 mg tablet 500 mg PO DAILY 08/26/21 [History Confirmed 08/18/24] folic acid 800 mcg tablet 0.8 mg PO DAILY 08/26/21 [History Confirmed 08/18/24] oxycodone myristate 9 mg capsule sprinkle extended release 12 hr(DON'T CRUSH) (Xtampza ER) 9 mg PO BID 01/15/24 [History Confirmed 08/18/24] albuterol 90 mcg-budesonide 80 mcg/actuation HFA aerosol inhaler 2 inh inhalation QID PRN shortness of breath #10.7 grams 06/15/24 [Rx Confirmed 08/18/24] budesonide-formoterol HFA 160 mcg-4.5 mcg/actuation aerosol inhaler (Symbicort) 2 puff inhalation Q12H #10.2 grams 06/15/24 [Rx Confirmed 08/18/24] Active Medications Acetaminophen (Acetaminophen 325 Mg Tablet) 650 mg PO Q4H PRN PRN Reason: Mild Pain (1-3) or Fever Hydrocodone Bitart/Acetaminophen (Hydrocodone/Acetaminophen (*Crx) 5-325 Mg Tablet) 1 tab PO Q4H PRN PRN Reason: Moderate Pain (4-6) Ascorbic Acid (Ascorbic Acid 500 Mg Tablet) 500 mg PO DAILY [facility] Atorvastatin Calcium (Atorvastatin 40 Mg Tablet) 40 mg PO DAILY [facility] Budesonide/Formoterol Fumarate (Budesonide/Formoterol (*Sp) 160-4.5 Mcg 6 Gm Inh) 2 puff INHALATION Q12HR [facility] Last Admin: 08/18/24 11:00 Dose: 2 puff Cyclobenzaprine HCl (Cyclobenzaprine Hcl 10 Mg Tablet) 10 mg PO TID PRN PRN Reason: Muscle Spasm Folic Acid (Folic Acid 0.4 Mg Tablet) 0.8 mg PO DAILY [facility] Last Admin: 08/18/24 10:59 Dose: 0.8 mg Gabapentin (Gabapentin 300 Mg Capsule) 600 mg PO TID [facility] Heparin Sodium (Porcine) (Heparin Sodium 5,000 Units/Ml Vial) 4,000 units IV PUSH PRN PRN PRN Reason: aPTT less than 55 seconds Heparin Sodium (Porcine) (Heparin Sodium 5,000 Units/Ml Vial) 2,500 units IV PUSH PRN PRN PRN Reason: aPTT 55 - 70 seconds Heparin Sodium/Dextrose (Heparin Sodium/D5w 100 Units/Ml) 25,000 units in 250 mls @ 8 mls/hr IV CONT .Q24H [facility]; Protocol Last Admin: 08/18/24 12:02 Dose: 800 units/hr, 8 mls/hr Magnesium Sulfate (Magnesium Sulf 4 Gm/[id number]) 4 gm in 100 mls @ 25 mls/hr IVPB ONCE ONE Stop: 08/18/24 14:54 Last Admin: 08/18/24 11:30 Dose: 25 mls/hr Levetiracetam (Levetiracetam 500 Mg Tablet) 500 mg PO Q12HR [facility] Miscellaneous Information (Order Clarification (Pharmacy Does Not Stock Airspura (Albuterol/Budesonide Hfa)) 1 each XX CLARIFY [facility] Stop: 09/17/24 00:00 Morphine Sulfate (Morphine Sulfate (*Crx) 2 Mg/Ml Inj) 2 mg IV PUSH Q4H PRN PRN Reason: Pain Rated 7-10 Nicotine (Nicotine (*Pbkc) 21 Mg Patch) 1 patch TRANSDERM DAILY [facility] Last Admin: 08/18/24 10:51 Dose: 1 patch Non-Formulary Medication (Albuterol-Budesonide) 2 inhalation INHALATION QID PRN PRN Reason: shortness of breath Ondansetron HCl (Ondansetron Inj 4 Mg/2 Ml Vial) 4 mg IV PUSH Q6H PRN PRN Reason: Nausea And Vomiting Venlafaxine HCl (Venlafaxine Hcl Xr 75 Mg Cap.Er.24h) 225 mg PO [facility] Verapamil HCl (Verapamil Hcl Er 120 Mg Tablet) 240 mg PO DAILY@0800 [facility] Last Admin: 08/18/24 10:59 Dose: 240 mg Transfer Discharge Sum: Hosp Hospital Course Hospital course: Admission Elisha Garcia is a 63 year old female Who presented to the emergency department with worsening shortness of breath, chest pressure and diarrhea. patient states she has been dealing with diarrhea since May but her shortness a breath started about 5 days prior on stay 2 to the emergency department. Patient states she woke up and was unable to even ambulate due to severity of her shortness a breath. patient reports she does have a past medical history of breast cancer with mastectomy, lung cancer with right middle lobe lobectomy, metastatic brain cancer, seizures, COPD, HTN, and heavy smoker. patient reports she is no longer receiving treatment for her metastatic brain cancer. patient reported she did also have nausea but no vomiting denied any radiation of pain unsure of chest pressure is from her shortness a breath denied any dizziness, visual changes, or diaphoresis. In the ED: in the emergency department patient was hypoxic with an oxygen saturation of 76% and was placed on 4 L supplemental oxygen with improvement, she also had initial elevated troponin of 0.096 with secondary troponin of 0.208, EKG with no ST/T changes from previous EKG 05/2024, patient also had hyponatremia at 1:30 a.m., hypokalemia with 3.3 magnesium of 1.2. per the ER physician he did offer patient for transfer to [facility] for Cardiology evaluation NSTEMI but patient at that time refused transfer and made herself a DNR/DNI. Patient had received full-dose Lovenox in the emergency department and a full-dose Plavix of 300. a CTA was performed which showed no pulmonary embolism patient was then admitted to the medical unit on continuous cardiac monitoring for medical management of non STEMI acute respiratory failure with hypoxia. Hospital Course: patient was admitted to the medical unit for acute respiratory failure with hypoxia and non STEMI. On assessment patient with noticeable dyspnea and tachypnea neck became winded just with normal conversation. Patient's 3rd tr oponin mildly trended down to 0.183 still with some chest pressure. Spoke with patient about possible transfer to [place] for cardiology evaluation and possible cardiac catheterization for ischemic workup. Patient at this time is requesting transfer to [place] for cardiology evaluation and has requested to be a full code. Since patient had received Lovenox full dose at 1:00 a.m. she will be initiated on heparin drip at 1300, transfused 4 g of magnesium for a 1.2 Mag, and potassium was replenished. patient is still on 4 L nasal cannula to maintain 92%. Patient reports she does have history of seizures and had not taken her Keppra the previous night gave loading dose of 500 mg IV and she can resume her 2nd oral tonight. also initiated patient on atorvastatin and currently will keep NPO for Cardiology evaluation. Spoke with Dr. GOLDEN at [facility] who was accepted patient for transfer as well as spoke with Dr. Cline interventionalists helicopter pilot instructor who will see patient once they arrive. patient was transferred via [facility]. patient seen prior to discharge in no acute distress still on 4 L nasal cannula still with some mild chest discomfort. Time Spent with Patient Time attestation: Total time spent providing and/or coordinating transfer services: Total time spent: Greater than 30 minutes Exam Const: General: no acute distress and uncomfortable Other: Pleasant female with noticeable respiratory discomfort HENMT: Face/Nose/Sinus: Normal nares present Mouth: Yes moist mucous membranes Eyes: General: appearance normal, both eyes and all related structures Sclera: sclerae normal Pupils: Equal, round and reactive pupils present Neck: Neck: supple and no JVD Resp: Auscultation: wheezes expiratory wheezes and diminished lung sounds bilateral Other: Right middle lobe absent, Tachypneic, and use of accessory muscle Cardio: Rate: tachycardic Rhythm: regular rhythm GI: Auscultation: normal bowel sounds Skin: General skin exam: normal color and no rashes or lesions noted Wounds: no wounds Neuro: Cranial nerves: Yes Equal, round and reactive pupils present Extrem: General: normal to inspection Psych: Mental Status: mental status grossly normal Affect: normal affect DS: Data Data Completed and Pending Labs on day of discharge: Labs from last 24 hours 08/18/24 08/17/24 08/17/24 03:38 22:53 20:33 WBC 4.9 RBC 4.01 L Hgb 12.4 Hct 37.3 MCV 93.0 MCH 30.9 MCHC 33.2 RDW 13.2 Plt Count 218 MPV 10.7 Immature Gran % (Auto) Neut % (Auto) Lymph % (Auto) Boyd % (Auto) Eos % (Auto) Baso % (Auto) Lymph # (Auto) Boyd # (Auto) Eos # (Auto) Baso # (Auto) Abs Immat Gran (auto) Absolute Neuts (auto) Absolute Nucleated RBC Nucleated RBC % PT 11.6 INR 1.1 APTT 38.8 H Sodium 131 L Potassium 4.0 Chloride 101 Carbon Dioxide 25 Anion Gap 5 BUN 5 L Creatinine 0.50 L Estim Creat Clear Calc 86 Estimated GFR > 60 Glucose 174 H Calculated Osmolality 273 L Calcium 8.3 L Magnesium Total Bilirubin 0.3 AST 24 ALT 12 Alkaline Phosphatase 97 Troponin I 0.183 H* 0.208 H* D NT-Pro-B Natriuret Pep Total Protein 6.8 Albumin 3.8 Triglycerides 60 Cholesterol 213 H LDL Cholesterol, Calc 141 H HDL Direct 60 Urine Color Urine Appearance Urine pH Ur Specific [place] Urine Protein Urine Glucose (UA) Urine Ketones Ur Blood (Man) Urine Nitrate Urine Bilirubin Urine Urobilinogen Leukocyte Esterase Rfl Urine RBC Urine Mucus Influenza A (RT-PCR) Negative Influenza B (RT-PCR) Negative RSV (RT-PCR) Negative SARS-CoV-2 RNA (RT-PCR) Negative 08/17/24 19:41 WBC 6.3 RBC 4.23 Hgb 13.2 Hct 39.7 MCV 93.9 MCH 31.2 H MCHC 33.2 RDW 13.1 Plt Count 165 MPV 10.3 Immature Gran % (Auto) 0.2 H Neut % (Auto) 89.8 H Lymph % (Auto) 6.7 L Boyd % (Auto) 2.5 Eos % (Auto) 0.3 L Baso % (Auto) 0.5 Lymph # (Auto) 0.42 L Boyd # (Auto) 0.16 Eos # (Auto) 0.02 Baso # (Auto) 0.03 Abs Immat Gran (auto) 0.01 H Absolute Neuts (auto) 5.65 Absolute Nucleated RBC 0.00 Nucleated RBC % 0.0 PT INR APTT Sodium 130 L Potassium 3.3 L Chloride 98 Carbon Dioxide 27 Anion Gap 5 BUN 4 L Creatinine 0.53 L Estim Creat Clear Calc 82 Estimated GFR > 60 Glucose 128 H Calculated Osmolality 268 L Calcium 8.8 Magnesium 1.2 L Total Bilirubin 0.6 AST 24 ALT 12 Alkaline Phosphatase 100 Troponin I 0.096 H* NT-Pro-B Natriuret Pep 104 H Total Protein 7.2 Albumin 4.2 Triglycerides Cholesterol LDL Cholesterol, Calc HDL Direct Urine Color Light yellow Urine Appearance Clear Urine pH 6.0 Ur Specific [place] 1.015 Urine Protein 1+ H Urine Glucose (UA) Negative Urine Ketones 1+ H Ur Blood (Man) 1+ H Urine Nitrate Negative Urine Bilirubin Negative Urine Urobilinogen 0.2 Leukocyte Esterase Rfl Negative Urine RBC 6-10 H Urine Mucus Moderate H Influenza A (RT-PCR) Influenza B (RT-PCR) RSV (RT-PCR) SARS-CoV-2 RNA (RT-PCR) Additional Comments Additional comments: -Patient's previous records reviewed on admission -ER notes reviewed in detail on admission -discussed all findings and current treatment plan with patient/Family/POA -Consultations reviewed for recommendations -Patient's disposition for safe discharge discussed with casework manager Dictation performed by [employer] direct speech recognition software, therefore respiratory technician variants and typographical errors may occur.
--- NOTE | 2024-08-18 13:24 | PC.NURSE ---
Report to [facility] [place], to go to room 232
--- NOTE | 2024-08-18 13:29 | PC.NURSE ---
Called [facility] for [facility] transfer to [facility] 232.
--- NOTE | 2024-08-18 13:50 | PC.NURSE ---
Transfer via [facility] to [facility] room 232. Alert and oriented x3, agreeable to transfer for cardiology consult.
--- NOTE | 2024-08-18 13:52 | PC.NURSE ---
Report to EMS, all belonging including home medications given to boyfriend.
== END 2024-08-18 13:50 | disposition short-term general hospital (02) ==
LOC: CHSED 19:39 → CHS2ND 08-18 07:53
PROVIDERS: Nurse Practitioner Family; Admitting Provider Internal Medicine; Emergency Provider Family Medicine; PCP Internal Medicine; Visit Provider Internal Medicine
DX: J96.01 Acute respiratory failure with hypoxia (principal); I21.4 Non-ST elevation (NSTEMI) myocardial infarction; E83.42 Hypomagnesemia; I10 Essential (primary) hypertension; E78.5 Hyperlipidemia, unspecified; R56.9 Unspecified convulsions; J44.9 Chronic obstructive pulmonary disease, unspecified; F17.210 Nicotine dependence, cigarettes, uncomplicated; R19.7 Diarrhea, unspecified; C79.31 Secondary malignant neoplasm of brain; Z85.118 Personal history of other malignant neoplasm of bronchus and lung; Z85.3 Personal history of malignant neoplasm of breast; Z20.822 Contact with and (suspected) exposure to COVID-19; Z66 Do not resuscitate; Z79.899 Other long term (current) drug therapy; Z90.10 Acquired absence of unspecified breast and nipple; Z90.2 Acquired absence of lung [part of]
CPT/HCPCS: 36415; 71045; 71275; 80053; 80061; 81001; 83735; 83880; 84484; 85025; 85027; 85610; 85730; 87040; 87637; 93005; 96365; 96366; 96367; 96372; 96375; 96376; 99285; A9270; G0378; J1644; J1650; J1953; J3475; J7030; Q9967

== ENCOUNTER 2024-08-18 14:33 | Inpatient (IN) | payer MEDICARE, MEDICAID, SELFPAY ==
[2024-08-18] VITALS (8 sets, daily range): BP systolic 111–129; BP diastolic 65–74; PULSE 89–103; RESP 18–22; TEMP 36.5–37.1; O2SAT 96–98; BMI 23.8
--- NOTE | 2024-08-18 14:51 | ADMGEN ---
This patient, Elisha Garcia, was admitted to IMU Room 232-01 at 1430. Patient/family oriented to hospital policies and general routines including ID bracelet, bed and alarms, visiting hours, pain management, procedures, bathroom and other care routines, personal items, smoking policy, room service/diet, and visiting hours. Information on how to activate the Rapid Response Team has been discussed. Patient/Family are encouraged to report perceived risks to care and to ask questions if they do not understand what they are told or what they should do.
--- NOTE | 2024-08-18 15:33 | P.HP_ITS ---
H&P: HPI History of Present Illness Date/Time: 08/18/24 15:33 Chief Complaint: Shortness of Breath Narrative: 63 y/o F with PMH of breast cancer, lung cancer with metastasis to the brain s/p lobectomy and craniotomy - has recently stopped treatment for the brain met as it was not responding, seizures, hypertension, GERD, COPD, and HLD presents here with shortness of breath, chest pressure, and diarrhea. The patient presented to [place] [facility] on 08/17 for further evaluation of shortness of breath, chest pressure, and diarrhea. She reports she has had ongoing diarrhea for the past few months, started in May. Has outpatient c.diff and stool study done within the last week which were negative. Shortness of breath began approximately 5 days prior to evaluation. However significantly worsened when she woke up on 08/17. She reports she was unable to ambulate due to the severity of her shortness of breath. Shortness of breath is accompanied by chest pressure - more so described as the left breast feeling tight, cough - productive, diaphoresis - intermittent/chronic, palpitations - chronic, fever - 106F? -> 104F -> 100.8F ( or Sunday night). She denies . She does have a past medical history significant for breast cancer s/p mastectomy, lung cancer s/p right middle lobe lobectomy, and brain cancer. She reports she is no longer receiving treatment for her metastatic brain cancer. Diarrhea is not accompanied by nausea or vomiting, does have chronic abdominal pain that has been unchanged. Initial VS at presentation on 08/17: 98.7? F, HR 128, R 20, 145/97, and 93% on 4L nasal cannula. ED workup showed: No leukocytosis, no anemia, sodium 130, potassium 3.3, creatinine 0.53 and GFR >60, magnesium 1.2, initial troponin 0.096, and BNP 104. UA showed 1+ protein, 1+ ketones, 1+ blood and 6-10 RBC with moderate mucus otherwise unremarkable. Viral PCR negative. C diff recently negative on 08/08. CXR showed no acute cardiopulmonary pathology. Chest CTA showed no evidence of PE, aortic dissection, or aortic aneurysm as well as focal scattered ground- glass opacities as above suggestive of subtle pneumonia/atypical infection. Initial EKG showed sinus tachycardia, rate 117, possible left atrial enlargement, borderline ST-T-wave abnormalities diffuse leads. Review of Systems Review of Systems: All systems reviewed & are unremarkable except as noted in HPI and below [facility] Past Medical History Medical History Neuropathy RLS (restless legs syndrome) Anxiety COPD (chronic obstructive pulmonary disease) Seizures Dyslipidemia Lung cancer metastatic to brain Obesity Hypertension Lung cancer Breast CA Adenomatous colon polyp GERD (gastroesophageal reflux disease) Epigastric pain Bloating Rectal bleeding Surgical History Surgical History History of lobectomy of lung S/P lumpectomy of breast Family History Family History Father Carcinoma of colon Mother Family history of renal cell carcinoma Anginal pain Breast cancer Sibling Breast cancer Sibling Breast cancer Social History Social History Smoking packs per day: 2 Smoking cigarettes per day: 40.0 Years smoked: 50 Smoking pack-years: 100.00 Smoking status: Current every day smoker Tobacco type: cigarettes Second hand tobacco smoke exposure: Yes Additional smoking assessment comments: 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 Substance use: current Substance use type: marijuana Other substance usage details: smokes 10 hits daily Last use: 08/15/24 Do You Feel Safe in your Home?: Yes Lack of Transportation: No Lack of Food: Never True Current Housing: I Have Housing Concerned About Future Housing: No Difficulty Paying Gas/Electric Bills: No Difficulty Paying for Meds: No Currently Unemployed: No Education: Grade School Difficulty w/ Childcare or Family Care: No Spiritual care concerns: No Meds Home Medications and Allergies Home Medications ?Medication ?Instructions ?Recorded ?Confirmed ?Type cyclobenzaprine 10 mg tablet 10 mg PO TID PRN Muscle Spasm 09/09/19 08/18/24 History gabapentin 600 mg tablet 600 mg PO TID 09/09/19 08/18/24 History ropinirole 0.5 mg tablet 0.5 - 1 mg PO HS 09/09/19 08/18/24 History venlafaxine 75 mg capsule,extended 225 mg PO HS 09/09/19 08/18/24 History release 24 hr levetiracetam 500 mg tablet 500 mg PO Q12H 10/24/19 08/18/24 History verapamil 240 mg tablet,extended 240 mg PO DAILY 09/23/20 08/18/24 History release ascorbate calcium (vitamin C) 500 500 mg PO DAILY 08/26/21 08/18/24 History mg tablet folic acid 800 mcg tablet 0.8 mg PO DAILY 08/26/21 08/18/24 History oxycodone myristate 9 mg capsule 9 mg PO BID 01/15/24 08/18/24 History sprinkle extended release 12 hr(DON'T CRUSH) (Xtampza ER) albuterol 90 mcg-budesonide 80 2 inh inhalation QID PRN shortness 06/15/24 08/18/24 Rx mcg/actuation HFA aerosol inhaler of breath #10.7 grams budesonide-formoterol HFA 160 2 puff inhalation Q12H #10.2 grams 06/15/24 08/18/24 Rx mcg-4.5 mcg/actuation aerosol inhaler (Symbicort) Allergies Allergy/AdvReac Type Severity Reaction Status Date / Time tramadol Allergy Unknown Dizziness Verified 08/17/24 20:33 Vital Signs Vital Signs - 24 hr 08/18/24 14:28 Temperature 98.2 F Pulse Rate 91 Respiratory Rate 22 H Blood Pressure 118/74 Pulse Oximetry 97 Exam Const: General: comfortable and no acute distress Other: , female, nontoxic appearance HENMT: Face/Nose/Sinus: Normal nares present Mouth: Yes moist mucous membranes Eyes: General: appearance normal, both eyes and all related structures Sclera: sclerae normal Pupils: Equal, round and reactive pupils present EOM: EOMs intact bilaterally Resp: Effort & Inspection: normal respiratory effort Other: Bibasilar crackles, left base worse than right Cardio: Rate: tachycardic (100-110) Rhythm: regular rhythm Other: S1-S2 present without murmur, rub, ectopy GI: Other: Abdomen soft, nondistended, nontender. Normoactive bowel sounds in all quadrants. Skin: General skin exam: normal color and no rashes or lesions noted Wounds: no wounds Neuro: Speech: normal speech Motor exam (neuro): 5/5 motor strength present throughout Sensory Exam: normal sensation Other: A&O x4 Extrem: General: normal to inspection Psych: Mental Status: mental status grossly normal Affect: normal affect Other: Good insight and judgment, pleasant Assessment and Plan Assessment and plan (1) Sepsis: Qualifiers: Sepsis type: sepsis due to unspecified organism Sepsis acute organ dysfunction status: with acute organ dysfunction Severe sepsis acute organ dysfunction type: acute respiratory failure Acute respiratory failure type: with hypoxia Severe sepsis shock status: without septic shock Qualified Code(s): A41.9 - Sepsis, unspecified organism; R65.20 - Severe sepsis without septic shock; J96.01 - Acute respiratory failure with hypoxia Code(s): A41.9 - Sepsis, unspecified organism Status: Acute Assessment and Plan: Met sirs criteria due to heart rate, respiratory rate. Lactic not checked during initial evaluation. Will add procalcitonin. Blood cultures obtained on 08/17, follow. Subtle pneumonia seen on CTA, started on CAP treatment. Continue to monitor hemodynamic stability. (2) NSTEMI (non-ST elevated myocardial infarction): Code(s): I21.4 - Non-ST elevation (NSTEMI) myocardial infarction Status: Acute Assessment and Plan: Troponin 0.096 -> 0.208 -> 0.183. Transferred here from [facility] for cardiac evaluation. Initially declined cardiac workup and made herself DNR, reversed decision this morning and major so full code and requested transfer. Patient started on heparin gtt. Chest pain further described as left breast tightness. Musculoskeletal verses demand ischemia secondary to hypoxia. Will defer further cardiac workup to Cardiology. Started on aspirin 81 mg daily. Nitro SL p.r.n.. (3) Acute respiratory failure with hypoxia: Code(s): J96.01 - Acute respiratory failure with hypoxia Status: Acute Assessment and Plan: Subtle pneumonia seen on CTA. No PE. No anemia noted. Continue supplemental oxygen to maintain O2 sat greater than 92%, wean as tolerated. (4) Pneumonia: Qualifiers: Pneumonia type: due to unspecified organism Laterality: bilateral Lung location: unspecified part of lung Qualified Code(s): J18.9 - Pneumonia, unspecified organism Code(s): J18.9 - Pneumonia, unspecified organism Status: Acute Assessment and Plan: Chest CTA showed focal scattered ground-glass opacities, suggestive of subtle pneumonia/atypical infection. Started on ceftriaxone and azithromycin. History of COPD, started on prednisone. Started on supportive care including Mucinex, Tessalon Perles, Tylenol p.r.n., and DuoNebs scheduled. Monitor white count and vital signs. (5) Hypomagnesemia: Code(s): E83.42 - Hypomagnesemia Status: Acute Assessment and Plan: Magnesium 1.2, initial repletion at [facility]. Repeat in a.m.. Monitor. (6) COPD (chronic obstructive pulmonary disease): Code(s): J44.9 - Chronic obstructive pulmonary disease, unspecified Status: Acute Assessment and Plan: No wheezing on exam. DuoNeb scheduled. Started on prednisone 40 mg daily. (7) Hypertension: Qualifiers: Hypertension type: primary hypertension Qualified Code(s): I10 - Essential (primary) hypertension Code(s): I10 - Essential (primary) hypertension Status: Chronic Assessment and Plan: Chronic, currently 129/70. Continued home medication: Verapamil. Monitor. Plan Glucose elevated, 174. Suspect this is secondary to steroid administration. Will check A1c. Diet: Heart healthy GI Prophylaxis: Not currently indicated DVT Prophylaxis: Heparin gtt IV fluids: None Lines/Tubes: Peripheral IV Code Status: Full code Quality VTE Prophylaxis VTE prophylaxis: pharmacologic ordered Hospitalist [facility] Advance Care Plan I have confirmed that the patient's Advanced Care Plan is present, code status is documented, or surrogate decision maker is listed in patient medical record.: Yes Medication Reconciliation I have utilized all available resources to obtain, update and review the patients current medications (includes all prescriptions, OTC, herbals, cannabis, and nutritional supplements).: Yes
[2024-08-18] MEDS: HEPARIN SOD/D5W 100 UNITS/ML 25,000 UNITS/250 ML BAG 8 UNITS IV CONT (16:00)
--- NOTE | 2024-08-18 16:30 | ECG_ITS ---
Test Date: 2024-08-18 16:42:08 Measurements Intervals [place] Rate: 85 P: 43 KS: 167 QRS: 75 QRSD: 81 T: 72 QT: 380 QTc: 454 Interpretive Statements SINUS RHYTHM BORDERLINE T WAVE ABNORMALITY- ANTERIOR LEADS BASELINE ARTIFACT- V4-V6 BORDERLINE ECG Compared to ECG 08/17/2024 19:12:22 HEART RATE HAS DECREASED Electronically Signed On 08-18-2024 17:05:07 CDT by Everett Dong D.O.
[2024-08-18] MEDS: GABAPENTIN 300 MG CAPSULE 600 MG PO (17:54)
[2024-08-18] MEDS: HEPARIN SODIUM 5,000 UNITS/ML VIAL 4000 UNITS IV PUSH (18:38)
[2024-08-18 20:06] LABS: MRSA (PCR) NOT DETECTED (NOT DETECTE)
[2024-08-18] MEDS: VENLAFAXINE HCL XR 75 MG CAP.ER.24H 225 MG PO (20:38)
[2024-08-18] MEDS: BENZONATATE 100 MG CAPSULE PO (20:38)
[2024-08-18] MEDS: rOPINIRole HCL 0.5 MG TABLET PO (20:38)
[2024-08-18] MEDS: levETIRAcetam 500 MG TABLET PO (20:39)
[2024-08-18] MEDS: guaiFENesin 12 HR 600 MG TABCR PO (20:39)
[2024-08-18] MEDS: FLUTICASONE/SALMETEROL 115-21 MCG INHALER 1 PUFF 2 PUFF INHALATION (21:19)
[2024-08-19] VITALS (16 sets, daily range): BP systolic 105–127; BP diastolic 63–78; PULSE 76–112; RESP 16–20; TEMP 36.4–36.9; O2SAT 92–100; BMI 23.8
--- NOTE | 2024-08-19 | ECHO_ITS ---
Patient Info Name: Elsiha Garcia Age: 63 years : 1960 Gender: Female Ht: 65 in Wt: 142 lbs BSA: 1.73 m2 HR: 96 bpm BP: 120 / 72 mmHg Technical Quality: Fair Exam Date: 08/19/2024 2:42 PM Patient Status: I Admit Date: 08/18/2024 Exam Type: CA echo dop color flow w con Complete two-dimensional, color flow and Doppler transthoracic echocardiogram is performed with contrast to opacify the left ventricle and to improve the deliniation of the left ventricle endocardial borders. Focus Puller: Elsi Garza Attending Provider: Trell Miranda Contrast/Agitated Saline Contrast/Ag. Saline: Definity Amount: 2.00 ml Administered By: Elsi Garza Existing IV Access: Yes IV Access Condition: patent with no signs of infiltration Summary 1. Left ventricular chamber dimension is normal. 2. Left ventricular systolic function is normal, estimated at 60-65. 3. The left ventricular diastolic function is grade I diastolic dysfunction. 4. Definity contrast administered improved wall motion interpretation. 5. E/e' 10 is mildly elevated. 6. There is mild aortic valve sclerosis. Left Ventricle E/e' 10 is mildly elevated. Left ventricular chamber dimension is normal. Left ventricular systolic function is normal, estimated at 60-65. The left ventricular diastolic function is grade I diastolic dysfunction. Definity contrast administered improved wall motion interpretation. Right Ventricle Right ventricular chamber dimension is normal. Right ventricular systolic function is normal. Left Atria Left atrial chamber dimension is normal. Right Atria Right atrial chamber dimension is normal. Aortic Valve The aortic valve is trileaflet. There is mild aortic valve sclerosis. There is no aortic valve stenosis. There is no aortic valve regurgitation. Pulmonic Valve There is no pulmonic regurgitation. Mitral Valve There is no mitral valve stenosis. There is no mitral valve regurgitation. Tricuspid Valve There is no tricuspid valve regurgitation. Pericardium/Pleural There is no pericardial effusion. Inferior Vena Cava Normal inferior vena cava with >50% collapse upon inspiration consistent with normal right atrial pressure, 5 mmHg. Aorta The aortic root size at the sinus of Valsalva is normal. Left Ventricular Outflow Tract Name Value Normal LVOT 2D LVOT Diameter 2.0 cm LVOT Doppler LVOT Peak Velocity 102 cm/s LVOT Peak Gradient 4 mmHg LVOT Mean Gradient 2 mmHg LVOT VTI 18 cm LVOT Stroke Volume 54 ml LVOT CO 5.2 l/min LVOT CI 3.0 l/min/m2 Pulmonic Valve Name Value Normal RVOT Doppler RVOT Peak Velocity 96 cm/s RVOT Peak Gradient 4 mmHg PV Doppler PV Peak Velocity 112 cm/s PV Peak Gradient 5 mmHg Mitral Valve Name Value Normal MV Diastolic Function MV E Peak Velocity 68 cm/s MV A Peak Velocity 93 cm/s MV E/A 0.7 MV Decel Time (PW) 242 ms MV Annular TDI MV E/e' (Septal) 13.9 MV E/e' (Lateral) 7.9 MV E/e' (Average) 10.9 Tricuspid Valve Name Value Normal Estimated PAP/RSVP RA Pressure 5 mmHg <=5 TV Annular TDI TV Lateral Marcia s' Velocity 10.9 cm/s >=9.5 Aortic Valve Name Value Normal AV Doppler AV Peak Velocity 104 cm/s AV Peak Gradient 4 mmHg AV Area (Cont Eq Gianluca) 3.0 cm2 AV DI (Gianluca) 0.99 AV Regurgitation 2D LVOT Area 3.1 cm2 Ventricles Name Value Normal LV Dimensions 2D/MM IVS Diastolic Thickness (2D) 1.0 cm 0.6-1.0 LVID Diastole (2D) 3.7 cm 3.8-5.2 LVIW Diastolic Thickness (2D) 1.1 cm 0.6-0.9 LVID Systole (2D) 2.7 cm 2.2-3.5 LVOT Diameter 2.0 cm LV Mass (2D Cubed) 120.36 g 67.00-162.00 LV Mass Index (2D Cubed) 70 g/m2 43-95 Relative Wall Thickness (2D) 0.58 <=0.42 LV Fractional Shortening/Ejection Fraction 2D/MM LV Fractional Shortening (2D) 25 % 27-45 LV EF (2D Teichholz) 51 % LV Diastolic Volume (4C MOD) 91 ml LV EF (4C MOD) 48 % LV Diastolic Volume (2C MOD) 56 ml LV EF (2C MOD) 63 % LV Diastolic Volume (BP MOD) 73 ml 46-106 LV Diastolic Volume Index (BP MOD) 42 ml/m2 29-61 LV Systolic Volume (BP MOD) 35 ml 14-42 LV Systolic Volume Index (BP MOD) 20 ml/m2 8-24 LV EF (BP MOD) 52 % 54-74 LV Diastolic Length (4C) 7.5 cm LV Systolic Length (4C) 6.6 cm LV Stroke Volume (4C MOD) 44 ml Atria Name Value Normal LA Dimensions LA Volume (4C A-L) 12 ml LA Volume (BP A-L) 18 ml RA Dimensions RA Systolic Major [place] Length (4C) 3.5 cm 2.2-2.8 RA Area (4C) 8.3 cm2 <=18.0 Report Signatures
[2024-08-19] MEDS: ACETAMINOPHEN 325 MG TABLET 650 MG PO (00:03)
[2024-08-19] MEDS: AZITHROMYCIN 500 MG/NS 250 ML 500 MG/250 ML BAG 250 MG IVPB (00:39)
[2024-08-19] MEDS: ONDANSETRON INJ 4 MG/2 ML VIAL IV PUSH (01:00)
[2024-08-19 01:36] LABS: Partial Thromboplastin Time 180.4 Seconds (22.3-36.8)
[2024-08-19] MEDS: CENTRAL LINE FLUSH 10 ML IV PUSH (05:47)
[2024-08-19 06:01] LABS: Basophils Percent Auto 0.4 % (0.2-1.2); Eosinophils Percent Auto 0.1 % (0-4.4); Hematocrit 35.2 % (37.0-47.0); Hemoglobin 12.1 g/dL (12.0-15.0); Immature Granulocyte Absolute 0.04 K/mm3 (0.00-0.031); Immature Granulocyte Percent A 0.5 % (0-0.5); Lymphocytes Absolute Auto 1.48 K/mm3 (0.9-3.2); Lymphocytes Percent Auto 18.5 % (18.3-44.2); Mean Corpuscular HGB Conc 34.4 g/dl (32-36); Mean Corpuscular Hemoglobin 31.4 pg (26-34); Mean Corpuscular Volume 91.4 fl (80-100); Mean Platelet Volume 9.3 fl (7.4-10.4); Monocytes Absolute Auto 0.5 K/mm3 (0.1-0.6); Monocytes Percent Auto 6.6 % (2.6-8.5); Neutrophils Absolute Auto 5.9 K/mm3 (1.3-6.7); Neutrophils Percent Auto 73.9 % (45.5-73.1); Platelet Count Result 199 k/mm3 (150-375); Red Blood Count 3.85 M/mm3 (4.2-5.4); Red Cell Distribution Width 13.1 % (11.5-14.5)
[2024-08-19 07:00] LABS: Alanine Aminotransferase 12 U/L (6-35); Albumin Level 3.8 g/dL (3.5-5.1); Alkaline Phosphatase 84 U/L (38-126); Anion Gap 7 mmol/L (4-12); Aspartate Amino Transferase 25 U/L (14-36); Bilirubin,Total 0.3 mg/dL (0.2-1.3); Blood Urea Nitrogen 11 mg/dL (7-17); Calcium 8.4 mg/dL (8.4-10.2); Carbon Dioxide 28 mmol/L (22-30); Chloride 95 mmol/L (98-107); Estimated CRCL calculation 79 ml/min; Estimated Glomerular Filt Rate > 60; Glucose 114 mg/dL (65-110); Magnesium 1.8 mg/dL (1.6-2.3); Potassium 3.5 mmol/L (3.4-5.0); Sodium 130 mmol/L (137-145); Total Protein 6.7 g/dL (6.3-8.2)
[2024-08-19] MEDS: FLUTICASONE/SALMETEROL 115-21 MCG INHALER 1 PUFF 2 PUFF INHALATION (08:02)
[2024-08-19] MEDS: GABAPENTIN 300 MG CAPSULE 600 MG PO ×3 (08:44→17:12)
[2024-08-19] MEDS: VERAPAMIL HCL ER 240 MG TABLET.ER PO (08:44)
[2024-08-19] MEDS: levETIRAcetam 500 MG TABLET PO (08:44)
[2024-08-19] MEDS: ASPIRIN 81 MG ENTERIC TABLET PO (08:44)
[2024-08-19] MEDS: FOLIC ACID 0.4 MG TABLET 0.8 MG PO (08:45)
[2024-08-19] MEDS: predniSONE 20 MG TABLET 40 MG PO (08:45)
[2024-08-19] MEDS: guaiFENesin 12 HR 600 MG TABCR PO (08:46)
[2024-08-19] MEDS: ASCORBIC ACID 500 MG TABLET PO (08:46)
[2024-08-19 10:02] LABS: Partial Thromboplastin Time 85.9 Seconds (22.3-36.8)
--- NOTE | 2024-08-19 10:49 | PHAR ---
Home med verified: Xtampza ER 9mg take 1 capsule PO Q12hr
[2024-08-19] MEDS: LOPERAMIDE HCL 2 MG CAPSULE PO (11:12)
[2024-08-19] MEDS: FAMOTIDINE 20 MG/2 ML VIAL IV PUSH (11:12)
[2024-08-19 11:51] LABS: Procalcitonin 0.1 ng/mL
[2024-08-19] MEDS: OXYCODONE MYRISTATE 9 MG 9 EACH PO (12:32)
--- NOTE | 2024-08-19 13:18 | PM.IMPN ---
Progress Note: A&P Assessment and Plan (1) Sepsis: Qualifiers: Sepsis type: sepsis due to unspecified organism Sepsis acute organ dysfunction status: with acute organ dysfunction Severe sepsis acute organ dysfunction type: acute respiratory failure Acute respiratory failure type: with hypoxia Severe sepsis shock status: without septic shock Qualified Code(s): A41.9 - Sepsis, unspecified organism; R65.20 - Severe sepsis without septic shock; J96.01 - Acute respiratory failure with hypoxia Code(s): A41.9 - Sepsis, unspecified organism Status: Acute Assessment and Plan: Met sirs criteria due to heart rate, respiratory rate. procalcitonin negative. Blood cultures obtained on 08/17, follow. S ubtle pneumonia seen on CTA, started on CAP treatment. continue Rocephin and azithromycin (2) NSTEMI (non-ST elevated myocardial infarction): Code(s): I21.4 - Non-ST elevation (NSTEMI) myocardial infarction Status: Acute Assessment and Plan: Troponin 0.096 -> 0.208 -> 0.183. trending down likley demand ischemia not true CAD as patient denies chest pain Will defer further cardiac workup to Cardiology. on aspirin 81 mg daily. Nitro SL p.r.n.. (3) Acute respiratory failure with hypoxia: Code(s): J96.01 - Acute respiratory failure with hypoxia Status: Acute Assessment and Plan: Subtle pneumonia seen on CTA. No PE. No anemia noted. Continue supplemental oxygen to maintain O2 sat greater than 92%, wean as tolerated. (4) Pneumonia: Qualifiers: Pneumonia type: due to unspecified organism Laterality: bilateral Lung location: unspecified part of lung Qualified Code(s): J18.9 - Pneumonia, unspecified organism Code(s): J18.9 - Pneumonia, unspecified organism Status: Acute Assessment and Plan: Chest CTA showed focal scattered ground-glass opacities, suggestive of subtle pneumonia/atypical infection. Started on ceftriaxone and azithromycin. History of COPD, started on prednisone. Started on supportive care including Mucinex, Tessalon Perles, Tylenol p.r.n., and DuoNebs scheduled. Monitor white count and vital signs. (5) Hypomagnesemia: Code(s): E83.42 - Hypomagnesemia Status: Acute Assessment and Plan: replet as needed (6) COPD (chronic obstructive pulmonary disease): Code(s): J44.9 - Chronic obstructive pulmonary disease, unspecified Status: Acute Assessment and Plan: No wheezing on exam. DuoNeb scheduled. on prednisone 40 mg daily. (7) Hypertension: Qualifiers: Hypertension type: primary hypertension Qualified Code(s): I10 - Essential (primary) hypertension Code(s): I10 - Essential (primary) hypertension Status: Chronic Assessment and Plan: Chronic, currently 129/70. Continued home medication: Verapamil. Monitor. Plan Glucose elevated, 174. Suspect this is secondary to steroid administration. Will check A1c. Diet: Heart healthy GI Prophylaxis: Not currently indicated DVT Prophylaxis: Heparin SQ IV fluids: None Lines/Tubes: Peripheral IV Code Status: Full code Subjective Date/time seen: 08/19/24 13:18 Interval history: per HPI: 63 y/o F with PMH of breast cancer, lung cancer with metastasis to the brain s/p lobectomy and craniotomy - has recently stopped treatment for the brain met as it was not responding, seizures, hypertension, GERD, COPD, and HLD presents here with shortness of breath, chest pressure, and diarrhea. The patient presented to [facility] on 08/17 for further evaluation of shortness of breath, chest pressure, and diarrhea. She reports she has had ongoing diarrhea for the past few months, started in May. Has outpatient c.diff and stool study done within the last week which were negative. Shortness of breath began approximately 5 days prior to evaluation. However significantly worsened when she woke up on 08/17. She reports she was unable to ambulate due to the severity of her shortness of breath. Shortness of breath is accompanied by chest pressure - more so described as the left breast feeling tight, cough - productive, diaphoresis - intermittent/chronic, palpitations - chronic, fever - 106F? -> 104F -> 100.8F ( or Sunday night). She denies . She does have a past medical history significant for breast cancer s/p mastectomy, lung cancer s/p right middle lobe lobectomy, and brain cancer. She reports she is no longer receiving treatment for her metastatic brain cancer. Diarrhea is not accompanied by nausea or vomiting, does have chronic abdominal pain that has been unchanged. Initial VS at presentation on 08/17: 98.7? F, HR 128, R 20, 145/97, and 93% on 4L nasal cannula. ED workup showed: No leukocytosis, no anemia, sodium 130, potassium 3.3, creatinine 0.53 and GFR >60, magnesium 1.2, initial troponin 0.096, and BNP 104. UA showed 1+ protein, 1+ ketones, 1+ blood and 6-10 RBC with moderate mucus otherwise unremarkable. Viral PCR negative. C diff recently negative on 08/08. CXR showed no acute cardiopulmonary pathology. Chest CTA showed no evidence of PE, aortic dissection, or aortic aneurysm as well as focal scattered ground-glass opacities as above suggestive of subtle pneumonia/atypical infection. Initial EKG showed sinus tachycardia, rate 117, possible left atrial enlargement, borderline ST-T-wave abnormalities diffuse leads. 08/19/24 Patient was seen and examined at bedside. she is feeling better but her breathing is not back to baseline. denies any chest pain, abd pain, N/V. on 4 lit NC , plan to wean her off of O2. continue treatment for possible pneumonia. Review of Systems Review of Systems: All systems reviewed & are unremarkable except as noted in HPI and below Exam Narrative: crack L great than R, bibas Const: General: comfortable and no acute distress Other: , female, nontoxic appearance HENMT: Face/Nose/Sinus: Normal nares present Mouth: Yes moist mucous membranes Eyes: General: appearance normal, both eyes and all related structures Sclera: sclerae normal Pupils: Equal, round and reactive pupils present EOM: EOMs intact bilaterally Resp: Effort & Inspection: normal respiratory effort Other: Bibasilar crackles, left base worse than right Cardio: Rate: tachycardic (100-110) Rhythm: regular rhythm Other: S1-S2 present without murmur, rub, ectopy GI: Other: Abdomen soft, nondistended, nontender. Normoactive bowel sounds in all quadrants. Skin: General skin exam: normal color and no rashes or lesions noted Wounds: no wounds Neuro: Cranial nerves: Yes Equal, round and reactive pupils present Speech: normal speech Motor exam (neuro): 5/5 motor strength present throughout Sensory Exam: normal sensation Other: A&O x4 Extrem: General: normal to inspection Psych: Mental Status: mental status grossly normal Affect: normal affect Other: Good insight and judgment, pleasant Objective Data Vital Signs Vital Signs: Vital Signs - 24 hr 08/18/24 14:28 08/18/24 16:00 08/18/24 16:00 Temperature 98.2 F 97.9 F Pulse Rate 91 89 98 Respiratory Rate 22 H 20 Blood Pressure 118/74 111/65 Pulse Oximetry 97 96 Oxygen Delivery Oxygen Flow Rate 08/18/24 16:00 08/18/24 18:00 08/18/24 20:00 Temperature Pulse Rate 93 94 Respiratory Rate Blood Pressure Pulse Oximetry 97 Oxygen Delivery Nasal Cannula Oxygen Flow Rate 4 08/18/24 20:17 08/18/24 20:35 08/18/24 22:00 Temperature 97.7 F Pulse Rate 94 94 103 H Respiratory Rate 18 18 Blood Pressure 129/70 Pulse Oximetry 98 98 Oxygen Delivery Nasal Cannula Oxygen Flow Rate 4 08/18/24 23:40 08/19/24 00:00 08/19/24 00:05 Temperature 98.7 F Pulse Rate 96 104 H 96 Respiratory Rate 18 18 Blood Pressure 117/67 Pulse Oximetry 98 98 Oxygen Delivery Nasal Cannula Oxygen Flow Rate 4 08/19/24 02:00 08/19/24 03:04 08/19/24 03:42 Temperature 97.6 F Pulse Rate 103 H 97 97 Respiratory Rate 18 18 Blood Pressure 123/72 Pulse Oximetry 100 100 Oxygen Delivery Nasal Cannula Oxygen Flow Rate 4 08/19/24 04:00 08/19/24 06:00 08/19/24 07:29 Temperature 98.1 F Pulse Rate 94 92 94 Respiratory Rate 16 Blood Pressure 127/78 Pulse Oximetry 99 Oxygen Delivery Oxygen Flow Rate 08/19/24 08:00 08/19/24 08:00 08/19/24 08:04 Temperature Pulse Rate 104 H 76 Respiratory Rate 20 Blood Pressure Pulse Oximetry 99 96 Oxygen Delivery Nasal Cannula Nasal Cannula Oxygen Flow Rate 4 4 08/19/24 08:05 08/19/24 10:00 08/19/24 11:34 Temperature 98.3 F Pulse Rate 86 101 H 86 Respiratory Rate 20 20 Blood Pressure 105/63 Pulse Oximetry 92 Oxygen Delivery Oxygen Flow Rate 08/19/24 11:41 08/19/24 12:00 Temperature Pulse Rate Respiratory Rate Blood Pressure Pulse Oximetry 93 Oxygen Delivery Nasal Cannula Nasal Cannula Oxygen Flow Rate 1 2 Intake/Output Intake/Output: Intake & Output 06/21/25 06/22/25 06/23/25 06/24/25 23:59 23:59 23:59 23:59 Intake Total 260.5 1687.6 Output Total 250 1 Balance 10.5 1686.6 Meds/Results Medications: Active Medications Generic Name Dose Route Start Last Admin Trade Name Irma PRN Reason Stop Dose Admin Acetaminophen 650 mg 08/18/24 15:06 08/19/24 00:03 Acetaminophen 325 Mg Tablet PO 650 mg Q6H PRN Administration Mild Pain (1-3) or Fever Albuterol/Ipratropium 3 ml 08/18/24 16:39 Ipratropium 0.5 Mg/Albuterol Sulfate 2.5 Mg Ampul.Neb 3 Ml INHALATION Q6HRT PRN Shortness Of Breath Or Wheezing Ascorbic Acid 500 mg 08/19/24 09:00 08/19/24 08:46 Ascorbic Acid 500 Mg Tablet PO 500 mg DAILY BERTHA Administration Aspirin 81 mg 08/19/24 09:00 08/19/24 08:44 Aspirin 81 Mg Enteric Tablet PO 81 mg QAM BERTHA Administration Benzonatate 100 mg 08/18/24 16:40 08/18/24 20:38 Benzonatate 100 Mg Capsule PO 100 mg TID PRN Administration Cough Cyclobenzaprine HCl 10 mg 08/18/24 16:38 Cyclobenzaprine Hcl 10 Mg Tablet PO TID PRN Muscle Spasm Dextrose 12.5 gm 08/18/24 15:06 Dextrose 50% 25 Gm/50 Ml Syringe IV PUSH PRN PRN Hypoglycemia Protocol Folic Acid 0.8 mg 08/19/24 09:00 08/19/24 08:45 Folic Acid 0.4 Mg Tablet PO 0.8 mg DAILY BERTHA Administration Gabapentin 600 mg 08/18/24 17:00 08/19/24 12:32 Gabapentin 300 Mg Capsule PO 600 mg TID BERTHA Administration Glucagon 1 mg 08/18/24 15:06 Glucagon For Inj 1 Mg Vial IM PRN PRN Hypoglycemia Protocol Glucose 15 gm 08/18/24 15:06 Glucose Oral Gel 15 Gm Of Glucse In 37.5 Gm Tube PO PRN PRN Hypoglycemia Protocol Guaifenesin 600 mg 08/18/24 21:00 08/19/24 08:46 Guaifenesin 12 Hr 600 Mg Tabcr PO 600 mg Q12HR BERTHA Administration Heparin Sodium (Beef Lung) 50 units 08/19/24 09:00 08/19/24 08:44 Heparin Flush 50 Units/5 Ml Syringe IV PUSH 50 units QAM BERTHA Administration Heparin Sodium (Beef Lung) 50 units 08/19/24 05:04 Heparin Flush 50 Units/5 Ml Syringe IV PUSH PRN PRN after intermittent infusion Heparin Sodium (Beef Lung) 50 units 08/19/24 05:04 Heparin Flush 50 Units/5 Ml Syringe IV PUSH PRN PRN after blood draws Heparin Sodium (Porcine) 500 units 08/19/24 05:04 Heparin Sodium Lock Flush 500 Units/5 Ml Syringe IV PUSH PRN PRN see comments below Dextrose 1,000 mls @ 100 mls/hr 08/18/24 15:06 Dextrose 5% 1,000 Ml IVPB PRN PRN Hypoglycemia Protocol Azithromycin 500 mg in 250 mls @ 250 mls/hr 08/18/24 23:00 08/19/24 01:35 Zithromax IVPB Infused Q24H BERTHA Infusion Ceftriaxone Sodium 1 gm in 50 mls @ 100 mls/hr 08/18/24 23:00 08/19/24 00:35 Rocephin 1 Gm/Ns 50 Ml IVPB Infused Q24H BERTHA Infusion Levetiracetam 500 mg 08/18/24 21:00 08/19/24 08:44 Levetiracetam 500 Mg Tablet PO 500 mg Q12HR BERTHA Administration Loperamide HCl 2 mg 08/19/24 10:19 08/19/24 11:12 Loperamide Hcl 2 Mg Capsule PO 2 mg Q4HR PRN Administration Diarrhea Nitroglycerin 0.4 mg 08/18/24 15:06 Nitroglycerin Sl 0.4 Mg Tablet SUBLINGUAL Q5MIN PRN Chest Pain Oxycodone Myristate 9 mg 08/19/24 11:00 08/19/24 12:32 [Xtampza Er] 9 Mg PO 09/18/24 10:59 9 mg Cap Er 12hr Take 1 Q12HR BERTHA Administration Capsule Po Twice Daily Ondansetron HCl 4 mg 08/19/24 00:53 08/19/24 01:00 Ondansetron Inj 4 Mg/2 Ml Vial IV PUSH 4 mg Q4H PRN Administration Nausea And Vomiting Prednisone 40 mg 08/19/24 08:00 08/19/24 08:45 Prednisone 20 Mg Tablet PO 40 mg DAILY@0800 BERTHA Administration Ropinirole HCl 0.5 mg 08/18/24 21:00 08/18/24 20:38 Ropinirole Hcl 0.5 Mg Tablet PO 0.5 mg HS BERTHA Administration Ropinirole HCl 0.5 mg 08/18/24 17:09 Ropinirole Hcl 0.5 Mg Tablet PO 2200 PRN IN NO RELIEF FROM 1ST DOSE Fluticasone/Salmeterol 2 puff 08/18/24 20:00 08/19/24 08:02 Fluticasone/Salmeterol 115-21 Mcg Inhaler 1 Puff INHALATION 2 puff Q12HRT BERTHA Administration Sodium Chloride 10 ml 08/19/24 06:00 08/19/24 05:47 Central Line Flush IV PUSH 10 ml Q8HR BERTHA Administration Venlafaxine HCl 225 mg 08/18/24 21:00 08/18/24 20:38 Venlafaxine Hcl Xr 75 Mg Cap.Er.24h PO 225 mg HS BERTHA Administration Verapamil HCl 240 mg 08/19/24 09:00 08/19/24 08:44 Verapamil Hcl Er 240 Mg Tablet.Er PO 240 mg DAILY BERTHA Administration Labs Labs: Laboratory Results - last 24 hr 08/18/24 08/18/24 08/19/24 18:00 18:45 00:37 WBC RBC Hgb Hct MCV MCH MCHC RDW Plt Count MPV Immature Gran % (Auto) Neut % (Auto) Lymph % (Auto) Callahan % (Auto) Eos % (Auto) Baso % (Auto) Lymph # (Auto) Callahan # (Auto) Eos # (Auto) Baso # (Auto) Abs Immat Gran (auto) Absolute Neuts (auto) Absolute Nucleated RBC Nucleated RBC % APTT 44.0 H 180.4 H* Sodium Potassium Chloride Carbon Dioxide Anion Gap BUN Creatinine Estim Creat Clear Calc Estimated GFR Glucose Hemoglobin A1c Calcium Magnesium Total Bilirubin AST ALT Alkaline Phosphatase Total Protein Albumin Procalcitonin Nasal MRSA (PCR) Not detected 08/19/24 08/19/24 05:52 08:49 WBC 8.0 RBC 3.85 L Hgb 12.1 Hct 35.2 L MCV 91.4 MCH 31.4 MCHC 34.4 RDW 13.1 Plt Count 199 MPV 9.3 Immature Gran % (Auto) 0.5 Neut % (Auto) 73.9 H Lymph % (Auto) 18.5 Callahan % (Auto) 6.6 Eos % (Auto) 0.1 Baso % (Auto) 0.4 Lymph # (Auto) 1.48 Callahan # (Auto) 0.5 Eos # (Auto) 0.0 Baso # (Auto) 0.0 Abs Immat Gran (auto) 0.04 H Absolute Neuts (auto) 5.9 Absolute Nucleated RBC 0.000 Nucleated RBC % 0.0 APTT 85.9 H Sodium 130 L Potassium 3.5 Chloride 95 L Carbon Dioxide 28 Anion Gap 7 BUN 11 D Creatinine 0.55 L Estim Creat Clear Calc 79 Estimated GFR > 60 Glucose 114 H Hemoglobin A1c 6.0 H Calcium 8.4 Magnesium 1.8 Total Bilirubin 0.3 AST 25 ALT 12 Alkaline Phosphatase 84 Total Protein 6.7 Albumin 3.8 Procalcitonin 0.1 Nasal MRSA (PCR) Quality VTE Prophylaxis VTE prophylaxis: pharmacologic ordered
[2024-08-19] MEDS: PERFLUTREN LIPID MICROSPHERES 1.5 ML VIAL DILUTED TO 10 ML TOTAL VOLUME IV PUSH (14:45)
--- NOTE | 2024-08-19 15:52 | IVDEFINITY ---
Prior to administration of IV Definity the patient was educated on the risks and benefits of the imaging enhancing agent including potential adverse side effects. The patient verbalized understanding. Allergies were verified. No exclusion criteria were identified and at least one of the following inclusion criteria were met: 1) physician request, 2) patient technically difficult to image (per the [place] [employer] guidelines of two or more segments not discernable within the apical view), or 3) questionable left ventricular function. ?
--- NOTE | 2024-08-19 16:20 | P.CONCA_ITS ---
Assessment and Plan Assessment and plan (1) Elevated troponin: Code(s): R79.89 - Other specified abnormal findings of blood chemistry Status: Acute Assessment and Plan: Peaked at 0.208. Probably due to pneumonia. Doubt ACS. EKG shows no ST changes. Check echo. If no wall motion abnormalities, then no further cardiac workup is needed. (2) Tobacco abuse: Code(s): Z72.0 - Tobacco use Status: Acute Assessment and Plan: Counseled regarding smoking cessation. (3) Hypertension: Qualifiers: Hypertension type: primary hypertension Qualified Code(s): I10 - Essential (primary) hypertension Code(s): I10 - Essential (primary) hypertension Status: Chronic Assessment and Plan: Stable. (4) Pneumonia: Qualifiers: Pneumonia type: due to unspecified organism Laterality: bilateral Lung location: unspecified part of lung Qualified Code(s): J18.9 - Pneumonia, unspecified organism Code(s): J18.9 - Pneumonia, unspecified organism Status: Acute Assessment and Plan: On antibiotics. History of Present Illness History of Present Illness Consult date/time: 08/19/24 16:20 Reason For Visit: nstemi Narrative: 63 yr old woman who was my regular cardiology patient but have not seen in over 3 years presents to hospital with sob. She has a history of smoking, COPD, hypertension, dyslipidemia, lung cancer s/p resection, left breast cancer s/p mastectomy, brain mass resection in Dec 2019. States she had some mid chest discomfort and sob and abdominal pain. She was found to have pneumonia. She quit smoking last week. She is limited with SWEET at about 1-2 blocks. She quit alcohol 6 pack of beer a night on 10/06/19. Denies orthopnea, PND, edema, dizziness. CARDIOVASCULAR PROCEDURES ECHO/MUGA: 10/27/19 Echo: EF 60-65%, grade I diastolic dysfunction (E/e' 15), mild RVH. Echo (EF 55-60%, Grade II diastolic dysfunction (E/E' 10), trace TR.) - 10/12/2015 ELECTROPHYSIOLOGY: 04/11/16 Holter: Sinus rhythm, HR range 73-125 bpm; average 91 bpm, 701 PAC, 6 couplets, 1 SVT at 182 bpm lasting 4 beats, 1 PVC. 10/07/19 EKG: Sinus tachycardia at 106 bpm, nonspecific ST-T in anterolat/inf leads. EKG (Sinus rhythm, borderline T wave abnormality- ant/lat leads.) - 09/24/2015 STRESS TESTS: 10/27/19 Lexiscan myoview: Negative. MPI (Lexiscan myoview: Negative for ischemia.) - 11/03/2015 VASCULAR: 08/23/21 MRI brain: 8x6x7 mm mass in right parietooccipital lobe region suspicious for recurrent metastatic disease. 10/07/19 CT brain: right frontal lobe lesion measuring 2.5 cm. Arterial Duplex LE (Normal JULIO with arterial duplex of bilateral lower extremities.) - 12/07/2015 OTHERS: PFTs (Mild COPD.) - 12/15/2015 Review of Systems 2 Review of Systems: All systems reviewed & are unremarkable except as noted in HPI and below Constitutional: Constitutional: Reports as per HPI, Denies chills, Reports fatigue and Denies fever(s) Cardiovascular: Cardiovascular: Reports as per HPI, Reports chest pain and Denies irregular heart rhythm Respiratory: Respiratory: Reports as per HPI, Reports dyspnea and Reports dyspnea on exertion Gastrointestinal: Gastrointestinal: Reports as per HPI and Reports abdominal pain Genitourinary: Genitourinary: Reports as per HPI and Denies dysuria Musculoskeletal: Musculoskeletal: Reports as per HPI Neurologic: Reports as per HPI, Denies dizziness and Denies syncope [facility] Past Medical History Medical History Neuropathy RLS (restless legs syndrome) Anxiety COPD (chronic obstructive pulmonary disease) Seizures Dyslipidemia Lung cancer metastatic to brain Obesity Hypertension Lung cancer Breast CA Adenomatous colon polyp GERD (gastroesophageal reflux disease) Epigastric pain Bloating Rectal bleeding Surgical History Surgical History History of lobectomy of lung S/P lumpectomy of breast Family History Family History Father Carcinoma of colon Mother Family history of renal cell carcinoma Anginal pain Breast cancer Sibling Breast cancer Sibling Breast cancer Social History Social History Smoking packs per day: 2 Smoking cigarettes per day: 40.0 Years smoked: 50 Smoking pack-years: 100.00 Smoking status: Current every day smoker Tobacco type: cigarettes Second hand tobacco smoke exposure: Yes Additional smoking assessment comments: 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 Substance use: current Substance use type: marijuana Other substance usage details: smokes 10 hits daily Last use: 08/15/24 Do You Feel Safe in your Home?: Yes Lack of Transportation: No Lack of Food: Never True Current Housing: I Have Housing Concerned About Future Housing: No Difficulty Paying Gas/Electric Bills: No Difficulty Paying for Meds: No Currently Unemployed: No Education: Grade School Difficulty w/ Childcare or Family Care: No Spiritual care concerns: No Meds Home Medications and Allergies Home Medications ?Medication ?Instructions ?Recorded ?Confirmed ?Type cyclobenzaprine 10 mg tablet 10 mg PO TID PRN Muscle Spasm 09/09/19 08/18/24 History gabapentin 600 mg tablet 600 mg PO TID 09/09/19 08/18/24 History ropinirole 0.5 mg tablet 0.5 - 1 mg PO HS 09/09/19 08/18/24 History venlafaxine 75 mg capsule,extended 225 mg PO HS 09/09/19 08/18/24 History release 24 hr levetiracetam 500 mg tablet 500 mg PO Q12H 10/24/19 08/18/24 History verapamil 240 mg tablet,extended 240 mg PO DAILY 09/23/20 08/18/24 History release ascorbate calcium (vitamin C) 500 500 mg PO DAILY 08/26/21 08/18/24 History mg tablet folic acid 800 mcg tablet 0.8 mg PO DAILY 08/26/21 08/18/24 History oxycodone myristate 9 mg capsule 9 mg PO BID 01/15/24 08/18/24 History sprinkle extended release 12 hr(DON'T CRUSH) (Xtampza ER) albuterol 90 mcg-budesonide 80 2 inh inhalation QID PRN shortness 06/15/24 08/18/24 Rx mcg/actuation HFA aerosol inhaler of breath #10.7 grams budesonide-formoterol HFA 160 2 puff inhalation Q12H #10.2 grams 06/15/24 08/18/24 Rx mcg-4.5 mcg/actuation aerosol inhaler (Symbicort) Allergies Allergy/AdvReac Type Severity Reaction Status Date / Time tramadol Allergy Unknown Dizziness Verified 08/17/24 20:33 Vital Signs Vital Signs - 24 hr 08/18/24 18:00 08/18/24 20:00 08/18/24 20:17 Temperature 97.7 F Pulse Rate 93 94 94 Respiratory Rate 18 Blood Pressure 129/70 Pulse Oximetry 98 Oxygen Delivery Oxygen Flow Rate 08/18/24 20:35 08/18/24 22:00 08/18/24 23:40 Temperature 98.7 F Pulse Rate 94 103 H 96 Respiratory Rate 18 18 Blood Pressure 117/67 Pulse Oximetry 98 98 Oxygen Delivery Nasal Cannula Oxygen Flow Rate 4 08/19/24 00:00 08/19/24 00:05 08/19/24 02:00 Temperature Pulse Rate 104 H 96 103 H Respiratory Rate 18 Blood Pressure Pulse Oximetry 98 Oxygen Delivery Nasal Cannula Oxygen Flow Rate 4 08/19/24 03:04 08/19/24 03:42 08/19/24 04:00 Temperature 97.6 F Pulse Rate 97 97 94 Respiratory Rate 18 18 Blood Pressure 123/72 Pulse Oximetry 100 100 Oxygen Delivery Nasal Cannula Oxygen Flow Rate 4 08/19/24 06:00 08/19/24 07:29 08/19/24 08:00 Temperature 98.1 F Pulse Rate 92 94 104 H Respiratory Rate 16 Blood Pressure 127/78 Pulse Oximetry 99 Oxygen Delivery Oxygen Flow Rate 08/19/24 08:00 08/19/24 08:04 08/19/24 08:05 Temperature Pulse Rate 76 86 Respiratory Rate 20 20 Blood Pressure Pulse Oximetry 99 96 Oxygen Delivery Nasal Cannula Nasal Cannula Oxygen Flow Rate 4 4 08/19/24 10:00 08/19/24 11:34 08/19/24 11:41 Temperature 98.3 F Pulse Rate 101 H 86 Respiratory Rate 20 Blood Pressure 105/63 Pulse Oximetry 92 Oxygen Delivery Nasal Cannula Oxygen Flow Rate 1 08/19/24 12:00 08/19/24 12:00 08/19/24 15:49 Temperature 98.5 F Pulse Rate 95 90 Respiratory Rate 16 Blood Pressure 120/72 Pulse Oximetry 93 94 Oxygen Delivery Nasal Cannula Oxygen Flow Rate 2 Exam 2 Const: General: cooperative, healthy appearing and comfortable Resp: Auscultation: crackles, no wheezes and diminished lung sounds Cardio: Rate: regular rate Rhythm: regular rhythm Heart sounds: no murmurs Peripheral pulses: dorsalis pedis present GI: GI Palp: No abdominal tenderness and Yes Soft to palpation Neuro: General: oriented to person, oriented to place and oriented to time Extrem: Right lower extremity: no edema Left lower extremity: no edema Results Labs and Meds 08/19/24 05:52 08/19/24 05:52 Lab results: Cardiac Enzymes 08/19/24 Range/Units 05:52 AST 25 (14-36) U/L Coagulation 08/18/24 08/19/24 08/19/24 Range/Units 18:00 00:37 08:49 APTT 44.0 H 180.4 H* 85.9 H (22.3-36.8) Seconds CBC 08/19/24 Range/Units 05:52 WBC 8.0 (4.5-10.0) K/mm3 RBC 3.85 L (4.2-5.4) M/mm3 Hgb 12.1 (12.0-15.0) g/dL Hct 35.2 L (37.0-47.0) % Plt Count 199 (150-375) k/mm3 Lymph # (Auto) 1.48 (0.9-3.2) K/mm3 [place] # (Auto) 0.5 (0.1-0.6) K/mm3 Eos # (Auto) 0.0 (0-0.3) K/mm3 Baso # (Auto) 0.0 (0.0-0.1) K/mm3 Comprehensive Metabolic Panel 08/19/24 Range/Units 05:52 Sodium 130 L (137-145) mmol/L Potassium 3.5 (3.4-5.0) mmol/L Chloride 95 L (98-107) mmol/L Carbon Dioxide 28 (22-30) mmol/L BUN 11 D (7-17) mg/dL Creatinine 0.55 L (0.7-1.0) mg/dL Glucose 114 H (65-110) mg/dL Calcium 8.4 (8.4-10.2) mg/dL AST 25 (14-36) U/L ALT 12 (6-35) U/L Alkaline Phosphatase 84 (38-126) U/L Total Protein 6.7 (6.3-8.2) g/dL Albumin 3.8 (3.5-5.1) g/dL Intake and Output 08/19/24 08/19/24 08/19/24 07:59 15:59 23:59 Intake Total 1378.1 309.5 Output Total 1 Balance 1377.1 309.5 Intake: IV 378.1 69.5 Heparin Sod/D5w 100 Units/ml 25 78.1 69.5 ,000 units In 250 ml @ 900 UNITS/HR 9 mls/hr IV CONT .Q24H [facility] Rx#:[id number] Azithromycin 500 mg/Ns 250 ml 250 500 mg In 250 ml @ 250 mls/hr IVPB Q24H [facility] Rx#:[id number] cefTRIAXone 1 GM/NS 50 ML 1 gm 50 In 50 ml @ 100 mls/hr IVPB Q24H [facility] Rx#:[id number] Oral 1000 240 Output: Stool 1 Other: # Unmeasured Voids 2 Number of Bowel Movements Today 1 3 Patient Weight 08/19/24 23:59 Weight 64.8 kg
--- NOTE | 2024-08-19 18:43 | PC.NURSE ---
Pt suspicious of care. Pt called security and said she felt scared for her life. Pt answered all A&O questions appropriately. Doctor aware and Pt signed AMA papers.
--- NOTE | 2024-08-20 07:05 | P.CDI_ITS ---
CDI Query Clarification Request 1) Please clarify if NSTEMI has been ruled in or ruled out 2) Please clarify if sepsis has been ruled in or ruled out The medical chart reflects the following: hospitalist documented: (1) Sepsis: Qualifiers: Sepsis type: sepsis due to unspecified organism Sepsis acute organ dysfunction status: with acute organ dysfunction Severe sepsis acute organ dy sfunction type: acute respiratory failure Acute respiratory failure type: with hypoxia Severe sepsis shock status: without septic shock Qualified Code(s): A41.9 - Sepsis, unspecified organism; R65.20 - Severe sepsis without septic shock; J96.01 - Acute respiratory failure with hypoxia Code(s): A41.9 - Sepsis, unspecified organism Status: Acute Assessment and Plan: Met sirs criteria due to heart rate, respiratory rate. procalcitonin negative. Blood cultures obtained on 08/17, follow. S ubtle pneumonia seen on CTA, started on CAP treatment. continue Rocephin and azithromycin (2) NSTEMI (non-ST elevated myocardial infarction): Code(s): I21.4 - Non-ST elevation (NSTEMI) myocardial infarction Status: Acute Assessment and Plan: Troponin 0.096 -> 0.208 -> 0.183. trending down likley demand ischemia not true CAD as patient denies chest pain Will defer further cardiac workup to Cardiology. on aspirin 81 mg daily. Nitro SL p.r.n.. Cardiology documented: (1) Elevated troponin: Code(s): R79.89 - Other specified abnormal findings of blood chemistry Status: Acute Assessment and Plan: Peaked at 0.208. Probably due to pneumonia. Doubt ACS. EKG shows no ST changes. Check echo. If no wall motion abnormalities, then no further cardiac workup is needed. (2) Tobacco abuse: Code(s): Z72.0 - Tobacco use Status: Acute Assessment and Plan: Counseled regarding smoking cessation. (3) Hypertension: Qualifiers: Hypertension type: primary hypertension Qualified Code(s): I10 - Essential (primary) hypertension Code(s): I10 - Essential (primary) hypertension Status: Chronic Assessment and Plan: Stable. (4) Pneumonia: Qualifiers: Pneumonia type: due to unspecified organism Laterality: bilateral Lung location: unspecified part of lung Qualified Code(s): J18.9 - Pneumonia, unspecified organism Code(s): J18.9 - Pneumonia, unspecified organism Status: Acute Assessment and Plan: On antibiotics. ECG: Interpretive Statements SINUS RHYTHM BORDERLINE T WAVE ABNORMALITY- ANTERIOR LEADS BASELINE ARTIFACT- V4-V6 BORDERLINE ECG Compared to ECG 08/17/2024 19:12:22 HEART RATE HAS DECREASED ECHO: Summary 1. Left ventricular chamber dimension is normal. 2. Left ventricular systolic function is normal, estimated at 60-65. 3. The left ventricular diastolic function is grade I diastolic dysfunction. 4. Definity contrast administered improved wall motion interpretation. 5. E/e' 10 is mildly elevated. 6. There is mild aortic valve sclerosis. Blood Culture Preliminary 08/19/24-1112 Q SOURCE: BLOOD STATUS: PRELIMINARY RESULT: No growth to date. Ceftriaxone IV q24hr <Arin Wooten RN - Last Filed: 08/20/24 07:10> Provider Comments elevated troponin likely demand ischemia in setting of pneumonia patient meet criteria for sepsis pneumonia <Trell Miranda MD - Last Filed: 08/20/24 14:27>
--- NOTE | 2024-08-21 17:14 | P.DS_ITS ---
DS: Admitting Diagnosis Discharge Date 08/19/24 patient left AMA. final diagnosis pneumonia Admitting Diagnosis pneumonia DS: Discharge Diagnosis Discharge Diagnosis (1) Sepsis: Qualifiers: Sepsis type: sepsis due to unspecified organism Sepsis acute organ dysfunction status: with acute organ dysfunction Severe sepsis acute organ dysfunction type: acute respiratory failure Acute respiratory failure type: with hypoxia Severe sepsis shock status: without septic shock Qualified Code(s): A41.9 - Sepsis, unspecified organism; R65.20 - Severe sepsis without septic shock; J96.01 - Acute respiratory failure with hypoxia Code(s): A41.9 - Sepsis, unspecified organism Status: Acute Assessment and Plan: Met sirs criteria due to heart rate, respiratory rate. procalcitonin negative. Blood cultures obtained on 08/17, subtle pneumonia seen on CTA, started on CAP treatment. continue Rocephin and azithromycin (2) NSTEMI (non-ST elevated myocardial infarction): Code(s): I21.4 - Non-ST elevation (NSTEMI) myocardial infarction Status: Acute Assessment and Plan: Troponin 0.096 -> 0.208 -> 0.183. trending down likley demand ischemia not true CAD as patient denies chest pain Cardiology team on board no plan for cardiac work up on aspirin 81 mg daily. Nitro SL p.r.n.. (3) Acute respiratory failure with hypoxia: Code(s): J96.01 - Acute respiratory failure with hypoxia Status: Acute Assessment and Plan: Subtle pneumonia seen on CTA. No PE. No anemia noted. Continue supplemental oxygen to maintain O2 sat greater than 92%, wean as tolerated. (4) Pneumonia: Qualifiers: Pneumonia type: due to unspecified organism Laterality: bilateral Lung location: unspecified part of lung Qualified Code(s): J18.9 - Pneumonia, unspecified organism Code(s): J18.9 - Pneumonia, unspecified organism Status: Acute Assessment and Plan: Chest CTA showed focal scattered ground-glass opacities, suggestive of subtle pneumonia/atypical infection. Started on ceftriaxone and azithromycin. History of COPD, started on prednisone. Started on supportive care including Mucinex, Tessalon Perles, Tylenol p.r.n., and DuoNebs scheduled. Monitor white count and vital signs. (5) Hypomagnesemia: Code(s): E83.42 - Hypomagnesemia Status: Acute Assessment and Plan: replet as needed (6) COPD (chronic obstructive pulmonary disease): Code(s): J44.9 - Chronic obstructive pulmonary disease, unspecified Status: Acute Assessment and Plan: No wheezing on exam. DuoNeb scheduled. on prednisone 40 mg daily. (7) Hypertension: Qualifiers: Hypertension type: primary hypertension Qualified Code(s): I10 - Essen tial (primary) hypertension Code(s): I10 - Essential (primary) hypertension Status: Chronic Assessment and Plan: Chronic, currently 129/70. Continued home medication: Verapamil. Monitor. Plan Glucose elevated, 174. Suspect this is secondary to steroid administration. Will check A1c. Diet: Heart healthy GI Prophylaxis: Not currently indicated DVT Prophylaxis: Heparin SQ IV fluids: None Lines/Tubes: Peripheral IV Code Status: Full code DS: Summary Hospital Course Hospital Course: per HPI: 63 y/o F with PMH of breast cancer, lung cancer with metastasis to the brain s/p lobectomy and craniotomy - has recently stopped treatment for the brain met as it was not responding, seizures, hypertension, GERD, COPD, and HLD presents here with shortness of breath, chest pressure, and diarrhea. The patient presented to [place] [facility] on 08/17 for further evaluation of shortness of breath, chest pressure, and diarrhea. She reports she has had ongoing diarrhea for the past few months, started in May. Has outpatient c.diff and stool study done within the last week which were negative. Shortness of breath began approximately 5 days prior to evaluation. However significantly worsened when she woke up on 08/17. She reports she was unable to ambulate due to the severity of her shortness of breath. Shortness of breath is accompanied by chest pressure - more so described as the left breast feeling tight, cough - productive, diaphoresis - intermittent/chronic, palpitations - chronic, fever - 106F? -> 104F -> 100.8F ( or Sunday night). She denies . She does have a past medical history significant for breast cancer s/p mastectomy, lung cancer s/p right middle lobe lobectomy, and brain cancer. She reports she is no longer receiving treatment for her metastatic brain cancer. Diarrhea is not accompanied by nausea or vomiting, does have chronic abdominal pain that has been unchanged. Initial VS at presentation on 08/17: 98.7? F, HR 128, R 20, 145/97, and 93% on 4L nasal cannula. ED workup showed: No leukocytosis, no anemia, sodium 130, potassium 3.3, creatinine 0.53 and GFR >60, magnesium 1.2, initial troponin 0.096, and BNP 104. UA showed 1+ protein, 1+ ketones, 1+ blood and 6-10 RBC with moderate mucus otherwise unremarkable. Viral PCR negative. C diff recently negative on 08/08. CXR showed no acute cardiopulmonary pathology. Chest CTA showed no evidence of PE, aortic dissection, or aortic aneurysm as well as focal scattered ground- glass opacities as above suggestive of subtle pneumonia/atypical infection. Initial EKG showed sinus tachycardia, rate 117, possible left atrial enlargement, borderline ST-T-wave abnormalities diffuse leads. 08/19/24 Patient was seen and examined at bedside. she is feeling better but her breathing is not back to baseline. denies any chest pain, abd pain, N/V. on 4 lit NC , plan to wean her off of O2. continue treatment for possible pneumonia. patient left AMA. final diagnosis pneumonia Time Spent with Patient Time attestation: Total time spent providing and/or coordinating discharge services: Exam Narrative: crack L great than R, bibas Const: General: comfortable and no acute distress Other: , female, nontoxic appearance HENMT: Face/Nose/Sinus: Normal nares present Mouth: Yes moist mucous membranes Eyes: General: appearance normal, both eyes and all related structures Sclera: sclerae normal Pupils: Equal, round and reactive pupils present EOM: EOMs intact bilaterally Resp: Effort & Inspection: normal respiratory effort Other: Bibasilar crackles, left base worse than right Cardio: Rate: tachycardic (100-110) Rhythm: regular rhythm Other: S1-S2 present without murmur, rub, ectopy GI: Other: Abdomen soft, nondistended, nontender. Normoactive bowel sounds in all quadrants. Skin: General skin exam: normal color and no rashes or lesions noted Wounds: no wounds Neuro: Cranial nerves: Yes Equal, round and reactive pupils present Speech: normal speech Motor exam (neuro): 5/5 motor strength present throughout Sensory Exam: normal sensation Other: A&O x4 Extrem: General: normal to inspection Psych: Mental Status: mental status grossly normal Affect: normal affect Other: Good insight and judgment, pleasant Discharge Plan Discharge Consulting providers: Everett Dong; Belem Lewis Patient Disposition: Left Against Medical Advice Activity: as tolerated Diet: as tolerated Patient Language: Spanish Discharge Medications: No Action Xtampza ER 9 mg cap,sprinkl,ER12hr(DONT CRUSH) 9 mg PO BID verapamil 240 mg Tablet Extended Release 240 mg PO DAILY budesonide-formoterol [Symbicort] 160-4.5 mcg/actuation HFA aerosol inhaler 2 puff inhalation Q12H Qty: 10.2 0RF albuterol-budesonide 90-80 mcg/actuation HFA aerosol inhaler 2 inh inhalation QID PRN (Reason: shortness of breath) Qty: 10.7 0RF levetiracetam 500 mg tablet 500 mg PO Q12H ascorbate calcium (vitamin C) 500 mg tablet 500 mg PO DAILY folic acid 800 mcg tablet 0.8 mg PO DAILY cyclobenzaprine 10 mg tablet 10 mg PO TID PRN (Reason: Muscle Spasm) venlafaxine 75 mg capsule,extended release 24hr 225 mg PO HS gabapentin 600 mg tablet 600 mg PO TID ropinirole 0.5 mg tablet 0.5 - 1 mg PO HS Date of admission: 08/18/24 15:00 Primary Care Provider: Pedro Schmitz Admitting Provider: Irving Mack Attending physician on admission: Trell Miranda Quality VTE Prophylaxis VTE prophylaxis: pharmacologic ordered
== END 2024-08-19 19:00 | disposition left against medical advice (07) | DRG 871 ==
PROVIDERS: Internal Medicine; Student in an Organized Health Care Education/Training Program; Admitting Provider General Practice; PCP Internal Medicine; Visit Provider Internal Medicine
DX: A41.9 Sepsis, unspecified organism (principal); J18.9 Pneumonia, unspecified organism; J96.01 Acute respiratory failure with hypoxia; C34.90 Malignant neoplasm of unspecified part of unspecified bronchus or lung; C79.31 Secondary malignant neoplasm of brain; J44.0 Chronic obstructive pulmonary disease with (acute) lower respiratory infection; I24.89 Other forms of acute ischemic heart disease; C50.919 Malignant neoplasm of unspecified site of unspecified female breast; E83.42 Hypomagnesemia; I10 Essential (primary) hypertension; K21.9 Gastro-esophageal reflux disease without esophagitis; E78.5 Hyperlipidemia, unspecified; G25.81 Restless legs syndrome; G62.9 Polyneuropathy, unspecified; F17.210 Nicotine dependence, cigarettes, uncomplicated
CPT/HCPCS: 36415; 80053; 83036; 83735; 84145; 85025; 85730; 87070; 87205; 87641; 93005; 94640; 97162; A9270; C8929; J0456; J0696; J1642; J1644; J2405; J7512; Q9957

== ENCOUNTER 2024-12-12 15:56 | Outpatient (CLI) | payer MEDICARE, MEDICAID, SELFPAY ==
--- OUTSIDE RECORDS SUMMARY | 2024-12-12 15:59 | XMS_ITS | Encounter Summary ---
Author Organization [facility] Address [address] [place] [address] Care Team Providers Care Turnstile Collector Name Role Phone Pedro Schmitz MD Primary Care Provider [phone] Nick Plummer MD Unavailable [phone] Leonila Siddiqui MD Unavailable [phone] Encounter Details Date Type Department Care Team (Late st Contact Info) Description 07/26/[address] [facility] [address] [facility] [place] [address] Pedro Schmitz MD [address] [place] [address] Social History Tobacco Use Types [...] COLOR (U) YELLOW 07/31/2018 10:41 AM CDT [facility] TRANSPARENCY CLEAR 07/31/2018 10:41 AM CDT [facility] SPECIFIC GRAVITY (U) 1.015 1.000 - 1.025 07/31/2018 10:41 AM CDT [facility] U PH 6.0 5.0 - 8.0 07/31/2018 10:41 AM CDT [facility] LEUKOCYTES (U) TRACE(A) NEGATIVE 07/31/2018 10:41 AM CDT [facility] NITRITES NEGATIVE NEGATIVE 07/31/2018 10:41 AM CDT [facility] PROTEIN (U) NEGATIVE NEGATIVE 07/31/2018 10:41 AM CDT [facility] URINE GLUCOSE NEGATIVE NEGATIVE 07/31/2018 10:41 AM CDT [facility] KETONES MG/DL (U) NEGATIVE NEGATIVE 07/31/2018 10:41 AM CDT [facility] UROBILINOGEN 0.2 <1.0 EU/DL 07/31/2018 10:41 AM CDT [facility] BILIRUBIN (U) NEGATIVE NEGATIVE 07/31/2018 10:41 AM CDT [facility] BLOOD (U) TRACE(A) NEGATIVE 07/31/2018 10:41 AM CDT [facility] WBC/HPF 0-5 0 - 5 /HPF 07/31/2018 10:41 AM CDT [facility] RBC/HPF 0-5 0 - 5 /HPF 07/31/2018 10:41 AM CDT [facility] EPI/HPF OCCASIONAL /LPF 07/31/2018 10:41 AM CDT [facility] BACTERIA (U) TRACE /HPF 07/31/2018 10:41 AM CDT [facility] MUCUS PRESENT 07/31/2018 10:41 AM CDT [facility] 07/31/2018 10:2 3 AM CDT 07/31/2018 10:25 AM CDT us Generic Conversion Md NICHOLAS URINE ORDERABLES Final Result Performing Organization Address City/[facility]/ZIP Co de Phone Number [facility] [address] [place] [address], * THYROID STIM HORMONE, TSH (07/31/2018 10:19 AM CDT) TSH 1.402 0.358 - 3.740 uIU/ML 07/31/2018 11:13 AM CDT [facility] SERUM OR PLASMA SPECIMEN / Unknown 07/31/2018 10:19 AM CDT 07/31/2018 10:21 AM CDT us Generic Conversion Md [facility]AT[facility] Final R esult Performing Organization Address City/[facility]/ZIP Co de Phone Number [facility] [address] [place] [address], [place] [phone] * (ABNORMAL) LIPID PANEL (07/31/2018 10:19 AM CDT) CHOLESTEROL 209(H) <200 MG/DL 07/31/2018 11:13 AM CDT [facility] Comment: THE NATIONAL LIPID ASSOCIATION AND THE NATIONAL CHOLESTEROL EDUCATION PROGRAM (NCEP) HAVE SET THE FOLLOWING GUIDELINES FOR TOTAL CHOLESTEROL IN ADULTS AGES 18 AND UP.DESIRABLE: <200BORDERLINE HIGH: 200-239HIGH: > OR = 240 TRIGLYCERIDES 129 <150 MG/DL 07/31/2018 11:13 AM CDT [facility] Comment: THE NATIONAL LIPID ASSOCIATION AND THE NATIONAL CHOLESTEROL EDUCATION PROGAM (NCEP) HAVE SET THE FOLLOWING GUIDELINES FOR TRIGLYCERIDES IN ADULTS AGES 18 AND UP.NORMAL: <150BORDERLINE HIGH: 150 TO 199HIGH: 200 TO 499VERY HIGH: >499 HDL 68 >49 MG/DL 07/31/2018 11:13 AM CDT [facility] Comment: THE NATIONAL LIPID ASSOCIATION AND THE NATIONAL CHOLESTEROL EDUCATION PROGAM (NCEP) HAVE SET THE FOLLOWING GUIDELINES FOR HDL CHOLESTEROL IN ADULTS AGES 18 AND UP.MALES: >39FEMALES: >49 LDL (CALCULATED) 115(H) <100 MG/DL 08/01/19 11:13 AM CDT [facility] Comment: THE NATIONAL LIPID ASSOCIATION AND THE NATIONAL CHOLESTEROL EDUCATION PROGAM (NCEP) HAVE SET THE FOLLOWING GUIDELINES FOR LDL CHOLESTEROL IN ADULTS AGES 18 AND UP.DESIRABLE: <100ABOVE DESIRABLE: 100 TO 129BORDERLINE HIGH: 130 TO 159HIGH: 160 TO 189VERY HIGH: >189 VLDL CALCULATION 26 MG/DL 08/01/19 11:13 AM CDT [facility] Comment:REFERENCE RANGE NOT ESTABLISHED CHOL/HDL RATIO 3.1 07/31/2018 11:13 AM CDT [facility] Comment:REFERENCE RANGE NOT ESTABLISHED LDL/HDL 1.7 07/31/2018 11:13 AM CDT [facility] Comment:REFERENCE RANGE NOT ESTABLISHED NON HDL CHOLESTEROL 141 MG/DL 07/31/2018 11:13 AM CDT [facility] Comment:REFERENCE RANGE NOT ESTABLISHED PLASMA SPECIMEN / Unknown 07/31/2018 10:19 AM CDT 07/31/2018 10:21 AM CDT us Generic Conversion Md [facility] LAB[facility]AT[facility] Final R esult [facility] [place] [address], * (ABNORMAL) COMPREHENSIVE METABOLIC PANEL (07/31/2018 10:19 AM CDT) SODIUM S/P/B 126(L) 136 - 145 MMOL/L 07/31/2018 11:13 AM CDT [facility] POTASSIUM S/P/B 4.2 3.5 - 5.1 MMOL/L 07/31/2018 11:13 AM CDT [facility] CHLORIDE S/P/B 93(L) 98 - 107 MMOL/L 07/31/2018 11:13 AM CDT [facility] CO2 27.7 21.0 - 32.0 MMOL/L 07/31/2018 11:13 AM [facility] GLUCOSE 94 70 - 140 MG/DL 07/31/2018 11:13 AM [facility] BUN 11 6 - 24 MG/DL 07/31/2018 11:13 AM [facility] CREATININE S/P/B 0.88 0.55 - 1.02 MG/DL 07/31/2018 11:13 AM [facility] CALCIUM S/P/B 8.7 8.4 - 10.5 MG/DL 07/31/2018 11:13 AM [facility] BILIRUBIN TOTAL S/P/B 0.3 0.2 - 1.0 MG/DL 07/31/2018 11:13 AM [facility] ALKALINE PHOSPHATASE S/P/B 77 46 - 118 U/L 07/31/2018 11:13 AM [facility] AST 14(L) 15 - 37 U/L 07/31/2018 11:13 AM [facility] ALT 22 14 - 59 U/L 07/31/2018 11:13 AM [facility] TOTAL PROTEIN S/P/B 7.3 6.4 - 8.2 G/DL 07/31/2018 11:13 AM [facility] ALBUMIN S/P/B 4.0 3.4 - 5.0 G/DL 07/31/2018 11:13 AM [facility] ANION GAP 5.3 5.0 - 15.0 MMOL/L 07/31/2018 11:13 AM [facility] OSMOLALITY (CALC) 261 MOSM/KG 07/31/2018 11:13 AM [facility] Comment:REFERENCE RANGE NOT ESTABLISHED EGFR NON-AFR. AMER. 73(L) >89 ML/MIN/1 .73 M2 07/31/2018 11:13 AM [facility] EGFR AFR. AMER. 85(L) >89 ML/MIN/1 .73 M2 07/31/2018 11:13 AM [facility] GFR NOTES THE ESTIMATED GFR IS CALCULATED USING THE 2009 CKD-EPI EQUATION. THE FOLLOWING CATEGORIES FOR GRADING RENAL FUNCTION ARE RECOMMENDED BY THE INTERNATIONAL SOCIETY OF NEPHROLOGY (KDIGO 2012 CLINICAL PRACTICE GUIDELINE). 07/31/2018 11:13 AM CDT [facility] Comment: G1,NORMAL OR HIGH: >89 ml/min/1.73 m2G2,MILDLY DECREASED: 60-89 ml/min/1.73 m2G3A,MILDLY TO MODERATELY DECREASED: 45-59 ml/min/1.73 m2G3B,MODERATELY TO SEVERELY DECREASED: 30-44 ml/min/1.73 m2G4,SEVERELY DECREASED: 15-29 ml/min/1.73 m2G5,KIDNEY FAILURE: <15 ml/min/1.73 m2 PLASMA SPECIMEN / Unknown 07/31/2018 10:19 AM CDT 07/31/2018 10:21 AM CDT us Generic Conversion Md [facility]AT[facility] Final R esult [facility] [address] [place] [address], * (ABNORMAL) CBC W/DIFF AUTOMATED (07/31/2018 10:19 AM CDT) WBC 5.9 4.5 - 10.8 x10'3/uL 07/31/2018 10:27 AM CDT [facility] RBC 3.87(L) 4.10 - 5.40 x10'6/uL 07/31/2018 10:27 AM CDT [facility] HGB 12.3 12.0 - 16.0 G/DL 07/31/2018 10:27 AM CDT [facility] HCT 36.3 36.0 - 47.0 % 07/31/2018 10:27 AM CDT [facility] MCV 93.8 78.0 - 100.0 FL 07/31/2018 10:27 AM CDT [facility] MCH 31.8(H) 27.0 - 31.0 PG 07/31/2018 10:27 AM CDT [facility] MCHC 33.9 33.0 - 36.0 G/DL 07/31/2018 10:27 AM CDT [facility] RDW 13.2 11.5 - 14.5 % 07/31/2018 10:27 AM CDT [facility] PLT 214 150 - 350 x10'3/uL 07/31/2018 10:27 AM T [facility] MPV 9.7 7.4 - 10.4 FL 07/31/2018 10:27 AM T [facility] DIFFERENTIAL COMMENT NORMAL REFERENCE RANGE NOT ESTABLISHED FOR THE PROPORTIONAL LEUKOCYTE DIFFERENTIAL. 07/31/2018 10:27 AM CDT [facility] SEG NEUTROPHILS 55.3 % 9 10:27 AM T [facility] LYMPHOCYTES 35.4 % 07/31/2018 10:27 AM T [facility] MONOCYTES 6.8 % 07/31/2018 10:27 AM T [facility] EOSINOPHILS 1.5 % 07/31/2018 10:27 AM T [facility] BASOPHILS 0.8 % 07/31/2018 10:27 AM T [facility] IMMATURE GRANS % 0.2 % 08/01/19 19 10:27 AM T [facility] NRBC 0.0 % 07/31/2018 10:27 AM T [facility] ABS. NEUTROPHILS 3.26 1.60 - 8.30 x10'3/uL 07/31/2018 10:27 AM T [facility] ABS. LYMPHOCYTES 2.09 0.80 - 4.70 x10'3/uL 07/31/2018 10:27 AM CDT [facility] ABS. MONOCYTES 0.40 0.00 - 1.50 x10'3/uL 07/31/2018 10:27 AM CDT [facility] ABS. EOSINOPHILS 0.09 0.00 - 0.40 x10'3/uL 07/31/2018 10:27 AM CDT [facility] ABS. BASOPHILS 0.05 0.00 - 0.20 x10'3/uL 07/31/2018 10:27 AM CDT [facility] ABS. IMMATURE GRANULOCYTES 0.01 0.00 - 0.03 x10'3/uL 07/31/2018 10:27 AM CDT [facility] ABS. NUCLEATED RBC'S 0.00 0.00 x10'3/uL 07/31/2018 10:27 AM CDT [facility] OTHER (type in comments) 07/31/2018 10:19 AM CDT 07/31/2018 10:21 AM CDT Comment:WHOLE BLOOD SAMPLE us Generic Conversion Md [facility] Final R esult [facility] [address] [place] [address], documented in this encounter Visit Diagnoses Diagnosis Hyperlipidemia Other and unspecified hyperlipidemia documented in this encounter Care Teams Turnstile Collector Relationship Specialty Start Date End Date Pedro Schmitz MD [address] [place] [phone] PCP - General INTERNAL MEDICINE 07/30/18 Nick Plummer MD [address] [place] [phone] Covering Provider CARDIOTHORACIC SURGERY 10/02/18 Leonila Siddiqui MD [address] [place] [address] Consulting Physician INTERVENTIONAL CARDIOLOGY 10/02/18 documented as of this encounter
--- OUTSIDE RECORDS SUMMARY | 2024-12-12 15:59 | XMS_ITS | Clinical Summary ---
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 Hypercholesteremia 10/03/2018 Family History Medical History [...] 11:19 AM CDT Height 165.1 cm (5' 5) 06/07/2020 11:19 AM CDT Body Mass Index [...] Vaccines (1 of 2) 2010 COVID-19 Vaccine ( - 2023-2 5 season) 2024 Influenza Adult (#1) 2024 RSV Immunization or 60+ Years (1 - 1-dose 75+ series) 09/25/2035 Hepatitis A Vaccines Aged Out No long er eligible based on patient's age to complete this topic Meningococcal B Vaccine Aged Out No l onger eligible based on patient's age to complete this topic Meningococcal Vaccine Aged Out No ivania bob eligible based on patient's age to complete this topic RSV Immunizations Under 20 Months Aged Out No longer eligible based on patient's age to complete this topic Insurance MEDICARE MEDICAID MEDICARE MEDICAID MEDICARE MEDICAID Advance Directives * Full Code (Latest Code Status on File) Date Activated Date Inactivated Comments 10/10/2018 11:55 AM 10/11/2018 4:06 PM Care Teams Hospital Clerk Relationship Specialty Start Date End Date Pedro Schmitz MD [address] [place] [phone] PCP - General INTERNAL MEDICINE 07/30/18 Nick Plummer MD [address] [place] [phone] Covering Provider CARDIOTHORACIC SURGERY 10/02/18 Leonila Siddiqui MD [address] [place] [phone] Consulting Physician INTERVENTIONAL CARDIOLOGY 10/02/18
--- OUTSIDE RECORDS SUMMARY | 2024-12-12 15:59 | XMS_ITS ---
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 Plummer as directed. Non-small cell lung cancer For [...] symptoms from the cancer. According to the [place] [employer], about 20 percent of cancer [...] 12/22/2015 Last Revised: 12/21/2015 Summary of the [place] [employer] Guidelines on Nutrition and Physical [...] Below is a general list of resources: [place] [employer] www.cancer.org 569-729-2315 Provides cancer information, resources, and emotional support to patients and their family members. [place] [employer] www.lung.org [place] [employer] of Clinical Oncology www.cancer.net 467-186-9270 Provides trusted and up-to-date cancer information, developed by the world's leading cancer doctors. [employer] www.cancercare.org 640-238-1599 Cancer Support Community www.cancersupportcommunity.org A national nonprofit organization, which provides free professional help to people with cancer through counseling, education, information and referral and direct financial information. National Cancer [place] www.cancer.gov 089-185-7931 Provides cancer information such as statistics, prevention, early detection, survivor networks and emotional support. National Comprehensive Cancer Network www.nccn.com Lung Cancer [place] www.lungcanceralliance.org Provides information about follow-up care for cancer.
[2024-12-12 17:05] LABS: Toxigenic C. Diff NEGATIVE (NEGATIVE)
[2024-12-17 23:07] LABS: Calprotectin, Fecal 61 ug/g (0-120)
[2024-12-18 05:08] LABS: Pancreatic Elastase, Fecal 242 (>200)
== END 2024-12-12 15:57 | disposition home or self-care (01) ==
LOC: CHSLAB 15:58
PROVIDERS: PCP Internal Medicine; Visit Provider Nurse Practitioner Family
DX: R19.7 Diarrhea, unspecified (principal); D12.6 Benign neoplasm of colon, unspecified; Z80.0 Family history of malignant neoplasm of digestive organs
CPT/HCPCS: 82653; 83993; 87045; 87046; 87427; 87493

== ENCOUNTER 2025-02-03 03:25 | Day surgery (SDC) | payer MEDICARE, MEDICAID, SELFPAY ==
[2025-01-12 12:55] VITALS: BMI 24.9
--- OUTSIDE RECORDS SUMMARY | 2025-02-03 03:28 | XMS_ITS | Clinical Summary ---
Author Organization [facility] Address [address] [place] [address] Care Team Providers Care Business Unit Controller Name Role Phone Pedro Schmitz MD Primary Care Provider [phone] Nick Plummer MD Unavailable [phone] Leonila Siddiqui MD Unavailable [phone] Allergies Active Allergy Reactions Criticality Noted [...] Vaccines (1 of 2) 2010 COVID-19 Vaccine (2024-2 6 season) 2024 Influenza Adult (#1) 2024 RSV [...] 11:55 AM 10/11/2018 4:06 PM Care Teams Business Unit Controller Relationship Specialty Start Date End Date Pedro Schmitz MD [address] [place] [phone] PCP - General INTERNAL MEDICINE 07/30/18 Nick Plummer MD [address] [place] [phone] Covering Provider CARDIOTHORACIC SURGERY 10/02/18 Leonila Siddiqui MD [address] [place] [phone] Consulting Physician INTERVENTIONAL CARDIOLOGY 10/02/18
--- OUTSIDE RECORDS SUMMARY | 2025-02-03 03:28 | XMS_ITS | Encounter Summary ---
Author Organization [facility] Address [address] [place] [address] Care Team Providers Care Unit Controller Name Role Phone Pedro Schmitz MD Primary Care Provider [phone] Nick Plummer MD Unavailable [phone] Leonila Siddiqui MD Unavailable [phone] Encounter Details Date Type Department Care Team (Late st Contact Info) Description 05/12/2017 Abstract [facility] [address] [place] [address] , Generic ConversionMD Social History Tobacco Use [...] on filedocumented in this encounter Care Teams Unit Controller Relationship Specialty Start Date End Date Pedro Schmitz MD [address] [place] [phone] PCP - General INTERNAL MEDICINE 07/30/18 Nick Plummer MD [address] [place] [phone] Covering Provider CARDIOTHORACIC SURGERY 10/02/18 Leonila Siddiqui MD [address] [place] [address] Consulting Physician INTERVENTIONAL CARDIOLOGY 10/02/18 documented as of this encounter
--- OUTSIDE RECORDS SUMMARY | 2025-02-03 03:28 | XMS_ITS | Encounter Summary ---
Author Organization [facility] Address [address] [place] [address] Care Team Providers Care Commercial Baking Teacher Name Role Phone Pedro Schmitz MD Primary Care Provider [phone] Nick Plummer MD Unavailable [phone] Leonila Siddiqui MD Unavailable [phone] Encounter Details Date Type Department Care Team (Late st Contact Info) Description 07/26/[address] [facility] [address] [facility] [place] [address] Pedro Schmitz MD [address] [place] [address] Social History Tobacco Use Types [...] COLOR (U) YELLOW 07/31/2018 10:41 AM CDT [facility] TRANSPARENCY CLEAR 07/31/2018 10:41 AM CDT [facility] SPECIFIC GRAVITY (U) 1.015 1.000 - 1.025 07/31/2018 10:41 AM CDT [facility] U PH 6.0 5.0 - 8.0 07/31/2018 10:41 AM CDT [facility] LEUKOCYTES (U) TRACE(A) NEGATIVE 07/31/2018 10:41 AM CDT [facility] NITRITES NEGATIVE NEGATIVE 07/31/2018 10:41 AM CDT [facility] PROTEIN (U) NEGATIVE NEGATIVE 07/31/2018 10:41 AM CDT [facility] URINE GLUCOSE NEGATIVE NEGATIVE 07/31/2018 10:41 AM CDT [facility] KETONES MG/DL (U) NEGATIVE NEGATIVE 07/31/2018 10:41 AM CDT [facility] UROBILINOGEN 0.2 <1.0 EU/DL 07/31/2018 10:41 AM CDT [facility] BILIRUBIN (U) NEGATIVE NEGATIVE 07/31/2018 10:41 AM CDT [facility] BLOOD (U) TRACE(A) NEGATIVE 07/31/2018 10:41 AM CDT [facility] WBC/HPF 0-5 0 - 5 /HPF 07/31/2018 10:41 AM CDT [facility] RBC/HPF 0-5 0 - 5 /HPF 07/31/2018 10:41 AM CDT [facility] EPI/HPF OCCASIONAL /LPF 07/31/2018 10:41 AM CDT [facility] BACTERIA (U) TRACE /HPF 07/31/2018 10:41 AM CDT [facility] MUCUS PRESENT 07/31/2018 10:41 AM CDT [facility] 07/31/2018 10:2 3 AM CDT 07/31/2018 10:25 AM CDT us Generic Conversion Md NICHOLAS URINE ORDERABLES Final Result Performing Organization Address City/[facility]/ZIP Co de Phone Number [facility] [address] [place] [address], * THYROID STIM HORMONE, TSH (07/31/2018 10:19 AM CDT) TSH 1.402 0.358 - 3.740 uIU/ML 07/31/2018 11:13 AM CDT [facility] SERUM OR PLASMA SPECIMEN / Unknown 07/31/2018 10:19 AM CDT 07/31/2018 10:21 AM CDT us Generic Conversion Md [facility] Final R esult Performing Organization Address City/[facility]/ZIP Co de Phone Number [facility] [address] [place] [address], [place] [phone] * (ABNORMAL) LIPID PANEL (07/31/2018 10:19 AM CDT) CHOLESTEROL 209(H) <200 MG/DL 07/31/2018 11:13 AM CDT [facility] Comment: THE NATIONAL LIPID ASSOCIATION AND THE NATIONAL CHOLESTEROL EDUCATION PROGRAM (NCEP) HAVE SET THE FOLLOWING GUIDELINES FOR TOTAL CHOLESTEROL IN ADULTS AGES 18 AND UP.DESIRABLE: <200BORDERLINE HIGH: 200-239HIGH: > OR = 240 TRIGLYCERIDES 129 <150 MG/DL 07/31/2018 11:13 AM CDT [facility] Comment: THE NATIONAL LIPID ASSOCIATION AND THE NATIONAL CHOLESTEROL EDUCATION PROGAM (NCEP) HAVE SET THE FOLLOWING GUIDELINES FOR TRIGLYCERIDES IN ADULTS AGES 18 AND UP.NORMAL: <150BORDERLINE HIGH: 150 TO 199HIGH: 200 TO 499VERY HIGH: >499 HDL 68 >49 MG/DL 07/31/2018 11:13 AM CDT [facility] Comment: THE NATIONAL LIPID ASSOCIATION AND THE NATIONAL CHOLESTEROL EDUCATION PROGAM (NCEP) HAVE SET THE FOLLOWING GUIDELINES FOR HDL CHOLESTEROL IN ADULTS AGES 18 AND UP.MALES: >39FEMALES: >49 LDL (CALCULATED) 115(H) <100 MG/DL 08/01/19 11:13 AM CDT [facility] Comment: THE NATIONAL LIPID ASSOCIATION AND THE NATIONAL CHOLESTEROL EDUCATION PROGAM (NCEP) HAVE SET THE FOLLOWING GUIDELINES FOR LDL CHOLESTEROL IN ADULTS AGES 18 AND UP.DESIRABLE: <100ABOVE DESIRABLE: 100 TO 129BORDERLINE HIGH: 130 TO 159HIGH: 160 TO 189VERY HIGH: >189 VLDL CALCULATION 26 MG/DL 08/01/19 11:13 AM CDT [facility] Comment:REFERENCE RANGE NOT ESTABLISHED CHOL/HDL RATIO 3.1 07/31/2018 11:13 AM CDT [facility] Comment:REFERENCE RANGE NOT ESTABLISHED LDL/HDL 1.7 07/31/2018 11:13 AM CDT [facility] Comment:REFERENCE RANGE NOT ESTABLISHED NON HDL CHOLESTEROL 141 MG/DL 07/31/2018 11:13 AM CDT [facility] Comment:REFERENCE RANGE NOT ESTABLISHED PLASMA SPECIMEN / Unknown 07/31/2018 10:19 AM CDT 07/31/2018 10:21 AM CDT us Generic Conversion Md [facility] Final R esult [facility] [place] [address], * (ABNORMAL) COMPREHENSIVE METABOLIC PANEL (07/31/2018 10:19 AM CDT) SODIUM S/P/B 126(L) 136 - 145 MMOL/L 07/31/2018 11:13 AM CDT [facility] POTASSIUM S/P/B 4.2 3.5 - 5.1 MMOL/L 07/31/2018 11:13 AM CDT [facility] CHLORIDE S/P/B 93(L) 98 - 107 MMOL/L 07/31/2018 11:13 AM CDT [facility] CO2 27.7 21.0 - 32.0 MMOL/L 07/31/2018 11:13 AM [facility] GLUCOSE 94 70 - 140 MG/DL 07/31/2018 11:13 AM [facility] BUN 11 6 - 24 MG/DL 07/31/2018 11:13 AM [facility] CREATININE S/P/B 0.88 0.55 - 1.02 MG/DL 07/31/2018 11:13 AM [facility] CALCIUM S/P/B 8.7 8.4 - 10.5 MG/DL 07/31/2018 11:13 AM [facility] BILIRUBIN TOTAL S/P/B 0.3 0.2 - 1.0 MG/DL 07/31/2018 11:13 AM [facility] ALKALINE PHOSPHATASE S/P/B 77 46 - 118 U/L 07/31/2018 11:13 AM [facility] AST 14(L) 15 - 37 U/L 07/31/2018 11:13 AM [facility] ALT 22 14 - 59 U/L 07/31/2018 11:13 AM [facility] TOTAL PROTEIN S/P/B 7.3 6.4 - 8.2 G/DL 07/31/2018 11:13 AM [facility] ALBUMIN S/P/B 4.0 3.4 - 5.0 G/DL 07/31/2018 11:13 AM [facility] ANION GAP 5.3 5.0 - 15.0 MMOL/L 07/31/2018 11:13 AM [facility] OSMOLALITY (CALC) 261 MOSM/KG 07/31/2018 11:13 AM [facility] Comment:REFERENCE RANGE NOT ESTABLISHED EGFR NON-AFR. AMER. 73(L) >89 ML/MIN/1 .73 M2 07/31/2018 11:13 AM [facility] EGFR AFR. AMER. 85(L) >89 ML/MIN/1 .73 M2 07/31/2018 11:13 AM [facility] GFR NOTES THE ESTIMATED GFR IS CALCULATED USING THE 2009 CKD-EPI EQUATION. THE FOLLOWING CATEGORIES FOR GRADING RENAL FUNCTION ARE RECOMMENDED BY THE INTERNATIONAL SOCIETY OF NEPHROLOGY (KDIGO 2012 CLINICAL PRACTICE GUIDELINE). 07/31/2018 11:13 AM CDT [facility] Comment: G1,NORMAL OR HIGH: >89 ml/min/1.73 m2G2,MILDLY DECREASED: 60-89 ml/min/1.73 m2G3A,MILDLY TO MODERATELY DECREASED: 45-59 ml/min/1.73 m2G3B,MODERATELY TO SEVERELY DECREASED: 30-44 ml/min/1.73 m2G4,SEVERELY DECREASED: 15-29 ml/min/1.73 m2G5,KIDNEY FAILURE: <15 ml/min/1.73 m2 PLASMA SPECIMEN / Unknown 07/31/2018 10:19 AM CDT 07/31/2018 10:21 AM CDT us Generic Conversion Md [facility] Final R esult [facility] [address] [place] [address], * (ABNORMAL) CBC W/DIFF AUTOMATED (07/31/2018 10:19 AM CDT) WBC 5.9 4.5 - 10.8 x10'3/uL 07/31/2018 10:27 AM CDT [facility] RBC 3.87(L) 4.10 - 5.40 x10'6/uL 07/31/2018 10:27 AM CDT [facility] HGB 12.3 12.0 - 16.0 G/DL 07/31/2018 10:27 AM CDT [facility] HCT 36.3 36.0 - 47.0 % 07/31/2018 10:27 AM CDT [facility] MCV 93.8 78.0 - 100.0 FL 07/31/2018 10:27 AM CDT [facility] MCH 31.8(H) 27.0 - 31.0 PG 07/31/2018 10:27 AM CDT [facility] MCHC 33.9 33.0 - 36.0 G/DL 07/31/2018 10:27 AM CDT [facility] RDW 13.2 11.5 - 14.5 % 07/31/2018 10:27 AM CDT [facility] PLT 214 150 - 350 x10'3/uL 07/31/2018 10:27 AM T [facility] MPV 9.7 7.4 - 10.4 FL 07/31/2018 10:27 AM T [facility] DIFFERENTIAL COMMENT NORMAL REFERENCE RANGE NOT ESTABLISHED FOR THE PROPORTIONAL LEUKOCYTE DIFFERENTIAL. 07/31/2018 10:27 AM CDT [facility] SEG NEUTROPHILS 55.3 % 9 10:27 AM T [facility] LYMPHOCYTES 35.4 % 07/31/2018 10:27 AM T [facility] MONOCYTES 6.8 % 07/31/2018 10:27 AM T [facility] EOSINOPHILS 1.5 % 07/31/2018 10:27 AM T [facility] BASOPHILS 0.8 % 07/31/2018 10:27 AM T [facility] IMMATURE GRANS % 0.2 % 08/01/19 19 10:27 AM T [facility] NRBC 0.0 % 07/31/2018 10:27 AM T [facility] ABS. NEUTROPHILS 3.26 1.60 - 8.30 x10'3/uL 07/31/2018 10:27 AM T [facility] ABS. LYMPHOCYTES 2.09 0.80 - 4.70 x10'3/uL 07/31/2018 10:27 AM CDT [facility] ABS. MONOCYTES 0.40 0.00 - 1.50 x10'3/uL 07/31/2018 10:27 AM CDT [facility] ABS. EOSINOPHILS 0.09 0.00 - 0.40 x10'3/uL 07/31/2018 10:27 AM CDT [facility] ABS. BASOPHILS 0.05 0.00 - 0.20 x10'3/uL 07/31/2018 10:27 AM CDT [facility] ABS. IMMATURE GRANULOCYTES 0.01 0.00 - 0.03 x10'3/uL 07/31/2018 10:27 AM CDT [facility] ABS. NUCLEATED RBC'S 0.00 0.00 x10'3/uL 07/31/2018 10:27 AM CDT [facility] OTHER (TYPE IN COMMENTS) 07/31/2018 10:19 AM CDT 07/31/2018 10:21 AM CDT Comment:WHOLE BLOOD SAMPLE us Generic Conversion Md [facility] Final R esult [facility] [address] [place] [address], documented in this encounter Visit Diagnoses Diagnosis Hyperlipidemia Other and unspecified hyperlipidemia documented in this encounter Care Teams Commercial Baking Teacher Relationship Specialty Start Date End Date Pedro Schmitz MD [address] [place] [phone] PCP - General INTERNAL MEDICINE 07/30/18 Nick Plummer MD [address] [place] [phone] Covering Provider CARDIOTHORACIC SURGERY 10/02/18 Leonila Siddiqui MD [address] [place] [address] Consulting Physician INTERVENTIONAL CARDIOLOGY 10/02/18 documented as of this encounter
--- OUTSIDE RECORDS SUMMARY | 2025-02-03 03:28 | XMS_ITS ---
Author Organization [facility] Address [address] [place] [address] Care Team Providers Care Mixer Diamond Powder Name Role Phone Pedro Lockett MD Primary Care Provider [phone] Nick Plummer MD Unavailable [phone] Leonila Siddiqui MD Unavailable [phone] Active Problems Problem Noted Date Diagnosed [...] Team Medical Oncologist Surgeon Nick Plummer MD [phone] Radiation Oncologist Primary Care Physician PEDRO LOCKETT MD [phone] Nurse Navigator Norah Sanders RN, MSN, MA, OCN [phone] Diagnosis Primary adenocarcinoma of middle lobe of [...] symptoms from the cancer. According to the [place] [employer], about 20 percent of cancer [...] 12/22/2015 Last Revised: 12/21/2015 Summary of the [place] [employer] Guidelines on Nutrition and Physical [...] Below is a general list of resources: [place] [employer] www.cancer.org 868-877-8084 Provides cancer information, resources, and emotional support to patients and their family members. [place] [employer] www.lung.org [place] [employer] of Clinical Oncology www.cancer.net 871-335-1340 Provides trusted and up-to-date cancer information, developed by the world's leading cancer doctors. [employer] www.cancercare.org 864-424-7866 Cancer Support Community www.cancersupportcommunity.org A national nonprofit organization, which provides free professional help to people with cancer through counseling, education, information and referral and direct financial information. National Cancer [place] www.cancer.gov 037-881-4500 Provides cancer information such as statistics, prevention, early detection, survivor networks and emotional support. National Comprehensive Cancer Network www.nccn.com Lung Cancer [place] www.lungcanceralliance.org Provides information about follow-up care for cancer.
[2025-02-03 10:53] VITALS: BP 143/83; PULSE 87; RESP 18; TEMP 36.1; O2SAT 100; BMI 24.0
[2025-02-03] MEDS: LACTATED RINGERS 1,000 ML 150 ML IV CONT (11:04)
--- NOTE | 2025-02-03 11:42 | WPDANESEPPF ---
Anes - Initial Pre Proc Eval Procedure: Operation Date: 02/03/25 12:30 Proposed Procedures p EGD & Diagnostic Colonoscopy - Norberto Chacon MD Date/Time: 02/03/25 11:42 Surgeon: Norberto Chacon MD Pre Op Diagnosis: GERD, Family hx of colon cancer,screening Patient Data Age: 64 Gender: F Height: 1.65 m Weight: 65.5 kg Last Vital Signs Temp 36.1 C L 02/03/25 10:53 Pulse 87 02/03/25 10:53 Resp 18 02/03/25 10:53 BP 143/83 H 02/03/25 10:53 Pulse Ox 100 02/03/25 10:53 O2 Del Method Room Air 02/03/25 10:53 Allergies Allergy/AdvReac Type Severity Reaction Status Date / Time tramadol Allergy Unknown Dizziness Verified 02/03/25 10:52 Home Medications ?Medication ?Instructions ?Recorded ?Confirmed ?Type gabapentin 600 mg tablet 600 mg PO TID 09/09/19 02/03/25 History ropinirole 0.5 mg tablet 0.5 - 1 mg PO HS 09/09/19 02/03/25 History venlafaxine 75 mg capsule,extended 225 mg PO HS 09/09/19 02/03/25 History release 24 hr levetiracetam 500 mg tablet 500 mg PO Q12H 10/24/19 02/03/25 History verapamil 240 mg tablet,extended 240 mg PO HS 09/23/20 02/03/25 History release ascorbate calcium (vitamin C) 500 500 mg PO DAILY 08/26/21 02/03/25 History mg tablet folic acid 800 mcg tablet 0.8 mg PO DAILY 08/26/21 02/03/25 History oxycodone myristate 9 mg capsule 9 mg PO BID 01/15/24 02/03/25 History sprinkle extended release 12 hr(DON'T CRUSH) (Xtampza ER) albuterol 90 mcg-budesonide 80 2 inh inhalation QID PRN shortness 06/15/24 02/03/25 Rx mcg/actuation HFA aerosol inhaler of breath #10.7 grams budesonide-formoterol HFA 160 2 puff inhalation Q12H #10.2 grams 06/15/24 02/03/25 Rx mcg-4.5 mcg/actuation aerosol inhaler (Symbicort) Patient hx anesthesia problems: none Family hx anesthesia problems: none Results Review: All pre-operative results and documents have been reviewed as part of the pre-operative evaluation. [facility] Past Medical History Medical History Neuropathy RLS (restless legs syndrome) Anxiety COPD (chronic obstructive pulmonary disease) Seizures Dyslipidemia Lung cancer metastatic to brain Obesity Hypertension Lung cancer Breast CA Adenomatous colon polyp GERD (gastroesophageal reflux disease) Epigastric pain Bloating Rectal bleeding Surgical History Surgical History History of lobectomy of lung S/P lumpectomy of breast Family History Family History Father Carcinoma of colon Mother Family history of renal cell carcinoma Anginal pain Breast cancer Sibling Breast cancer Sibling Breast cancer Social History Social History Smoking packs per day: 2 Smoking cigarettes per day: 40.0 Years smoked: 50 Smoking pack-years: 100.00 Smoking status: Current every day smoker Tobacco type: cigarettes Second hand tobacco smoke exposure: Yes Additional smoking assessment comments: 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 Substance use: current Substance use type: marijuana Other substance usage details: smokes 10 hits daily Last use: 08/15/24 Lack of Transportation: No Lack of Food: Never True Current Housing: I Have Housing Concerned About Future Housing: No Difficulty Paying Gas/Electric Bills: No Difficulty Paying for Meds: No Currently Unemployed: No Education: Grade School Difficulty w/ Childcare or Family Care: No Spiritual care concerns: No Anes - Eval Final PreProcedure Day of Procedure 02/03/25 11:42 Patient weight: normal Heart: regular rate and rhythm Lungs: clear to auscultation Airway: Mallampati scale class II Last oral intake: >/= 8 hours ASA classification: IV Emergent: no Anesthetic plan: proceed Anesthesia type and monitoring: general GIVS and standard monitoring Results Review: All pre-operative results and documents have been reviewed as part of the pre-operative evaluation. Informed Consent: The patient's anesthetic plan and its attendant risks and benefits were discussed with the patient/family/POA. Questions were solicited and answers provided to the satisfaction of the patient/family/POA.
--- NOTE | 2025-02-03 12:11 | PM.HPGS ---
History of Present Illness History of Present Illness Consent: Risks, benefits, and alternatives have been discussed and questions answered. Patient agrees to proceed with procedure. Chief complaint: GERD, Family hx of colon cancer,screening Narrative: Elisha Garcia is a 64 year old female here for egd and colonoscopy, last time 2012, almost 9 months of diarrhea, also gerd. Father had colon cancer. Review of Systems Review of Systems: All systems reviewed & are unremarkable except as noted in HPI and below PMFSH Past Medical History Medical History Neuropathy RLS (restless legs syndrome) Anxiety COPD (chronic obstructive pulmonary disease) Seizures Dyslipidemia Lung cancer metastatic to brain Obesity Hypertension Lung cancer Breast CA Adenomatous colon polyp GERD (gastroesophageal reflux disease) Epigastric pain Bloating Rectal bleeding Surgical History Surgical History History of lobectomy of lung S/P lumpectomy of breast Family History Family History Father Carcinoma of colon Mother Family history of renal cell carcinoma Anginal pain Breast cancer Sibling Breast cancer Sibling Breast cancer Social History Social History Smoking packs per day: 2 Smoking cigarettes per day: 40.0 Years smoked: 50 Smoking pack-years: 100.00 Smoking status: Current every day smoker Tobacco type: cigarettes Second hand tobacco smoke exposure: Yes Additional smoking assessment comments: 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 Substance use: current Substance use type: marijuana Other substance usage details: smokes 10 hits daily Last use: 08/15/24 Lack of Transportation: No Lack of Food: Never True Current Housing: I Have Housing Concerned About Future Housing: No Difficulty Paying Gas/Electric Bills: No Difficulty Paying for Meds: No Currently Unemployed: No Education: Grade School Difficulty w/ Childcare or Family Care: No Spiritual care concerns: No Meds Home Medications and Allergies Home Medications ?Medication ?Instructions ?Recorded ?Confirmed ?Type gabapentin 600 mg tablet 600 mg PO TID 09/09/19 02/03/25 History ropinirole 0.5 mg tablet 0.5 - 1 mg PO HS 09/09/19 02/03/25 History venlafaxine 75 mg capsule,extended 225 mg PO HS 09/09/19 02/03/25 History release 24 hr levetiracetam 500 mg tablet 500 mg PO Q12H 10/24/19 02/03/25 History verapamil 240 mg tablet,extended 240 mg PO HS 09/23/20 02/03/25 History release ascorbate calcium (vitamin C) 500 500 mg PO DAILY 08/26/21 02/03/25 History mg tablet folic acid 800 mcg tablet 0.8 mg PO DAILY 08/26/21 02/03/25 History oxycodone myristate 9 mg capsule 9 mg PO BID 01/15/24 02/03/25 History sprinkle extended release 12 hr(DON'T CRUSH) (Xtampza ER) albuterol 90 mcg-budesonide 80 2 inh inhalation QID PRN shortness 06/15/24 02/03/25 Rx mcg/actuation HFA aerosol inhaler of breath #10.7 grams budesonide-formoterol HFA 160 2 puff inhalation Q12H #10.2 grams 06/15/24 02/03/25 Rx mcg-4.5 mcg/actuation aerosol inhaler (Symbicort) Allergies Allergy/AdvReac Type Severity Reaction Status Date / Time tramadol Allergy Unknown Dizziness Verified 02/03/25 10:52 Vital Signs Vital Signs - 24 hr 02/03/25 10:53 Temperature 97 F L Pulse Rate 87 Respiratory Rate 18 Blood Pressure 143/83 H Pulse Oximetry 100 Oxygen Delivery Room Air Exam Const: General: comfortable and no acute distress HENMT: Face/Nose/Sinus: Normal nares present Eyes: General: appearance normal, both eyes and all related structures Neck: Neck: no JVD Resp: Auscultation: clear to auscultation bilaterally Cardio: Rate: regular rate Rhythm: regular rhythm GI: Inspection: non-distended GI Palp: Yes Soft to palpation Skin: General skin exam: normal color Extrem: General: normal to inspection Psych: Mental Status: mental status grossly normal Assessment and Plan Assessment and plan (1) Epigastric pain: Code(s): R10.13 - Epigastric pain Status: Acute Assessment and Plan: egd (2) GERD (gastroesophageal reflux disease): Qualifiers: Esophagitis presence: esophagitis presence not specified Qualified Code(s): K21.9 - Gastro-esophageal reflux disease without esophagitis Code(s): K21.9 - Gastro-esophageal reflux disease without esophagitis Status: Acute (3) Diarrhea: Qualifiers: Diarrhea type: unspecified type Qualified Code(s): R19.7 - Diarrhea, unspecified Code(s): R19.7 - Diarrhea, unspecified Status: Acute Assessment and Plan: colonoscopy (4) Family history of colon cancer: Code(s): Z80.0 - Family history of malignant neoplasm of digestive organs Status: Acute
--- NOTE | 2025-02-03 12:24 | S_PTH ---
PATIENT: Elisha Garcia LOC: [facility]#:[id number] AGE/SX: 64/F ROOM: RE02/03/[address]: Norberto Chacon MD : 1960 BED: DIS: 02/03/2025 SPEC #: [id number] RECD: 02/03/25 13:06 STATUS: CONCETTA MAI #: [id number] CLARA: 02/03/25 12:[address]: Norberto Chacon DEPT: [facility] Surgical RECD BY: Kayla Pleitez MLT, ([facility]) ENTERED: 02/03/25 13:07 SP TYPE: Surgical OTHR DR: Pedro Schmitz MD Tissues: A - Small Bowel Bx B - Gastric Biopsy C - Esophageal Biopsy D - Colon Biopsy E - Colon Polypectomy Procedures: Hematoxylin and Eosin Stain Gross and Microscopic Level 4
--- NOTE | 2025-02-03 12:30 | SUR.OPER ---
EGD end time 1227. Colonoscopy start time 1230
[2025-02-03 12:41] VITALS: BP 107/60; PULSE 57; RESP 20; O2SAT 99
[2025-02-03 12:51] VITALS: BP 97/69; PULSE 87; RESP 16; O2SAT 99
[2025-02-03 13:01] VITALS: BP 106/61; PULSE 84; RESP 16; O2SAT 99
== END 2025-02-03 13:13 | disposition home or self-care (01) ==
PROVIDERS: PCP Internal Medicine; Referring Provider Nurse Practitioner Family; Visit Provider Internal Medicine Gastroenterology
PROC: 0DJ08ZZ Inspection of Upper Intestinal Tract, Via Natural or Artificial Opening Endoscopic (ICD-10-PCS; CPT 45378; principal; 2025-02-03 12:30)
DX: Z12.11 Encounter for screening for malignant neoplasm of colon (principal); D12.8 Benign neoplasm of rectum; K64.8 Other hemorrhoids; K21.00 Gastro-esophageal reflux disease with esophagitis, without bleeding; K22.2 Esophageal obstruction; K44.9 Diaphragmatic hernia without obstruction or gangrene; K29.50 Unspecified chronic gastritis without bleeding; I10 Essential (primary) hypertension; G25.81 Restless legs syndrome; F41.9 Anxiety disorder, unspecified; J44.9 Chronic obstructive pulmonary disease, unspecified; R56.9 Unspecified convulsions; E78.5 Hyperlipidemia, unspecified; G62.9 Polyneuropathy, unspecified; F17.210 Nicotine dependence, cigarettes, uncomplicated; F12.90 Cannabis use, unspecified, uncomplicated; Z79.891 Long term (current) use of opiate analgesic; Z79.51 Long term (current) use of inhaled steroids; Z98.890 Other specified postprocedural states; Z85.3 Personal history of malignant neoplasm of breast; Z85.841 Personal history of malignant neoplasm of brain; Z85.118 Personal history of other malignant neoplasm of bronchus and lung; Z80.0 Family history of malignant neoplasm of digestive organs; Z80.3 Family history of malignant neoplasm of breast; Z80.51 Family history of malignant neoplasm of kidney
CPT/HCPCS: 43239; 45380; 45385; 88305; J2003; J2704; J7120